=== PATIENT | female | born 1980 | race Two or more races ===

== ENCOUNTER 2019-11-30 06:59 | Outpatient (REF) | payer OTHER, SELFPAY | END 2019-11-30 07:00 | disposition home or self-care (01) | LOC: HO.LAB 06:59 | PROVIDERS: PCP Internal Medicine; Visit Provider Internal Medicine | DX: Z20.828 Contact with and (suspected) exposure to other viral communicable diseases (principal) | CPT/HCPCS: 36415; 87635 ==

== ENCOUNTER 2019-12-07 09:50 | Outpatient (REF) | payer OTHER, SELFPAY ==
[2019-12-07 10:12] LABS: COVID-19 Test Negative (Negative)
== END 2019-12-07 09:51 | disposition home or self-care (01) ==
LOC: HO.LAB 09:50
PROVIDERS: PCP Internal Medicine; Visit Provider Internal Medicine
DX: Z20.828 Contact with and (suspected) exposure to other viral communicable diseases (principal)
CPT/HCPCS: 87635

== ENCOUNTER → 2019-12-27 08:55 | Outpatient (BNVA) | payer OTHER, SELFPAY | PROVIDERS: PCP Internal Medicine; Referring Provider Internal Medicine; Visit Provider Orthopaedic Surgery | DX: R20.0 Anesthesia of skin (principal); M25.532 Pain in left wrist; M25.531 Pain in right wrist | CPT/HCPCS: 20526; 99212; J1100 ==

== ENCOUNTER 2020-08-03 09:44 | Outpatient (REF) | payer OTHER, SELFPAY ==
[2020-08-03 10:36] LABS: MANUAL DIFF FLAG NO
[2020-08-03 10:40] LABS: Basophils Percent Auto 0.1 % (0-2); Eosinophils Absolute Auto 0.1 X10*3/uL (0.0-0.4); Hematocrit 38.6 % (37-47); Hemoglobin 12.6 g/dl (12.0-16.0); Imm Gran Abs Auto 0.02 X10*3/uL (0.00-0.03); Imm Gran Pct Auto 0.3 % (0.0-0.4); Lymphocytes Absolute Auto 2.2 X10*3/uL (1.2-4.9); Lymphocytes Percent Auto 32.1 % (20-40); Mean Corpuscular HGB Conc 32.6 g/dl (31.0-35.0); Mean Corpuscular Hemoglobin 29.9 pg (27.0-33.0); Mean Corpuscular Volume 91.7 fL (80-98); Mean Platelet Volume 9.2 fL (9.4-12.3); Monocytes Absolute Auto 0.4 X10*3/uL (0.1-1.2); Monocytes Percent Auto 5.6 % (2-11); Neutrophils Absolute Auto 4.1 X10*3/uL (2.0-8.3); Neutrophils Percent Auto 60.9 % (45-73); Platelet Count 282 X10*3/uL (160-400); Red Blood Count 4.21 X10*6/uL (4.20-5.50); Red Cell Distribution Width 12.9 % (11.0-16.0); White Blood Count 6.8 X10*3/uL (4.8-10.8)
[2020-08-03 11:02] LABS: Alanine Aminotransferase 54 U/L (0-31); Albumin Level 4.1 g/dL (3.5-5.0); Alkaline Phosphatase 93 U/L (39-117); Anion Gap 11 (12-20); Aspartate Amino Transferase 46 U/L (5-31); Bilirubin Total 0.6 mg/dL (0.0-1.0); Blood Urea Nitrogen 12 mg/dL (9-16); Calcium 9.4 mg/dL (8.4-10.2); Carbon Dioxide 26 mmol/L (22-29); Chloride 103 mmol/L (96-108); Cholesterol 225 mg/dL; Estimated Glomerular Filt Rate > 60; Glucose Fasting 105 mg/dL (60-99); HDL Cholesterol 42 mg/dL; LDL Cholesterol Calculated 159 mg/dl; Potassium 4.3 mmol/L (3.3-5.1); Sodium 136 mmol/L (135-145); Total Protein 7.7 g/dL (6.5-8.0); Triglycerides 121 mg/dL
[2020-08-07 14:17] LABS: Vitamin D 25-OH, D2 <4 ng/mL; Vitamin D 25-OH, D3 20 ng/mL; Vitamin D 25-OH, Total 20 ng/mL (30-100)
== END 2020-08-03 09:45 | disposition home or self-care (01) ==
LOC: HO.LAB 09:44
PROVIDERS: PCP Internal Medicine; Visit Provider Internal Medicine
DX: D64.9 Anemia, unspecified (principal); R20.0 Anesthesia of skin; E78.5 Hyperlipidemia, unspecified; E55.9 Vitamin D deficiency, unspecified
CPT/HCPCS: 36415; 80053; 80061; 82306; 85025

== ENCOUNTER 2020-08-17 10:57 | Outpatient (REF) | payer OTHER, SELFPAY ==
--- NOTE | ~2020-08-17 | MM_ITS ---
EXAMINATION: MM SCREENING DIGITAL BREAST TOMOSYNTHESIS, BILATERAL CLINICAL INFORMATION: Screening. Asymptomatic. The lifetime risk of breast cancer based on the Tyrer-Cuzick Model is 7%. COMPARISON: Mammography: 06/11/2016 (baseline). TECHNIQUE: Digital breast tomosynthesis is performed in both the craniocaudal and mediolateral oblique views along with computer-aided detection (CAD). Synthesized 2D images are generated from the tomosynthesis. FINDINGS: There are scattered areas of fibroglandular density (ACR BI-RADS breast composition Category b). There are no significant masses, abnormal calcifications, or other abnormalities. Parenchymal pattern is similar to prior exam. The axilla and skin contours are unremarkable. MM/MM tomosynthesis screening BI IMPRESSION: No mammographic evidence of malignancy. ASSESSMENT: BI-RADS 1: Negative RECOMMENDATION: Routine annual mammography screening. This patient's information was entered into a reminder system with a target due date for their next mammogram.
== END 2020-08-17 10:58 | disposition home or self-care (01) ==
LOC: HO.MAMMO 10:57
PROVIDERS: PCP Internal Medicine; Visit Provider Internal Medicine
DX: Z12.31 Encounter for screening mammogram for malignant neoplasm of breast (principal)
CPT/HCPCS: 77063; 77067

== ENCOUNTER 2020-09-21 09:02 | Outpatient (REF) | payer OTHER, SELFPAY ==
--- NOTE | 2020-09-21 09:05 | EMG_ITS ---
Bilateral median and ulnar motor and sensory studies were performed. Bilateral radial sensory studies were performed and paraspinal muscles were tested. IMPRESSION: 1. [id number]-[id number] right median neuropathy across carpal tunnel. 2. Mild bilateral ulnar neuropathy across cubital tunnel. MD HODA Parr/MARCUS / [phone]
== END 2020-09-21 09:03 | disposition home or self-care (01) ==
LOC: HO.NEURO 09:02
PROVIDERS: Visit Provider Orthopaedic Surgery
DX: R20.0 Anesthesia of skin (principal)
CPT/HCPCS: 95886; 95911

== ENCOUNTER → 2020-10-11 09:50 | Outpatient (BNVA) | payer OTHER, SELFPAY | PROVIDERS: Visit Provider Orthopaedic Surgery | DX: G56.03 Carpal tunnel syndrome, bilateral upper limbs (principal); G56.23 Lesion of ulnar nerve, bilateral upper limbs | CPT/HCPCS: 99202 ==

== ENCOUNTER 2020-11-07 05:55 | Day surgery (SDC) | payer OTHER, SELFPAY ==
--- NOTE | 2020-11-06 08:17 | P.CONAN_ITS ---
Documented by User: Mabel Waller NP 11/06/20 08:18 HPI - Anesthesia Eval Consult details Narrative: 40yo F for Left Carpal Tunnel Release, Cubital Tunnel Release vs Transposition *Multiple med allergies* PMFSH Active Problems Active Problems: All Active Problems (Updated 10/11/20 @ 10:47 by Jaye Moran MD) Cubital tunnel syndrome on right (Acute) Carpal tunnel syndrome of right wrist (Acute) Cubital tunnel syndrome on left (Acute) Carpal tunnel syndrome of left wrist (Acute) Dyslipidemia (Acute) Hypovitaminosis D (Acute) GERD (gastroesophageal reflux disease) (Acute) Acute insomnia (Acute) Constipation (Acute) Bilateral hand numbness (Acute) Past Medical History Medical History Acute insomnia Bilateral hand numbness Constipation Dyslipidemia GERD (gastroesophageal reflux disease) Hypovitaminosis D Family History Family History Father Hypertension Diabetes CVD (cardiovascular disease) Mother Hypertension Surgical History Surgical History History of section History of tubal ligation Social History Social History Housing: Apartment Alcohol intake: current Alcohol intake frequency: holidays/special occasions only Alcohol type: wine Patient Tobacco Use Status: Never used Tobacco e-Cigarette/Vaping Use: Never Used Second Hand Smoke Exposure: No Use of substances other than those prescribed or required for medical reasons: No Are you DNR?: No Advance Directives: No Advance Directives Information Provided: Yes service: No Current occupational status: employed 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 Allergies Allergy/AdvReac Type Severity Reaction Status Date / Time hydrocodone [HYDROCODONE] Allergy Severe DIFFICULTY Verified 11/07/20 06:35 BREATHING codeine Allergy Intermediate shortness Verified 11/07/20 06:35 of breath cyclobenzaprine Allergy Intermediate sleepiness Verified 11/07/20 06:35 nabumetone Allergy Intermediate inadequate Verified 11/07/20 06:35 response tramadol Allergy Intermediate sleepiness Verified 11/07/20 06:35 mirtazapine [Remeron] AdvReac Intermediate vomiting Verified 11/07/20 06:35 docusate [From Colace] AdvReac Mild Vomiting Verified 11/07/20 06:35 Exam Exam Date and Time: November 06, 202017 Pertinent Lab Results Pertinent Lab Results: Laboratory Tests 08/03/20 08/03/20 10:10 10:10 WBC 6.8 Hgb 12.6 Hct 38.6 Plt Count 282 Sodium 136 Potassium 4.3 Chloride 103 Carbon Dioxide 26 BUN 12 Creatinine 0.70 Assessment and Plan Assessment Anesthesia Assessment: Chart Reviewed Documented by User: Keyshawn Duque MD 11/07/20 09:48 PMFSH Past Medical History Medical History Acute insomnia Bilateral hand numbness Constipation Dyslipidemia GERD (gastroesophageal reflux disease) Hypovitaminosis D Family History Family History Father Hypertension Diabetes CVD (cardiovascular disease) Mother Hypertension Family history of problems with anesthesia: No Surgical History Surgical History History of section History of tubal ligation History of Problems with Anesthesia: No Social History Social History Housing: Apartment Alcohol intake: current Alcohol intake frequency: holidays/special occasions only Alcohol type: wine Patient Tobacco Use Status: Never used Tobacco e-Cigarette/Vaping Use: Never Used Second Hand Smoke Exposure: No Use of substances other than those prescribed or required for medical reasons: No Are you DNR?: No Advance Directives: No Advance Directives Information Provided: Yes service: No Current occupational status: employed 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 Allergies Allergy/AdvReac Type Severity Reaction Status Date / Time hydrocodone [HYDROCODONE] Allergy Severe DIFFICULTY Verified 11/07/20 06:35 BREATHING codeine Allergy Intermediate shortness Verified 11/07/20 06:35 of breath cyclobenzaprine Allergy Intermediate sleepiness Verified 11/07/20 06:35 nabumetone Allergy Intermediate inadequate Verified 11/07/20 06:35 response tramadol Allergy Intermediate sleepiness Verified 11/07/20 06:35 mirtazapine [Remeron] AdvReac Intermediate vomiting Verified 11/07/20 06:35 docusate [From Colace] AdvReac Mild Vomiting Verified 11/07/20 06:35 Exam Airway Mallampati Class: III TM Dist: >3cm Loose/Missing/Broken Teeth: No Assessment and Plan Assessment Anesthesia Assessment: Anesthesia Plan Discussed Final Anesthetic Review Family History of Problems with Anesthesia: No History of Problems with Anesthesia: No NPO: Yes ASA Class: II Final Preanesthetic Review: No Changes in Pt Med Stat, Meds/Allgs Chart Reviewed, Consent Obtained/Reviewed and Anes Risks/Benef Reviewed Patient Risk: Intermediate Procedure Risk: Low Anesthetic Plan Anesthetic Plan: GA Disposition: Standard PACU
[2020-11-07] VITALS (8 sets, daily range): BP systolic 126–147; BP diastolic 74–98; PULSE 97–113; RESP 18; TEMP 36.2–36.3; O2SAT 94–97; BMI 36.6
[2020-11-07] MEDS: Lactated Ringers 1,000 ML 100 ML IVCONT (06:51)
--- NOTE | 2020-11-07 09:49 | P.OP_ITS ---
Operative Note Operative Note Date of Service: 11/07/20 Narrative: Operative Note Narrative: Preop diagnosis: 1. Left Cubital tunnel syndrome 2. Left carpal tunnel syndrome Postop diagnosis: Same Procedure: 1. Left Cubital Tunnel Release 2. Left carpal tunnel release Surgeon: Jaye Moran MD Anesthesia: General Findings: Thickening and fibrosis about the ulnar nerve at the cubital tunnel Implants: none Tourniquet time: 41 minutes EBL: 5.0 ml Specimen: none Drains: None Complications: None Disposition: Brought to the recovery room in stable condition Plan: Follow-up in 10-14 days for wound check, and suture removal Indications: The patient is 40 years old woman with left cubital tunnel syndrome and left carpal tunnel syndrome . The risks and benefits of operative treatment, including but not limited to risk of damage to blood vessels, nerves, tendons, infection, recurrence, persistent pain or numbness, incomplete resolution of preoperative symptoms, or need for further surgery were discussed with the patient and they wished to proceed with surgery. Procedure: Once consent was obtained patient was brought back to the operating suite and placed in the operating table in a supine position. Perioperative antibiotics and anesthesia was administered by the anesthesia team. The limb was prepped and draped in a standard surgical fashion, and a sterile tourniquet applied to the proximal aspect of the left upper extremity. The limb was elevated exsanguinated with Esmarch bandage and the tourniquet inflated to 250 mm of mercury for a total tourniquet time of 41 minutes. Once assured that we had a good block, a 1.5 cm longitudinal incision was made centered over the left carpal tunnel. The incision was made through the skin to the subcutaneous tissues using a #15 blade. Dissection was made down to the l evel of the transverse carpal ligament with care being taken to protect the palmar cutaneous nerve. Once the transverse carpal ligament was clearly visualized, a longitudinal incision was made in the transverse carpal ligament 1st using a #15 blade, then using tenotomy scissors under direct visualization. Care was taken to look for and protect the motor branch of the median nerve when seen in this area. Once satisfied with our carpal tunnel release the wound was irrigated with normal saline. A 6 cm gently curved but longitudinally oriented incision was made centered over the cubital tunnel of the left upper extremity. Incision was made through the skin to the subcutaneous tissues using a # 15 Blade. I then dissected down to the level of the medial epicondyle and the cubital tunnel using tenotomy scissors. Care was taken to protect the lateral antebrachial cutaneous nerve. The ulnar nerve was identified just posterior to the medial intermuscular septum. Small vessel loop was passed behind the ulnar nerve and used to apply gentle traction to facilitate our release. The ulnar nerve was released in a proximal to distal direction using tenotomy in iris scissors while directly visualizing and protecting the ulnar nerve. Thickening and fibrosis was appreciated about the ulnar nerve as it passed through the cubital tunnel. The ulnar nerve was assessed as I passed the elbow through full flexion and extension and was found to remain stable within its groove. At this point the tourniquet was deflated and hemostasis obtained with a brief period of local pressure and bipolar electrocautery. The wound was copiously irrigated with normal saline. The subcutaneous layer was closed with 4-0 Vicryl suture, and the skin edges were reapproximated with 5-0 nylon suture. The wound was infiltrated with some 0.25% plain Marcaine for postop pain control and sterile dressings and a posterior splint was applied. The patient appears to have tolerated the procedure well and with no complications. All digits were well vascularized conclusion of the case.
--- NOTE | 2020-11-07 09:49 | MHC.SHP ---
Pre-Procedural Eval Section A Date of Service: 11/07/20 The patient is an INPATIENT: No Changes since office visit: No Cold of Flu in the past 2 weeks, No New Medical Problems, No Changes in Medication and No Patient answered all questions The History & Physical has been completed within 30 days and I have reviewed it.: Yes Section B Chief Complaint: Lesions of Ulnar Nerves, Carpal Tunnel Syndrome Allergies: Allergies Allergy/AdvReac Type Severity Reaction Status Date / Time hydrocodone [HYDROCODONE] Allergy Severe DIFFICULTY Verified 11/07/20 06:35 BREATHING codeine Allergy Intermediate shortness Verified 11/07/20 06:35 of breath cyclobenzaprine Allergy Intermediate sleepiness Verified 11/07/20 06:35 nabumetone Allergy Intermediate inadequate Verified 11/07/20 06:35 response tramadol Allergy Intermediate sleepiness Verified 11/07/20 06:35 mirtazapine [Remeron] AdvReac Intermediate vomiting Verified 11/07/20 06:35 docusate [From Colace] AdvReac Mild Vomiting Verified 11/07/20 06:35 Plan I have reviewed the history and physical and performed a pertinent physical examination on my patient. No changes have occurred unless specified.
== END 2020-11-07 11:15 | disposition home or self-care (01) ==
PROVIDERS: PCP Internal Medicine; Visit Provider Orthopaedic Surgery
PROC: (CPT 64721; principal; 2020-11-07 07:30)
DX: G56.02 Carpal tunnel syndrome, left upper limb (principal); G56.22 Lesion of ulnar nerve, left upper limb; Z88.8 Allergy status to other drugs, medicaments and biological substances
CPT/HCPCS: 64721; 64718; J0690; J1100; J1170; J1885; J2250; J2405; J2550; J3010

== ENCOUNTER 2020-11-10 15:06 | Emergency (ER) | payer OTHER, SELFPAY ==
--- NOTE | ~2020-11-10 | CT_ITS ---
EXAMINATION: CT ABDOMEN AND PELVIS WITHOUT CONTRAST CLINICAL INFORMATION: Status post hysterectomy with no bowel movement x5 days COMPARISON: 12/25/2017, CT abdomen pelvis TECHNIQUE: Multidetector volumetric imaging was performed from the superior aspect of the liver through the pubic symphysis. Sagittal and coronal reformatted images were obtained on the technologist's workstation. This CT examination was performed using dose optimization techniques as appropriate, variously including the following: *Automated exposure control *Adjustment of mA and/or kV according to patient size (this includes techniques or standardized protocols for targeted exams where dose is matched to indication/reason for exam; i.e. extremities or head) *Use of iterative reconstruction technique DLP: 788 mGy-cm FINDINGS: LUNG BASES: Right basilar atelectasis is present slightly worse than previously noted. No pleural effusions or abnormal lung masses seen LIVER, GALLBLADDER, AND BILIARY TREE: The liver is enlarged measuring 21.7 cm in greatest cephalocaudad dimension and demonstrates decreased attenuation consistent with hepatic steatosis. Some focal fatty sparing is present around the gallbladder fossa. Similar findings were present on the 12/25/2017 study. No bile duct dilatation or focal worrisome hepatic mass seen. The gallbladder is unremarkable with no evidence of radiopaque gallstones, gallbladder wall thickening, or obvious pericholecystic inflammatory changes. PANCREAS: Unremarkable. SPLEEN: Unremarkable. ADRENAL GLANDS: Unremarkable. KIDNEYS AND URETERS: The kidneys are normal in size, shape, and attenuation. No hydronephrosis, hydroureter, or calculi seen. Previously seen obstructing distal right ureteral calculus with associated right-sided hydronephrosis has resolved. No perinephric stranding. BLADDER: Unremarkable. GASTROINTESTINAL TRACT: Moderate stool is present in the rectum, with gas and stool seen throughout the remainder of the colon. The small and large bowel are unremarkable. No evidence of bowel obstruction. The appendix is unremarkable. ABDOMINAL WALL: No significant hernia is appreciated. LYMPH NODES: Normal. VASCULAR: Unremarkable. PELVIC VISCERA: Status post hysterectomy. Both ovaries are seen. Bilateral ovarian cysts are present. OSSEOUS STRUCTURES: Unremarkable. CT/CT abdomen pelvis wo con IMPRESSION: 1. Enlarged fatty liver 2. Moderate stool in the rectum but no evidence of obstruction.
--- NOTE | 2020-11-10 16:46 | ED.ABDPAIN ---
HPI - Abdominal Pain General Chief Complaint: Abdominal Pain Stated Complaint: vag bleeding? Time Seen by Provider: 11/10/20 16:43 Source: patient, family and aviation neuropsychologist Mode of arrival: ambulatory Limitations: no limitations History of Present Illness HPI narrative: 40-year-old female came in for evaluation of constipation for the past 5 days. 40-year-old female came in unable to have bowel movement for the past 5 days, patient used multiple oxrd-xcx-zcviboc laxative with no improvement, patient feels mild nausea but no vomiting, mild but diffuse abdominal discomfort, patient sometimes try to push out for bowel movement sees bright red blood per rectum, patient also feels small hemorrhoid in the outside. Patient had a history of hysterectomy and tubal ligation in the past, never had a history of small-bowel obstruction. Related Data Previous Rx's Medication Instructions Recorded Wrist Brace (arm brace) #1 ea NS 12/28/19 arm brace (Wrist Brace) #1 ea 12/29/19 pantoprazole 40 mg tablet,delayed 40 mg PO DAILY 90 Days #90 tab 06/01/20 release cholecalciferol (vitamin D3) 25 25 mcg PO DAILY 90 Days #90 cap 10/03/20 mcg (1,000 unit) capsule gabapentin 100 mg capsule 100 mg PO BEDTIME 90 Days #90 cap 10/03/20 lactulose 10 gram/15 mL oral 10 g PO BEDTIME PRN 30 Days #237 ml 10/03/20 solution rosuvastatin 5 mg tablet 5 mg PO DAILY 90 Days #90 tab 10/03/20 trazodone 50 mg tablet 50 mg PO BEDTIME PRN 90 Days #90 10/03/20 tab oxycodone-acetaminophen 5 mg-325 1 - 2 tab PO Q6H PRN #20 tab 11/07/20 mg tablet Allergies Allergy/AdvReac Type Severity Reaction Status Date / Time hydrocodone [HYDROCODONE] Allergy Severe DIFFICULTY Verified 11/07/20 06:35 BREATHING codeine Allergy Intermediate shortness Verified 11/07/20 06:35 of breath cyclobenzaprine Allergy Intermediate sleepiness Verified 11/07/20 06:35 nabumetone Allergy Intermediate inadequate Verified 11/07/20 06:35 response tramadol Allergy Intermediate sleepiness Verified 11/07/20 06:35 mirtazapine [Remeron] AdvReac Intermediate vomiting Verified 11/07/20 06:35 docusate [From Colace] AdvReac Mild Vomiting Verified 11/07/20 06:35 Review of Systems Review of Systems All other systems are reviewed and are negative Constitutional: Reports as per HPI and Reports no additional constitutional complaints Eyes: Reports as per HPI and Reports no additional eye complaints Reports system reviewed and no additional complaints, except as documented Cardiovascular: Reports as per HPI and Reports no additional cardiovascular complaints Respiratory: Reports as per HPI and Reports no additional respiratory complaints Gastrointestinal: Reports as per HPI and Reports no additional gastrointestinal complaints Genitourinary: Reports no additional female genitourinary complaints Musculoskeletal: Reports no additional musculoskeletal complaints Skin/Breast: Reports system reviewed and no additional complaints, except as docu Psychiatric: Reports no additional psychiatric complaints Endocrine: Reports no additional endocrine complaints Hematologic/Lymphatic: Reports no additional hematologic/lymphatic complaints Allergic/Immunologic: Reports no additional allergic/immunologic complaints Reports system reviewed and no additional complaints, except as documented and Reports Abnormal speech present Physical Exam Vital Signs: Vital Signs: Last Vital Signs Temp 98.6 F 11/10/20 20:38 Pulse 87 11/10/20 20:38 Resp 16 11/10/20 20:38 BP 146/81 H 11/10/20 20:38 Pulse Ox 95 11/10/20 20:38 Body Mass Index 37.5 Vital signs have been reviewed as appeared to be correct. Blood pressure normal. Heart rate normal. Respiration rate normal. Temperature normal. Oxygen saturation normal. Appearance: Alert. Oriented X3. No acute distress. Head: Normal external exam. Normocephalic. Atraumatic. No Thomas signs noted. No raccoon eyes noted Eyes: PERRLA. EOMI. Conjunctiva and sclera normal. Eyelids normal. ENT: TM's Normal. Pharynx normal. Uvula midline. Moist mucous membranes. No trismus noted. No drooling noted. No muffled voice noted. Neck: Normal inspection. Neck supple. FROM. No adenopathy. Thyroid Normal. No meningeal signs. No neck mass noted. CVS: Normal heart rate and rhythm. Heart sound normal. No murmurs noted. Pulses normal throughout. Respiratory: No respiratory distress. Painless inspiration. Breath sounds normal. No wheezes/rales/rhonchi noted. Chest nontender. No accessory muscle usage noted or decreased air movement noted. Abdomen: Soft, mild diffuse tenderness more on the left side than the right side, no rebound tenderness, no guarding. Bowel sounds normal in all 4 quadrants. No distention noted. No organomegaly noted. No visible injury noted. Back: No CVA tenderness. Full range of motion noted. Skin: Skin warm and dry. Normal skin color. Normal skin turgor. No rashes/lesions/lacerations noted. Extremities: No lower extremity edema. Extremities exhibit normal range of motion. Extremities nontender. Neuro: Oriented X 3. Cranial nerve exam: II-XII are grossly intact No motor deficit. No sensory deficit. Reflexes normal. Course Course Course Narrative: Assessment and plan. 40-year-old female came in with abdominal pain and no bowel movement, physical exam and CT of the abdomen pelvis revealed constipation. Patient was received rectal enema and milk of magnesia still unable to move her bowel, will discharge, instructed to drink plenty of fluids until have a bowel movement. Few WBCs in the UA but patient has no symptoms to indicate UTI. MDM - Abdominal Pain Lab Data Attestation: I reviewed the patient's lab results. Result diagrams: 11/10/20 17:06 11/10/20 17:06 Labs: Lab Results 11/10/20 11/10/20 11/10/20 Range/Units 17:06 17:06 17:07 WBC 10.1 (4.8-10.8) X10*3/uL RBC 4.17 L (4.20-5.50) X10*6/uL Hgb 12.8 (12.0-16.0) g/dl Hct 37.1 (37-47) % MCV 89.0 (80-98) fL MCH 30.7 (27.0-33.0) pg MCHC 34.5 (31.0-35.0) g/dl RDW 12.8 (11.0-16.0) % Plt Count 282 (160-400) X10*3/uL MPV 8.9 L (9.4-12.3) fL Immature Gran % (Auto) 0.4 (0.0-0.4) % Neut % (Auto) 72.3 (45-73) % Lymph % (Auto) 20.4 (20-40) % Castro % (Auto) 5.7 (2-11) % Eos % (Auto) 1.0 (0-4) % Baso % (Auto) 0.2 (0-2) % Lymph # (Auto) 2.1 (1.2-4.9) X10*3/uL Castro # (Auto) 0.6 (0.1-1.2) X10*3/uL Eos # (Auto) 0.1 (0.0-0.4) X10*3/uL Baso # (Auto) 0.0 (0.0-0.2) X10*3/uL Abs Immat Gran (auto) 0.04 H (0.00-0.03) X10*3/uL Absolute Neuts (auto) 7.3 (2.0-8.3) X10*3/uL Absolute Nucleated RBC 0.000 (0.0-0.012) X10*3/uL Nucleated RBC % (auto) 0.0 (0.0-0.2) /100WBC Sodium 135 (135-145) mmol/L Potassium 4.1 (3.3-5.1) mmol/L Chloride 101 (96-108) mmol/L Carbon Dioxide 25 (22-29) mmol/L Anion Gap 13 (12-20) BUN 14 (9-16) mg/dL Creatinine 0.69 (0.5-1.4) mg/dL Estim Creat Clear Calc 113.9 Estimated GFR > 60 Random Glucose 138 H (60-115) mg/dL Calcium 9.1 (8.4-10.2) mg/dL Total Bilirubin 0.7 (0.0-1.0) mg/dL Direct Bilirubin 0.2 (0.0-0.5) mg/dL AST 58 H (5-31) U/L ALT 59 H (0-31) U/L Alkaline Phosphatase 88 (39-117) U/L Total Protein 7.5 (6.5-8.0) g/dL Albumin 4.1 (3.5-5.0) g/dL Lipase 28 (8-78) U/L Beta HCG, Quant < 2 mIU/mL Urine Color Urine Appearance Urine pH (5.0-8.0) Ur Specific [place] (1.005-1.025) Urine Protein (NEG-TRACE) MG/DL Urine Glucose (UA) (NEG) MG/DL Urine Ketones (NEG) MG/DL Urine Blood (NEG) Urine Nitrite (NEG) Ur Leukocyte Esterase (NEG) Urine RBC (0) /HPF Urine WBC (0-4) /HPF Ur Squamous Epith Cells /LPF Amorphous Sediment /LPF Urine Bacteria /LPF Urine Yeast /HPF Stool Occult Blood POSITIVE (NEGATIVE) 11/10/20 Range/Units 20:41 WBC (4.8-10.8) X10*3/uL RBC (4.20-5.50) X10*6/uL Hgb (12.0-16.0) g/dl Hct (37-47) % MCV (80-98) fL MCH (27.0-33.0) pg MCHC (31.0-35.0) g/dl RDW (11.0-16.0) % Plt Count (160-400) X10*3/uL MPV (9.4-12.3) fL Immature Gran % (Auto) (0.0-0.4) % Neut % (Auto) (45-73) % Lymph % (Auto) (20-40) % Castro % (Auto) (2-11) % Eos % (Auto) (0-4) % Baso % (Auto) (0-2) % Lymph # (Auto) (1.2-4.9) X10*3/uL Castro # (Auto) (0.1-1.2) X10*3/uL Eos # (Auto) (0.0-0.4) X10*3/uL Baso # (Auto) (0.0-0.2) X10*3/uL Abs Immat Gran (auto) (0.00-0.03) X10*3/uL Absolute Neuts (auto) (2.0-8.3) X10*3/uL Absolute Nucleated RBC (0.0-0.012) X10*3/uL Nucleated RBC % (auto) (0.0-0.2) /100WBC Sodium (135-145) mmol/L Potassium (3.3-5.1) mmol/L Chloride (96-108) mmol/L Carbon Dioxide (22-29) mmol/L Anion Gap (12-20) BUN (9-16) mg/dL Creatinine (0.5-1.4) mg/dL Estim Creat Clear Calc Estimated GFR Random Glucose (60-115) mg/dL Calcium (8.4-10.2) mg/dL Total Bilirubin (0.0-1.0) mg/dL Direct Bilirubin (0.0-0.5) mg/dL AST (5-31) U/L ALT (0-31) U/L Alkaline Phosphatase (39-117) U/L Total Protein (6.5-8.0) g/dL Albumin (3.5-5.0) g/dL Lipase (8-78) U/L Beta HCG, Quant mIU/mL Urine Color STRAW Urine Appearance CLEAR Urine pH 8.0 (5.0-8.0) Ur Specific [place] 1.010 (1.005-1.025) Urine Protein NEG (NEG-TRACE) MG/DL Urine Glucose (UA) NEG (NEG) MG/DL Urine Ketones NEG (NEG) MG/DL Urine Blood NEG (NEG) Urine Nitrite NEG (NEG) Ur Leukocyte Esterase 1+ H (NEG) Urine RBC 1-4 (0) /HPF Urine WBC 5-9 H (0-4) /HPF Ur Squamous Epith Cells 1+ /LPF Amorphous Sediment TRACE /LPF Urine Bacteria TRACE /LPF Urine Yeast TRACE /HPF Stool Occult Blood (NEGATIVE) Imaging Data CT scan - abdomen: Radiologist's impression: 1.? Enlarged fatty liver 2.? Moderate stool in the rectum but no evidence of obstruction.? Discharge Plan Discharge Clinical Impression: Constipation Patient Disposition: Home, Self-Care Instructions: Constipation (ED) Prescriptions: No Action oxycodone-acetaminophen 5-325 mg tablet 1 - 2 tab PO Q6H PRN (Reason: pain) Qty: 20 RF: 0 pantoprazole 40 mg tablet,delayed release (DR/EC) 40 mg PO DAILY 90 Days Qty: 90 RF: 3 lactulose 10 gram/15 mL solution 10 g PO BEDTIME PRN (Reason: constipation) 30 Days Qty: 237 RF: 3 trazodone 50 mg tablet 50 mg PO BEDTIME PRN (Reason: sleep) 90 Days Qty: 90 RF: 1 cholecalciferol (vitamin D3) 25 mcg (1,000 unit) capsule 25 mcg PO DAILY 90 Days Qty: 90 RF: 1 rosuvastatin 5 mg tablet 5 mg PO DAILY 90 Days Qty: 90 RF: 1 gabapentin 100 mg capsule 100 mg PO BEDTIME 90 Days Qty: 90 RF: 0 (DME) Wrist Brace Misc See Rx Instructions .ROUTE .MEDSUPPLY Qty: 1 RF: 0 (DME) Wrist Brace Misc See Rx Instructions .ROUTE .MEDSUPPLY Qty: 1 RF: 0 Referrals: Mirta Kitchen MD [Primary Care Provider] - 2 days PMFSH Past Medical History Medical History Acute insomnia Bilateral hand numbness Constipation Dyslipidemia GERD (gastroesophageal reflux disease) Hypovitaminosis D Surgical History History of section History of tubal ligation Family History Family History Father Hypertension Diabetes CVD (cardiovascular disease) Mother Hypertension Social History Social History Housing: Apartment Alcohol intake: current Alcohol intake frequency: does not drink Alcohol type: wine Patient Tobacco Use Status: Never used Tobacco e-Cigarette/Vaping Use: Never Used Second Hand Smoke Exposure: No Use of substances other than those prescribed or required for medical reasons: No Advance Directives: No Advance Directives Information Provided: No service: No Current occupational status: employed 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
[2020-11-10 16:52] VITALS: BP 138/85; PULSE 90; RESP 16; TEMP 37.3; O2SAT 96; BMI 37.5
[2020-11-10 17:12] LABS: MANUAL DIFF FLAG NO
[2020-11-10] MEDS: 0.9 % Sodium Chloride 1,000 ML 999 ML IVCONT (17:12)
[2020-11-10 17:13] LABS: Basophils Percent Auto 0.2 % (0-2); Eosinophils Absolute Auto 0.1 X10*3/uL (0.0-0.4); Hematocrit 37.1 % (37-47); Hemoglobin 12.8 g/dl (12.0-16.0); Imm Gran Abs Auto 0.04 X10*3/uL (0.00-0.03); Imm Gran Pct Auto 0.4 % (0.0-0.4); Lymphocytes Absolute Auto 2.1 X10*3/uL (1.2-4.9); Lymphocytes Percent Auto 20.4 % (20-40); Mean Corpuscular HGB Conc 34.5 g/dl (31.0-35.0); Mean Corpuscular Hemoglobin 30.7 pg (27.0-33.0); Mean Platelet Volume 8.9 fL (9.4-12.3); Monocytes Absolute Auto 0.6 X10*3/uL (0.1-1.2); Monocytes Percent Auto 5.7 % (2-11); Neutrophils Absolute Auto 7.3 X10*3/uL (2.0-8.3); Neutrophils Percent Auto 72.3 % (45-73); Platelet Count 282 X10*3/uL (160-400); Red Blood Count 4.17 X10*6/uL (4.20-5.50); Red Cell Distribution Width 12.8 % (11.0-16.0); White Blood Count 10.1 X10*3/uL (4.8-10.8)
[2020-11-10] MEDS: Milk of Magnesia 30 ML ORAL.SUSP PO (17:13)
[2020-11-10] MEDS: Mineral OiL enema 133 ML ENEMA PR (17:14)
[2020-11-10 17:21] LABS: OBS Int Ctl Valid YES; OBS1 POSITIVE (NEGATIVE)
--- NOTE | 2020-11-10 17:35 | PC.NURSE ---
IV established, labs sent. Pt given MOM and mineral oil enema given, pt attempting to retain at this time
[2020-11-10 17:37] LABS: Alanine Aminotransferase 59 U/L (0-31); Albumin Level 4.1 g/dL (3.5-5.0); Alkaline Phosphatase 88 U/L (39-117); Anion Gap 13 (12-20); Aspartate Amino Transferase 58 U/L (5-31); Bilirubin Direct 0.2 mg/dL (0.0-0.5); Bilirubin Total 0.7 mg/dL (0.0-1.0); Blood Urea Nitrogen 14 mg/dL (9-16); Calcium 9.1 mg/dL (8.4-10.2); Carbon Dioxide 25 mmol/L (22-29); Chloride 101 mmol/L (96-108); Creatinine Clr Calc Pharmacy 113.9; Estimated Glomerular Filt Rate > 60; Glucose Random 138 mg/dL (60-115); Lipase 28 U/L (8-78); Potassium 4.1 mmol/L (3.3-5.1); Sodium 135 mmol/L (135-145); Total Protein 7.5 g/dL (6.5-8.0)
[2020-11-10 18:59] VITALS: BP 139/83; PULSE 82; RESP 16; TEMP 37.1; O2SAT 99
[2020-11-10 19:13] LABS: HCG Quantitative < 2 mIU/mL
[2020-11-10 20:38] VITALS: BP 146/81; PULSE 87; RESP 16; TEMP 37; O2SAT 95
[2020-11-10 21:00] LABS: Appearance Urine CLEAR; Color Urine STRAW; Glucose Urine UA NEG (NEG); Leukocyte Esterase Urine 1+ (NEG); Nitrite Urine NEG (NEG); UACC Culture Trigger YES; Urine Blood NEG (NEG); Urine Ketones NEG (NEG); Urine Protein NEG (NEG-TRACE)
[2020-11-10 21:23] LABS: Squamous Epithelial Cell Urine 1+ /LPF
[2020-11-10 21:25] LABS: Amorphous Sediment Urine TRACE /LPF; Bacteria Urine TRACE /LPF
== END 2020-11-10 22:29 | disposition home or self-care (01) ==
PROVIDERS: Emergency Provider Emergency Medicine; PCP Internal Medicine
DX: K59.00 Constipation, unspecified (principal); R10.9 Unspecified abdominal pain; Z79.899 Other long term (current) drug therapy
CPT/HCPCS: 36415; 74176; 80048; 80076; 81001; 81003; 82272; 83690; 84702; 85025; 87086; 96360; 99284

== ENCOUNTER → 2020-11-20 10:25 | Outpatient (BNVA) | payer OTHER, SELFPAY | PROVIDERS: PCP Internal Medicine; Visit Provider Orthopaedic Surgery | DX: G56.22 Lesion of ulnar nerve, left upper limb (principal); G56.02 Carpal tunnel syndrome, left upper limb | CPT/HCPCS: 99212 ==

== ENCOUNTER 2021-07-05 12:59 | Emergency (ER) | payer OTHER, SELFPAY ==
[2021-07-05 14:24] VITALS: BP 164/95; PULSE 82; RESP 16; TEMP 36.4; O2SAT 98; BMI 37.3
[2021-07-05 14:40] LABS: MANUAL DIFF FLAG NO
[2021-07-05 14:44] LABS: Basophils Percent Auto 0.2 % (0-2); Eosinophils Absolute Auto 0.1 X10*3/uL (0.0-0.4); Eosinophils Percent Auto 1.6 % (0-4); Hematocrit 37.1 % (37.0-47.0); Hemoglobin 12.6 g/dl (12.0-16.0); Imm Gran Abs Auto 0.03 X10*3/uL (0.00-0.03); Imm Gran Pct Auto 0.3 % (0.0-0.4); Lymphocytes Absolute Auto 1.9 X10*3/uL (1.2-4.9); Lymphocytes Percent Auto 22.3 % (20-40); Mean Corpuscular Hemoglobin 30.4 pg (27.0-33.0); Mean Corpuscular Volume 89.6 fL (80.0-98.0); Mean Platelet Volume 8.9 fL (9.4-12.3); Monocytes Absolute Auto 0.5 X10*3/uL (0.1-1.2); Monocytes Percent Auto 5.5 % (2-11); Neutrophils Percent Auto 70.1 % (45-73); Platelet Count 271 X10*3/uL (160-400); Red Blood Count 4.14 X10*6/uL (4.20-5.50); White Blood Count 8.6 X10*3/uL (4.8-10.8)
[2021-07-05 14:57] LABS: Alanine Aminotransferase 21 U/L (0-31); Alkaline Phosphatase 82 U/L (39-117); Anion Gap 9 (12-20); Aspartate Amino Transferase 15 U/L (5-31); Bilirubin Direct 0.2 mg/dL (0.0-0.5); Bilirubin Total 0.3 mg/dL (0.0-1.0); Blood Urea Nitrogen 17 mg/dL (9-16); Calcium 9.2 mg/dL (8.4-10.2); Carbon Dioxide 27 mmol/L (22-29); Chloride 104 mmol/L (96-108); Creatinine Clr Calc Pharmacy 107.8; Estimated Glomerular Filt Rate > 60; Glucose Random 90 mg/dL (60-115); Potassium 4.2 mmol/L (3.3-5.1); Sodium 136 mmol/L (135-145); Total Protein 7.9 g/dL (6.5-8.0)
--- NOTE | 2021-07-05 17:21 | ED_ITS ---
HPI - Abdominal Pain General Chief Complaint: Abdominal Pain Stated Complaint: upper abd pain Time Seen by Provider: 07/05/21 17:19 Source: patient Mode of arrival: ambulatory Limitations: language barrier ([place]ai[place]ese-speaking neuropsychology medical consultant utilized) History of Present Illness HPI narrative: Patient presents to the emergency department for evaluation of epigastric pain. Has associated intermittent nausea. She reports that this pain has been present for 5 years. Reports that 5 years ago she was referred to a GI doctor where they did an endoscopy and she was told that she has gastritis. She reports that since then her primary care doctor has been managing her symptoms for this. Reports that she previously was taking omeprazole but this was not helping her symptoms. She was switched to Protonix at some point, she is unaware of how long she has been taking Protonix. Despite this however, she states that her pain continues to be constant without any improvement. Expresses concern that her maternal aunt has a history of stomach cancer, and her mother has a history of pancreatic cancer. Denies fevers, chills, sore throat, chest pain, palpitations, shortness of breath, difficulty breathing, nausea, vomiting, lower abdominal pain, diarrhea, constipation, urinary frequency urinary urgency. Related Data Previous Rx's Medication Instructions Recorded cholecalciferol (vitamin D3) 25 25 mcg PO DAILY 90 Days #90 cap 02/13/21 mcg (1,000 unit) capsule pantoprazole 40 mg tablet,delayed 40 mg PO DAILY 90 Days #90 tab 02/13/21 release rosuvastatin 5 mg tablet 5 mg PO DAILY 90 Days #90 tab 02/13/21 naproxen 500 mg tablet 500 mg PO BID PRN 30 Days #60 tab 04/25/21 bupropion HCl 150 mg 24 hr tablet, 150 mg PO QAM 90 Days #90 tab 06/14/21 extended release zolpidem 5 mg tablet 5 mg PO BEDTIME PRN 30 Days #30 tab 06/14/21 famotidine 10 mg tablet 10 mg PO BID #28 tab 07/05/21 Allergies Allergy/AdvReac Type Severity Reaction Status Date / Time hydrocodone [HYDROCODONE] Allergy Severe DIFFICULTY Verified 06/14/21 14:13 BREATHING codeine Allergy Intermediate shortness Verified 06/14/21 14:13 of breath cyclobenzaprine Allergy Intermediate sleepiness Verified 06/14/21 14:13 nabumetone Allergy Intermediate inadequate Verified 06/14/21 14:13 response mirtazapine [Remeron] AdvReac Intermediate vomiting Verified 06/14/21 14:13 docusate [From Colace] AdvReac Mild Vomiting Verified 06/14/21 14:13 Review of Systems Review of Systems Constitutional : No Weight loss, No Fever, No Chills ENT/Mouth :? No sore throat, No Rhinorrhea Eyes: No Swelling, No Redness Cardiovascular : No Chest Pain, No SOB, No Edema Respiratory : No Cough, No Sputum, No Wheezing Gastrointestinal : No Nausea, no Vomiting, no Diarrhea, positive abdominal pain, No Hematochezia, No Melena Genitourinary : No Dysuria, No Urinary Frequency, No Hematuria, No Urgency? Musculoskeletal : No joint pain, No Myalgias, No Joint Swelling Skin : No Skin Lesions, No rash Neuro : No Weakness, No Numbness, No Dizziness, No Headache Yes all other systems are reviewed and are negative PMFSH Past Medical History Attestation statement: The following information was validated with the patient. Source: old records reviewed Medical History Acute insomnia Bilateral hand numbness Bloody stools Constipation Dyslipidemia GERD (gastroesophageal reflux disease) Hypovitaminosis D Insomnia Moderate recurrent major depression Right sided sciatica Surgical History History of section History of tubal ligation Family History Family History Father Hypertension Diabetes CVD (cardiovascular disease) Mother Hypertension Social History Social History Housing: Apartment Alcohol intake: current Alcohol intake frequency: holidays/special occasions only Alcohol type: wine Patient Tobacco Use Status: Never used Tobacco e-Cigarette/Vaping Use: Never Used Second Hand Smoke Exposure: No Advance Directives: No Advance Directives Information Provided: No service: No Current occupational status: employed 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 Hypertension? Heart rate normal.? Respiration rate normal. Temperature normal.? Oxygen saturation normal. Appearance: Alert.?Oriented to person, place and time. No acute distres s.?Normal affect. Eyes: Pupils equal, round and reactive to light.? ENT: Pharynx normal.?? Neck: Normal inspection.? Neck supple.?? CVS: Heart sounds normal. Normal heart rate and rhythm.? Pulses normal.?? Respiratory: No respiratory distress.? Lung sounds clear to auscultation bilaterally?? Abdomen: Soft with epigastric tenderness to palpation Normoactive bowel sounds. No pulsatile mass.?? Skin: Skin warm and dry.? Normal skin color.? Extremities: No lower extremity edema.? Neuro: Moves all extremities spontaneously. Sensation intact bilaterally. No motor deficits Ambulates with normal steady gait. Course Course Course Narrative: Patient is a 41-year-old female with a past medical history of depression, dyslipidemia, and GERD. According to notes from her primary care provider she has been treated for GERD with esophagitis, currently prescribed pantoprazole. She states that her pain has been present for 5 years and constant. Reports that today her pain is no different than her baseline however she is concerned because it is not improving or resolving despite taking medication prescribed by her doctor. Reports that she has not seen a stitching machine setter in the past 5 years. Of note patient did have a CT of her abdomen in October 2020 with no significant findings, had enlarged fatty liver and moderate stool in the rectum but no evidence of obstruction. No evidence of cholelithiasis or cholecystitis, pancreas at that time was unremarkable. CBC and CMP obtained in triage were un remarkable. symptoms remain unchanged according to history. At this time a add on a troponin, EKG, trial GI cocktail, check urinalysis and urine . Disposition pending results. Reevaluation(s) Reevaluation #1: Troponin <3.5, EKG reveals normal sinus rhythm, no acute concern for ischemia, heart score 1, unlikely ACS. Urine test is negative. Urinalysis without sign of infection. History and physical exam not consistent with GI perforation, GI bleed, AAA, aortic dissection, ectopic , DKA. Not consistent with strangulated hernia, bowel obstruction, pulmonary embolism, mesenteric ischemia, myocardial infarction. Discussed plan of care for discharge home with patient, outpatient follow-up with Primary Care, sent referral to Gastroenterology advised patient to contact our office to arrange for follow-up regarding her chronic epigastric pain with GERD, provided new prescription for famotidine to take in addition to her pantoprazole, discussed reasons to return back to the emergency department, all questions answered. Time: 18:17 MDM - Abdominal Pain Lab Data Result diagrams: 07/05/21 14:35 07/05/21 14:35 Labs: Lab Results 07/05/21 07/05/21 07/05/21 Range/Units 14:35 14:35 14:35 WBC 8.6 (4.8-10.8) X10*3/uL RBC 4.14 L (4.20-5.50) X10*6/uL Hgb 12.6 (12.0-16.0) g/dl Hct 37.1 (37.0-47.0) % MCV 89.6 (80.0-98.0) fL MCH 30.4 (27.0-33.0) pg MCHC 34.0 (31.0-35.0) g/dl RDW 12.0 (11.0-16.0) % Plt Count 271 (160-400) X10*3/uL MPV 8.9 L (9.4-12.3) fL Immature Gran % (Auto) 0.3 (0.0-0.4) % Neut % (Auto) 70.1 (45-73) % Lymph % (Auto) 22.3 (20-40) % [place] % (Auto) 5.5 (2-11) % Eos % (Auto) 1.6 (0-4) % Baso % (Auto) 0.2 (0-2) % Lymph # (Auto) 1.9 (1.2-4.9) X10*3/uL [place] # (Auto) 0.5 (0.1-1.2) X10*3/uL Eos # (Auto) 0.1 (0.0-0.4) X10*3/uL Baso # (Auto) 0.0 (0.0-0.2) X10*3/uL Abs Immat Gran (auto) 0.03 (0.00-0.03) X10*3/uL Absolute Neuts (auto) 6.0 (2.0-8.3) x10*3/uL Absolute Nucleated RBC 0.000 (0.0-0.012) X10*3/uL Nucleated RBC % (auto) 0.0 (0.0-0.2) /100WBC Sodium 136 (135-145) mmol/L Potassium 4.2 (3.3-5.1) mmol/L Chloride 104 (96-108) mmol/L Carbon Dioxide 27 (22-29) mmol/L Anion Gap 9 L (12-20) BUN 17 H (9-16) mg/dL Creatinine 0.72 (0.5-1.4) mg/dL Estim Creat Clear Calc 107.8 Estimated GFR > 60 Random Glucose 90 (60-115) mg/dL Calcium 9.2 (8.4-10.2) mg/dL Total Bilirubin 0.3 (0.0-1.0) mg/dL Direct Bilirubin 0.2 (0.0-0.5) mg/dL AST 15 D (5-31) U/L ALT 21 (0-31) U/L Alkaline Phosphatase 82 (39-117) U/L Troponin I High Sens < 3.5 (<3.5-17.0) ng/L Total Protein 7.9 (6.5-8.0) g/dL Albumin 4.0 (3.5-5.0) g/dL Lipase 30 (8-78) U/L Urine Color Urine Appearance Urine pH (5.0-8.0) Ur Specific [place] (1.005-1.025) Urine Protein (NEG-TRACE) MG/DL Urine Glucose (UA) (NEG) MG/DL Urine Ketones (NEG) MG/DL Urine Blood (NEG) Urine Nitrite (NEG) Ur Leukocyte Esterase (NEG) Urine Test (NEGATIVE) 07/05/21 07/05/21 Range/Units 17:37 17:37 WBC (4.8-10.8) X10*3/uL RBC (4.20-5.50) X10*6/uL Hgb (12.0-16.0) g/dl Hct (37.0-47.0) % MCV (80.0-98.0) fL MCH (27.0-33.0) pg MCHC (31.0-35.0) g/dl RDW (11.0-16.0) % Plt Count (160-400) X10*3/uL MPV (9.4-12.3) fL Immature Gran % (Auto) (0.0-0.4) % Neut % (Auto) (45-73) % Lymph % (Auto) (20-40) % [place] % (Auto) (2-11) % Eos % (Auto) (0-4) % Baso % (Auto) (0-2) % Lymph # (Auto) (1.2-4.9) X10*3/uL [place] # (Auto) (0.1-1.2) X10*3/uL Eos # (Auto) (0.0-0.4) X10*3/uL Baso # (Auto) (0.0-0.2) X10*3/uL Abs Immat Gran (auto) (0.00-0.03) X10*3/uL Absolute Neuts (auto) (2.0-8.3) x10*3/uL Absolute Nucleated RBC (0.0-0.012) X10*3/uL Nucleated RBC % (auto) (0.0-0.2) /100WBC Sodium (135-145) mmol/L Potassium (3.3-5.1) mmol/L Chloride (96-108) mmol/L Carbon Dioxide (22-29) mmol/L Anion Gap (12-20) BUN (9-16) mg/dL Creatinine (0.5-1.4) mg/dL Estim Creat Clear Calc Estimated GFR Random Glucose (60-115) mg/dL Calcium (8.4-10.2) mg/dL Total Bilirubin (0.0-1.0) mg/dL Direct Bilirubin (0.0-0.5) mg/dL AST (5-31) U/L ALT (0-31) U/L Alkaline Phosphatase (39-117) U/L Troponin I High Sens (<3.5-17.0) ng/L Total Protein (6.5-8.0) g/dL Albumin (3.5-5.0) g/dL Lipase (8-78) U/L Urine Color YELLOW Urine Appearance CLEAR Urine pH 6.0 (5.0-8.0) Ur Specific [place] >= 1.030 H (1.005-1.025) Urine Protein NEG (NEG-TRACE) MG/DL Urine Glucose (UA) NEG (NEG) MG/DL Urine Ketones NEG (NEG) MG/DL Urine Blood NEG (NEG) Urine Nitrite NEG (NEG) Ur Leukocyte Esterase NEG (NEG) Urine Test NEGATIVE (NEGATIVE) Discharge Plan Discharge Clinical Impression: Chronic epigastric pain, GERD (gastroesophageal reflux disease) Patient Disposition: Home, Self-Care Instructions: Gastroesophageal Reflux Disease (ED) Additional Instructions: Continue taking the pantoprazole as prescribed by your primary care provider. You may trial taking famotidine in addition to this, I have sent a prescription to your pharmacy. You have been provided with the contact information for Gastroenterology, please contact them to schedule a visit regarding your chronic abdominal pain. You may return to the emergency department any new or worsening symptoms or concerns. Contin?e tomando el pantoprazol seg?n lo prescrito por fernando proveedor de atenci?n primaria. Puede intentar ewa famotidina adem?s de esto, le he enviado jody receta a fernando farmacia. Se le proporcion? la informaci?n de contacto de Gastroenterolog?a, comun?quese con ellos para programar jody visita con respecto a fernando dolor abdominal cr?abundio. Puede regresar al departamento de emergencias si presenta s?ntomas o inquietudes nuevos o que empeoran. Prescriptions: New famotidine 10 mg tablet 10 mg PO BID Qty: 28 0RF No Action naproxen 500 mg tablet 500 mg PO BID PRN (Reason: pain) 30 Days Qty: 60 0RF pantoprazole 40 mg tablet,delayed release (DR/EC) 40 mg PO DAILY 90 Days Qty: 90 3RF rosuvastatin 5 mg tablet 5 mg PO DAILY 90 Days Qty: 90 1RF cholecalciferol (vitamin D3) 25 mcg (1,000 unit) capsule 25 mcg PO DAILY 90 Days Qty: 90 1RF bupropion HCl 150 mg tablet extended release 24 hr 150 mg PO QAM 90 Days Qty: 90 1RF zolpidem 5 mg tablet 5 mg PO BEDTIME PRN (Reason: sleep) 30 Days Qty: 30 0RF Referrals: Stephanie Kapadia MD [Physician] - 2 weeks (Chronic epigastric pain) Print Language: [place]ese
--- NOTE | 2021-07-05 17:42 | ECG_ITS ---
Test Reason : EPIGASTRIC PAIN Blood Pressure : / mmHG Vent. Rate : 076 BPM Atrial Rate : 076 BPM P-R Int : 152 ms QRS Dur : 082 ms QT Int : 394 ms P-R-T Axes : 029 003 016 degrees QTc Int : 443 ms Normal sinus rhythm Normal ECG When compared with ECG of 02-AUG-2016 18:22, No significant change was found Referred By: Shameka Henrandez Electronically Signed By:KATIE MULLIGAN MD
[2021-07-05 17:48] LABS: Appearance Urine CLEAR; Color Urine YELLOW; Glucose Urine UA NEG (NEG); Leukocyte Esterase Urine NEG (NEG); Nitrite Urine NEG (NEG); Specific Gravity - Urine >= 1.030 (1.005-1.025); Urine Blood NEG (NEG); Urine Ketones NEG (NEG); Urine Protein NEG (NEG-TRACE)
[2021-07-05 17:53] LABS: UPreg QC Valid YES; Urine Pregnancy NEGATIVE (NEGATIVE)
[2021-07-05] MEDS: Lidocaine HCl Viscous 2 % 15 ML SOLUTION MUCOUS MEM (18:00)
[2021-07-05] MEDS: Famotidine 20 MG TABLET PO (18:00)
[2021-07-05] MEDS: Magnesium Hydrox/Alum Hydrox 30 ML ORAL.SUSP PO (18:00)
[2021-07-05 18:02] LABS: Lipase 30 U/L (8-78)
[2021-07-05 18:14] LABS: Troponin-I High Sensitivity < 3.5 ng/L (<3.5-17.0)
== END 2021-07-05 18:43 | disposition home or self-care (01) ==
PROVIDERS: Nurse Practitioner Family; Emergency Provider Emergency Medicine; PCP Internal Medicine
DX: R10.13 Epigastric pain (principal); G89.29 Other chronic pain; K21.9 Gastro-esophageal reflux disease without esophagitis; Z79.899 Other long term (current) drug therapy; Z80.0 Family history of malignant neoplasm of digestive organs
CPT/HCPCS: 36415; 80048; 80076; 81003; 81025; 83690; 84484; 85025; 93005; 99282; 99283

== ENCOUNTER 2021-08-02 17:52 | Emergency (ER) | payer OTHER, SELFPAY ==
--- NOTE | ~2021-08-02 | CT_ITS ---
EXAMINATION: CT ABDOMEN AND PELVIS WITHOUT CONTRAST CLINICAL INFORMATION: Abdominal pain. COMPARISON: 11/10/2020 TECHNIQUE: Multidetector volumetric imaging was performed from the superior aspect of the liver through the pubic symphysis. Sagittal and coronal reformatted images were obtained on the technologist's workstation. This CT examination was performed using dose optimization techniques as appropriate, variously including the following: *Automated exposure control *Adjustment of mA and/or kV according to patient size (this includes techniques or standardized protocols for targeted exams where dose is matched to indication/reason for exam; i.e. extremities or head) *Use of iterative reconstruction technique DLP: 833 mGy-cm FINDINGS: LUNG BASES: Mild dependent atelectasis. LIVER, GALLBLADDER, AND BILIARY TREE: Relative hypoattenuation of the hepatic parenchyma is consistent with steatosis. Focal fatty sparing is present in the gallbladder fossa. Craniocaudal diameter of 22.5 is consistent with hepatomegaly. The gallbladder is unremarkable with no evidence of radiopaque gallstones, gallbladder wall thickening, or obvious pericholecystic inflammatory changes. PANCREAS: Unremarkable. SPLEEN: Unremarkable. ADRENAL GLANDS: Unremarkable. KIDNEYS AND URETERS: The kidneys are normal in size, shape, and attenuation. No hydronephrosis, hydroureter, or calculi seen. No perinephric stranding. BLADDER: Unremarkable. GASTROINTESTINAL TRACT: Stomach, small bowel, and colon are normal in caliber. No bowel wall thickening. No intraperitoneal free air or free fluid. Appendix is normal. ABDOMINAL WALL: There is a incisional hernia in the right infraumbilical region projecting over the right rectus abdominis. This is fat-containing, though a portion of the sigmoid colon resides at the neck. Small fat-containing umbilical hernia. LYMPH NODES: No adenopathy. VASCULAR: Unremarkable. PELVIC VISCERA: There is a 3 cm simple appearing left ovarian cyst which likely corresponds to a follicular cyst. No recommend follow-up. Uterus is diminutive, possibly partially absent. OSSEOUS STRUCTURES: No acute osseous findings. Mild osteoarthritis in the hips and SI joints. CT/CT abdomen pelvis wo con IMPRESSION: 1. Fat-containing incisional ventral abdominal hernia in the infraumbilical. No acute abnormality pelvis. 2. Hepatic steatosis with hepatomegaly.
[2021-08-02 18:07] VITALS: BP 168/98; PULSE 104; RESP 19; TEMP 36.6; O2SAT 98; BMI 40.8
[2021-08-02 18:22] LABS: MANUAL DIFF FLAG NO
[2021-08-02 18:23] LABS: Appearance Urine CLEAR; Color Urine YELLOW; Glucose Urine UA NEG (NEG); Leukocyte Esterase Urine NEG (NEG); Nitrite Urine NEG (NEG); Specific Gravity - Urine >= 1.030 (1.005-1.025); Urine Blood NEG (NEG); Urine Ketones NEG (NEG); Urine Protein NEG (NEG-TRACE)
[2021-08-02 18:25] LABS: Basophils Percent Auto 0.3 % (0-2); Eosinophils Absolute Auto 0.1 X10*3/uL (0.0-0.4); Eosinophils Percent Auto 0.8 % (0-4); Hematocrit 37.9 % (37.0-47.0); Hemoglobin 12.7 g/dl (12.0-16.0); Imm Gran Abs Auto 0.04 X10*3/uL (0.00-0.03); Imm Gran Pct Auto 0.4 % (0.0-0.4); Lymphocytes Absolute Auto 2.7 X10*3/uL (1.2-4.9); Lymphocytes Percent Auto 27.6 % (20-40); Mean Corpuscular HGB Conc 33.5 g/dl (31.0-35.0); Mean Corpuscular Hemoglobin 30.5 pg (27.0-33.0); Mean Corpuscular Volume 91.1 fL (80.0-98.0); Mean Platelet Volume 9.4 fL (9.4-12.3); Monocytes Absolute Auto 0.6 X10*3/uL (0.1-1.2); Monocytes Percent Auto 5.6 % (2-11); Neutrophils Absolute Auto 6.4 x10*3/uL (2.0-8.3); Neutrophils Percent Auto 65.3 % (45-73); Platelet Count 243 X10*3/uL (160-400); Red Blood Count 4.16 X10*6/uL (4.20-5.50); Red Cell Distribution Width 12.4 % (11.0-16.0); UPreg QC Valid YES; Urine Pregnancy NEGATIVE (NEGATIVE); White Blood Count 9.8 X10*3/uL (4.8-10.8)
[2021-08-02 18:42] LABS: Alanine Aminotransferase 31 U/L (0-31); Alkaline Phosphatase 81 U/L (39-117); Anion Gap 15 (12-20); Aspartate Amino Transferase 24 U/L (5-31); Bilirubin Direct < 0.2 mg/dL (0.0-0.5); Bilirubin Total 0.4 mg/dL (0.0-1.0); Blood Urea Nitrogen 15 mg/dL (9-16); Calcium 8.8 mg/dL (8.4-10.2); Carbon Dioxide 22 mmol/L (22-29); Chloride 102 mmol/L (96-108); Creatinine Clr Calc Pharmacy 96.9; Estimated Glomerular Filt Rate > 60; Glucose Random 143 mg/dL (60-115); Lipase 26 U/L (8-78); Sodium 135 mmol/L (135-145); Total Protein 7.8 g/dL (6.5-8.0)
[2021-08-02 23:40] VITALS: BP 144/91; PULSE 87; RESP 18; O2SAT 98
--- NOTE | 2021-08-02 23:56 | ED_ITS ---
HPI - Abdominal Pain General Chief Complaint: Abdominal Pain Stated Complaint: R side abd pain Time Seen by Provider: 08/02/21 22:12 Related Data Previous Rx's Medication Instructions Recorded cholecalciferol (vitamin D3) 25 25 mcg PO DAILY 90 days #90 caps 02/13/21 mcg (1,000 unit) capsule rosuvastatin 5 mg tablet 5 mg PO DAILY 90 days #90 tabs 02/13/21 naproxen 500 mg tablet 500 mg PO BID PRN pain 30 days #60 04/25/21 tabs bupropion HCl 150 mg 24 hr tablet, 150 mg PO QAM 90 days #90 tabs 06/14/21 extended release zolpidem 5 mg tablet 5 mg PO BEDTIME PRN sleep 30 days 06/14/21 #30 tabs esomeprazole magnesium 20 mg 20 mg PO DAILY 90 days #90 caps 08/01/21 capsule,delayed release Allergies Allergy/AdvReac Type Severity Reaction Status Date / Time hydrocodone [HYDROCODONE] Allergy Severe DIFFICULTY Verified 06/14/21 14:13 BREATHING codeine Allergy Intermediate shortness Verified 06/14/21 14:13 of breath cyclobenzaprine Allergy Intermediate sleepiness Verified 06/14/21 14:13 nabumetone Allergy Intermediate inadequate Verified 06/14/21 14:13 response mirtazapine [Remeron] AdvReac Intermediate vomiting Verified 06/14/21 14:13 docusate [From Colace] AdvReac Mild Vomiting Verified 06/14/21 14:13 PMFSH Past Medical History Medical History Acute insomnia Bilateral hand numbness Bloody stools Constipation Dyslipidemia GERD (gastroesophageal reflux disease) Hypovitaminosis D Insomnia Moderate recurrent major depression Right sided sciatica Surgical History History of section History of tubal ligation Family History Family History Father Hypertension Diabetes CVD (cardiovascular disease) Mother Hypertension Social History Social History Housing: Apartment Alcohol intake: current Alcohol intake frequency: holidays/special occasions only Alcohol type: wine Patient Tobacco Use Status: Never used Tobacco e-Cigarette/Vaping Use: Never Used Second Hand Smoke Exposure: No Advance Directives: No Advance Directives Information Provided: No Patient : No service: No Current occupational status: employed 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 Current occupational exposures/hazards: No Cognitive needs: No Hearing needs: No Vision needs: No Physical Exam ED Vital Signs: Vital Signs - 24 hr 08/02/21 18:07 08/02/21 23:40 Temperature 98 F Pulse Rate 104 H 87 Respiratory Rate 19 18 Blood Pressure 168/98 H 144/91 H Pulse Oximetry 98 98 Oxygen Delivery Method Room Air Room Air BMI result Body Mass Index 40.8 MDM - Abdominal Pain Lab Data Result diagrams: 08/02/21 18:14 08/02/21 18:14 Labs: Lab Results 08/02/21 08/02/21 08/02/21 Range/Units 18:14 18:14 18:14 WBC 9.8 (4.8-10.8) X10*3/uL RBC 4.16 L (4.20-5.50) X10*6/uL Hgb 12.7 (12.0-16.0) g/dl Hct 37.9 (37.0-47.0) % MCV 91.1 (80.0-98.0) fL MCH 30.5 (27.0-33.0) pg MCHC 33.5 (31.0-35.0) g/dl RDW 12.4 (11.0-16.0) % Plt Count 243 (160-400) X10*3/uL MPV 9.4 (9.4-12.3) fL Immature Gran % (Auto) 0.4 (0.0-0.4) % Neut % (Auto) 65.3 (45-73) % Lymph % (Auto) 27.6 (20-40) % [place] % (Auto) 5.6 (2-11) % Eos % (Auto) 0.8 (0-4) % Baso % (Auto) 0.3 (0-2) % Lymph # (Auto) 2.7 (1.2-4.9) X10*3/uL [place] # (Auto) 0.6 (0.1-1.2) X10*3/uL Eos # (Auto) 0.1 (0.0-0.4) X10*3/uL Baso # (Auto) 0.0 (0.0-0.2) X10*3/uL Abs Immat Gran (auto) 0.04 H (0.00-0.03) X10*3/uL Absolute Neuts (auto) 6.4 (2.0-8.3) x10*3/uL Absolute Nucleated RBC 0.000 (0.0-0.012) X10*3/uL Nucleated RBC % (auto) 0.0 (0.0-0.2) /100WBC Sodium 135 (135-145) mmol/L Potassium 4.0 (3.3-5.1) mmol/L Chloride 102 (96-108) mmol/L Carbon Dioxide 22 (22-29) mmol/L Anion Gap 15 (12-20) BUN 15 (9-16) mg/dL Creatinine 0.81 (0.5-1.4) mg/dL Estim Creat Clear Calc 96.9 Estimated GFR > 60 Random Glucose 143 H (60-115) mg/dL Calcium 8.8 (8.4-10.2) mg/dL Total Bilirubin 0.4 (0.0-1.0) mg/dL Direct Bilirubin < 0.2 (0.0-0.5) mg/dL AST 24 D (5-31) U/L ALT 31 (0-31) U/L Alkaline Phosphatase 81 (39-117) U/L Total Protein 7.8 (6.5-8.0) g/dL Albumin 4.0 (3.5-5.0) g/dL Lipase 26 (8-78) U/L Urine Color YELLOW Urine Appearance CLEAR Urine pH 6.0 (5.0-8.0) Ur Specific [place] >= 1.030 H (1.005-1.025) Urine Protein NEG (NEG-TRACE) MG/DL Urine Glucose (UA) NEG (NEG) MG/DL Urine Ketones NEG (NEG) MG/DL Urine Blood NEG (NEG) Urine Nitrite NEG (NEG) Ur Leukocyte Esterase NEG (NEG) Urine Test (NEGATIVE) Influenza Type A (PCR) (Negative) Influenza Type B (PCR) (Negative) RSV RNA Qual (PCR) (Negative) SARS-CoV-2 RNA (RT-PCR) (Negative) 08/02/21 08/03/21 Range/Units 18:14 00:15 WBC (4.8-10.8) X10*3/uL RBC (4.20-5.50) X10*6/uL Hgb (12.0-16.0) g/dl Hct (37.0-47.0) % MCV (80.0-98.0) fL MCH (27.0-33.0) pg MCHC (31.0-35.0) g/dl RDW (11.0-16.0) % Plt Count (160-400) X10*3/uL MPV (9.4-12.3) fL Immature Gran % (Auto) (0.0-0.4) % Neut % (Auto) (45-73) % Lymph % (Auto) (20-40) % [place] % (Auto) (2-11) % Eos % (Auto) (0-4) % Baso % (Auto) (0-2) % Lymph # (Auto) (1.2-4.9) X10*3/uL [place] # (Auto) (0.1-1.2) X10*3/uL Eos # (Auto) (0.0-0.4) X10*3/uL Baso # (Auto) (0.0-0.2) X10*3/uL Abs Immat Gran (auto) (0.00-0.03) X10*3/uL Absolute Neuts (auto) (2.0-8.3) x10*3/uL Absolute Nucleated RBC (0.0-0.012) X10*3/uL Nucleated RBC % (auto) (0.0-0.2) /100WBC Sodium (135-145) mmol/L Potassium (3.3-5.1) mmol/L Chloride (96-108) mmol/L Carbon Dioxide (22-29) mmol/L Anion Gap (12-20) BUN (9-16) mg/dL Creatinine (0.5-1.4) mg/dL Estim Creat Clear Calc Estimated GFR Random Glucose (60-115) mg/dL Calcium (8.4-10.2) mg/dL Total Bilirubin (0.0-1.0) mg/dL Direct Bilirubin (0.0-0.5) mg/dL AST (5-31) U/L ALT (0-31) U/L Alkaline Phosphatase (39-117) U/L Total Protein (6.5-8.0) g/dL Albumin (3.5-5.0) g/dL Lipase (8-78) U/L Urine Color Urine Appearance Urine pH (5.0-8.0) Ur Specific [place] (1.005-1.025) Urine Protein (NEG-TRACE) MG/DL Urine Glucose (UA) (NEG) MG/DL Urine Ketones (NEG) MG/DL Urine Blood (NEG) Urine Nitrite (NEG) Ur Leukocyte Esterase (NEG) Urine Test NEGATIVE (NEGATIVE) Influenza Type A (PCR) NEGATIVE (Negative) Influenza Type B (PCR) NEGATIVE (Negative) RSV RNA Qual (PCR) NEGATIVE (Negative) SARS-CoV-2 RNA (RT-PCR) NEGATIVE (Negative) Discharge Plan Discharge Clinical Impression: Abdominal pain Patient Disposition: Home, Self-Care Instructions: Abdominal Pain (ED) Additional Instructions: Le evaluaron por dolor abdominal. La tomograf?a computarizada del abdomen y la pelvis indica jody hernia abdominal ventral. Por favor, enmanuel un seguimiento con un cirujano para verde evaluaci?n. Lo remit? al Dr. Truong?yury. Por favor llame y solicite jody rebecca. El hallazgo incidental de la tomograf?a computarizada del abdomen y la pelvis indica esteatosis hep?nehemiah con agrandamiento del h?gado. Por favor, seguimiento con Gastroenterolog?a. Te remit? al Dr. Kapadia. Por favor llame y solicite jody rebecca. El hallazgo incidental de jody tomograf?a computarizada de abdomen y pelvis es un quiste manjit de ovario sandy. Puede considerar hacer un seguimiento con verde obstetra y ginec?logo. Verde presi?n arterial est? elevada. Enmanuel un seguimiento con el m?dico de atenci?n primaria, ya que es posible que necesite medicamentos para la presi?n arterial. Sloane por elegir jayesh departamento de emergencias para verde evaluaci?n. Por favor, enmanuel un seguimiento con el m?dico de atenci?n primaria seg?n sea necesario. Regrese al departamento de emergencias por cualquier s?ntoma nuevo, preocupante o que empeore. You were evaluated for abdominal pain. CT scan of abdomen and pelvis indicates a ventral abdominal hernia. Please follow-up with a surgeon for evaluation. I referred you to Dr. Ernst. Please call and request an appointment. Incidental finding of the CT scan of the abdomen pelvis indicates hepatic stea tosis with an enlarged liver. Please follow-up with Gastroenterology. I referred you to Dr. Kapadia. Please call and request an appointment. Incidental finding of CT scan abdomen pelvis is a benign left ovarian cyst. You may consider following up with your OBGYN. Your blood pressure is elevated. Please follow-up with primary care physician as you may need blood pressure medications. Thank you for choosing this emergency department for evaluation. Please follow-up with primary care physician as needed. Return to the emergency department for any new, concerning, or worsening symptoms. Prescriptions: No Action naproxen 500 mg tablet 500 mg PO BID PRN (Reason: pain) 30 Days Qty: 60 0RF esomeprazole magnesium 20 mg capsule,delayed release(DR/EC) 20 mg PO DAILY 90 Days Qty: 90 0RF rosuvastatin 5 mg tablet 5 mg PO DAILY 90 Days Qty: 90 1RF cholecalciferol (vitamin D3) 25 mcg (1,000 unit) capsule 25 mcg PO DAILY 90 Days Qty: 90 1RF bupropion HCl 150 mg tablet extended release 24 hr 150 mg PO QAM 90 Days Qty: 90 1RF zolpidem 5 mg tablet 5 mg PO BEDTIME PRN (Reason: sleep) 30 Days Qty: 30 0RF Referrals: Stephanie Kapadia MD [Physician] - (Hepatic steatosis with hepatomegaly) Domenic Ernst MD [Physician] - (Incisional ventral abdominal hernia) Mirta Kitchen MD [Primary Care Provider] - (Hypertension) Interventions: ED Discharge Assessment Last Done: 08/03/21 02:06 Discharge Date/Time: 08/03/21 02:07
--- NOTE | 2021-08-02 23:56 | ED_ITS ---
HPI - Abdominal Pain General Chief Complaint: Abdominal Pain Stated Complaint: R side abd pain Time Seen by Provider: 08/02/21 22:12 Source: patient Mode of arrival: ambulatory Limitations: no limitations History of Present Illness HPI narrative: 41-year-old female presents with right lower quadrant abdominal pain that starts the lower umbilicus radiates out to the right flank. This pain started at 05:00 o'clock today, and she did not take any medications for it. MD elicited complaint: abdominal pain and flank pain Pertinent past history: none Onset (ago): day(s) (1) Pain Consistency: constant Location: periumbilical, RLQ and groin Severity: moderate Pain scale (0-10): 7 Quality: aching Radiation: none Migration to: no migration Exacerbating factors: bowel movement and movement Relieving factors: rest Associated symptoms: denies other symptoms Related Data Patient : No Previous Rx's Medication Instructions Recorded cholecalciferol (vitamin D3) 25 25 mcg PO DAILY 90 days #90 caps 02/13/21 mcg (1,000 unit) capsule rosuvastatin 5 mg tablet 5 mg PO DAILY 90 days #90 tabs 02/13/21 naproxen 500 mg tablet 500 mg PO BID PRN pain 30 days #60 04/25/21 tabs bupropion HCl 150 mg 24 hr tablet, 150 mg PO QAM 90 days #90 tabs 06/14/21 extended release zolpidem 5 mg tablet 5 mg PO BEDTIME PRN sleep 30 days 06/14/21 #30 tabs esomeprazole magnesium 20 mg 20 mg PO DAILY 90 days #90 caps 08/01/21 capsule,delayed release Allergies Allergy/AdvReac Type Severity Reaction Status Date / Time hydrocodone [HYDROCODONE] Allergy Severe DIFFICULTY Verified 06/14/21 14:13 BREATHING codeine Allergy Intermediate shortness Verified 06/14/21 14:13 of breath cyclobenzaprine Allergy Intermediate sleepiness Verified 06/14/21 14:13 nabumetone Allergy Intermediate inadequate Verified 06/14/21 14:13 response mirtazapine [Remeron] AdvReac Intermediate vomiting Verified 06/14/21 14:13 docusate [From Colace] AdvReac Mild Vomiting Verified 06/14/21 14:13 Review of Systems Review of Systems Constitutional: No Fever, No Chills ENT/Mouth: No Ear Pain, No Hoarseness, No sore throat Eyes: No Eye Pain, No Swelling, No Redness, No Foreign Body Cardiovascular: No Chest Pain, No SOB Respiratory: No Cough, No Dyspnea Gastrointestinal: No Nausea, No Vomiting, No Diarrhea, positive abdominal Pain Genitourinary: No Dysuria, No Hematuria Musculoskeletal: No joint pain, No Myalgias, No Joint Swelling Skin: No Skin lacerations, No rash Neuro: No Weakness, No Numbness, No Paresthesias, No Loss of Consciousness, No Dizziness, No Headache Psych: No Anxiety/Panic, No Depression Heme/Lymph: no easy bruising, no Lymphadenopathy Endocrine: No Polyuria, No Polydipsia Yes all other systems are reviewed and are negative [facility] Past Medical History Attestation statement: The following information was validated with the patient. Source: old records reviewed Medical History Acute insomnia Bilateral hand numbness Bloody stools Constipation Dyslipidemia GERD (gastroesophageal reflux disease) Hypovitaminosis D Insomnia Moderate recurrent major depression Right sided sciatica Surgical History History of section History of tubal ligation Family History Family History Father Hypertension Diabetes CVD (cardiovascular disease) Mother Hypertension Social History Social History Housing: Apartment Alcohol intake: current Alcohol intake frequency: holidays/special occasions only Alcohol type: wine Patient Tobacco Use Status: Never used Tobacco e-Cigarette/Vaping Use: Never Used Second Hand Smoke Exposure: No Advance Directives: No Advance Directives Information Provided: No service: No Current occupational status: employed 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 Oriented X3. No acute distress. Eyes: Pupils equal, round and reactive to light. Sclera nonicteric. ENT: Pharynx normal. Neck: Normal inspection. Neck supple. CVS: Normal heart rate and rhythm. Pulses normal. Respiratory: No respiratory distress. Breath sounds normal. Abdomen: Soft and tender to the right lower quadrant and umbilical area. Obese. Skin: Skin warm and dry. Normal skin color. Normal skin turgor. Extremities: No lower extremity edema. Gait well-balanced well coordinated. Neuro: No motor deficit. No sensory deficit. Cranial nerves 2-12 intact. Course Course Course Narrative: 41-year-old female presents with 1 day of abdominal pain, starting at the umbilicus radiating out to the right groin and right flank. Labs drawn while patient was in the emergency department waiting room. Labs are unremarkable. Urinalysis negative. Physical exam indicates tenderness to the right lower quadrant and umbilicus. Will order CT scan of abdomen pelvis. 01:16. CT scan abdomen and pelvis shows a fat containing incisional ventral abdominal hernia, hepatic steatosis with hepatomegaly, and simple left ovarian cyst. Will have patient follow-up with a surgeon. middle school combination teacher utilized for all correspondence. Google translate utilized for discharge instructions.Patient verbalized understanding of and agrees to plan of care to discharge home. Verbalized understanding of signs and symptoms indicating need for emergent intervention MDM - Abdominal Pain Differential Diagnosis Differential diagnosis: Likely abdominal pain, acute appendicitis, calculus of kidney, constipation and diverticulitis Medical Records Attestation: I reviewed the patient's medical records. Lab Data Attestation: I reviewed the patient's lab results. Result diagrams: 08/02/21 18:14 08/02/21 18:14 Labs: Lab Results 08/02/21 08/02/21 08/02/21 Range/Units 18:14 18:14 18:14 WBC 9.8 (4.8-10.8) X10*3/uL RBC 4.16 L (4.20-5.50) X10*6/uL Hgb 12.7 (12.0-16.0) g/dl Hct 37.9 (37.0-47.0) % MCV 91.1 (80.0-98.0) fL MCH 30.5 (27.0-33.0) pg MCHC 33.5 (31.0-35.0) g/dl RDW 12.4 (11.0-16.0) % Plt Count 243 (160-400) X10*3/uL MPV 9.4 (9.4-12.3) fL Immature Gran % (Auto) 0.4 (0.0-0.4) % Neut % (Auto) 65.3 (45-73) % Lymph % (Auto) 27.6 (20-40) % [place] % (Auto) 5.6 (2-11) % Eos % (Auto) 0.8 (0-4) % Baso % (Auto) 0.3 (0-2) % Lymph # (Auto) 2.7 (1.2-4.9) X10*3/uL [place] # (Auto) 0.6 (0.1-1.2) X10*3/uL Eos # (Auto) 0.1 (0.0-0.4) X10*3/uL Baso # (Auto) 0.0 (0.0-0.2) X10*3/uL Abs Immat Gran (auto) 0.04 H (0.00-0.03) X10*3/uL Absolute Neuts (auto) 6.4 (2.0-8.3) x10*3/uL Absolute Nucleated RBC 0.000 (0.0-0.012) X10*3/uL Nucleated RBC % (auto) 0.0 (0.0-0.2) /100WBC Sodium 135 (135-145) mmol/L Potassium 4.0 (3.3-5.1) mmol/L Chloride 102 (96-108) mmol/L Carbon Dioxide 22 (22-29) mmol/L Anion Gap 15 (12-20) BUN 15 (9-16) mg/dL Creatinine 0.81 (0.5-1.4) mg/dL Estim Creat Clear Calc 96.9 Estimated GFR > 60 Random Glucose 143 H (60-115) mg/dL Calcium 8.8 (8.4-10.2) mg/dL Total Bilirubin 0.4 (0.0-1.0) mg/dL Direct Bilirubin < 0.2 (0.0-0.5) mg/dL AST 24 D (5-31) U/L ALT 31 (0-31) U/L Alkaline Phosphatase 81 (39-117) U/L Total Protein 7.8 (6.5-8.0) g/dL Albumin 4.0 (3.5-5.0) g/dL Lipase 26 (8-78) U/L Urine Color YELLOW Urine Appearance CLEAR Urine pH 6.0 (5.0-8.0) Ur Specific [place] >= 1.030 H (1.005-1.025) Urine Protein NEG (NEG-TRACE) MG/DL Urine Glucose (UA) NEG (NEG) MG/DL Urine Ketones NEG (NEG) MG/DL Urine Blood NEG (NEG) Urine Nitrite NEG (NEG) Ur Leukocyte Esterase NEG (NEG) Urine Test (NEGATIVE) Influenza Type A (PCR) (Negative) Influenza Type B (PCR) (Negative) RSV RNA Qual (PCR) (Negative) SARS-CoV-2 RNA (RT-PCR) (Negative) 08/02/21 08/03/21 Range/Units 18:14 00:15 WBC (4.8-10.8) X10*3/uL RBC (4.20-5.50) X10*6/uL Hgb (12.0-16.0) g/dl Hct (37.0-47.0) % MCV (80.0-98.0) fL MCH (27.0-33.0) pg MCHC (31.0-35.0) g/dl RDW (11.0-16.0) % Plt Count (160-400) X10*3/uL MPV (9.4-12.3) fL Immature Gran % (Auto) (0.0-0.4) % Neut % (Auto) (45-73) % Lymph % (Auto) (20-40) % [place] % (Auto) (2-11) % Eos % (Auto) (0-4) % Baso % (Auto) (0-2) % Lymph # (Auto) (1.2-4.9) X10*3/uL [place] # (Auto) (0.1-1.2) X10*3/uL Eos # (Auto) (0.0-0.4) X10*3/uL Baso # (Auto) (0.0-0.2) X10*3/uL Abs Immat Gran (auto) (0.00-0.03) X10*3/uL Absolute Neuts (auto) (2.0-8.3) x10*3/uL Absolute Nucleated RBC (0.0-0.012) X10*3/uL Nucleated RBC % (auto) (0.0-0.2) /100WBC Sodium (135-145) mmol/L Potassium (3.3-5.1) mmol/L Chloride (96-108) mmol/L Carbon Dioxide (22-29) mmol/L Anion Gap (12-20) BUN (9-16) mg/dL Creatinine (0.5-1.4) mg/dL Estim Creat Clear Calc Estimated GFR Random Glucose (60-115) mg/dL Calcium (8.4-10.2) mg/dL Total Bilirubin (0.0-1.0) mg/dL Direct Bilirubin (0.0-0.5) mg/dL AST (5-31) U/L ALT (0-31) U/L Alkaline Phosphatase (39-117) U/L Total Protein (6.5-8.0) g/dL Albumin (3.5-5.0) g/dL Lipase (8-78) U/L Urine Color Urine Appearance Urine pH (5.0-8.0) Ur Specific [place] (1.005-1.025) Urine Protein (NEG-TRACE) MG/DL Urine Glucose (UA) (NEG) MG/DL Urine Ketones (NEG) MG/DL Urine Blood (NEG) Urine Nitrite (NEG) Ur Leukocyte Esterase (NEG) Urine Test NEGATIVE (NEGATIVE) Influenza Type A (PCR) NEGATIVE (Negative) Influenza Type B (PCR) NEGATIVE (Negative) RSV RNA Qual (PCR) NEGATIVE (Negative) SARS-CoV-2 RNA (RT-PCR) NEGATIVE (Negative) Imaging Data CT abdomen pelvis: Attestation: I personally reviewed and interpreted this imaging study as follows: Radiologist's impression: FINDINGS: LUNG BASES: Mild dependent atelectasis.? LIVER, GALLBLADDER, AND BILIARY TREE: Relative hypoattenuation of the hepatic parenchyma is consistent with steatosis. Focal fatty sparing is present in the gallbladder fossa. Craniocaudal diameter of 22.5 is consistent with hepatomegaly. The gallbladder is unremarkable with no evidence of radiopaque gallstones, gallbladder wall thickening, or obvious pericholecystic inflammatory changes.? PANCREAS: Unremarkable.? SPLEEN: Unremarkable.? ADRENAL GLANDS: Unremarkable.? KIDNEYS AND URETERS: The kidneys are normal in size, shape, and attenuation. No hydronephrosis, hydroureter, or calculi seen. No perinephric stranding. ? BLADDER: Unremarkable.? GASTROINTESTINAL TRACT: Stomach, small bowel, and colon are normal in caliber. No bowel wall thickening. No intraperitoneal free air or free fluid. Appendix is normal.? ABDOMINAL WALL: There is a incisional hernia in the right infraumbilical region projecting over the right rectus abdominis. This is fat-containing, though a portion of the sigmoid colon resides at the neck. Small fat-containing umbilical hernia.? LYMPH NODES: No adenopathy. VASCULAR: Unremarkable. PELVIC VISCERA: There is a 3 cm simple appearing left ovarian cyst which likely corresponds to a follicular cyst. No recommend follow-up. Uterus is diminutive, possibly partially absent. OSSEOUS STRUCTURES: No acute osseous findings. Mild osteoarthritis in the hips and SI joints.? CT/CT abdomen pelvis wo con IMPRESSION: 1. Fat-containing incisional ventral abdominal hernia in the infraumbilical. No acute abnormality pelvis. 2. Hepatic steatosis with hepatomegaly. ? Discharge Plan Discharge Clinical Impression: Abdominal pain Patient Disposition: Home, Self-Care Instructions: Abdominal Pain (ED) Additional Instructions: Le evaluaron por dolor abdominal. La tomograf?a computarizada del abdomen y la pelvis indica jody hernia abdominal ventral. Por favor, enmanuel un seguimiento con un cirujano para verde evaluaci?n. Lo remit? al Dr. Truong?yury. Por favor llame y solicite jody rebecca. El hallazgo incidental de la tomograf?a computarizada del abdomen y la pelvis indica esteatosis hep?nehemiah con agrandamiento del h?gado. Por favor, seguimiento con Gastroenterolog?a. Te remit? al Dr. Kapadia. Por favor llame y solicite jody rebecca. El hallazgo incidental de jody tomograf?a computarizada de abdomen y pelvis es un quiste manjit de ovario sandy. Puede considerar hacer un seguimiento con verde obstetra y ginec?logo. Verde presi?n arterial est? elevada. Enmanuel un seguimiento con el m?dico de atenci?n primaria, ya que es posible que necesite medicamentos para la presi?n arterial. [place]loane por elegir jayesh departamento de emergencias para verde evaluaci?n. Por favor, enmanuel un seguimiento con el m?dico de atenci?n primaria seg?n sea necesar io. Regrese al departamento de emergencias por cualquier s?ntoma nuevo, preocupante o que empeore. You were evaluated for abdominal pain. CT scan of abdomen and pelvis indicates a ventral abdominal hernia. Please follow-up with a surgeon for evaluation. I referred you to Dr. Ernst. Please call and request an appointment. Incidental finding of the CT scan of the abdomen pelvis indicates hepatic steatosis with an enlarged liver. Please follow-up with Gastroenterology. I referred you to Dr. Kapadia. Please call and request an appointment. Incidental finding of CT scan abdomen pelvis is a benign left ovarian cyst. You may consider following up with your OBGYN. Your blood pressure is elevated. Please follow-up with primary care physician as you may need blood pressure medications. Thank you for choosing this emergency department for evaluation. Please fol low-up with primary care physician as needed. Return to the emergency department for any new, concerning, or worsening symptoms. Prescriptions: No Action naproxen 500 mg tablet 500 mg PO BID PRN (Reason: pain) 30 Days Qty: 60 0RF esomeprazole magnesium 20 mg capsule,delayed release(DR/EC) 20 mg PO DAILY 90 Days Qty: 90 0RF rosuvastatin 5 mg tablet 5 mg PO DAILY 90 Days Qty: 90 1RF cholecalciferol (vitamin D3) 25 mcg (1,000 unit) capsule 25 mcg PO DAILY 90 Days Qty: 90 1RF bupropion HCl 150 mg tablet extended release 24 hr 150 mg PO QAM 90 Days Qty: 90 1RF zolpidem 5 mg tablet 5 mg PO BEDTIME PRN (Reason: sleep) 30 Days Qty: 30 0RF Referrals: Stephanie Kapadia MD [Physician] - (Hepatic steatosis with hepatomegaly) Domenic Ernst MD [Physician] - (Incisional ventral abdominal hernia) Mirta Kitchen MD [Primary Care Provider] - (Hypertension)
[2021-08-03 00:57] LABS: Influenza A PCR NEGATIVE (Negative); Influenza B PCR NEGATIVE (Negative); Resp Syncy Virus RNA Qual PCR NEGATIVE (Negative); SARS COV2 PCR INHOUSE NEGATIVE (Negative)
== END 2021-08-03 02:07 | disposition home or self-care (01) ==
PROVIDERS: Nurse Practitioner Family; Emergency Provider Internal Medicine; PCP Internal Medicine
DX: R10.31 Right lower quadrant pain (principal); Z20.822 Contact with and (suspected) exposure to COVID-19; K43.2 Incisional hernia without obstruction or gangrene
CPT/HCPCS: 0241U; 36415; 74176; 80048; 80076; 81003; 81025; 83690; 85025; 99283; 99284

== ENCOUNTER 2021-08-15 15:23 | Outpatient (REF) | payer OTHER, SELFPAY ==
[2021-08-15 16:29] LABS: Amylase 47 U/L (28-100)
[2021-08-15 16:57] LABS: TSH reflex Free T4 6.74 uIU/mL (0.32-4.0)
[2021-08-15 17:10] LABS: Folate 9.8 ng/mL (> or = 4.0); Vitamin B12 436 pg/mL (200-900)
[2021-08-15 17:54] LABS: Free T4 (Free Thyroxine) 0.79 ng/dL (0.71-1.85)
[2021-08-16 21:52] LABS: Transglutaminase Ab IgG <1.0 U/mL; Transglutaminase IgA <1.0 U/mL
[2021-08-20 05:56] LABS: Vitamin D 25-OH, D2 <4 ng/mL; Vitamin D 25-OH, D3 22 ng/mL; Vitamin D 25-OH, Total 22 ng/mL (30-100)
== END 2021-08-15 15:24 | disposition home or self-care (01) ==
LOC: HO.LAB 15:23
PROVIDERS: PCP Internal Medicine; Visit Provider Nurse Practitioner Family
DX: R10.13 Epigastric pain (principal); R19.7 Diarrhea, unspecified; K21.9 Gastro-esophageal reflux disease without esophagitis; E55.9 Vitamin D deficiency, unspecified
CPT/HCPCS: 36415; 82150; 82306; 82607; 82746; 84439; 84443; 86364; 99202; 99212

== ENCOUNTER 2021-08-15 21:00 | Emergency (ER) | payer OTHER, SELFPAY ==
--- NOTE | 2021-08-15 | ECG_ITS ---
Test Reason : PALPIATIONS Blood Pressure : / mmHG Vent. Rate : 091 BPM Atrial Rate : 091 BPM P-R Int : 118 ms QRS Dur : 076 ms QT Int : 374 ms P-R-T Axes : 021 003 017 degrees QTc Int : 460 ms Normal sinus rhythm Normal ECG When compared with ECG of 05-JUL-2021 17:54, No significant change was found Referred By: Generic ED Physician Electronically Signed By:KATIE MULLIGAN MD
[2021-08-15 21:40] VITALS: BP 188/110; PULSE 102; RESP 16; TEMP 36.6; O2SAT 98; BMI 39.2
[2021-08-15 22:02] LABS: MANUAL DIFF FLAG NO
[2021-08-15 22:04] LABS: Basophils Percent Auto 0.3 % (0-2); Eosinophils Absolute Auto 0.1 X10*3/uL (0.0-0.4); Eosinophils Percent Auto 1.1 % (0-4); Hematocrit 37.6 % (37.0-47.0); Hemoglobin 12.8 g/dl (12.0-16.0); Imm Gran Abs Auto 0.02 X10*3/uL (0.00-0.03); Imm Gran Pct Auto 0.2 % (0.0-0.4); Lymphocytes Absolute Auto 2.7 X10*3/uL (1.2-4.9); Lymphocytes Percent Auto 27.6 % (20-40); Mean Corpuscular Hemoglobin 30.3 pg (27.0-33.0); Mean Corpuscular Volume 89.1 fL (80.0-98.0); Mean Platelet Volume 9.4 fL (9.4-12.3); Monocytes Absolute Auto 0.6 X10*3/uL (0.1-1.2); Monocytes Percent Auto 6.2 % (2-11); Neutrophils Absolute Auto 6.3 x10*3/uL (2.0-8.3); Neutrophils Percent Auto 64.6 % (45-73); Platelet Count 290 X10*3/uL (160-400); Red Blood Count 4.22 X10*6/uL (4.20-5.50); Red Cell Distribution Width 12.3 % (11.0-16.0); White Blood Count 9.8 X10*3/uL (4.8-10.8)
[2021-08-15 22:18] LABS: Anion Gap 12 (12-20); Blood Urea Nitrogen 13 mg/dL (9-16); Calcium 9.2 mg/dL (8.4-10.2); Carbon Dioxide 23 mmol/L (22-29); Chloride 105 mmol/L (96-108); Creatinine Clr Calc Pharmacy 91.5; Estimated Glomerular Filt Rate > 60; Glucose Random 116 mg/dL (60-115); Potassium 3.8 mmol/L (3.3-5.1); Sodium 136 mmol/L (135-145)
[2021-08-15 22:23] LABS: Troponin-I High Sensitivity < 3.5 ng/L (<3.5-17.0)
[2021-08-16 01:49] VITALS: BP 146/87; PULSE 83; RESP 18; TEMP 35.8; O2SAT 100
--- NOTE | 2021-08-16 04:17 | PC.NURSE ---
Pt eloped from [facility] room 1 prior to being evaluated by provider. pt waited approximately 3hrs
== END 2021-08-16 04:18 | disposition left against medical advice (07) ==
PROVIDERS: Emergency Provider Emergency Medicine; PCP Internal Medicine
DX: R00.2 Palpitations (principal); R51.9 Headache, unspecified; I10 Essential (primary) hypertension; Z79.899 Other long term (current) drug therapy
CPT/HCPCS: 36415; 80048; 84484; 85025; 93005; 99283

== ENCOUNTER 2021-08-16 15:42 | Outpatient (REF) | payer OTHER, SELFPAY ==
[2021-08-23 16:07] LABS: Pancreatic Elastase-1 >500 mcg/g
== END 2021-08-16 15:43 | disposition home or self-care (01) ==
LOC: HO.LNP 15:42
PROVIDERS: Visit Provider Nurse Practitioner Family
DX: K43.2 Incisional hernia without obstruction or gangrene (principal); R10.9 Unspecified abdominal pain
CPT/HCPCS: 82656; 87338; 99202

== ENCOUNTER → 2021-09-25 15:19 | Outpatient (BNVA) | payer OTHER, SELFPAY | PROVIDERS: PCP Internal Medicine; Visit Provider Nurse Practitioner Family | DX: K21.9 Gastro-esophageal reflux disease without esophagitis (principal); E55.9 Vitamin D deficiency, unspecified; K59.01 Slow transit constipation; R10.31 Right lower quadrant pain; Z79.899 Other long term (current) drug therapy | CPT/HCPCS: 99212 ==

== ENCOUNTER → 2021-10-18 09:43 | Outpatient (BNVA) | payer OTHER, SELFPAY | PROVIDERS: PCP Internal Medicine; Visit Provider Surgery | DX: K43.2 Incisional hernia without obstruction or gangrene (principal); E66.01 Morbid (severe) obesity due to excess calories; Z68.38 Body mass index [BMI] 38.0-38.9, adult | CPT/HCPCS: 99212 ==

== ENCOUNTER 2021-10-25 14:52 | Outpatient (REF) | payer OTHER, SELFPAY ==
[2021-10-25 15:29] LABS: Basophils Percent Auto 0.3 % (0-2); Hemoglobin 12.9 g/dl (12.0-16.0); Monocytes Absolute Auto 0.5 X10*3/uL (0.1-1.2); Monocytes Percent Auto 4.9 % (2-11); PLT CLUMP 1; SCAN SMEAR FLAG 1
[2021-10-25 15:31] LABS: Eosinophils Absolute Auto 0.1 X10*3/uL (0.0-0.4); Eosinophils Percent Auto 0.7 % (0-4); Hematocrit 38.6 % (37.0-47.0); Imm Gran Abs Auto 0.04 X10*3/uL (0.00-0.03); Imm Gran Pct Auto 0.4 % (0.0-0.4); Lymphocytes Absolute Auto 2.4 X10*3/uL (1.2-4.9); MANUAL DIFF FLAG SCAN; Mean Corpuscular HGB Conc 33.4 g/dl (31.0-35.0); Mean Corpuscular Hemoglobin 30.3 pg (27.0-33.0); Mean Corpuscular Volume 90.6 fL (80.0-98.0); Neutrophils Absolute Auto 6.3 x10*3/uL (2.0-8.3); Neutrophils Percent Auto 67.7 % (45-73); Red Blood Count 4.26 X10*6/uL (4.20-5.50); Red Cell Distribution Width 12.7 % (11.0-16.0)
[2021-10-25 15:32] LABS: White Blood Count 9.3 X10*3/uL (4.8-10.8)
[2021-10-25 16:04] LABS: Alanine Aminotransferase 29 U/L (0-31); Albumin Level 4.2 g/dL (3.5-5.0); Alkaline Phosphatase 81 U/L (39-117); Anion Gap 18 (12-20); Aspartate Amino Transferase 32 U/L (5-31); Bilirubin Total 0.3 mg/dL (0.0-1.0); Blood Urea Nitrogen 12 mg/dL (9-16); Calcium 8.9 mg/dL (8.4-10.2); Carbon Dioxide 20 mmol/L (22-29); Chloride 104 mmol/L (96-108); Cholesterol 240 mg/dL; Estimated Glomerular Filt Rate > 60; Glucose Fasting 84 mg/dL (60-99); HDL Cholesterol 46 mg/dL; LDL Cholesterol Calculated 144 mg/dl; Potassium 4.5 mmol/L (3.3-5.1); Sodium 137 mmol/L (135-145); Total Protein 8.3 g/dL (6.5-8.0); Triglycerides 254 mg/dL
[2021-10-25 16:06] LABS: SLIDE REVIEW VERIFIED
[2021-10-25 16:22] LABS: Free T4 (Free Thyroxine) 0.89 ng/dL (0.71-1.85); Thyroid Stimulating Hormone 4.61 uIU/mL (0.32-4.0); Vitamin D 25-OH Total 15.6 ng/mL (>30)
== END 2021-10-25 14:53 | disposition home or self-care (01) ==
LOC: HO.LAB 14:52
PROVIDERS: PCP Internal Medicine; Visit Provider Internal Medicine
DX: E78.5 Hyperlipidemia, unspecified (principal); E66.01 Morbid (severe) obesity due to excess calories; E55.9 Vitamin D deficiency, unspecified
CPT/HCPCS: 36415; 80053; 80061; 82306; 84439; 84443; 85025

== ENCOUNTER → 2021-11-06 | Day surgery (SDC) | payer OTHER, SELFPAY ==
[2021-10-30 12:03] VITALS: BMI 38.7
[2021-10-30 12:12] VITALS: BP 147/80; PULSE 81; RESP 16; O2SAT 98
--- NOTE | 2021-10-30 12:24 | HO.ANESPROP2 ---
Documented by User: Mabel Waller NP 10/30/21 12:35 HPI - Anesthesia Eval Consult details Narrative: 41yo F for Hernia Repair Incisional,poss mesh Hx PONV s/p carpal tunnel 10/2020 with GA-LMA 4 PMFSH Active Problems Active Problems: All Active Problems (Updated 10/30/21 @ 11:54 by Benita Burnette, RN) Carpal tunnel syndrome of left wrist (Acute) Cubital tunnel syndrome on left (Acute) Carpal tunnel syndrome of right wrist (Acute) Cubital tunnel syndrome on right (Acute) Right lower quadrant abdominal pain (Acute) Abdominal hernia (Acute) Hepatic steatosis (Acute) Left ovarian cyst (Acute) Incisional hernia (Acute) Elevated blood pressure reading (Acute) TSH elevation (Acute) Physical exam (Acute) Morbid obesity (Acute) Polyarthralgia (Acute) Insomnia (Acute) Moderate recurrent major depression (Acute) Bloody stools (Acute) Right sided sciatica (Acute) Dyslipidemia (Acute) Hypovitaminosis D (Acute) GERD (gastroesophageal reflux disease) (Acute) Acute insomnia (Acute) Constipation (Acute) Bilateral hand numbness (Acute) Past Medical History Medical History Acute insomnia Bilateral hand numbness Bloody stools Constipation Dyslipidemia GERD (gastroesophageal reflux disease) Hypovitaminosis D Insomnia Moderate recurrent major depression Morbid obesity Polyarthralgia PONV (postoperative nausea and vomiting) Right sided sciatica Family History Family History Father Hypertension Diabetes CVD (cardiovascular disease) Mother Hypertension Family history of problems with anesthesia: No Surgical History Surgical History History of carpal tunnel release History of section History of endometrial ablation History of tubal ligation Hx of hysterectomy History of Problems with Anesthesia: Yes (PONV) Social History Social History Housing: Apartment Are you a primary hemodialysis patient care specialist to a significant other at home: No Do you presently have visiting nurse or other home services: No Alcohol intake: current Alcohol intake frequency: does not drink Alcohol type: wine Patient Tobacco Use Status: Never used Tobacco e-Cigarette/Vaping Use: Never Used Second Hand Smoke Exposure: No service: No Current occupational status: employed 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[employer] Current occupational exposures/hazards: No Cognitive needs: No Hearing needs: No Vision needs: No Meds Allergies Allergy/AdvReac Type Severity Reaction Status Date / Time hydrocodone [HYDROCODONE] Allergy Severe DIFFICULTY Verified 10/25/21 13:51 BREATHING codeine Allergy Intermediate shortness Verified 10/25/21 13:51 of breath cyclobenzaprine AdvReac Intermediate sleepiness Verified 10/30/21 11:58 docusate [From Colace] AdvReac Intermediate Vomiting, Verified 10/30/21 11:58 dizziness mirtazapine [Remeron] AdvReac Intermediate vomiting Verified 10/25/21 13:51 nabumetone AdvReac Intermediate sleepiness Verified 10/30/21 11:58 Home Medications Medication Instructions Recorded Confirmed Last Taken Type bupropion HCl 150 mg 24 hr tablet, 150 mg PO QAM 10/30/21 10/30/21 Unknown History extended release Exam Exam Date and Time: October 30, 2021 1224 Height,Weight and Vital Signs: Height 5 ft 1 in Weight 93 kg Last Vital Signs Pulse 81 10/30/21 12:12 Resp 16 10/30/21 12:12 BP 147/80 H 10/30/21 12:12 Pulse Ox 98 10/30/21 12:12 O2 Del Method 10/30/21 12:12 Pertinent Lab Results Pertinent Lab Results: Laboratory Tests 10/25/21 10/25/21 15:19 15:19 WBC 9.3 Hgb 12.9 Hct 38.6 Plt Count TNP Sodium 137 Potassium 4.5 Chloride 104 Carbon Dioxide 20 L BUN 12 Creatinine 0.67 Narrative Narrative: EKG 07/2021 Vent. Rate : 091 BPM ? ? Atrial Rate : 091 BPM ?? P-R Int : 118 ms? QRS Dur : 076 ms ? ? QT Int : 374 ms ? ? ? P-R-T Axes : 021 003 017 degrees ?? QTc Int : 460 ms ? Normal sinus rhythm Normal ECG When compared with ECG of 05-JUL-2021 17:54, No significant change was found Airway Mallampati Class: II TM Dist: >3cm Neck ROM: Full Loose/Missing/Broken Teeth: Yes (Molars pulled a long time ago) Heart: RRR Lungs: CTAB Assessment and Plan Assessment Anesthesia Assessment: Anesthesia Plan Discussed and PAT Visit Final Anesthetic Review Family History of Problems with Anesthesia: No History of Problems with Anesthesia: Yes (PONV) Documented by User: Val Maynard MD 11/06/21 08:08 [facility] Past Medical History Medical History Acute insomnia Bilateral hand numbness Bloody stools Constipation Dyslipidemia GERD (gastroesophageal reflux disease) Hypovitaminosis D Insomnia Moderate recurrent major depression Morbid obesity Polyarthralgia PONV (postoperative nausea and vomiting) Right sided sciatica Family History Family History Father Hypertension Diabetes CVD (cardiovascular disease) Mother Hypertension Surgical History Surgical History History of carpal tunnel release History of section History of endometrial ablation History of tubal ligation Hx of hysterectomy Social History Social History Housing: Apartment Are you a primary hemodialysis patient care specialist to a significant other at home: No Do you presently have visiting nurse or other home services: No Alcohol intake: current Alcohol intake frequency: does not drink Alcohol type: wine Patient Tobacco Use Status: Never used Tobacco e-Cigarette/Vaping Use: Never Used Second Hand Smoke Exposure: No service: No Current occupational status: employed 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[employer] Current occupational exposures/hazards: No Cognitive needs: No Hearing needs: No Vision needs: No Meds Allergies Allergy/AdvReac Type Severity Reaction Status Date / Time hydrocodone [HYDROCODONE] Allergy Severe DIFFICULTY Verified 10/25/21 13:51 BREATHING codeine Allergy Intermediate shortness Verified 10/25/21 13:51 of breath cyclobenzaprine AdvReac Intermediate sleepiness Verified 10/30/21 11:58 docusate [From Colace] AdvReac Intermediate Vomiting, Verified 10/30/21 11:58 dizziness mirtazapine [Remeron] AdvReac Intermediate vomiting Verified 10/25/21 13:51 nabumetone AdvReac Intermediate sleepiness Verified 10/30/21 11:58 Home Medications Medication Instructions Recorded Confirmed Last Taken Type bupropion HCl 150 mg 24 hr tablet, 150 mg PO QAM 10/30/21 10/30/21 Unknown History extended release Assessment and Plan Final Anesthetic Review NPO: Yes ASA Class: II Final Preanesthetic Review: Meds/Allgs Chart Reviewed, Consent Obtained/Reviewed and Anes Risks/Benef Reviewed Patient Risk: Low Procedure Risk: Low Anesthetic Plan Anesthetic Plan: GA Disposition: Standard PACU
[2021-11-06] VITALS (13 sets, daily range): BP systolic 107–161; BP diastolic 53–89; PULSE 73–89; RESP 14–16; TEMP 36.2–36.9; O2SAT 95–100
[2021-11-06] MEDS: Scopolamine 1.5 MG PATCH.TD.3 TRANSDERMA (07:49)
[2021-11-06 07:59] LABS: COVID-19 Test Negative (Negative); IDNOW Serial# 16C4AD1C
[2021-11-06] MEDS: Lactated Ringers 1,000 ML 100 ML IVCONT (08:05)
--- NOTE | 2021-11-06 08:24 | MHC.SHP ---
Pre-Procedural Eval Section A Date of Service: 11/06/21 The patient is an INPATIENT: No Changes since office visit: No Cold of Flu in the past 2 weeks, No New Medical Problems, No Changes in Medication and No Patient answered all questions The History & Physical has been completed within 30 days and I have reviewed it.: Yes Section B Chief Complaint: Incisional hernia without obstruction or gangrene Allergies: Allergies Allergy/AdvReac Type Severity Reaction Status Date / Time hydrocodone [HYDROCODONE] Allergy Severe DIFFICULTY Verified 10/25/21 13:51 BREATHING codeine Allergy Intermediate shortness Verified 10/25/21 13:51 of breath cyclobenzaprine AdvReac Intermediate sleepiness Verified 10/30/21 11:58 docusate [From Colace] AdvReac Intermediate Vomiting, Verified 10/30/21 11:58 dizziness mirtazapine [Remeron] AdvReac Intermediate vomiting Verified 10/25/21 13:51 nabumetone AdvReac Intermediate sleepiness Verified 10/30/21 11:58 Plan I have reviewed the history and physical and performed a pertinent physical examination on my patient. No changes have occurred unless specified.
--- NOTE | 2021-11-06 10:09 | W.PM.OPN ---
Operative Note Operative Note Date of Service: 11/06/21 Narrative: Preop diagnosis: Incisional hernia Postop diagnosis: Incisional hernia Procedure: Repair of incisional hernia with Ventralex mesh, with extensive lysis of adhesions Surgeon: Domenic Ernst MD process assistant: MARTÍN Marquez The patient is a 41-year-old female with multiple previous C-sections, who was referred to me because of what appeared to be an hernia on her pannus still incision. She had been complaining of pain and protuberance in the area. I had sent her for a CAT scan showing a fascial defect in this area with loop of sigmoid almost peeking through the defect. In view of her discomfort she wanted to proceed with repair of this hernia. I explained to her that ideally, she should lose some weight prior to repair of this hernia in view of the associated perioperative risks with her morbid obesity. However, she says that she has significant discomfort and stated that she did not feel that she would be able to lose significant weight prior to repair. She therefore wanted to proceed. She understood that her perioperative risks were elevated. She was brought to the operating room and placed supine on the table under general anesthesia via endotracheal tube. Was prepped and draped in the usual sterile fashion. A surgical time-out was done. The patient received cefazolin 2 g IV preoperatively I marked my planned line of incision based on appearance of the images on CT scan. I had anticipated difficulty with the procedure in view of her very thick subcutaneous fat overlying the fascia defect. I made the incision using blade 15 on the skin after infiltration with lidocaine 1%. I carried down the incision through the full-thickness of the skin and thick subcutaneous fat. Then, we had to go through a very thick layer of subcutaneous fat until I was able to reach the fascia. I cleared up the fascia in this area try to look for the defect. There was note of some fibrotic changes making visualization and palpation at the defect difficult. I had to clear up more of the subcutaneous fat overlying this fascia on this area until was able to eventually able to visualize what appeared to be a hernia sac. I gently dissected this area using Metzenbaum scissors to expose the entire sac. I dissected the sac down to the fascial layer. I was therefore able to define the fascial defect. On I was careful not to dissect sharply aggressively in view of the presence of a loop of sigmoid in this area. Eventually, as able to clearly define the sac and I opened this up and gently dissected the sac off of the rest of the fascial defect. By doing so as able to expose the entire hernia contents which was all omentum at this point. I was able to apply Artie clamps on the fascial edges and by doing so was able to visualize underside. I was able to see that we had enough social margins free of any adhesions or bowel loops to allow placement of a mesh I continued to sharply defined the fascial edge with Metzenbaum scissors. This turned out to be about 2 cm in diameter. I therefore chose a small-sized Ventralex mesh. I positioned the mesh underneath the fascial layer. This was flattened. I secured the Prolene straps of the mesh on each side using Prolene 2 sutures to the fascial edge I made sure that the mesh was flat. I trimmed the Prolene straps. I then close the fascial defect with a figure-eight Maxon 1 stitch. I copiously irrigated. I reapposed the thick subcutaneous layer with multiple Dexon 3-0 simple sutures. The skin was then closed with a running Dexon 4-0 stitch. The area was infiltrated with Marcaine 0.5% for postop analgesia. Dressings were applied. The procedure was then completed. The patient tolerated procedure well. There were no immediate complications. Initial final counts of sponges and instruments were correct. Estimated blood loss about 20 cc. The patient was extubated without difficulty and transferred to the recovery room with stable vital signs.
[2021-11-06] MEDS: oxyCODONE HCl Immed Release 5 MG TABLET PO (10:56)
[2021-11-06] MEDS: fentaNYL citrate/PF 100 MCG/2 ML VIAL 25 MCG IVPUSH ×3 (10:58→11:28)
--- NOTE | 2021-11-06 14:46 | PC.NURSE ---
PATIENT COMPLAINED OF FEELING NAUSEOUS. PT HAS A SCOCOLOMINE PATCH ON. ANESTHESIA EVALUATED PATIENT AND ORDERED A ZOFRAN TABLET. PT OK TO BE DISCHARGED HOME AFTER GIVEN ZOFRAN PER ANESTHESIOLOGIST. 97.2, 87, 145/84, 96% RA.
[2021-11-06] MEDS: Ondansetron ODT 4 MG TAB.RAPDIS TRANSLINGU (15:05)
== END | disposition home or self-care (01) ==
PROVIDERS: PCP Internal Medicine; Visit Provider Surgery
PROC: (CPT 49560; principal; 2021-11-06 08:40)
DX: K43.2 Incisional hernia without obstruction or gangrene (principal); K66.0 Peritoneal adhesions (postprocedural) (postinfection); Z90.710 Acquired absence of both cervix and uterus; K21.9 Gastro-esophageal reflux disease without esophagitis; E55.9 Vitamin D deficiency, unspecified; F33.1 Major depressive disorder, recurrent, moderate; E66.01 Morbid (severe) obesity due to excess calories; Z68.38 Body mass index [BMI] 38.0-38.9, adult; Z79.899 Other long term (current) drug therapy; Z88.8 Allergy status to other drugs, medicaments and biological substances; Z20.822 Contact with and (suspected) exposure to COVID-19
CPT/HCPCS: 49560; 49568; 49999; 87635; C1781; J0131; J0690; J1100; J2250; J2405; J2795; J3010

== ENCOUNTER → 2021-12-12 15:43 | Outpatient (BNVA) | payer OTHER, SELFPAY | PROVIDERS: PCP Internal Medicine; Visit Provider Nurse Practitioner Family | DX: K21.9 Gastro-esophageal reflux disease without esophagitis (principal); K76.0 Fatty (change of) liver, not elsewhere classified; K59.01 Slow transit constipation | CPT/HCPCS: 99212 ==

== ENCOUNTER 2022-03-22 09:03 | Outpatient (REF) | payer OTHER, SELFPAY ==
[2022-03-22 10:12] LABS: Cholesterol 238 mg/dL; HDL Cholesterol 41 mg/dL; LDL Cholesterol Calculated 158 mg/dl; Triglycerides 198 mg/dL
[2022-03-22 10:27] LABS: Thyroid Stimulating Hormone 5.53 uIU/mL (0.32-4.0); Vitamin D 25-OH Total 7.1 ng/mL (>30)
[2022-03-25 14:13] LABS: Thyroglobulin Antibodies 201 IU/mL (< or = 1); Thyroid Peroxidase Antibodies >900 IU/mL (<9)
== END 2022-03-22 09:04 | disposition home or self-care (01) ==
LOC: HO.LAB 09:03
PROVIDERS: PCP Internal Medicine; Visit Provider Internal Medicine
DX: E55.9 Vitamin D deficiency, unspecified (principal); R79.89 Other specified abnormal findings of blood chemistry; E78.5 Hyperlipidemia, unspecified
CPT/HCPCS: 36415; 80061; 82306; 84443; 86376; 86800

== ENCOUNTER → 2022-05-29 13:13 | Outpatient (BNVA) | payer OTHER, SELFPAY | PROVIDERS: PCP Internal Medicine; Visit Provider Nurse Practitioner Family | DX: K76.0 Fatty (change of) liver, not elsewhere classified (principal); K92.1 Melena; K21.9 Gastro-esophageal reflux disease without esophagitis; K59.01 Slow transit constipation | CPT/HCPCS: 99212 ==

== ENCOUNTER 2022-07-24 07:33 | Day surgery (SDC) | payer OTHER, SELFPAY ==
[2022-07-18 15:01] VITALS: BMI 38.9
[2022-07-24 08:15] VITALS: BP 150/97; PULSE 90; RESP 16; TEMP 36.1; O2SAT 96; BMI 36.9
--- NOTE | 2022-07-24 08:55 | MHC.SHP ---
Pre-Procedural Eval Section A Date of Service: 07/24/22 Section B Chief Complaint: Constipation, unspecified, reflux Details of Present Illness: epigastric pain, rectal bleeding FH of pancreas and stomach cancer Relevant Family History (Specify if Yes): Yes Relevant Social History: None Present Medications: see Short Stay Collaborative assessment Medical History: Significant History (Acute insomnia Bilateral hand numbness Bloody stools Constipation Dyslipidemia GERD (gastroesophageal reflux disease) Hernia of abdominal cavity Hypovitaminosis D Insomnia Moderate recurrent major depression Morbid obesity Polyarthralgia PONV (postoperative nausea and vomiting) Right sided sciatica) History of Previous Operations: Relevant previous surgery/procedure and date(s) (History of carpal tunnel release History of section History of endometrial ablation History of hernia surgery History of tubal ligation Hx of hysterectomy) Allergies: Allergies Allergy/AdvReac Type Severity Reaction Status Date / Time hydrocodone [HYDROCODONE] Allergy Severe DIFFICULTY Verified 05/29/22 13:30 BREATHING codeine Allergy Intermediate shortness Verified 05/29/22 13:30 of breath cyclobenzaprine AdvReac Intermediate sleepiness Verified 05/29/22 13:30 docusate [From Colace] AdvReac Intermediate Vomiting, Verified 05/29/22 13:30 dizziness mirtazapine [Remeron] AdvReac Intermediate vomiting Verified 05/29/22 13:30 nabumetone AdvReac Intermediate sleepiness Verified 05/29/22 13:30 Review of Systems Sugical H&P ROS: Negative: Constitution, Cardiovascular, Respiratory, Neurological, Psychiatric, Hem-Onc, Allergic/Immunologic, Gastrointestinal, Genitourinary, Musculoskeletal, Integumentary, Endocrine and Eyes/Ears/Nose/Throat Exam Surgical H&P Exam: Normal: HEENT, Normal: Heart, Normal: Lungs, Normal: Extremities, Normal: Abdomen, Normal: Skin and Normal: Neurological Plan Diagnosis/Plan: Unchanged I have reviewed the history and physical and performed a pertinent physical examination on my patient. No changes have occurred unless specified. Time Spent With Patient Time: Total time managing care of this patient today ____ minutes.
--- NOTE | 2022-07-24 08:56 | W.PM.OPN ---
Operative Note Operative Note Date of Service: 07/24/22 Narrative: Operative Information Procedure Description: EGD, Colonoscopy Indication: rectal bleeding,epigastric pain, Anesthesia: MAC FLEXIBLE TRANSORAL UPPER GASTROINTESTINAL ENDOSCOPY AND COLONOSCOPY PROCEDURE NOTE UPPER ENDOSCOPY Consent: Indications for the procedure and potential complications of bleeding, perforation, reaction to medications and missed diagnosis were discussed with the patient and informed consent was obtained. Instrument: Olympus GIF H 190 J mid size upper endoscope Monitoring: Vital signs and clinical assessment, continuous EKG monitoring, Pulse oximetry, Carbon Dioxide monitoring and blood pressure monitoring were done throughout the procedure. Procedure: The patient was placed in the left lateral decubitis position and pre-procedure medications were administered and a bite block was placed. The endoscope was inserted into the mouth and advanced under direct vision to the third part of duodenum. A careful inspection was made as the upper endoscope was withdrawn including a retroflexed examination of the proximal stomach; Findings and interventions are described below. Findings: Larynx:normal Esophagus: GE junction at 37 cm, diaphragm hiatus at 37 cm, normal mucosa -random bx taken Stomach:Mild erythema. Biopsies were obtained. Grade 3 flap valve on retroflexed examination of the cardia with incompetent LEs noted Duodenum: mild erythema bx taken Intervention: Biopsies as noted above COLONOSCOPY Instrument: Olympus variable stiffness Adult scope 190L Colonoscopy Monitoring: Vital signs and clinical assessment, continuous EKG monitoring, Pulse oximetry, Carbon Dioxide monitoring and blood pressure monitoring were done throughout the procedure. Colon withdrawal time was 11 minutes. Procedure: The patient was placed in the left lateral decubitis position and pre-procedure medications were administered. After a digital rectal examination of the ano-rectum, the video colonoscope was inserted into the rectum and advanced through the colon to the cecum/TI. The colonoscope was slowly withdrawn in a retrograde panoramic fashion and the colon mucosa was carefully examined including a retroflexed view of the rectum. Findings and interventions are described below. Procedure Difficulty:moderate Findings: Terminal Ileum-not intubated due to angulation Cecum:normal Ascending Colon: normal Transverse Colon -normal Descending Colon:normal Sigmoid Colon: 8-10 mm sessile polyp removed with cold snare Rectum: Retroflexion with small internal hemorrhoids, grade I, 4-6 mm sessile polyp removed with cold forceps Anorectum - normal Colon preparation: [place] Bowel Preparation Scale Right colon; 2 Transverse colon: 2 Left colon; 3 (0 = Unprepared colon segment with mucosa not seen due to solid stool that cannot be cleared. 1 = Portion of mucosa of the colon segment seen, but other areas of the colon segment not well seen due to staining, residual stool and/or opaque liquid. 2 = Minor amount of residual staining, small fragments of stool and/or opaque liquid, but mucosa of colon segment seen well. 3 = Entire mucosa of colon segment seen well with no residual staining, small fragments of stool or opaque liquid) Impression and Post Procedure Diagnosis: Endoscopy Findings: duodenitis gastritis incompetent LES Colonoscopy Findings: polyps internal hemorrhoids Plan: Await Pathology results Repeat Colonoscopy in 5 years due to polyps or earlier if clinically indicated High fiber diet leaflet avoid straining at stool, epsom salts and sitz bath, anusol supps or cream if h pylori pos then treat Above findings were reviewed with the patient and relevant handouts were provided if indicated.
--- NOTE | 2022-07-24 09:08 | P.CONAN_ITS ---
[facility] Active Problems Active Problems: All Active Problems (Updated 03/27/22 @ 12:33 by Mirta Mahmood MD) Autoimmune thyroiditis (Acute) Essential hypertension (Acute) Carpal tunnel syndrome of right wrist (Acute) Cubital tunnel syndrome on right (Acute) Right lower quadrant abdominal pain (Acute) Abdominal hernia (Acute) Hepatic steatosis (Acute) Left ovarian cyst (Acute) Incisional hernia (Acute) Elevated blood pressure reading (Acute) TSH elevation (Acute) Morbid obesity (Acute) Polyarthralgia (Acute) Insomnia (Acute) Moderate recurrent major depression (Acute) Bloody stools (Acute) Right sided sciatica (Acute) Dyslipidemia (Acute) Hypovitaminosis D (Acute) GERD (gastroesophageal reflux disease) (Acute) Constipation (Acute) Past Medical History Medical History Acute insomnia Bilateral hand numbness Bloody stools Constipation Dyslipidemia GERD (gastroesophageal reflux disease) Hernia of abdominal cavity Hypovitaminosis D Insomnia Moderate recurrent major depression Morbid obesity Polyarthralgia PONV (postoperative nausea and vomiting) Right sided sciatica Family History Family History Father Hypertension Diabetes CVD (cardiovascular disease) Mother Hypertension Family history of problems with anesthesia: No Surgical History Surgical History History of carpal tunnel release History of section History of endometrial ablation History of hernia surgery History of tubal ligation Hx of hysterectomy History of Problems with Anesthesia: Yes (PONV) Social History Social History Housing: Apartment Are you a primary progressive care unit registered nurse to a significant other at home: No Do you presently have visiting nurse or other home services: No Alcohol intake: current Alcohol intake frequency: holidays/special occasions only Alcohol type: wine Patient Tobacco Use Status: Never used Tobacco e-Cigarette/Vaping Use: Never Used Second Hand Smoke Exposure: No Use of substances other than those prescribed or required for medical reasons: No Advance Directives: No Advance Directives Information Provided: Yes service: No Current occupational status: employed 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 Current occupational exposures/hazards: No Cognitive needs: No Hearing needs: No Vision needs: No Meds Allergies Allergy/AdvReac Type Severity Reaction Status Date / Time hydrocodone [HYDROCODONE] Allergy Severe DIFFICULTY Verified 05/29/22 13:30 BREATHING codeine Allergy Intermediate shortness Verified 05/29/22 13:30 of breath cyclobenzaprine AdvReac Intermediate sleepiness Verified 05/29/22 13:30 docusate [From Colace] AdvReac Intermediate Vomiting, Verified 05/29/22 13:30 dizziness mirtazapine [Remeron] AdvReac Intermediate vomiting Verified 05/29/22 13:30 nabumetone AdvReac Intermediate sleepiness Verified 05/29/22 13:30 Exam Exam Date and Time: July 24, 2022 0908 Height,Weight and Vital Signs: Height 5 ft 2 in Weight 91.626 kg Last Vital Signs Temp 97.0 F 07/24/22 08:15 Pulse 90 07/24/22 08:15 Resp 16 07/24/22 08:15 BP 150/97 H 07/24/22 08:15 Pulse Ox 96 07/24/22 08:15 O2 Del Method Room Air 07/24/22 08:15 Airway Mallampati Class: III TM Dist: >3cm Neck ROM: Full Assessment and Plan Assessment Anesthesia Assessment: Anesthesia Plan Discussed and Chart Reviewed Final Anesthetic Review Family History of Problems with Anesthesia: No History of Problems with Anesthesia: Yes (PONV) NPO: Yes ASA Class: III Final Preanesthetic Review: No Changes in Pt Med Stat, Meds/Allgs Chart Reviewed, Consent Obtained/Reviewed and Anes Risks/Benef Reviewed Patient Risk: Intermediate Procedure Risk: Low Anesthetic Plan Anesthetic Plan: MAC: Disposition: Standard PACU
[2022-07-24 09:41] VITALS: BP 107/49; PULSE 95; RESP 16; TEMP 36.3; O2SAT 97
[2022-07-24 09:57] VITALS: BP 106/65; PULSE 93; RESP 16; TEMP 36.5; O2SAT 98
== END 2022-07-24 10:49 | disposition home or self-care (01) ==
PROVIDERS: PCP Internal Medicine; Visit Provider Internal Medicine Gastroenterology
PROC: (CPT 45385; principal; 2022-07-24 09:20)
DX: K62.5 Hemorrhage of anus and rectum (principal); D12.5 Benign neoplasm of sigmoid colon; K62.1 Rectal polyp; K63.89 Other specified diseases of intestine; K64.0 First degree hemorrhoids; K59.00 Constipation, unspecified; K21.9 Gastro-esophageal reflux disease without esophagitis; R10.13 Epigastric pain; K29.50 Unspecified chronic gastritis without bleeding; K29.80 Duodenitis without bleeding; K22.4 Dyskinesia of esophagus; K44.9 Diaphragmatic hernia without obstruction or gangrene; K76.0 Fatty (change of) liver, not elsewhere classified; I10 Essential (primary) hypertension; F33.1 Major depressive disorder, recurrent, moderate; E78.5 Hyperlipidemia, unspecified; E66.01 Morbid (severe) obesity due to excess calories; Z68.38 Body mass index [BMI] 38.0-38.9, adult; Z79.899 Other long term (current) drug therapy; Z88.8 Allergy status to other drugs, medicaments and biological substances
CPT/HCPCS: 45385; 45380; 43239; 88305; 88342; J2405

== ENCOUNTER → 2022-08-05 08:32 | Outpatient (BNVA) | payer OTHER, SELFPAY | PROVIDERS: PCP Internal Medicine; Visit Provider Nurse Practitioner Family | DX: K21.9 Gastro-esophageal reflux disease without esophagitis (principal); K59.01 Slow transit constipation; D36.9 Benign neoplasm, unspecified site; Z98.890 Other specified postprocedural states | CPT/HCPCS: 99212 ==

== ENCOUNTER 2022-08-21 13:14 | Outpatient (REF) | payer OTHER, SELFPAY ==
--- NOTE | ~2022-08-21 | MM_ITS ---
EXAMINATION: MM SCREENING DIGITAL BREAST TOMOSYNTHESIS, BILATERAL CLINICAL INFORMATION: Screening. Asymptomatic. The lifetime risk of breast cancer based on the Tyrer-Cuzick Model is 8.9%. COMPARISON: Mammography: This study is compared to prior mammogram from 2017. TECHNIQUE: Digital breast tomosynthesis is performed in both the craniocaudal and mediolateral oblique views along with computer-aided detection (CAD). Synthesized 2D images are generated from the tomosynthesis. FINDINGS: There are scattered areas of fibroglandular density (ACR BI-RADS breast composition Category b). There are no significant masses, abnormal calcifications, or other abnormalities. MM/MM tomosynthesis screening BI IMPRESSION: No mammographic evidence of malignancy. ASSESSMENT: BI-RADS BI-RADS 1 - Negative RECOMMENDATION: Routine annual mammography screening. 1 year F/U This patient's information was entered into a reminder system with a target due date for their next mammogram.
== END 2022-08-21 13:15 | disposition home or self-care (01) ==
LOC: HO.MAMMO 13:14
PROVIDERS: PCP Internal Medicine; Visit Provider Internal Medicine
DX: Z12.31 Encounter for screening mammogram for malignant neoplasm of breast (principal)
CPT/HCPCS: 77063; 77067

== ENCOUNTER → 2022-08-21 13:30 | Outpatient (BNV) | payer OTHER, SELFPAY | PROVIDERS: PCP Internal Medicine; Visit Provider Radiology Diagnostic Radiology | DX: Z12.31 Encounter for screening mammogram for malignant neoplasm of breast (principal) | CPT/HCPCS: 77063; 77067 ==

== ENCOUNTER 2022-08-29 11:00 | Emergency (ER) | payer OTHER, SELFPAY ==
--- NOTE | 2022-08-29 11:06 | ED.GENADULT ---
HPI - General Adult General Chief complaint: Abdominal Pain Stated complaint: pain lower abd Time Seen by Provider: 08/29/22 11:40 Related Data Previous Rx's Medication Instructions Recorded zolpidem 5 mg tablet 5 mg PO BEDTIME PRN sleep 30 days 08/15/21 #30 tabs bupropion HCl 150 mg 24 hr tablet, 150 mg PO QAM 90 days #90 tabs 12/10/21 extended release famotidine 40 mg tablet 40 mg PO BEDTIME #90 tabs 12/12/21 pantoprazole 40 mg tablet,delayed 40 mg PO DAILY #90 tabs 12/12/21 release sennosides 8.6 mg tablet (Natural 17.2 mg PO BEDTIME constipation 12/12/21 Senna Laxative) #180 tabs cholecalciferol (vitamin D3) 125 125 mcg PO DAILY 90 days #90 caps 03/27/22 mcg (5,000 unit) capsule levothyroxine 25 mcg tablet 25 mcg PO DAILY 90 days #90 tabs 03/27/22 rosuvastatin 10 mg tablet 10 mg PO DAILY 90 days #90 tabs 03/27/22 hydrochlorothiazide 12.5 mg tablet 12.5 mg PO DAILY 90 days #90 tabs 06/08/22 Allergies Allergy/AdvReac Type Severity Reaction Status Date / Time hydrocodone [HYDROCODONE] Allergy Severe DIFFICULTY Verified 08/29/22 11:06 BREATHING codeine Allergy Intermediate shortness Verified 08/29/22 11:06 of breath cyclobenzaprine AdvReac Intermediate sleepiness Verified 08/29/22 11:06 docusate [From Colace] AdvReac Intermediate Vomiting, Verified 08/29/22 11:06 dizziness mirtazapine [Remeron] AdvReac Intermediate vomiting Verified 08/29/22 11:06 nabumetone AdvReac Intermediate sleepiness Verified 08/29/22 11:06 [facility] Past Medical History Medical History Acute insomnia Bilateral hand numbness Bloody stools Constipation Dyslipidemia GERD (gastroesophageal reflux disease) Hernia of abdominal cavity Hyperlipidemia Hypertension Hypovitaminosis D Insomnia Moderate recurrent major depression Morbid obesity Polyarthralgia PONV (postoperative nausea and vomiting) Right sided sciatica Tubular adenoma Surgical History History of carpal tunnel release History of section History of endometrial ablation History of esophagogastroduodenoscopy (EGD) History of hernia surgery History of tubal ligation Hx of colonoscopy Hx of hysterectomy Family History Family History Father Hypertension Diabetes CVD (cardiovascular disease) Mother Hypertension Social History Social History Housing: Apartment Are you a primary hearing care professional to a significant other at home: No Do you presently have visiting nurse or other home services: No Alcohol intake: current Alcohol intake frequency: holidays/special occasions only Alcohol type: wine Patient Tobacco Use Status: Never used Tobacco Smoked in Last 30 Days: No e-Cigarette/Vaping Use: Never Used Second Hand Smoke Exposure: No Use of substances other than those prescribed or required for medical reasons: No Advance Directives: No Advance Directives Information Provided: No Patient : No service: No Current occupational status: employed 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 Current occupational exposures/hazards: No Cognitive needs: No Hearing needs: No Vision needs: No Physical Exam ED Vital Signs: Vital Signs - 24 hr 08/29/22 11:07 08/29/22 11:53 08/29/22 13:37 Temperature 97.1 F 98.7 F 97.7 F Pulse Rate 93 88 79 Respiratory Rate 18 16 16 Blood Pressure 150/98 H 140/72 H 134/78 Pulse Oximetry 97 97 97 Oxygen Delivery Method Room Air Room Air Room Air 08/29/22 15:13 Temperature Pulse Rate 84 Respiratory Rate 16 Blood Pressure 111/65 Pulse Oximetry 97 Oxygen Delivery Method Room Air BMI result Body Mass Index 37.1 Course Course Course Narrative: This is an RME: Additional HPI, ROS, PE not included below will be deferred to primary provider. This is a 41-year-old Lithuanian speaking female with a past medical history of depression, insomnia, dyslipidemia, ovarian cysts and hypertension, presenting to the emergency department with complaints of suprapubic abdominal pain since yesterday. States last year she was operated 1 year ago for a hernia. No nausea, vomiting, or diarrhea. +urinary frequency. Admits to having bright red blood in stool after bowel movements x 2 days but was told she has hemorrhoids. Plan: Labs and urinalysis ordered. Defer diagnostic imaging until seen by primary provider in main ER. Reevaluation(s) Reevaluation #1: 42-year-old female who was signed out to me with lower abdominal discomfort and history of hysterectomy. I reviewed all documentation, lab work, urinalysis and received the CT scan results which demonstrate a fatty liver and a 4 cm left ovarian cyst. The patient does have a history ovarian cysts I have no clinical suspicion for or variant torsion and she was provided with combination analgesics and discharged home in stable condition with instructions to follow-up with her interactive account manager and/or primary care provider Time: 17:02 Medications Administered Discontinued Medications Generic Name Dose Route Start Last Admin Trade Name Freq PRN Reason Stop Dose Admin Sodium Chloride 1,000 mls @ 999 mls/hr 08/29/22 12:30 08/29/22 15:57 Ns IV 08/29/22 13:30 Infused .Q1H1M ANITA Infusion Medical Decision Making Lab Data 08/29/22 11:22 08/29/22 11:22 Labs: Lab Results 08/29/22 08/29/22 08/29/22 Range/Units 11:22 11:22 11:57 WBC 6.4 (4.8-10.8) X10*3/uL RBC 4.08 L (4.20-5.50) X10*6/uL Hgb 12.4 (12.0-16.0) g/dl Hct 36.9 L (37.0-47.0) % MCV 90.4 (80.0-98.0) fL MCH 30.4 (27.0-33.0) pg MCHC 33.6 (31.0-35.0) g/dl RDW 12.9 (11.0-16.0) % Plt Count 261 (160-400) X10*3/uL MPV 9.4 (9.4-12.3) fL Immature Gran % (Auto) 0.5 H (0.0-0.4) % Neut % (Auto) 61.5 (45-73) % Lymph % (Auto) 32.0 (20-40) % [place] % (Auto) 4.3 (2-11) % Eos % (Auto) 1.4 (0-4) % Baso % (Auto) 0.3 (0-2) % Lymph # (Auto) 2.0 (1.2-4.9) X10*3/uL [place] # (Auto) 0.3 (0.1-1.2) X10*3/uL Eos # (Auto) 0.1 (0.0-0.4) X10*3/uL Baso # (Auto) 0.0 (0.0-0.2) X10*3/uL Abs Immat Gran (auto) 0.03 (0.00-0.03) X10*3/uL Absolute Neuts (auto) 3.9 (2.0-8.3) x10*3/uL Absolute Nucleated RBC 0.000 (0.0-0.012) X10*3/uL Nucleated RBC % (auto) 0.0 (0.0-0.2) /100WBC Sodium 135 (135-145) mmol/L Potassium 4.1 (3.3-5.1) mmol/L Chloride 104 (96-108) mmol/L Carbon Dioxide 24 (22-29) mmol/L Anion Gap 11 L (12-20) BUN 11 (9-16) mg/dL Creatinine 0.74 (0.5-1.4) mg/dL Estim Creat Clear Calc 103.4 Estimated GFR > 60 Random Glucose 157 H (60-115) mg/dL Calcium 9.5 D (8.4-10.2) mg/dL Total Bilirubin 0.6 (0.0-1.0) mg/dL Direct Bilirubin 0.2 (0.0-0.5) mg/dL AST 30 (5-31) U/L ALT 53 H (0-31) U/L Alkaline Phosphatase 85 (39-117) U/L Total Protein 8.0 (6.5-8.0) g/dL Albumin 3.8 (3.5-5.0) g/dL Lipase 20 (8-78) U/L Urine Color Yellow Urine Appearance Clear Urine pH 5.5 (5.0-9.0) Ur Specific [place] 1.025 (1.005-1.025) Urine Protein Negative (Neg-Trace) mg/dL Urine Glucose (UA) Negative (Negative) mg/dL Urine Ketones Negative (Negative) mg/dL Urine Blood Negative (Negative) Urine Nitrite Negative (Negative) Ur Leukocyte Esterase Negative (Negative) Urine Test (NEGATIVE) Stool Occult Blood (NEGATIVE) 08/29/22 08/29/22 Range/Units 11:57 15:43 WBC (4.8-10.8) X10*3/uL RBC (4.20-5.50) X10*6/uL Hgb (12.0-16.0) g/dl Hct (37.0-47.0) % MCV (80.0-98.0) fL MCH (27.0-33.0) pg MCHC (31.0-35.0) g/dl RDW (11.0-16.0) % Plt Count (160-400) X10*3/uL MPV (9.4-12.3) fL Immature Gran % (Auto) (0.0-0.4) % Neut % (Auto) (45-73) % Lymph % (Auto) (20-40) % [place] % (Auto) (2-11) % Eos % (Auto) (0-4) % Baso % (Auto) (0-2) % Lymph # (Auto) (1.2-4.9) X10*3/uL [place] # (Auto) (0.1-1.2) X10*3/uL Eos # (Auto) (0.0-0.4) X10*3/uL Baso # (Auto) (0.0-0.2) X10*3/uL Abs Immat Gran (auto) (0.00-0.03) X10*3/uL Absolute Neuts (auto) (2.0-8.3) x10*3/uL Absolute Nucleated RBC (0.0-0.012) X10*3/uL Nucleated RBC % (auto) (0.0-0.2) /100WBC Sodium (135-145) mmol/L Potassium (3.3-5.1) mmol/L Chloride (96-108) mmol/L Carbon Dioxide (22-29) mmol/L Anion Gap (12-20) BUN (9-16) mg/dL Creatinine (0.5-1.4) mg/dL Estim Creat Clear Calc Estimated GFR Random Glucose (60-115) mg/dL Calcium (8.4-10.2) mg/dL Total Bilirubin (0.0-1.0) mg/dL Direct Bilirubin (0.0-0.5) mg/dL AST (5-31) U/L ALT (0-31) U/L Alkaline Phosphatase (39-117) U/L Total Protein (6.5-8.0) g/dL Albumin (3.5-5.0) g/dL Lipase (8-78) U/L Urine Color Urine Appearance Urine pH (5.0-9.0) Ur Specific [place] (1.005-1.025) Urine Protein (Neg-Trace) mg/dL Urine Glucose (UA) (Negative) mg/dL Urine Ketones (Negative) mg/dL Urine Blood (Negative) Urine Nitrite (Negative) Ur Leukocyte Esterase (Negative) Urine Test NEGATIVE (NEGATIVE) Stool Occult Blood POSITIVE (NEGATIVE) Discharge Plan Discharge Clinical Impression: Abdominal pain, Ovarian cyst Patient Disposition: Home, Self-Care Instructions: Ovarian Cyst (ED), Abdominal Pain (ED) Additional Instructions: 1. Reanudar todos los medicamentos caseros seg?n lo prescrito. 2. Tiene un quiste ov?rico que se puede tratar con Tylenol/ibuprofeno de venta ben y debe hacer un seguimiento con fernando ginec?logo y/o fernando m?dico de atenci?n primaria. Regrese a la sharon de emergencias si los s?ntomas empeoran. 1. Resume all home medications as prescribed. 2. You have an ovarian cyst which can be treated with [id number] Tylenol/ibuprofen and you should follow-up with your interactive account manager and/or your primary care doctor. Return to the ER for any worsening symptoms. Prescriptions: No Action bupropion HCl 150 mg tablet extended release 24 hr 150 mg PO QAM 90 Days Qty: 90 1RF levothyroxine 25 mcg tablet 25 mcg PO DAILY 90 Days Qty: 90 1RF rosuvastatin 10 mg tablet 10 mg PO DAILY 90 Days Qty: 90 1RF cholecalciferol (vitamin D3) 125 mcg (5,000 unit) capsule 125 mcg PO DAILY 90 Days Qty: 90 1RF hydrochlorothiazide 12.5 mg tablet 12.5 mg PO DAILY 90 Days Qty: 90 0RF zolpidem 5 mg tablet 5 mg PO BEDTIME PRN (Reason: sleep) 30 Days Qty: 30 0RF famotidine 40 mg tablet 40 mg PO BEDTIME Qty: 90 3RF pantoprazole 40 mg tablet,delayed release (DR/EC) 40 mg PO DAILY Qty: 90 2RF Rx Instructions: take one tablet half an hour before breakfast sennosides [Natural Senna Laxative] 8.6 mg tablet 17.2 mg PO BEDTIME Qty: 180 2RF Referrals: Mirta Kitchen MD [Primary Care Provider] - Print Language: Lithuanian
[2022-08-29 11:07] VITALS: BP 150/98; PULSE 93; RESP 18; TEMP 36.2; O2SAT 97; BMI 37.1
[2022-08-29 11:53] VITALS: BP 140/72; PULSE 88; RESP 16; TEMP 37.1; O2SAT 97
--- NOTE | 2022-08-29 12:10 | PC.NURSE ---
a&ox3, vss, legal mediator bedside filling out initial assessment, normoactive bs noted upon auscultation, tenderness noted upon palpation towards lower abdomen, no distention noted, tech sent urine to lab, call faulkner placed within reach, will continue to monitor.
--- NOTE | 2022-08-29 12:30 | ED.ABDPAIN ---
HPI - Abdominal Pain General Chief Complaint: Abdominal Pain Stated Complaint: pain lower abd Time Seen by Provider: 08/29/22 11:40 History of Present Illness HPI narrative: Patient is a 42-year-old female with a history of having low abdominal pain for last 2 days. Radiation noted her stool to have some blood in it. Positive generalized malaise. Status post hysterectomy in the past. Status post hernia repair. No fever no chills. No nausea no vomiting. No vaginal discharge. External auditory symptoms. Patient from home. No diaphoresis. No history of diverticulitis in the past. Related Data Previous Rx's Medication Instructions Recorded zolpidem 5 mg tablet 5 mg PO BEDTIME PRN sleep 30 days 08/15/21 #30 tabs bupropion HCl 150 mg 24 hr tablet, 150 mg PO QAM 90 days #90 tabs 12/10/21 extended release famotidine 40 mg tablet 40 mg PO BEDTIME #90 tabs 12/12/21 pantoprazole 40 mg tablet,delayed 40 mg PO DAILY #90 tabs 12/12/21 release sennosides 8.6 mg tablet (Natural 17.2 mg PO BEDTIME constipation 12/12/21 Senna Laxative) #180 tabs cholecalciferol (vitamin D3) 125 125 mcg PO DAILY 90 days #90 caps 03/27/22 mcg (5,000 unit) capsule levothyroxine 25 mcg tablet 25 mcg PO DAILY 90 days #90 tabs 03/27/22 rosuvastatin 10 mg tablet 10 mg PO DAILY 90 days #90 tabs 03/27/22 hydrochlorothiazide 12.5 mg tablet 12.5 mg PO DAILY 90 days #90 tabs 06/08/22 Allergies Allergy/AdvReac Type Severity Reaction Status Date / Time hydrocodone [HYDROCODONE] Allergy Severe DIFFICULTY Verified 08/29/22 11:06 BREATHING codeine Allergy Intermediate shortness Verified 08/29/22 11:06 of breath cyclobenzaprine AdvReac Intermediate sleepiness Verified 08/29/22 11:06 docusate [From Colace] AdvReac Intermediate Vomiting, Verified 08/29/22 11:06 dizziness mirtazapine [Remeron] AdvReac Intermediate vomiting Verified 08/29/22 11:06 nabumetone AdvReac Intermediate sleepiness Verified 08/29/22 11:06 Review of Systems Review of Systems Positive abdominal pain Yes all other systems are reviewed and are negative [facility] Past Medical History Attestation statement: The following information was validated with the patient. Medical History Acute insomnia Bilateral hand numbness Bloody stools Constipation Dyslipidemia GERD (gastroesophageal reflux disease) Hernia of abdominal cavity Hyperlipidemia Hypertension Hypovitaminosis D Insomnia Moderate recurrent major depression Morbid obesity Polyarthralgia PONV (postoperative nausea and vomiting) Right sided sciatica Tubular adenoma Surgical History History of carpal tunnel release History of section History of endometrial ablation History of esophagogastroduodenoscopy (EGD) History of hernia surgery History of tubal ligation Hx of colonoscopy Hx of hysterectomy Family History Family History Father Hypertension Diabetes CVD (cardiovascular disease) Mother Hypertension Social History Social History Housing: Apartment Are you a primary care transition manager to a significant other at home: No Do you presently have visiting nurse or other home services: No Alcohol intake: current Alcohol intake frequency: holidays/special occasions only Alcohol type: wine Patient Tobacco Use Status: Never used Tobacco Smoked in Last 30 Days: No e-Cigarette/Vaping Use: Never Used Second Hand Smoke Exposure: No Use of substances other than those prescribed or required for medical reasons: No Advance Directives: No Advance Directives Information Provided: No Patient : No service: No Current occupational status: employed 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 Oriented X3. No acute distress. Eyes: Pupils equal, round and reactive to light. ENT: Pharynx normal. Neck: Normal inspection. Neck supple. No lymph nodes noted. No crepitus CVS: Normal heart rate and rhythm. Pulses normal. Normal S1 and S2 Respiratory: No respiratory distress. Breath sounds normal. No Wheezing. No rales Abdomen: Soft and nontender. No rigidity. No distention. good BS x4 Rectal exam heme positive brown stool. Skin: Skin warm and dry. Normal skin color. Normal skin turgor. Extremities: No lower extremity edema. Neurovascular intact to all extremities. No Lacerations. No Rash Neuro: Oriented X 3. No motor deficit. No sensory deficit. Moving all extermities. No slurred speech Medical Decision Making Medical Decision Making [facility] Narrative: 42-year-old female presents today with having lower abdominal pain. White count is normal. Patient's hemoglobin is 12 approximately baseline. Abdomen is soft nontender. Status post hysterectomy unlikely be unlikely be related issue. CT scan of the abdomen pelvis is pending. Patient's rectal exam showed brown stool that was heme-positive. Previous patient had heme-positive brown stool in the past. Question secondary to hemorrhoids. Previously patient had had upper endoscopy and colonoscopy done recently. It showedEndoscopy Findings: Endoscopy duodenitis gastritis incompetent LES Colonoscopy Findings: polyps internal hemorrhoids Currently awaiting CT scan of the abdomen to rule out appendicitis, obstruction, abscess, diverticulitis. If negative can be discharged home closely follow up on an outpatient basis. Urine showed no evidence of infection. Awaiting CT scan of the abdomen. Differential Diagnosis Differential Diagnoses: The differential diagnosis associated with the presentation includes Internal hemorrhoid, constipation, ovary pain, related issue, appendicitis, diverticulitis, UTI Lab Data [facility] Lab Attestation statement: I reviewed the patient's lab results. 08/29/22 11:22 08/29/22 11:22 Labs: Lab Results 08/29/22 08/29/22 08/29/22 Range/Units 11:22 11:22 11:57 WBC 6.4 (4.8-10.8) X10*3/uL RBC 4.08 L (4.20-5.50) X10*6/uL Hgb 12.4 (12.0-16.0) g/dl Hct 36.9 L (37.0-47.0) % MCV 90.4 (80.0-98.0) fL MCH 30.4 (27.0-33.0) pg MCHC 33.6 (31.0-35.0) g/dl RDW 12.9 (11.0-16.0) % Plt Count 261 (160-400) X10*3/uL MPV 9.4 (9.4-12.3) fL Immature Gran % (Auto) 0.5 H (0.0-0.4) % Neut % (Auto) 61.5 (45-73) % Lymph % (Auto) 32.0 (20-40) % [place] % (Auto) 4.3 (2-11) % Eos % (Auto) 1.4 (0-4) % Baso % (Auto) 0.3 (0-2) % Lymph # (Auto) 2.0 (1.2-4.9) X10*3/uL [place] # (Auto) 0.3 (0.1-1.2) X10*3/uL Eos # (Auto) 0.1 (0.0-0.4) X10*3/uL Baso # (Auto) 0.0 (0.0-0.2) X10*3/uL Abs Immat Gran (auto) 0.03 (0.00-0.03) X10*3/uL Absolute Neuts (auto) 3.9 (2.0-8.3) x10*3/uL Absolute Nucleated RBC 0.000 (0.0-0.012) X10*3/uL Nucleated RBC % (auto) 0.0 (0.0-0.2) /100WBC Sodium 135 (135-145) mmol/L Potassium 4.1 (3.3-5.1) mmol/L Chloride 104 (96-108) mmol/L Carbon Dioxide 24 (22-29) mmol/L Anion Gap 11 L (12-20) BUN 11 (9-16) mg/dL Creatinine 0.74 (0.5-1.4) mg/dL Estim Creat Clear Calc 103.4 Estimated GFR > 60 Random Glucose 157 H (60-115) mg/dL Calcium 9.5 D (8.4-10.2) mg/dL Total Bilirubin 0.6 (0.0-1.0) mg/dL Direct Bilirubin 0.2 (0.0-0.5) mg/dL AST 30 (5-31) U/L ALT 53 H (0-31) U/L Alkaline Phosphatase 85 (39-117) U/L Total Protein 8.0 (6.5-8.0) g/dL Albumin 3.8 (3.5-5.0) g/dL Lipase 20 (8-78) U/L Urine Color Yellow Urine Appearance Clear Urine pH 5.5 (5.0-9.0) Ur Specific [place] 1.025 (1.005-1.025) Urine Protein Negative (Neg-Trace) mg/dL Urine Glucose (UA) Negative (Negative) mg/dL Urine Ketones Negative (Negative) mg/dL Urine Blood Negative (Negative) Urine Nitrite Negative (Negative) Ur Leukocyte Esterase Negative (Negative) Urine Test (NEGATIVE) Stool Occult Blood (NEGATIVE) 08/29/22 08/29/22 Range/Units 11:57 15:43 WBC (4.8-10.8) X10*3/uL RBC (4.20-5.50) X10*6/uL Hgb (12.0-16.0) g/dl Hct (37.0-47.0) % MCV (80.0-98.0) fL MCH (27.0-33.0) pg MCHC (31.0-35.0) g/dl RDW (11.0-16.0) % Plt Count (160-400) X10*3/uL MPV (9.4-12.3) fL Immature Gran % (Auto) (0.0-0.4) % Neut % (Auto) (45-73) % Lymph % (Auto) (20-40) % [place] % (Auto) (2-11) % Eos % (Auto) (0-4) % Baso % (Auto) (0-2) % Lymph # (Auto) (1.2-4.9) X10*3/uL [place] # (Auto) (0.1-1.2) X10*3/uL Eos # (Auto) (0.0-0.4) X10*3/uL Baso # (Auto) (0.0-0.2) X10*3/uL Abs Immat Gran (auto) (0.00-0.03) X10*3/uL Absolute Neuts (auto) (2.0-8.3) x10*3/uL Absolute Nucleated RBC (0.0-0.012) X10*3/uL Nucleated RBC % (auto) (0.0-0.2) /100WBC Sodium (135-145) mmol/L Potassium (3.3-5.1) mmol/L Chloride (96-108) mmol/L Carbon Dioxide (22-29) mmol/L Anion Gap (12-20) BUN (9-16) mg/dL Creatinine (0.5-1.4) mg/dL Estim Creat Clear Calc Estimated GFR Random Glucose (60-115) mg/dL Calcium (8.4-10.2) mg/dL Total Bilirubin (0.0-1.0) mg/dL Direct Bilirubin (0.0-0.5) mg/dL AST (5-31) U/L ALT (0-31) U/L Alkaline Phosphatase (39-117) U/L Total Protein (6.5-8.0) g/dL Albumin (3.5-5.0) g/dL Lipase (8-78) U/L Urine Color Urine Appearance Urine pH (5.0-9.0) Ur Specific [place] (1.005-1.025) Urine Protein (Neg-Trace) mg/dL Urine Glucose (UA) (Negative) mg/dL Urine Ketones (Negative) mg/dL Urine Blood (Negative) Urine Nitrite (Negative) Ur Leukocyte Esterase (Negative) Urine Test NEGATIVE (NEGATIVE) Stool Occult Blood POSITIVE (NEGATIVE) External Record Review External record reviewed: Inpatient record Medications Administered Discontinued Medications Generic Name Dose Route Start Last Admin Trade Name Freq PRN Reason Stop Dose Admin Sodium Chloride 1,000 mls @ 999 mls/hr 08/29/22 12:30 08/29/22 15:57 Ns IV 08/29/22 13:30 Infused .Q1H1M ANITA Infusion Discharge Plan Discharge Clinical Impression: Abdominal pain Patient Disposition: Still a Patient Prescriptions: No Action bupropion HCl 150 mg tablet extended release 24 hr 150 mg PO QAM 90 Days Qty: 90 1RF levothyroxine 25 mcg tablet 25 mcg PO DAILY 90 Days Qty: 90 1RF rosuvastatin 10 mg tablet 10 mg PO DAILY 90 Days Qty: 90 1RF cholecalciferol (vitamin D3) 125 mcg (5,000 unit) capsule 125 mcg PO DAILY 90 Days Qty: 90 1RF hydrochlorothiazide 12.5 mg tablet 12.5 mg PO DAILY 90 Days Qty: 90 0RF zolpidem 5 mg tablet 5 mg PO BEDTIME PRN (Reason: sleep) 30 Days Qty: 30 0RF famotidine 40 mg tablet 40 mg PO BEDTIME Qty: 90 3RF pantoprazole 40 mg tablet,delayed release (DR/EC) 40 mg PO DAILY Qty: 90 2RF Rx Instructions: take one tablet half an hour before breakfast sennosides [Natural Senna Laxative] 8.6 mg tablet 17.2 mg PO BEDTIME Qty: 180 2RF
--- NOTE | 2022-08-29 13:06 | PC.NURSE ---
pt a&ox3, vss, 20g IV placed in her left forearm after 4 attempts, pt awaiting digital rectal exam, call faulkner placed within reach.
[2022-08-29 13:37] VITALS: BP 134/78; PULSE 79; RESP 16; TEMP 36.5; O2SAT 97
--- NOTE | 2022-08-29 13:46 | PC.NURSE ---
IVF hanging per provider order
[2022-08-29 15:13] VITALS: BP 111/65; PULSE 84; RESP 16; O2SAT 97
--- NOTE | 2022-08-29 15:15 | PC.NURSE ---
pt alert and orientedx3, vss, IVF discontinued, pt verbalizing pain stays at a constant rate of 8/10 and is requesting medication to relieve the pain, call faulkner within reach, will continue to monitor.
--- NOTE | 2022-08-29 15:34 | PC.NURSE ---
digital rectal exam performed by provider and samples sent to lab.
== END 2022-08-29 17:22 | disposition home or self-care (01) ==
PROVIDERS: Emergency Provider Student in an Organized Health Care Education/Training Program; PCP Internal Medicine
DX: R10.30 Lower abdominal pain, unspecified (principal); I10 Essential (primary) hypertension; E78.5 Hyperlipidemia, unspecified; K64.8 Other hemorrhoids; E66.01 Morbid (severe) obesity due to excess calories; Z68.37 Body mass index [BMI] 37.0-37.9, adult; Z90.710 Acquired absence of both cervix and uterus; Z79.899 Other long term (current) drug therapy
CPT/HCPCS: 36415; 74177; 80048; 80076; 81003; 81025; 82272; 83690; 85025; 96360; 96361; 99284; 99285

== ENCOUNTER 2022-09-03 08:17 | Outpatient (AMB) | payer OTHER, SELFPAY ==
--- NOTE | 2022-09-03 08:19 | A.OFFVIS_ITS ---
Intake Vital Signs 09/03/22 08:29 Height 5 ft 2 in Weight 212 lb BMI 38.8 BP 120/86 Intake Visit Reasons: er follow up Intake Note: The patient agreed to use of a medical customer service representative during this encounter. Scribed for KATHY Funk by Francesca Katz medical customer service representative, on 09/03/2022 at 8:44 am EST. Veneer Manufacturer Required: Yes Veneer Manufacturer Language: Bounty Trapper Name: Estephania HERNANDEZ Information Interpreted: non-clinical & clinical Stave Hewer: Stave Hewer Present (Estephania) Allergies hydrocodone [HYDROCODONE] Allergy (Severe, Verified 09/03/22 08:31) DIFFICULTY BREATHING codeine Allergy (Intermediate, Verified 09/03/22 08:31) shortness of breath cyclobenzaprine Adverse Reaction (Intermediate, Verified 09/03/22 08:31) sleepiness docusate [From Colace] Adverse Reaction (Intermediate, Verified 09/03/22 08:31) Vomiting, dizziness mirtazapine [Remeron] Adverse Reaction (Intermediate, Verified 09/03/22 08:31) vomiting nabumetone Adverse Reaction (Intermediate, Verified 09/03/22 08:31) sleepiness Post menopausal: Yes HPI HPI Comments History of Present Illness Details She is here today for ER follow up regarding left sided pelvic pain with left ovarian cyst. Rates pain 8/10 when went reported to ED but today it is 6/10. Has occasional pelvic pain and pressure that does not go away. Takes OTC ibuprofen with no results of relief. Currently sexually active. PFSH Medical History Acute insomnia Bilateral hand numbness Bloody stools Constipation Dyslipidemia GERD (gastroesophageal reflux disease) Hernia of abdominal cavity Hyperlipidemia Hypertension Hypovitaminosis D Insomnia Moderate recurrent major depression Morbid obesity Pelvic pain Polyarthralgia PONV (postoperative nausea and vomiting) Right sided sciatica Tubular adenoma Surgical History History of carpal tunnel release History of section History of endometrial ablation History of esophagogastroduodenoscopy (EGD) History of hernia surgery History of tubal ligation Hx of colonoscopy Hx of hysterectomy Family History Father Hypertension Diabetes CVD (cardiovascular disease) Mother Hypertension Social History Housing: Apartment Are you a primary occasional caregiver to a significant other at home: No Do you presently have visiting nurse or other home services: No Alcohol intake: current Alcohol intake frequency: holidays/special occasions only Alcohol type: wine Patient Tobacco Use Status: Never used Tobacco e-Cigarette/Vaping Use: Never Used Second Hand Smoke Exposure: No service: No Current occupational status: employed 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 Current occupational exposures/hazards: No Cognitive needs: No Hearing needs: No Vision needs: No Female Reproductive History Menstrual Menopause type: surgical Total pregnancies: 2 Full term: 2 Number of Living Children: 2 Date of last pap smear: 12/17/16 (neg pap and hpv) Physical Exam Vital Signs: Last Vital Signs BP 120/86 09/03/22 08:29 BMI result Body Mass Index 38.8 Const General: cooperative, healthy appearing, comfortable, no acute distress, well developed, alert, awake and Physically active Other: General: Yes bladder normal to palpation External Female Exam: normal external appearance and normal appearance of the urethra Speculum Exam - Vagina: normal appearance of the vagina, normal palpation, normal vaginal discharge and other (vag cuff) Speculum Exam - Cervix: normal appearance of the cervix Bimanual exam- vagina & uterus: normal bimanual exam, normal palpation, bladder normal to palpation and uterus absent Bimanual Exam- Adnexa, other: normal adnexae and no masses Results Reviewed Results Reviewed: Ordering Physician: Funmi Sandhu MD Date of Service: 08/29/22 Procedure(s): CT abdomen pelvis w IV con Accession Number(s): [id number] cc: Funmi Sandhu MD~ EXAMINATION: CT ABDOMEN AND PELVIS WITH CONTRAST? CLINICAL INFORMATION: Lower abdominal pain? COMPARISON: Previous CT of the abdomen and pelvis 08/03/2021 TECHNIQUE: Multidetector volumetric images were obtained from the superior aspect of the liver through the pubic symphysis following administration 85 mL of Omnipaque 350 intravenous contrast. Sagittal and coronal reformatted images were obtained on the technologist's workstation.? Oral contrast: Yes This CT examination was performed using dose optimization techniques as appropriate, variously including the following: *Automated exposure control *Adjustment of mA and/or kV according to patient size (this includes techniques or standardized protocols for targeted exams where dose is matched to indication/reason for exam; i.e. extremities or head) *Use of iterative reconstruction technique DLP: 818 mGy-cm FINDINGS: LUNG BASES: The visualized lung bases are unremarkable.? LIVER, GALLBLADDER, AND BILIARY TREE: Enlarged fatty liver. Normal gallbladder. No focal liver lesion or biliary duct dilatation. PANCREAS: Unremarkable.? SPLEEN: Unremarkable.? ADRENAL GLANDS: Unremarkable.? KIDNEYS AND URETERS: The kidneys are normal in size, shape, and attenuation. No hydronephrosis, hydroureter, or calculi seen. No perinephric stranding. Small right renal cyst. No imaging follow-up recommended. BLADDER: Unremarkable.? GASTROINTESTINAL TRACT: The small and large bowel are unremarkable. The appendix is unremarkable.? ABDOMINAL WALL: Umbilical and bilateral inguinal hernias containing fat. LYMPH NODES: Normal. VASCULAR: Unremarkable. PELVIC VISCERA: 5 x 5.6 cm left ovarian cyst. This is increased in size from 3.3 x 4 cm July 2021 exam. Small cysts and calcification in the right ovary. The uterus appears to have been removed. OSSEOUS STRUCTURES: Unremarkable.? CT/CT abdomen pelvis w IV con IMPRESSION: 5 x 5.6 cm left ovarian cyst. This is increased from 3.3 x 4 cm July 2021 exam. Small cyst and calcification in the right ovary. The uterus has been removed. Enlarged fatty liver. Fleischner guidelines were followed. Assessment & Plan Assessment & Plan (1) Encounter to discuss test results: Code(s): Z71.2 - Person consulting for explanation of examination or test findings Plan: Discussed: ER CT findings of: 5 x 5.6 cm left ovarian cyst. This is increased from 3.3 x 4 cm July 2021 exam. Small cyst and calcification in the right ovary. Recommend Pelvic US to monitor ovarian cyst. Follow up for results. Encouraged pelvic rest and no sexual intimacy for now. Reviewed usage of ED RX. Continue OTC RX as directed. If pain persist and is getting worse will schedule consult with MD. If pain is worsens report to ED. All of her questions and concerns were addressed to the best of my ability and shared decision making. She is agreeable to plan of care. (2) Pelvic pain: Code(s): R10.2 - Pelvic and perineal pain (3) Left ovarian cyst: Code(s): N83.202 - Unspecified ovarian cyst, left side Orders: Orders US pelvic and transvaginal Today N83.202 - Unspecified ovarian cyst, left side Quality Reporting (2019) Adult ([facility] 13804/17/68) Smoking risk assessment performed?: Yes Patient Tobacco Use Status: Never used Tobacco Coding Level of Care Code Est Pt Level 4 (43614) Diagnoses Encounter to discuss test results Z71.2 Pelvic pain R10.2 Left ovarian cyst N83.202
[2022-09-03 08:29] VITALS: BP 120/86; BMI 38.8
== END 2022-09-03 08:57 | disposition home or self-care (01) ==
LOC: HO.HWS 08:17
PROVIDERS: PCP Internal Medicine; Visit Provider Advanced Practice Midwife
DX: Z71.2 Person consulting for explanation of examination or test findings (principal); R10.2 Pelvic and perineal pain; N83.202 Unspecified ovarian cyst, left side
CPT/HCPCS: 99214

== ENCOUNTER → 2022-09-03 08:17 | Outpatient (BNVA) | payer OTHER, SELFPAY | PROVIDERS: PCP Internal Medicine; Visit Provider Advanced Practice Midwife | DX: Z71.2 Person consulting for explanation of examination or test findings (principal); N83.202 Unspecified ovarian cyst, left side | CPT/HCPCS: 99212 ==

== ENCOUNTER 2022-09-06 15:47 | Outpatient (REF) | payer OTHER, SELFPAY ==
--- NOTE | ~2022-09-06 | US_ITS ---
EXAMINATION: US PELVIS CLINICAL INFORMATION: Follow-up ovarian cyst COMPARISON: Previous CT of the abdomen and pelvis most recent 08/29/2022 and pelvic ultrasound October 2014 TECHNIQUE: Ultrasound of the pelvis is performed using both transabdominal and transvaginal transducers along with Doppler. Transvaginal imaging is performed due to inadequate visualization transabdominally. FINDINGS: The uterus has been removed. Right ovary is seen transabdominally only. The right ovary measures 4.2 x 2.2 x 2.7 cm. There is a 2.3 x 1.8 x 2.2 cm simple right ovarian cyst. The left ovary is enlarged and measures 6.6 x 5.7 x 5.7 cm. There is a 4.7 x 5.6 x 4.3 cm simple left ovarian cyst. This is increased in size from 2014 and 2017 exams and appears similar to recent CT scan from earlier this month. There is no fluid in the pelvis. US/US pelvic and transvaginal IMPRESSION: 4.7 x 5.6 x 4.3 cm simple left ovarian cyst. Findings likely represent a probable benign cyst. Recommend followup ultrasonography in 3-6 months.
== END 2022-09-06 15:48 | disposition home or self-care (01) ==
LOC: HO.US 15:47
PROVIDERS: Visit Provider Advanced Practice Midwife
DX: N83.202 Unspecified ovarian cyst, left side (principal)
CPT/HCPCS: 76830; 76856

== ENCOUNTER 2022-09-17 14:55 | Outpatient (AMB) | payer OTHER, SELFPAY ==
--- NOTE | 2022-09-17 15:04 | A.OFFVIS_ITS ---
Intake Vital Signs 09/17/22 15:05 Height 5 ft 2 in Weight 212 lb BMI 38.8 BP 126/80 Intake Visit Reasons: Follow up US/per BM/russian Intake Note: The patient agreed to use of a biomedical engineering technician during this encounter. Scribed for KATHY Funk by Francesca Katz, biomedical engineering technician, on 09/17/2022 at 3:30pm EST. Perioperative Assistant Required: Yes Perioperative Assistant Language: Clinical Sales Consultant Name: Estephania Information Interpreted: non-clinical & clinical Allergies hydrocodone [HYDROCODONE] Allergy (Severe, Verified 09/17/22 15:04) DIFFICULTY BREATHING codeine Allergy (Intermediate, Verified 09/17/22 15:04) shortness of breath cyclobenzaprine Adverse Reaction (Intermediate, Verified 09/17/22 15:04) sleepiness docusate [From Colace] Adverse Reaction (Intermediate, Verified 09/17/22 15:04) Vomiting, dizziness mirtazapine [Remeron] Adverse Reaction (Intermediate, Verified 09/17/22 15:04) vomiting nabumetone Adverse Reaction (Intermediate, Verified 09/17/22 15:04) sleepiness HPI HPI Comments History of Present Illness Details She is here to discuss US results regarding left ovarian cyst. Admits to left sided pelvic pain, 7/10 pain, she reports the pain is unbearable at times, and uses Tylenol/heating pad but does not work. She is interested in having a removal of cyst, and is tired of keep going to the ED, and does not want to just watch it. [facility] Medical History Acute insomnia Bilateral hand numbness Bloody stools Constipation Dyslipidemia GERD (gastroesophageal reflux disease) Hernia of abdominal cavity Hyperlipidemia Hypertension Hypovitaminosis D Insomnia Moderate recurrent major depression Morbid obesity Pelvic pain Polyarthralgia PONV (postoperative nausea and vomiting) Right sided sciatica Tubular adenoma Surgical History History of carpal tunnel release History of section History of endometrial ablation History of esophagogastroduodenoscopy (EGD) History of hernia surgery History of tubal ligation Hx of colonoscopy Hx of hysterectomy Family History Father Hypertension Diabetes CVD (cardiovascular disease) Mother Hypertension Social History Housing: Apartment Are you a primary manager care management to a significant other at home: No Do you presently have visiting nurse or other home services: No Alcohol intake: current Alcohol intake frequency: holidays/special occasions only Alcohol type: wine Patient Tobacco Use Status: Never used Tobacco e-Cigarette/Vaping Use: Never Used Second Hand Smoke Exposure: No service: No Current occupational status: employed 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 CLINICAL INFORMATION: Lower abdominal pain? COMPARISON: Previous CT of the abdomen and pelvis 08/03/2021 TECHNIQUE: Multidetector volumetric images were obtained from the superior aspect of the liver through the pubic symphysis following administration 85 mL of Omnipaque 350 intravenous contrast. Sagittal and coronal reformatted images were obtained on the technologist's workstation.? Oral contrast: Yes This CT examination was performed using dose optimization techniques as appropriate, variously including the following: *Automated exposure control *Adjustment of mA and/or kV according to patient size (this includes techniques or standardized protocols for targeted exams where dose is matched to indication/reason for exam; i.e. extremities or head) *Use of iterative reconstruction technique DLP: 818 mGy-cm FINDINGS: LUNG BASES: The visualized lung bases are unremarkable.? LIVER, GALLBLADDER, AND BILIARY TREE: Enlarged fatty liver. Normal gallbladder. No focal liver lesion or biliary duct dilatation. PANCREAS: Unremarkable.? SPLEEN: Unremarkable.? ADRENAL GLANDS: Unremarkable.? KIDNEYS AND URETERS: The kidneys are normal in size, shape, and attenuation. No hydronephrosis, hydroureter, or calculi seen. No perinephric stranding. Small right renal cyst. No imaging follow-up recommended. BLADDER: Unremarkable.? GASTROINTESTINAL TRACT: The small and large bowel are unremarkable. The appendix is unremarkable.? ABDOMINAL WALL: Umbilical and bilateral inguinal hernias containing fat. LYMPH NODES: Normal. VASCULAR: Unremarkable. PELVIC VISCERA: 5 x 5.6 cm left ovarian cyst. This is increased in size from 3.3 x 4 cm July 2021 exam. Small cysts and calcification in the right ovary. The uterus appears to have been removed. OSSEOUS STRUCTURES: Unremarkable.? CT/CT abdomen pelvis w IV con IMPRESSION: 5 x 5.6 cm left ovarian cyst. This is increased from 3.3 x 4 cm July 2021 exam. Small cyst and calcification in the right ovary. The uterus has been removed. Enlarged fatty liver. Fleischner guidelines were followed. EXAMINATION:? US PELVIS CLINICAL INFORMATION:? Follow-up ovarian cyst COMPARISON: Previous CT of the abdomen and pelvis most recent 08/29/2022 and pelvic ultrasound October 2014 TECHNIQUE: Ultrasound of the pelvis is performed using both transabdominal and transvaginal transducers along with Doppler. Transvaginal imaging is performed due to inadequate visualization transabdominally. FINDINGS: The uterus has been removed. Right ovary is seen transabdominally only. The right ovary measures 4.2 x 2.2 x 2.7 cm. There is a 2.3 x 1.8 x 2.2 cm simple right ovarian cyst. The left ovary is enlarged and measures 6.6 x 5.7 x 5.7 cm. There is a 4.7 x 5.6 x 4.3 cm simple left ovarian cyst. This is increased in size from 2014 and 2017 exams and appears similar to recent CT scan from earlier this month. There is no fluid in the pelvis. US/US pelvic and transvaginal IMPRESSION: 4.7 x 5.6 x 4.3 cm simple left ovarian cyst. Findings likely represent a probable benign cyst. Recommend followup ultrasonography in 3-6 months. Assessment & Plan Assessment & Plan (1) Encounter to discuss test results: Code(s): Z71.2 - Person consulting for explanation of examination or test findings Plan: Discussed: US findings of: 4.7 x 5.6 x 4.3 cm simple left ovarian cyst. Findings likely represent a probable benign cyst. Recommend followup ultrasonography in 3-6 months. She is interested in removal of cyst, Referral to see ESTIMATOR for surgical consult regarding painful ovarian cyst. Continue Tylenol as directed, and heating pad for pain management. Return to ED for increased any pain. All of her questions and concerns were addressed to the best of my ability and shared decision making. She is agreeable to plan of care. (2) Left ovarian cyst: Code(s): N83.202 - Unspecified ovarian cyst, left side (3) Pelvic pain: Code(s): R10.2 - Pelvic and perineal pain (4) Chronic pelvic pain in female: Code(s): R10.2 - Pelvic and perineal pain; G89.29 - Other chronic pain Quality Reporting (2019) Adult ([facility] 138/04/17/68) Smoking risk assessment performed?: Yes Patient Tobacco Use Status: Never used Tobacco Coding Level of Care Code Est Pt Level 3 (03650) Diagnoses Encounter to discuss test results Z71.2 Left ovarian cyst N83.202 Pelvic pain R10.2 Chronic pelvic pain in female R10.2; G89.29
[2022-09-17 15:05] VITALS: BP 126/80; BMI 38.8
== END 2022-09-17 15:46 | disposition home or self-care (01) ==
LOC: HO.HWS 14:55
PROVIDERS: PCP Internal Medicine; Visit Provider Advanced Practice Midwife
DX: Z71.2 Person consulting for explanation of examination or test findings (principal); N83.202 Unspecified ovarian cyst, left side; R10.2 Pelvic and perineal pain; G89.29 Other chronic pain
CPT/HCPCS: 99213

== ENCOUNTER → 2022-09-17 14:55 | Outpatient (BNVA) | payer OTHER, SELFPAY | PROVIDERS: PCP Internal Medicine; Visit Provider Advanced Practice Midwife | DX: R10.2 Pelvic and perineal pain (principal); N83.202 Unspecified ovarian cyst, left side; N83.201 Unspecified ovarian cyst, right side; K76.0 Fatty (change of) liver, not elsewhere classified; Z71.2 Person consulting for explanation of examination or test findings | CPT/HCPCS: 99212 ==

== ENCOUNTER 2022-11-04 08:16 | Outpatient (AMB) | payer OTHER, SELFPAY ==
[2022-11-04 08:31] VITALS: BP 137/88; PULSE 91; BMI 38.3
--- NOTE | 2022-11-04 08:31 | MHC.OFFVIS ---
Intake Vital Signs 11/04/22 08:31 Height 5 ft 2 in Weight 209 lb 7.026 oz BMI 38.3 BP 137/88 Blood Pressure Location Lt brachial Position Sitting Pulse 91 Intake Visit Reasons: 3 month follow up Intake Note: Doug presents in office today in 3 months follow up. CC: Patient reports occasional constipation and blood in stool. Denies other GI symptoms today. 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: Yes Accompanied by: Self / Same As Patient Allergies hydrocodone [HYDROCODONE] Allergy (Severe, Verified 09/17/22 15:04) DIFFICULTY BREATHING codeine Allergy (Intermediate, Verified 09/17/22 15:04) shortness of breath cyclobenzaprine Adverse Reaction (Intermediate, Verified 09/17/22 15:04) sleepiness docusate [From Colace] Adverse Reaction (Intermediate, Verified 09/17/22 15:04) Vomiting, dizziness mirtazapine [Remeron] Adverse Reaction (Intermediate, Verified 09/17/22 15:04) vomiting nabumetone Adverse Reaction (Intermediate, Verified 09/17/22 15:04) sleepiness HPI 3 month follow up HPI Details LAST VISIT GERD (gastroesophageal reflux disease) Continue current treatment with pantoprazole and famotidine. Discussed with patient avoiding dietary triggers and late night snacking. Staying upright for minimum 3 hours after meals discussed with patient. Incompetent LES found. Stressed importance of not letting down after meals and eating small amounts and more often. Constipation Continue Senokot daily. Patient was also encouraged to increase water intake and activity to promote better bowel motility. Tubular adenoma Tubular adenoma without high-grade dysplasia or carcinoma found. Patient will need to repeat colonoscopy in 5 years, sooner if clinically necessary. Status post colonoscopy Patient denies any ill effects from the prep, anesthesia or procedure itself. Tubular adenoma found without high-grade dysplasia or carcinoma in sigmoid colon. Patient will need to repeat colonoscopy in 5 years, sooner if clinically necessary.. Patient denies any melena, hematochezia, unintentional weight loss or ribbon like stools. I will see patient in 3 months patient will call me sooner if she will have any epigastric pain or discomfort her experience any additional GI concerning symptoms. She is agreeable to this plan and verbalizes understanding of instructions. She was given the opportunity to ask questions and all questions answered. ? TODAY'S VISIT Patient is here today for follow-up. Patient reports that she has been doing well. Takes Senokot every evening and is moving her bowels well. Two weeks ago patient reports that she was taking Senokot every day, however she was constipated. Small amount of blood after bowel movement when wiping. Otherwise patient denies any melena, hematochezia, unintentional weight loss or ribbon like stools. Patient denies dyspepsia, dysphagia or odynophagia. States that she is feeling fairly well. Patient takes pantoprazole in the morning half an hour before breakfast and famotidine at night time. Patient denies any abdominal pain or discomfort. Reports pelvic pain, diagnosed with cyst on her ovary and is waiting to go for surgery at [facility] Medical History (Updated 09/17/22 @ 16:02 by Francesca Katz) Chronic pelvic pain in female Pelvic pain Hyperlipidemia Hypertension Tubular adenoma Hernia of abdominal cavity PONV (postoperative nausea and vomiting) Morbid obesity Polyarthralgia Insomnia Moderate recurrent major depression Bloody stools Right sided sciatica Dyslipidemia Hypovitaminosis D Acute insomnia Constipation Bilateral hand numbness GERD (gastroesophageal reflux disease) Surgical History History of esophagogastroduodenoscopy (EGD) Hx of colonoscopy History of hernia surgery History of endometrial ablation Hx of hysterectomy History of carpal tunnel release History of section History of tubal ligation Family History Father Hypertension Diabetes CVD (cardiovascular disease) Mother Hypertension Social History Housing: Apartment Are you a primary youth career specialist to a significant other at home: No Do you presently have visiting nurse or other home services: No Alcohol intake: current Alcohol intake frequency: holidays/special occasions only Alcohol type: wine Patient Tobacco Use Status: Never used Tobacco e-Cigarette/Vaping Use: Never Used Second Hand Smoke Exposure: No service: No Current occupational status: employed 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 Current occupational exposures/hazards: No Cognitive needs: No Hearing needs: No Vision needs: No Review of Systems Const Denies weight gain and Denies weight loss ENT Reports no additional complaints, Denies dysphagia and Denies odynophagia Card Reports no additional complaints Resp Reports no additional complaints GI Denies abdominal pain, Denies belching, Denies melena, Denies bloating, Denies change in bowel habits, Denies dysphagia, Denies excessive flatus, Denies dyspepsia, Denies heartburn, Denies diarrhea, Denies loose stools, Denies nausea, Denies odynophagia and Denies vomiting Musc Reports no additional complaints Neuro Reports no additional complaints Psych Reports no additional complaints Endo Reports no additional complaints Physical Exam Vital Signs: BMI result Body Mass Index 38.3 Const General: healthy appearing, no acute distress and well developed Nutritional Appearance: obese Orientation/consciousness: patient oriented x3 HEENT Head: Yes normal to inspection, Yes normocephalic and Yes atraumatic Face and sinus: Yes normal facial exam Mouth: Normal oral and palatal mucosa present Throat: Yes posterior oropharynx normal, Yes tonsils normal and Yes uvula midline Eyes General: appearance normal, both eyes and all related structures Neck Neck: Yes normal visual inspection, Yes full ROM and Yes trachea midline Thyroid: Thyroid normal Resp Effort & Inspection: normal respiratory effort, able to speak in complete sentences, no tracheal deviation and symmetric chest movement Auscultation: clear to auscultation bilaterally Cardio Rate: regular rate Heart sounds: S1 normal heart sound present and S2 normal heart sound present GI Inspection: Yes normal to inspection, No distended and Yes obesity Palpation (GI): Soft to palpation, not firm, nontender and No hepatosplenomegaly present Auscultation: normal bowel sounds General: Yes no CVA tenderness Back/Spine/Pelvis Back: no CVA tenderness Skin General skin exam: elasticity normal, turgor normal and dry skin Neuro General: patient oriented x3 Psych Appearance: grossly normal Mental Status: mental status grossly normal Speech and movement: Normal speech and movement present Assessment & Plan Assessment & Plan (1) GERD (gastroesophageal reflux disease): Code(s): K21.9 - Gastro-esophageal reflux disease without esophagitis Qualifiers: Esophagitis presence: esophagitis presence not specified Qualified Code(s): K21.9 - Gastro-esophageal reflux disease without esophagitis Plan: Continue pantoprazole in the morning and famotidine at bedtime. Patient was encouraged to avoid dietary triggers and late night snacking. Staying upright for minimum 3 hours after meals discussed with patient. (2) Constipation: Code(s): K59.00 - Constipation, unspecified Qualifiers: Constipation type: slow transit constipation Qualified Code(s): K59.01 - Slow transit constipation Plan: Continue Senokot daily. Patient was encouraged to increase fluid intake and activity to promote better bowel motility. Patient can use MiraLax as needed. I will see her in 6 months, sooner on as needed basis. Patient is agreeable to this plan and verbalizes understanding of instructions. She was given the opportunity to ask questions and all questions answered. Thank you for allowing me to participate in her care Medications: New polyethylene glycol 3350 (Miralax) 17 grams PO DAILY 510 grams 2RF Refilled pantoprazole take one tablet half an hour before breakfast 40 mg PO DAILY 90 tabs 2RF K21.9 - Gastro-esophageal reflux disease without esophagitis sennosides (Natural Senna Laxative) 17.2 mg (2 x 8.6 mg) PO BEDTIME 180 tabs 2RF constipation K59.00 - Constipation, unspecified famotidine 40 mg PO BEDTIME 90 tabs 3RF K21.9 - Gastro-esophageal reflux disease without esophagitis Quality Reporting (2019) Adult ([facility] 138/04/17/68) Smoking risk assessment performed?: Yes Patient Tobacco Use Status: Never used Tobacco Coding Level of Care Code Est Pt Level 3 (37848) Diagnoses Gastroesophageal reflux disease, unspecified whether esophagitis present K21.9 Esophagitis presence: esophagitis presence not specified Slow transit constipation K59.01 Constipation type: slow transit constipation Time Spent (min) 30 Comment 20 minutes spent with patient and additional 10 minutes spent reviewing her records
== END 2022-11-04 08:53 | disposition home or self-care (01) ==
PROVIDERS: PCP Internal Medicine; Visit Provider Nurse Practitioner Family
DX: K21.9 Gastro-esophageal reflux disease without esophagitis (principal); K59.01 Slow transit constipation
CPT/HCPCS: 99213

== ENCOUNTER → 2022-11-04 08:16 | Outpatient (BNVA) | payer OTHER, SELFPAY | PROVIDERS: PCP Internal Medicine; Visit Provider Nurse Practitioner Family | DX: K21.9 Gastro-esophageal reflux disease without esophagitis (principal); K59.01 Slow transit constipation; Z79.899 Other long term (current) drug therapy | CPT/HCPCS: 99212 ==

== ENCOUNTER 2023-04-06 08:48 | Emergency (ER) | payer OTHER, SELFPAY ==
--- NOTE | ~2023-04-06 | CT_ITS ---
EXAMINATION: CT ABDOMEN AND PELVIS WITHOUT CONTRAST CLINICAL INFORMATION: Left flank pain. History of stones COMPARISON: CT abdomen pelvis 08/29/2022 TECHNIQUE: Multidetector volumetric imaging was performed from the superior aspect of the liver through the pubic symphysis. Sagittal and coronal reformatted images were obtained on the technologist's workstation. This CT examination was performed using dose optimization techniques as appropriate, variously including the following: *Automated exposure control *Adjustment of mA and/or kV according to patient size (this includes techniques or standardized protocols for targeted exams where dose is matched to indication/reason for exam; i.e. extremities or head) *Use of iterative reconstruction technique DLP: 690 mGy-cm FINDINGS: LUNG BASES: There is bibasilar haziness. The heart size is normal. LIVER, GALLBLADDER, AND BILIARY TREE: The liver is normal in size, shape, and attenuation. No focal hepatic lesion or biliary ductal dilatation is present. The gallbladder is unremarkable with no evidence of radiopaque gallstones, gallbladder wall thickening, or obvious pericholecystic inflammatory changes. PANCREAS: Unremarkable. SPLEEN: Unremarkable. ADRENAL GLANDS: Unremarkable. KIDNEYS AND URETERS: The kidneys are normal in size, shape, and attenuation. There is a 2 mm radiopaque calculi left UVJ with mild hydroureteronephrosis. The left kidney slightly enlarged with mild perinephric stranding. No radiopaque calculi seen in the kidneys. There is no right-sided hydronephrosis. BLADDER: Unremarkable. GASTROINTESTINAL TRACT: There is scattered stool and gas in the colon without distention. The small bowel loops are normal caliber. Appendix is normal caliber. ABDOMINAL WALL: Small umbilical hernia containing fat is noted. There is lower anterior abdominal wall scarring, postoperative changes and likely a small hernia containing fat on axial image 68/3 LYMPH NODES: Small shotty lymph nodes are seen in the retroperitoneum measuring less than 5 mm. VASCULAR: Unremarkable. PELVIC VISCERA: The uterus likely surgically absent. There is a left adnexal mass measuring 5.5 x 4.9 cm and 17 Hounsfield units likely a simple ovarian cyst. No free fluid. OSSEOUS STRUCTURES: No aggressive lytic or sclerotic process seen. CT/CT abdomen pelvis wo IV con IMPRESSION: 1. 2 mm radiopaque calculi left UVJ with mild hydroureteronephrosis. 2. Mild constipation. Normal appendix 3. Left ovarian cyst. Fleischner guidelines were followed.
[2023-04-06 09:00] VITALS: BP 169/101; PULSE 82; RESP 20; TEMP 36.9; O2SAT 97; BMI 35.1
[2023-04-06 09:09] LABS: MANUAL DIFF FLAG NO
--- NOTE | 2023-04-06 09:14 | ED.GENADULT ---
HPI - General Adult General Chief complaint: Abdominal Pain Stated complaint: L flank pain Time Seen by Provider: 04/06/23 08:56 Source: patient and analysis manager Mode of arrival: ambulatory Limitations: language barrier History of Present Illness HPI narrative: Patient is a 43-year-old [place]-speaking female with history of kidney stones, HTN, HLD, polyarthralgia, GERD, constipation presenting to the emergency department with complaint of acute onset left flank pain since 4 or 5 this morning as well as nausea and vomiting. She denies any dysuria, frequency, hematuria or other urinary symptoms. Denies any fevers. Denies any diarrhea or constipation. States pain feels similar to previous kidney stones and rates it greater than 10/10. MD complaint: left flank pain Onset (ago): hour(s) Location: left Radiation: abdomen Severity: severe and similar to prior episodes Severity scale (1-10): >10 Quality: sharp Pain Consistency: constant Relieving factors: none Exacerbating factors: none Associated symptoms: nausea/vomiting Treatments prior to arrival: none Related Data Previous Rx's Medication Instructions Recorded bupropion HCl 150 mg 24 hr tablet, 150 mg PO QAM 90 days #90 tabs 12/10/21 extended release ibuprofen 400 mg tablet 400 mg PO Q6H PRN pain #30 tabs 08/29/22 cholecalciferol (vitamin D3) 125 125 mcg PO DAILY 90 days #90 caps 10/07/22 mcg (5,000 unit) capsule levothyroxine 25 mcg tablet 25 mcg PO DAILY 90 days #90 tabs 10/07/22 rosuvastatin 10 mg tablet 10 mg PO DAILY 90 days #90 tabs 10/07/22 hydrochlorothiazide 12.5 mg tablet 12.5 mg PO DAILY 90 days #90 tabs 10/15/22 famotidine 40 mg tablet 40 mg PO BEDTIME #90 tabs 11/04/22 pantoprazole 40 mg tablet,delayed 40 mg PO DAILY #90 tabs 11/04/22 release polyethylene glycol 3350 17 17 g PO DAILY #510 grams 11/04/22 gram/dose oral powder (Miralax) sennosides 8.6 mg tablet (Natural 17.2 mg (2 x 8.6 mg) PO BEDTIME 11/04/22 Senna Laxative) constipation #180 tabs Allergies Allergy/AdvReac Type Severity Reaction Status Date / Time hydrocodone [HYDROCODONE] Allergy Severe DIFFICULTY Verified 09/17/22 15:04 BREATHING codeine Allergy Intermediate shortness Verified 09/17/22 15:04 of breath cyclobenzaprine AdvReac Intermediate sleepiness Verified 09/17/22 15:04 docusate [From Colace] AdvReac Intermediate Vomiting, Verified 09/17/22 15:04 dizziness mirtazapine [Remeron] AdvReac Intermediate vomiting Verified 09/17/22 15:04 nabumetone AdvReac Intermediate sleepiness Verified 09/17/22 15:04 Review of Systems Review of Systems: As per HPI Yes all other systems are reviewed and are negative Constitutional: Constitutional: Reports as per HPI PMFSH Past Medical History Medical History Chronic pelvic pain in female Pelvic pain Hyperlipidemia Hypertension Tubular adenoma Hernia of abdominal cavity PONV (postoperative nausea and vomiting) Morbid obesity Polyarthralgia Insomnia Moderate recurrent major depression Bloody stools Right sided sciatica Dyslipidemia Hypovitaminosis D Acute insomnia Constipation Bilateral hand numbness GERD (gastroesophageal reflux disease) Surgical History History of esophagogastroduodenoscopy (EGD) Hx of colonoscopy History of hernia surgery History of endometrial ablation Hx of hysterectomy History of carpal tunnel release History of section History of tubal ligation Family History Family History Father Hypertension Diabetes CVD (cardiovascular disease) Mother Hypertension Social History Social History Housing: Apartment Are you a primary acute care clinical nurse specialist to a significant other at home: No Do you presently have visiting nurse or other home services: No Alcohol intake: current Alcohol intake frequency: holidays/special occasions only Alcohol type: wine Patient Tobacco Use Status: Never used Tobacco Smoked in Last 30 Days: No e-Cigarette/Vaping Use: Never Used Second Hand Smoke Exposure: No Use of substances other than those prescribed or required for medical reasons: No Advance Directives: No service: No Current occupational status: employed Current occupation: [employer] - Right Handed Current occupational exposures/hazards: No Cognitive needs: No Hearing needs: No Vision needs: No Physical Exam ED Vital Signs: Vital Signs - 24 hr 04/06/23 09:00 04/06/23 12:00 Temperature 98.5 F 98.4 F Pulse Rate 82 78 Respiratory Rate 20 18 Blood Pressure 169/101 H 159/87 H Pulse Oximetry 97 97 Oxygen Delivery Method Room Air BMI result Body Mass Index 35.1 Vital signs have been reviewed and appear to be correct. Blood pressure elevated. Heart rate normal. Respiratory rate normal. Temperature normal. Oxygen saturation normal. Const General: cooperative, healthy appearing and no acute distress Orientation/consciousness: oriented to person, oriented to place, oriented to time and patient oriented x3 Limitations: no limitations HENMT Head: Yes normocephalic and Yes atraumatic Ears: external ears normal General nose exam: Normal external nose present Face and sinus: Yes face symmetric Mouth: oropharynx normal and moist mucous membranes Throat: Yes uvula midline Eyes Pupils: Equal, round and reactive pupils present Neck Neck: Yes normal visual inspection and Yes supple Resp Effort & Inspection: normal respiratory effort and able to speak in complete sentences Auscultation: clear to auscultation bilaterally Cardio Rate: regular rate Rhythm: regular rhythm Heart sounds: S1 normal heart sound present and S2 normal heart sound present GI Other: Actively vomiting during assessment Palpation (GI): Soft to palpation and nontender Auscultation: normoactive bowel sounds General: Yes CVA tenderness on the left Back/Spine/Pelvis Back: CVA tenderness Skin General skin exam: elasticity normal and turgor normal Neuro General: oriented to person, oriented to place, oriented to time, patient oriented x3, moves all extremities, no focal motor deficits and CN's II-XI intact bilaterally Cranial nerves: Yes Equal, round and reactive pupils present Cognition (Neuro): normal cognition Extrem General: Yes full ROM, Yes no pedal edema and Yes no calf tenderness Psych Mental Status: mental status grossly normal Affect: normal affect Thought process: Normal thought process present Medications Administered Discontinued Medications Generic Name Dose Route Start Last Admin Trade Name Freq PRN Reason Stop Dose Admin Fentanyl 50 mcg 04/06/23 09:09 04/06/23 09:16 Fentanyl Citrate/Pf 100 Mcg/2 Ml Vial IVPUSH 04/06/23 09:10 50 mcg ONCE ONE Administration Protocol Sodium Chloride 1,000 mls @ 999 mls/hr 04/06/23 09:00 04/06/23 10:57 Ns IV 04/06/23 10:00 Infused .Q1H1M ANITA Infusion Ketorolac Tromethamine 30 mg 04/06/23 09:37 04/06/23 09:44 Ketorolac Tromethamine 30 Mg/Ml Vial IVPUSH 04/06/23 09:38 30 mg ONCE ONE Administration Ondansetron HCl 4 mg 04/06/23 08:58 04/06/23 09:16 Ondansetron Hcl 4 Mg/2 Ml Vial IVPUSH 04/06/23 08:59 4 mg ONCE ONE Administration Ondansetron HCl 4 mg 04/06/23 12:52 04/06/23 13:01 Ondansetron Hcl 4 Mg/2 Ml Vial IVPUSH 04/06/23 12:53 4 mg ONCE ONE Administration Oxycodone HCl 5 mg 04/06/23 12:23 04/06/23 13:01 Oxycodone Hcl Immed Release 5 Mg Tablet PO 04/06/23 12:24 5 mg ONCE ONE Administration Medical Decision Making Medical Decision Making MDM Narrative: Patient is a 43-year-old [place]-speaking female with history of kidney stones, HTN, HLD, polyarthralgia, GERD, constipation presenting to the emergency department with complaint of acute onset left flank pain since 4 or 5 this morning as well as nausea and vomiting. On exam patient is awake, A+Ox3, BP elevated, VS otherwise WNL, afebrile, normal neurological exam without focal deficits, physical exam findings as above. Given reported symptoms and physical exam findings, initial differential includes renal/ureteral calculi, UTI/pyelonephritis. Plan: IV fluids, medicate for pain and nausea, labs, UA, CT A/P Labs notable for no leukocytosis, no anemia, no evidence of RONEN, normal LFTs and T bili, negative HCG. Urinalysis notable for trace leukocytes, trace bacteria, will treat for UTI as well. CT notable for 2mm calculi at left UVJ. My interpretation is in agreement with the radiologist's interpretation. Patient reporting ongoing pain, will give oxycodone and observe, patient has documented allergy to codeine and hydrocodone, but has reportedly tolerated oxycodone well in the past. Will discharge home with prednisone, tamsulosin, oxycodone for severe pain, and ondansetron for nausea. Advised to alternate Tylenol and ibuprofen. Will refer to urology for follow up. Return precautions discussed at bedside. Patient verbalized understanding of and agreement with plan. Differential Diagnosis Differential Diagnoses: The differential diagnosis associated with the presentation includes As per [facility] Admission/Observation Consideration of admission/observation: Escalation of care including admission/observation considered Lab Data [facility] Lab Attestation statement: I reviewed the patient's lab results. As per [facility] 04/06/23 09:06 04/06/23 09:06 Labs: Lab Results 04/06/23 04/06/23 Range/Units 09:06 12:37 WBC 6.3 (4.8-10.8) X10*3/uL RBC 4.59 (4.20-5.50) X10*6/uL Hgb 13.8 (12.0-16.0) g/dl Hct 40.5 (37.0-47.0) % MCV 88.2 (80.0-98.0) fL MCH 30.1 (27.0-33.0) pg MCHC 34.1 (31.0-35.0) g/dl RDW 12.6 (11.0-16.0) % Plt Count 269 (160-400) X10*3/uL MPV 9.7 (9.4-12.3) fL Immature Gran % (Auto) 0.2 (0.0-0.4) % Neut % (Auto) 62.0 (45-73) % Lymph % (Auto) 29.7 (20-40) % [place] % (Auto) 6.5 (2-11) % Eos % (Auto) 1.3 (0-4) % Baso % (Auto) 0.3 (0-2) % Lymph # (Auto) 1.9 (1.2-4.9) X10*3/uL [place] # (Auto) 0.4 (0.1-1.2) X10*3/uL Eos # (Auto) 0.1 (0.0-0.4) X10*3/uL Baso # (Auto) 0.0 (0.0-0.2) X10*3/uL Abs Immat Gran (auto) 0.01 (0.00-0.03) X10*3/uL Absolute Neuts (auto) 3.9 (2.0-8.3) x10*3/uL Absolute Nucleated RBC 0.000 (0.0-0.012) X10*3/uL Nucleated RBC % (auto) 0.0 (0.0-0.2) /100WBC Sodium 137 (135-145) mmol/L Potassium 3.9 (3.3-5.1) mmol/L Chloride 107 (96-108) mmol/L Carbon Dioxide 21 L (22-29) mmol/L Anion Gap 13 (12-20) BUN 11 (9-16) mg/dL Creatinine 0.78 (0.5-1.4) mg/dL Estim Creat Clear Calc 94.3 Estimated GFR > 60 Random Glucose 130 H (60-115) mg/dL Calcium 9.7 (8.4-10.2) mg/dL Total Bilirubin 0.8 (0.0-1.0) mg/dL AST 30 (5-31) U/L ALT 30 (0-31) U/L Alkaline Phosphatase 75 (39-117) U/L Total Protein 8.4 H (6.5-8.0) g/dL Albumin 4.2 (3.5-5.0) g/dL Beta HCG, Quant < 2 mIU/mL Urine Color Yellow Urine Appearance Clear Urine pH 5.5 (5.0-9.0) Ur Specific [place] 1.015 (1.005-1.025) Urine Protein Negative (Neg-Trace) mg/dL Urine Glucose (UA) Negative (Negative) mg/dL Urine Ketones 40 (Negative) mg/dL Urine Blood Moderate (2+) H (Negative) Urine Nitrite Negative (Negative) Ur Leukocyte Esterase Trace H (Negative) Urine RBC 11-20 H (0-2) /HPF Urine WBC 0-5 (0-5) /HPF Ur Squamous Epith Cells 3-5 (0-2) /HPF Urine Bacteria Trace (None Seen) Hyaline Casts 0-2 (0-2) /LPF Independent Interpretation I performed an independent interpretation of an: CT Scan Interpretation: 2mm calculi at left UVJ Radiology Impression Discussion of test interpretation with radiology: I have reviewed the radiologist's reading. Radiologist Impression: CT/CT abdomen pelvis wo IV con IMPRESSION: 1. 2 mm radiopaque calculi left UVJ with mild hydroureteronephrosis. 2. Mild constipation. Normal appendix 3. Left ovarian cyst. External Record Review External record reviewed: Inpatient record, Office record and Outpatient record Prescription Management I considered prescription management with: Pain Medication and Other Discharge Plan Discharge Clinical Impression: Calculus of distal left ureter, Urinary tract infection Patient Disposition: Home, Self-Care Prescriptions: No Action bupropion HCl 150 mg tablet extended release 24 hr 150 mg PO QAM 90 Days Qty: 90 1RF levothyroxine 25 mcg tablet 25 mcg PO DAILY 90 Days Qty: 90 1RF rosuvastatin 10 mg tablet 10 mg PO DAILY 90 Days Qty: 90 1RF cholecalciferol (vitamin D3) 125 mcg (5,000 unit) capsule 125 mcg PO DAILY 90 Days Qty: 90 1RF hydrochlorothiazide 12.5 mg tablet 12.5 mg PO DAILY 90 Days Qty: 90 0RF ibuprofen 400 mg tablet 400 mg PO Q6H PRN (Reason: pain) Qty: 30 0RF sennosides [Natural Senna Laxative] 8.6 mg tablet 17.2 mg PO BEDTIME Qty: 180 2RF pantoprazole 40 mg tablet,delayed release (DR/EC) 40 mg PO DAILY Qty: 90 2RF Rx Instructions: take one tablet half an hour before breakfast famotidine 40 mg tablet 40 mg PO BEDTIME Qty: 90 3RF polyethylene glycol 3350 [Miralax] 17 gram/dose powder 17 g PO DAILY Qty: 510 2RF
[2023-04-06] MEDS: 0.9 % Sodium Chloride 1,000 ML 999 ML IV (09:15)
[2023-04-06] MEDS: fentaNYL citrate/PF 100 MCG/2 ML VIAL 50 MCG IVPUSH (09:16)
[2023-04-06] MEDS: ondansetron HCL 4 MG/2 ML VIAL IVPUSH ×2 (09:16→13:01)
[2023-04-06 09:31] LABS: Basophils Percent Auto 0.3 % (0-2); Eosinophils Absolute Auto 0.1 X10*3/uL (0.0-0.4); Eosinophils Percent Auto 1.3 % (0-4); Hematocrit 40.5 % (37.0-47.0); Hemoglobin 13.8 g/dl (12.0-16.0); Imm Gran Abs Auto 0.01 X10*3/uL (0.00-0.03); Imm Gran Pct Auto 0.2 % (0.0-0.4); Lymphocytes Absolute Auto 1.9 X10*3/uL (1.2-4.9); Lymphocytes Percent Auto 29.7 % (20-40); Mean Corpuscular HGB Conc 34.1 g/dl (31.0-35.0); Mean Corpuscular Hemoglobin 30.1 pg (27.0-33.0); Mean Corpuscular Volume 88.2 fL (80.0-98.0); Mean Platelet Volume 9.7 fL (9.4-12.3); Monocytes Absolute Auto 0.4 X10*3/uL (0.1-1.2); Monocytes Percent Auto 6.5 % (2-11); Neutrophils Absolute Auto 3.9 x10*3/uL (2.0-8.3); Platelet Count 269 X10*3/uL (160-400); Red Blood Count 4.59 X10*6/uL (4.20-5.50); Red Cell Distribution Width 12.6 % (11.0-16.0); White Blood Count 6.3 X10*3/uL (4.8-10.8)
[2023-04-06 09:32] LABS: Alanine Aminotransferase 30 U/L (0-31); Albumin Level 4.2 g/dL (3.5-5.0); Alkaline Phosphatase 75 U/L (39-117); Anion Gap 13 (12-20); Aspartate Amino Transferase 30 U/L (5-31); Bilirubin Total 0.8 mg/dL (0.0-1.0); Blood Urea Nitrogen 11 mg/dL (9-16); Calcium 9.7 mg/dL (8.4-10.2); Carbon Dioxide 21 mmol/L (22-29); Chloride 107 mmol/L (96-108); Creatinine Clr Calc Pharmacy 94.3; Estimated Glomerular Filt Rate > 60; Glucose Random 130 mg/dL (60-115); HCG Quantitative < 2 mIU/mL; Potassium 3.9 mmol/L (3.3-5.1); Sodium 137 mmol/L (135-145); Total Protein 8.4 g/dL (6.5-8.0)
[2023-04-06] MEDS: Ketorolac Tromethamine 30 MG/ML VIAL IVPUSH (09:44)
[2023-04-06 12:00] VITALS: BP 159/87; PULSE 78; RESP 18; TEMP 36.9; O2SAT 97
[2023-04-06 12:42] LABS: Appearance Urine Clear; Color Urine Yellow; Glucose Urine UA Negative (Negative); Leukocyte Esterase Urine Trace (Negative); Nitrite Urine Negative (Negative); PH 5.5 (5.0-9.0); Specific Gravity - Urine 1.015 (1.005-1.025); UMIC TRIGGER UACC YES; Urine Blood Moderate (2+) (Negative); Urine Ketones 40 mg/dL (Negative); Urine Protein Negative (Neg-Trace)
[2023-04-06 12:45] LABS: Bacteria Urine Trace (None Seen); Hyaline Casts Urine 0-2 /LPF (0-2); WBC Urine 0-5 /HPF (0-5)
[2023-04-06] MEDS: oxyCODONE HCl Immed Release 5 MG TABLET PO (13:01)
[2023-04-06] MEDS: Nitrofurantoin Monohyd/M-Cryst 100 MG CAPSULE PO (13:43)
[2023-04-06] MEDS: Tamsulosin HCL 0.4 MG CAPSULE PO (13:43)
[2023-04-06] MEDS: predniSONE 20 MG TABLET PO (13:43)
== END 2023-04-06 14:00 | disposition home or self-care (01) ==
PROVIDERS: Registered Nurse Emergency; Emergency Provider Emergency Medicine Emergency Medical Services; PCP Internal Medicine
DX: N20.1 Calculus of ureter (principal); N39.0 Urinary tract infection, site not specified; K59.00 Constipation, unspecified; R11.2 Nausea with vomiting, unspecified; Z79.899 Other long term (current) drug therapy
CPT/HCPCS: 36415; 74176; 80053; 81001; 84702; 85025; 96361; 96374; 96375; 96376; 99284; J1885; J2405; J3010

== ENCOUNTER 2023-05-05 15:45 | Outpatient (AMB) | payer OTHER, SELFPAY ==
[2023-05-05 15:48] VITALS: BP 150/79; PULSE 97; BMI 33.2
--- NOTE | 2023-05-05 15:48 | A.OFFVIS_ITS ---
Intake Vital Signs 05/05/23 15:48 Height 5 ft 2 in Weight 181 lb 10.574 oz BMI 33.2 BP 150/79 H Blood Pressure Location Lt brachial Position Sitting Pulse 97 Intake Visit Reasons: 6 month follow up Intake Note: Doug presents in the office today in 6 months follow up constipation. CC: Patient reports having constipation x2 days. She states that she underwent surgery in [facility] in December she's being having trouble moving her bowels. [employer] V[employer] Worker Required: Yes Accompanied by: Self / Same As Patient Allergies hydrocodone [HYDROCODONE] Allergy (Severe, Verified 05/05/23 16:03) DIFFICULTY BREATHING codeine Allergy (Intermediate, Verified 05/05/23 16:03) shortness of breath cyclobenzaprine Adverse Reaction (Intermediate, Verified 05/05/23 16:03) sleepiness docusate [From Colace] Adverse Reaction (Intermediate, Verified 05/05/23 16:03) Vomiting, dizziness mirtazapine [Remeron] Adverse Reaction (Intermediate, Verified 05/05/23 16:03) vomiting nabumetone Adverse Reaction (Intermediate, Verified 05/05/23 16:03) sleepiness HPI 6 month follow up HPI Details LAST VISIT GERD (gastroesophageal reflux disease) Continue pantoprazole in the morning and famotidine at bedtime. Patient was encouraged to avoid dietary triggers and late night snacking. Staying upright for minimum 3 hours after meals discussed with patient. Constipation Continue Senokot daily. Patient was encouraged to increase fluid intake and activity to promote better bowel motility. Patient can use MiraLax as needed. I will see her in 6 months, sooner on as needed basis. Patient is agreeable to this plan and verbalizes understanding of instructions. She was given the opportunity to ask questions and all questions answered. ? Thank you for allowing me to participate in her care Plan Medications New polyethylene glycol 3350 (Miralax) 17 grams PO DAILY 510 grams 2RF Refilled pantoprazole take one tablet half an hour before breakfast 40 mg PO DAILY 90 tabs 2RF K21.9 sennosides (Natural Senna Laxative) 17.2 mg (2 x 8.6 mg) PO BEDTIME 180 tabs 2RF constipation K59.00 famotidine 40 mg PO BEDTIME 90 tabs 3RF K21.9 TODAY'S VISIT Patient is here today for follow-up. Patient reports that she underwent surgery in December of 2022. Patient had laparoscopic right oophorectomy, partial left oophorectomy, removal of right fallopian tube remnant, lysis of adhesion, cystoscopy and rectosigmoid bowel serosal over-sew. Patient was admitted postoperatively was on clear liquids and antibiotics were administered. Patient was discharged home on pain management. Patient has been taking Senokot and reports that she has been having trouble moving her bowels. Bowel movements every 2-3 days. Reports abdominal pain and now feels like her low abdominal incisional hernia got worse. Patient was told that she will need to go for repair, however her surgeon's office as not called her. Patient was previously seen by Dr. Ernst [place] [facility] who already did repaired her surgery in 2021. Patient would like to be referred to him. Patient denies any melena, hematochezia, unintentional weight loss or ribbon like stools. Reports that her symptoms of acid reflux are suppressed with PPI and H2 amena. Patient denies any other GI concerning symptoms. [facility] Medical History Chronic pelvic pain in female Pelvic pain Hyperlipidemia Hypertension Tubular adenoma Hernia of abdominal cavity PONV (postoperative nausea and vomiting) Morbid obesity Polyarthralgia Insomnia Moderate recurrent major depression Bloody stools Right sided sciatica Dyslipidemia Hypovitaminosis D Acute insomnia Constipation Bilateral hand numbness GERD (gastroesophageal reflux disease) Surgical History History of esophagogastroduodenoscopy (EGD) Hx of colonoscopy History of hernia surgery History of endometrial ablation Hx of hysterectomy History of carpal tunnel release History of section History of tubal ligation Family History Father Hypertension Diabetes CVD (cardiovascular disease) Mother Hypertension Social History Housing: Apartment Are you a primary certified social workers in health care to a significant other at home: No Do you presently have visiting nurse or other home services: No Alcohol intake: current Alcohol intake frequency: holidays/special occasions only Alcohol type: wine Patient Tobacco Use Status: Never used Tobacco e-Cigarette/Vaping Use: Never Used Second Hand Smoke Exposure: No service: No Current occupational status: employed 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 [employer] Current occupational exposures/hazards: No Cognitive needs: No Hearing needs: No Vision needs: No Review of Systems Const Denies weight gain and Denies weight loss ENT Reports no additional complaints, Denies dysphagia and Denies odynophagia Card Reports no additional complaints Resp Reports no additional complaints GI Reports abdominal pain, Denies belching, Denies melena, Reports bloating, Denies change in bowel habits, Reports constipation, Denies dysphagia, Denies excessive flatus, Denies dyspepsia, Denies heartburn, Denies diarrhea, Denies loose stools, Denies nausea, Denies odynophagia and Denies vomiting Reports no additional complaints Musc Reports no additional complaints Neuro Reports no additional complaints Psych Reports no additional complaints Endo Reports no additional complaints Physical Exam Vital Signs: Last Vital Signs Pulse 97 05/05/23 15:48 BP 150/79 H 05/05/23 15:48 BMI result Body Mass Index 33.2 Const General: healthy appearing, no acute distress and well developed Nutritional Appearance: obese Orientation/consciousness: patient oriented x3 Resp Effort & Inspection: normal respiratory effort, able to speak in complete sentences, no tracheal deviation and symmetric chest movement Auscultation: clear to auscultation bilaterally Cardio Rate: regular rate GI Other: Postsurgical laparoscopic scars. Abdominal wall incisional hernia Inspection: No distended and Yes obesity Palpation (GI): Soft to palpation, not firm, nontender and No hepatosplenomegaly present Auscultation: normal bowel sounds General: Yes no CVA tenderness Back/Spine/Pelvis Back: no CVA tenderness Skin General skin exam: elasticity normal, turgor normal and dry skin Neuro General: patient oriented x3 Psych Appearance: grossly normal Mental Status: mental status grossly normal Assessment & Plan Assessment & Plan (1) Abdominal hernia: Code(s): K46.9 - Unspecified abdominal hernia without obstruction or gangrene Qualifiers: Hernia type: incisional Obstruction and gangrene presence: without obstruction or gangrene Qualified Code(s): K43.2 - Incisional hernia without obstruction or gangrene (2) Incisional hernia: Code(s): K43.2 - Incisional hernia without obstruction or gangrene Qualifiers: Obstruction and gangrene presence: without obstruction or gangrene Qualified Code(s): K43.2 - Incisional hernia without obstruction or gangrene (3) GERD (gastroesophageal reflux disease): Code(s): K21.9 - Gastro-esophageal reflux disease without esophagitis Qualifiers: Esophagitis presence: esophagitis presence not specified Qualified Code(s): K21.9 - Gastro-esophageal reflux disease without esophagitis (4) Constipation: Code(s): K59.00 - Constipation, unspecified Qualifiers: Constipation type: slow transit constipation Qualified Code(s): K59.01 - Slow transit constipation (5) Hemorrhoid: Code(s): K64.9 - Unspecified hemorrhoids Qualifiers: Hemorrhoid type: unspecified Qualified Code(s): K64.9 - Unspecified hemorrhoids Plan Patient was encouraged to increase fluid intake and activity to promote better bowel motility. Patient can take Dulcolax tablets daily. She will call our office if she continues to be constipated. Patient tried docusate sodium in the past and it was not helping, was causing low abdominal discomfort and cramping. Continue pantoprazole in the morning and famotidine at bedtime. Patient is asking for cream for hemorrhoids. Patient was also instructed to do Sitz baths with Epsom salts. Refer to General surgery to see Dr. Ernst regarding incisional hernia. I will see her in 6 weeks, sooner on as needed basis. Patient is agreeable to this plan and verbalizes understanding of instructions. She was given the opportunity to ask questions and all questions answered. Thank you for allowing me to participate her care Orders: Referrals General Surgery Referral K43.2 - Incisional hernia without obstruction or gangrene, K46.9 - Unspecified abdominal hernia without obstruction or gangrene Medications: New bisacodyl (Dulcolax (bisacodyl)) 10 mg (2 x 5 mg) PO BEDTIME 180 tabs 4RF hydrocortisone 2.5% (Proctosol HC) 1 appl NM BID-QID PRN 30 grams 2RF hemorrhoids K64.9 - Unspecified hemorrhoids Discontinued sennosides (Natural Senna Laxative) Discontinued Reason: Doctor's Order 17.2 mg (2 x 8.6 mg) PO BEDTIME 180 tabs 2RF constipation K59.00 - Constipation, unspecified Quality Reporting (2019) Adult ([facility] 13804/17/68) Smoking risk assessment performed?: Yes Patient Tobacco Use Status: Never used Tobacco Coding Level of Care Code Est Pt Level 4 (93574) Diagnoses Incisional hernia, without obstruction or gangrene K43.2 Hernia type: incisional Obstruction and gangrene presence: without obstruction or gangrene Incisional hernia, without obstruction or gangrene K43.2 Obstruction and gangrene presence: without obstruction or gangrene Gastroesophageal reflux disease, unspecified whether esophagitis present K21.9 Esophagitis presence: esophagitis presence not specified Slow transit constipation K59.01 Constipation type: slow transit constipation Hemorrhoids, unspecified hemorrhoid type K64.9 Hemorrhoid type: unspecified Time Spent (min) 40 Comment 25 minutes spent with patient and additional 15 minutes spent reviewing her records
== END 2023-05-05 16:22 | disposition home or self-care (01) ==
PROVIDERS: PCP Internal Medicine; Visit Provider Nurse Practitioner Family
DX: K43.2 Incisional hernia without obstruction or gangrene (principal); K21.9 Gastro-esophageal reflux disease without esophagitis; K59.01 Slow transit constipation; K64.9 Unspecified hemorrhoids
CPT/HCPCS: 99214

== ENCOUNTER → 2023-05-05 15:45 | Outpatient (BNVA) | payer OTHER, SELFPAY | PROVIDERS: PCP Internal Medicine; Visit Provider Nurse Practitioner Family | DX: K43.2 Incisional hernia without obstruction or gangrene (principal); K21.9 Gastro-esophageal reflux disease without esophagitis; K59.01 Slow transit constipation; K64.9 Unspecified hemorrhoids | CPT/HCPCS: 99212 ==

== ENCOUNTER 2023-05-15 13:45 | Outpatient (AMB) | payer OTHER, SELFPAY ==
--- NOTE | 2023-05-15 13:46 | MHC.OFFVIS ---
Intake Vital Signs 05/15/23 13:55 Height 5 ft 2 in Weight 180 lb BMI 32.9 BP 133/74 Blood Pressure Location Rt brachial Position Sitting Pulse 69 Pulse Source Palpation Intake Visit Reasons: Recurrent hernia Intake Note: Patient scheduled to discuss recurrent hernia. Hx of incisional hernia repair on 11-06-21. Patient c/o: discomfort started after multiple surgical procedures @ [facility] in December 2022. SX: 01-07-23. Lap Rt oophorectomy, partial Lt oophorectomy, Rt fallopian tube remnant, extensive jysis of adhesions, cystocopy, rectosigmoid serosa oversew. Stna Required: No Allergies hydrocodone [HYDROCODONE] Allergy (Severe, Verified 05/15/23 13:51) DIFFICULTY BREATHING codeine Allergy (Intermediate, Verified 05/15/23 13:51) shortness of breath cyclobenzaprine Adverse Reaction (Intermediate, Verified 05/15/23 13:51) sleepiness docusate [From Colace] Adverse Reaction (Intermediate, Verified 05/15/23 13:51) Vomiting, dizziness mirtazapine [Remeron] Adverse Reaction (Intermediate, Verified 05/15/23 13:51) vomiting nabumetone Adverse Reaction (Intermediate, Verified 05/15/23 13:51) sleepiness Medication List - Last Reconciled 05/15/23 by Domenic Ernst MD bisacodyl (Dulcolax (bisacodyl)) 10 mg (2 x 5 mg) PO BEDTIME bupropion HCl 150 mg PO QAM 90 days cholecalciferol (vitamin D3) 125 mcg PO DAILY 90 days estradiol 1 patch topical 2XW famotidine 40 mg PO BEDTIME hydrochlorothiazide 12.5 mg PO DAILY 90 days hydrocortisone 2.5% (Proctosol HC) 1 appl IN BID-QID PRN levothyroxine 25 mcg PO DAILY 90 days pantoprazole 40 mg PO DAILY rosuvastatin 10 mg PO DAILY 90 days HPI Recurrent hernia HPI Details She had undergone repair of an incisional hernia with Ventralex mesh in 2021 on a previous low normal incision. She had been doing well However, last December,, she had an undergo laparoscopic offer me, removal of a right fallopian tube remnant, extensive lysis of adhesions, and cystoscopy along with the rectosigmoid serosa over so in [facility] because of [facility] Medical History (Updated 05/05/23 @ 16:30 by Mara Sterling, [facility]) Chronic pelvic pain in female Pelvic pain Hyperlipidemia Hypertension Tubular adenoma Hernia of abdominal cavity PONV (postoperative nausea and vomiting) Morbid obesity Polyarthralgia Insomnia Moderate recurrent major depression Bloody stools Right sided sciatica Dyslipidemia Hypovitaminosis D Acute insomnia Constipation Bilateral hand numbness GERD (gastroesophageal reflux disease) Surgical History (Updated 05/15/23 @ 14:19 by Domenic Ernst MD) History of esophagogastroduodenoscopy (EGD) Hx of colonoscopy History of hernia surgery History of endometrial ablation Hx of hysterectomy History of carpal tunnel release History of section History of tubal ligation Family History Father Hypertension Diabetes CVD (cardiovascular disease) Mother Hypertension Social History Housing: Apartment Are you a primary rn homecare to a significant other at home: No Do you presently have visiting nurse or other home services: No Alcohol intake: current Alcohol intake frequency: holidays/special occasions only Alcohol type: wine Patient Tobacco Use Status: Never used Tobacco e-Cigarette/Vaping Use: Never Used Second Hand Smoke Exposure: No service: No Current occupational status: employed 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 Current occupational exposures/hazards: No Cognitive needs: No Hearing needs: No Vision needs: No Review of Systems Const Denies chills and Denies fever(s) Card Denies chest pain, Denies dyspnea and Denies dyspnea on exertion Resp Denies cough, Denies dyspnea and Denies dyspnea on exertion GI Denies hematochezia, Denies change in bowel habits and Reports constipation Denies hematuria Musc Denies back pain and Denies limited range of motion Neuro Denies focal weakness and Denies convulsions Psych Denies depression and Denies mood swings Physical Exam Vital Signs: Last Vital Signs Pulse 69 05/15/23 13:55 BP 133/74 05/15/23 13:55 BMI result Body Mass Index 32.9 Const General: comfortable and no acute distress Orientation/consciousness: patient oriented x3 Neck Neck: Yes no lymphadenopathy Resp Auscultation: clear to auscultation bilaterally Cardio Rhythm: regular rhythm GI Other: No obvious palpable hernia on the previous repair site nor in the umbilicus Palpation (GI): Soft to palpation, nontender and no guarding Neuro General: patient oriented x3 Assessment & Plan Assessment & Plan (1) History of hernia surgery: Code(s): Z98.890 - Other specified postprocedural states; Z87.19 - Personal history of other diseases of the digestive system Plan: I have reviewed her CAT scan from February,. There may be a very small defect on the previous hernia repair site. I would not recommend proceeding with a repair at this time. I did tell her that she should monitor this closely. She denies any pain or tenderness on the area. I told her that if she notices any mass or tenderness, she should come back to the office to be re-evaluated I assured her that this CT scan finding is not related to her chronic constipation which was 1 of her concerns. Quality Reporting (2019) Adult ([facility] 138/04/17/68) Smoking risk assessment performed?: Yes Patient Tobacco Use Status: Never used Tobacco Coding Level of Care Code Est Pt Level 3 (64286) Diagnoses History of hernia surgery Z98.890; Z87.19
[2023-05-15 13:55] VITALS: BP 133/74; PULSE 69; BMI 32.9
== END 2023-05-15 14:15 | disposition home or self-care (01) ==
PROVIDERS: PCP Internal Medicine; Referring Provider Nurse Practitioner Family; Visit Provider Surgery
DX: Z98.890 Other specified postprocedural states (principal); Z87.19 Personal history of other diseases of the digestive system
CPT/HCPCS: 99213

== ENCOUNTER → 2023-05-15 13:45 | Outpatient (BNVA) | payer OTHER, SELFPAY | PROVIDERS: PCP Internal Medicine; Referring Provider Nurse Practitioner Family; Visit Provider Surgery | DX: Z98.890 Other specified postprocedural states (principal); Z87.19 Personal history of other diseases of the digestive system; Z79.899 Other long term (current) drug therapy | CPT/HCPCS: 99212 ==

== ENCOUNTER 2023-06-05 10:46 | Outpatient (AMB) | payer OTHER, SELFPAY ==
[2023-06-05 11:05] VITALS: BP 102/68; BMI 32.6
--- NOTE | 2023-06-05 11:05 | A.OFFPC_ITS ---
Vital Signs 06/05/23 11:05 Height 5 ft 2 in Weight 178 lb BMI 32.6 BP 102/68 Blood Pressure Location Lt brachial Position Sitting Intake Visit Reasons: annual physical Intake Note: Patient here for an annual physical exam Call Out Operator Required: No Accompanied by: Self / Same As Patient Allergies hydrocodone [HYDROCODONE] Allergy (Severe, Verified 06/05/23 11:33) DIFFICULTY BREATHING codeine Allergy (Intermediate, Verified 06/05/23 11:33) shortness of breath cyclobenzaprine Adverse Reaction (Intermediate, Verified 06/05/23 11:33) sleepiness docusate [From Colace] Adverse Reaction (Intermediate, Verified 06/05/23 11:33) Vomiting, dizziness mirtazapine [Remeron] Adverse Reaction (Intermediate, Verified 06/05/23 11:33) vomiting nabumetone Adverse Reaction (Intermediate, Verified 06/05/23 11:33) sleepiness Medication List - Last Reconciled 06/05/23 by Mirta Mahmood MD bisacodyl (Dulcolax (bisacodyl)) 10 mg (2 x 5 mg) PO BEDTIME bupropion HCl XL 150 mg PO QAM 90 days cholecalciferol (vitamin D3) 125 mcg PO DAILY 90 days estradiol 1 patch topical 2XW famotidine 40 mg PO BEDTIME hydrochlorothiazide 12.5 mg PO DAILY 90 days hydrocortisone 2.5% (Proctosol HC) 1 appl ID BID-QID PRN levothyroxine 25 mcg PO DAILY 90 days pantoprazole 40 mg PO DAILY rosuvastatin 10 mg PO DAILY 90 days Tobacco use date assessed: 06/05/23 Dental Screening Dental Screen Date: 06/05/23 Did you have a dental visit in the last 12 months?: Yes Did you have a dental problem in the last 6 months where you did not have access to dental care?: No Was dental information given to patient?: Patient has dentist HPI HPI Comments History of Present Illness Details This is a 43-year-old female with moderate recurrent major depression that comes for her physical. Depression has improved with medication. Last mammogram was 2022. Last colonoscopy was 2022. No need for Pap smear due to hysterectomy. Denies any chest pain or shortness of breath. Has intentionally lost weight. She has not completely compliant with bupropion. She stopped taking levothyroxine for the last month. COUNT INCLUDES THE [facility] Medical History (Updated 06/05/23 @ 12:12 by Mirta Mahmood MD) Chronic pelvic pain in female Pelvic pain Hyperlipidemia Hypertension Tubular adenoma Hernia of abdominal cavity PONV (postoperative nausea and vomiting) Morbid obesity Polyarthralgia Insomnia Moderate recurrent major depression Bloody stools Right sided sciatica Dyslipidemia Hypovitaminosis D Acute insomnia Constipation Bilateral hand numbness GERD (gastroesophageal reflux disease) Surgical History (Updated 06/05/23 @ 11:41 by Mirta Mahmood MD) History of cystoscopy History of right oophorectomy History of esophagogastroduodenoscopy (EGD) Hx of colonoscopy History of hernia surgery History of endometrial ablation Hx of hysterectomy History of carpal tunnel release History of tubal ligation Family History (Updated 06/05/23 @ 11:41 by Mirta Mahmood MD) Father Hypertension Diabetes CVD (cardiovascular disease) Mother Hypertension Pancreatic cancer Social History Housing: Apartment Are you a primary home care associate to a significant other at home: No Do you presently have visiting nurse or other home services: No Alcohol intake: current Alcohol intake frequency: holidays/special occasions only Alcohol type: wine Patient Tobacco Use Status: Never used Tobacco e-Cigarette/Vaping Use: Never Used Second Hand Smoke Exposure: No service: No Current occupational status: employed 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 1. Little interest or pleasure in doing things: not at all 2. Feeling down, depressed, or hopeless: not at all 3. Trouble falling or staying asleep, or sleeping too much: not at all 4. Feeling tired or having little energy: not at all 5. Poor appetite or overeating: not at all 6. Feeling bad about yourself - or that you are a failure or have let yourself or your family down: not at all 7. Trouble concentrating on things, such as reading the newspaper or watching television: not at all 8. Moving or speaking so slowly that other people could have noticed. Or the opposite - being so fidgety or restless that you have been moving around a lot more than usual: not at all 9. Thoughts that you would be better off or of hurting yourself in some way: not at all Total score: 0 Depression Screening Interpretation: Negative Depression Screening Done: Yes 27196 - PHQ-9 Billing: Yes Source: Developed by Drs. Connor Wise, Antonieta Schreiber, Pa Garrison and colleagues, with an educational dania from [employer]. Thrive Questionnaire Date Thrive assessed: 06/05/23 I am a: Patient What is your living situation today?: I have a steady place to live Within the past 12 months, did the food you bought not last and you didn't have the money to get more?: Never true Within the past 12 months, did you worry whether your food would run out before you got money to buy more?: Never true Do you have trouble paying for medicines?: No Do you have trouble getting transportation to medical appointments?: No Do you have trouble paying your heating and electricity bill?: No Do you have trouble taking care of your child, family member or friend?: No Do you have trouble with day-to-day activities such as bathing, preparing meals, shopping, managing finances, etc.?: No Are you currently unemployed and looking for a job?: No Are you interested in more education?: No Please select the resources that you would like help with: None Currently or been in a relationship where the following occur: no concerns reported THRIVE Score: 0 AUDIT C Alcohol Use Questionnaire (AUDIT-C) 1. How often do you have a drink containing alcohol?: Monthly or less 2. How many drinks containing alcohol do you have on a typical day when you are drinking?: 1 or 2 3. How often do you have six or more drinks on one occasion?: Never Total Score: 1 Score Reviewed/Action Taken: No MAR-7 AMB Questionnaire MAR-7 Date MAR - 7 assessed: 06/05/23 Feeling nervous, anxious, or on edge: 0 = Not at all Not being able to stop or control worryin = Not at all Worrying too much about different things: 0 = Not at all Trouble relaxin = Not at all Being so restless that it is hard to sit still: 0 = Not at all Becoming easily annoyed or irritable: 0 = Not at all Feeling afraid as if something awful might happen: 0 = Not at all Total MAR-7 score (0-4 normal; 5-9 mild; 10-14 moderate; 15-21 severe): 0 Source: Developed by Drs. Connor Wise, Antonieta Schreiber, Pa Garrison and colleagues, with an educational dania from [employer]. MAR-7 Assessment Billing MAR-7 Assessment Tool: MAR-7 Assessment 75437 Review of Systems Const All systems reviewed & are unremarkable except as noted in HPI and below Eyes Reports no additional complaints, Denies change in vision and Denies other visual disturbances Card Denies chest pain at rest, Denies chest pain with activity, Denies edema, Denies irregular heart rhythm, Denies claudication, Denies dyspnea, Denies dyspnea on exertion, Denies orthopnea, Denies paroxysmal nocturnal dyspnea and Denies slow heart rate Resp Denies cough, Denies dyspnea and Denies dyspnea on exertion Physical exam (Primary Care) Vital Signs: Last Vital Signs BP 102/68 06/05/23 11:05 BMI result Body Mass Index 32.6 Tobacco/Smoking Status: Tobacco use Status Tobacco use date assessed 06/05/23 06/05/23 11:10 Patient Tobacco Use Status Never used Tobacco 06/05/23 11:10 Tobacco use type 05/05/23 16:22 e-Cigarette/Vaping Use Never Used 06/05/23 11:10 PHQ-9: PHQ-9 Score PHQ-9: Total score 0 06/05/23 11:37 Depression Screening Interpretation: Negative Thrive Assessment: Date of Thrive Assessment Date Thrive assessed 06/05/23 06/05/23 11:10 Currently or been in a relationship where the following occur: no concerns reported Const Orientation/consciousness: patient oriented x3 HENMT Head: Yes normal to inspection, Yes normocephalic and Yes atraumatic Ears: external ears normal Eyes General: appearance normal, both eyes and all related structures Eyelids: Yes eyelids normal Conjunctivae: conjunctivae normal Neck Neck: Yes normal visual inspection and Yes supple Resp Effort & Inspection: normal respiratory effort Auscultation: clear to auscultation bilaterally Cardio Jugular venous distension: no JVD Rate: regular rate Rhythm: regular rhythm Heart sounds: S1 normal heart sound present and S2 normal heart sound present GI Inspection: Yes normal to inspection Palpation (GI): Soft to palpation and nontender Auscultation: normal bowel sounds Skin General skin exam: no rashes or lesions noted Neuro General: patient oriented x3 and no focal motor deficits Extrem General: Yes full ROM Psych Appearance: grossly normal Assessment and Plan Assessment & Plan (1) Physical exam: Code(s): Z00.00 - Encounter for general adult medical examination without abnormal findings Plan: Repeat in a year. (2) Moderate recurrent major depression: Code(s): F33.1 - Major depressive disorder, recurrent, moderate Plan: Continue bupropion Orders: Orders Lipid Panel Today E78.5 - Hyperlipidemia, unspecified Thyroid Stimulating Hormone Today E06.3 - Autoimmune thyroiditis Comprehensive [place]. Panel Fast Today I10 - Essential (primary) hypertension Referrals General Surgery Referral L98.8 - Other specified disorders of the skin and subcutaneous tissue Pain Management Referral M54.31 - Sciatica, right side Medications: New selenium sulfide 1% massage into affected area; leave on for 10 mins ; rinse off thoroughly 1 appl topical Q2W 30 days 207 mL 0RF Refilled levothyroxine 25 mcg PO DAILY 90 days 90 tabs 1RF E06.3 - Autoimmune thyroiditis rosuvastatin 10 mg PO DAILY 90 days 90 tabs 1RF pantoprazole take one tablet half an hour before breakfast 40 mg PO DAILY 90 tabs 2RF K21.9 - Gastro-esophageal reflux disease without esophagitis hydrochlorothiazide 12.5 mg PO DAILY 90 days 90 tabs 0RF I10 - Essential (primary) hypertension Coding Level of Care Code Est Pt Prev Care 40-64y(70946) Diagnoses Physical exam Z00.00 Moderate recurrent major depression F33.1 Additional Codes MAR-7 Assessment Billing - MAR-7 Assessment Tool: MAR-7 Assessment 98491 ([id number]) Time Spent (min) 33
== END 2023-06-05 12:00 | disposition home or self-care (01) ==
PROVIDERS: PCP Internal Medicine; Visit Provider Internal Medicine
DX: Z00.00 Encounter for general adult medical examination without abnormal findings (principal); F33.1 Major depressive disorder, recurrent, moderate; Z90.710 Acquired absence of both cervix and uterus; E06.3 Autoimmune thyroiditis
CPT/HCPCS: 99396

== ENCOUNTER 2023-06-20 09:20 | Outpatient (REF) | payer OTHER, SELFPAY ==
[2023-06-20 10:42] LABS: Alanine Aminotransferase 17 U/L (0-31); Albumin Level 4.3 g/dL (3.5-5.0); Alkaline Phosphatase 69 U/L (39-117); Anion Gap 10 (12-20); Aspartate Amino Transferase 20 U/L (5-31); Bilirubin Total 0.7 mg/dL (0.0-1.0); Blood Urea Nitrogen 13 mg/dL (9-16); Calcium 9.4 mg/dL (8.4-10.2); Carbon Dioxide 27 mmol/L (22-29); Chloride 105 mmol/L (96-108); Cholesterol 210 mg/dL (<200); Estimated Glomerular Filt Rate > 60; Glucose Fasting 93 mg/dL (60-99); HDL Cholesterol 38 mg/dL (>40); LDL Cholesterol Calculated 145 mg/dL (<100); Potassium 3.8 mmol/L (3.3-5.1); Sodium 138 mmol/L (135-145); Total Protein 8.3 g/dL (6.5-8.0); Triglycerides 138 mg/dL (<150)
[2023-06-20 10:58] LABS: Thyroid Stimulating Hormone 0.23 uIU/mL (0.32-4.0)
== END 2023-06-20 09:21 | disposition home or self-care (01) ==
LOC: HO.LAB 09:20
PROVIDERS: PCP Internal Medicine; Visit Provider Internal Medicine
DX: I10 Essential (primary) hypertension (principal); E78.5 Hyperlipidemia, unspecified; E06.3 Autoimmune thyroiditis
CPT/HCPCS: 36415; 80053; 80061; 84443

== ENCOUNTER → 2023-09-05 14:30 | Outpatient (BNV) | payer OTHER, SELFPAY | PROVIDERS: PCP Internal Medicine; Visit Provider Radiology Diagnostic Radiology | DX: Z12.31 Encounter for screening mammogram for malignant neoplasm of breast (principal) | CPT/HCPCS: 77063; 77067 ==

== ENCOUNTER 2023-09-05 14:31 | Outpatient (REF) | payer OTHER, SELFPAY ==
--- NOTE | ~2023-09-05 | MM_ITS ---
EXAMINATION: MM SCREENING DIGITAL BREAST TOMOSYNTHESIS, BILATERAL CLINICAL INFORMATION: Screening. Asymptomatic. COMPARISON: Mammography: This study is compared with prior exams dating back to 2017. TECHNIQUE: Digital breast tomosynthesis is performed in both the craniocaudal and mediolateral oblique views along with computer-aided detection (CAD). Synthesized 2D images are generated from the tomosynthesis. FINDINGS: There are scattered areas of fibroglandular density (ACR BI-RADS breast composition Category b). There are grouped calcifications in the 12:00 position of the deep third of the right breast. These is seen in only the CC projection. They do not appear to be in the skin and may be vascular. Additional mammographic imaging with magnification is advised. In the left breast, there are no significant masses, abnormal calcifications, or other abnormalities. MM/MM tomosynthesis screening BI IMPRESSION: Grouped calcifications of the right breast warrant additional mammographic imaging magnification. No mammographic signs of malignancy left breast. ASSESSMENT: BI-RADS BI-RADS 0 - Incomplete: Needs additional Imaging. RECOMMENDATION: 1. Additional views of the right breast. 2. Radiology department staff will contact the patient for additional imaging. Additional Imaging required This examination should not preclude the clinical evaluation of a suspicious palpable abnormality. This patient's information was entered into a reminder system with a target due date for their next mammogram.
== END 2023-09-05 14:32 | disposition home or self-care (01) ==
LOC: HO.MAMMO 14:31
PROVIDERS: PCP Internal Medicine; Visit Provider Internal Medicine
DX: Z12.31 Encounter for screening mammogram for malignant neoplasm of breast (principal)
CPT/HCPCS: 77063; 77067

== ENCOUNTER 2023-10-09 13:49 | Outpatient (REF) | payer OTHER, SELFPAY ==
--- NOTE | ~2023-10-09 | MM_ITS ---
EXAMINATION: MM DIAGNOSTIC DIGITAL MAMMOGRAPHY, RIGHT CLINICAL INFORMATION: Diagnostic right mammogram for evaluation of calcifications approximate 12:00 axis right breast posterior one third. COMPARISON: Mammography: Screening mammography 09/05/2023, and exams dating back to 2017. TECHNIQUE: Digital mammography is performed in the following views: 2-D spot magnification views right CC view, right ML x2, and right MLO. Computer-aided diagnosis was used for this study. FINDINGS: There are scattered areas of fibroglandular density (ACR BI-RADS breast composition Category b). Within the approximate 12:00 axis right breast, posterior one third, there is a subtle focus of grouped calcifications arranged linearly. These are somewhat pleomorphic, do not appear vascular, have linear forms, and are indeterminate. Stereotactic biopsy is recommended for further characterization. Results are discussed with the patient at time of visit with the aid of a contracts paralegal. No additional suspicious findings. MM/MM added views RT IMPRESSION: Indeterminate calcifications 12:00 axis right breast posterior one third. Stereotactic biopsy recommended. ASSESSMENT: BI-RADS BI-RADS 4 - Suspicious finding RECOMMENDATION: Biopsy recommended
== END 2023-10-09 13:50 | disposition home or self-care (01) ==
LOC: HO.MAMMO 13:49
PROVIDERS: PCP Internal Medicine; Visit Provider Internal Medicine
DX: R92.1 Mammographic calcification found on diagnostic imaging of breast (principal)
CPT/HCPCS: 77065

== ENCOUNTER → 2023-10-09 14:00 | Outpatient (BNV) | payer OTHER, SELFPAY | PROVIDERS: PCP Internal Medicine; Visit Provider Radiology Diagnostic Radiology | DX: R92.1 Mammographic calcification found on diagnostic imaging of breast (principal) | CPT/HCPCS: 77065 ==

== ENCOUNTER 2023-10-15 08:19 | Outpatient (AMB) | payer OTHER, SELFPAY ==
[2023-10-15 08:23] VITALS: BP 145/74; PULSE 72; BMI 33.8
--- NOTE | 2023-10-15 08:23 | MHC.OFFVIS ---
Vital Signs 10/15/23 08:23 Height 5 ft 2 in Weight 185 lb BMI 33.8 BP 145/74 H Blood Pressure Location Rt brachial Position Sitting Pulse 72 Intake Visit Reasons: (R) breast stereo bx, calcifications upper outer Intake Note: This patient presents for stereo biopsy consult for, calcifications upper outer quadrant. Pt c/o; reports right breast discomfort, reports no nipple discharge, reports no change in size or shape of breast. Bx scheduled: 10/15/2023 @10am Panel Raiser Operator Required: Yes Panel Raiser Operator Services: Panel Raiser Operator Present (Senait) Panel Raiser Operator Name: Senait Information Interpreted: non-clinical & clinical Accompanied by: Self / Same As Patient Allergies hydrocodone [HYDROCODONE] Allergy (Severe, Verified 10/15/23 08:29) DIFFICULTY BREATHING codeine Allergy (Intermediate, Verified 10/15/23 08:29) shortness of breath cyclobenzaprine Adverse Reaction (Intermediate, Verified 10/15/23 08:29) sleepiness docusate [From Colace] Adverse Reaction (Intermediate, Verified 10/15/23 08:29) Vomiting, dizziness mirtazapine [Remeron] Adverse Reaction (Intermediate, Verified 10/15/23 08:29) vomiting nabumetone Adverse Reaction (Intermediate, Verified 10/15/23 08:29) sleepiness Medication List - Last Reconciled 10/15/23 by Domenic Ernst MD bisacodyl (Dulcolax (bisacodyl)) 10 mg (2 x 5 mg) PO BEDTIME bupropion HCl XL 150 mg PO QAM 90 days cholecalciferol (vitamin D3) 125 mcg PO DAILY 90 days estradiol 1 patch topical 2XW famotidine 40 mg PO BEDTIME hydrochlorothiazide 12.5 mg PO DAILY 90 days hydrocortisone 2.5% (Proctosol HC) 1 appl IN BID-QID PRN pantoprazole 40 mg PO DAILY rosuvastatin 10 mg PO DAILY 90 days selenium sulfide 1% 1 appl topical Q2W 30 days Is last menstrual period known: Yes (6 years ago) HPI HPI (R) breast stereo bx, calcifications upper outer: Details: 43 year female referred for right breast calcifications on screening mammogram. She had a screening mammogram last month with note of calcifications on the right breast. She was brought in for diagnostic mammogram which showed a subtle focus of grouped calcifications arranged linearly at the 12:00 o'clock axis of the right breast. A stereotactic biopsy was recommended because of this. She denies any palpable mass She had menarche at age of 13. Her 1st was at age of 18. She had 2 pregnancies. She had hysterectomy at age of 37 for what she described as heavy periods. She denies recall of any family history of breast cancer. [facility] Medical History Breast calcification, right Chronic pelvic pain in female Pelvic pain Hyperlipidemia Hypertension Tubular adenoma Hernia of abdominal cavity PONV (postoperative nausea and vomiting) Morbid obesity Polyarthralgia Insomnia Moderate recurrent major depression Bloody stools Right sided sciatica Dyslipidemia Hypovitaminosis D Acute insomnia Constipation Bilateral hand numbness GERD (gastroesophageal reflux disease) Surgical History History of cystoscopy History of right oophorectomy History of esophagogastroduodenoscopy (EGD) Hx of colonoscopy History of hernia surgery History of endometrial ablation Hx of hysterectomy History of carpal tunnel release History of tubal ligation Family History Father Hypertension Diabetes CVD (cardiovascular disease) Mother Hypertension Pancreatic cancer Mother Pancreatic cancer Maternal Aunt Thyroid cancer Maternal Aunt Stomach cancer Maternal Uncle Prostate cancer Social History Housing: Apartment Are you a primary dog day care attendant to a significant other at home: No Do you presently have visiting nurse or other home services: No Alcohol intake: current Alcohol intake frequency: holidays/special occasions only Alcohol type: wine Patient Tobacco Use Status: Never used Tobacco e-Cigarette/Vaping Use: Never Used Second Hand Smoke Exposure: No service: No Current occupational status: employed 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 Current occupational exposures/hazards: No Cognitive needs: No Hearing needs: No Vision needs: No Female Reproductive History Menstrual Age of Menarche: 13 Full term: 2 Review of Systems Const Denies chills and Denies fever(s) Card Denies chest pain, Denies dyspnea and Reports dyspnea on exertion (Occasional; instructed patient to discuss this with primary care physician) Resp Denies cough, Denies dyspnea and Reports dyspnea on exertion (Occasional; instructed patient to discuss this with primary care physician) GI Denies hematochezia and Denies change in bowel habits Denies hematuria Musc Denies back pain and Denies limited range of motion Neuro Denies focal weakness and Denies convulsions Psych Denies depression and Denies mood swings Physical Exam Vital Signs: Last Vital Signs Pulse 72 10/15/23 08:23 BP 145/74 H 10/15/23 08:23 BMI result Body Mass Index 33.8 Const General: comfortable and no acute distress Orientation/consciousness: patient oriented x3 Neck Neck: Yes no lymphadenopathy Chest Other: Large pendulous breasts, no palpable mass, no nipple or skin changes, no axillary lymphadenopathy Resp Auscultation: clear to auscultation bilaterally Cardio Rhythm: regular rhythm GI Palpation (GI): Soft to palpation, nontender and no guarding Neuro General: patient oriented x3 Quality Reporting (2019) Adult ([facility] 138/04/17/68) Smoking risk assessment performed?: Yes Patient Tobacco Use Status: Never used Tobacco Assessment & Plan Assessment & Plan (1) Breast calcification, right: Code(s): R92.1 - Mammographic calcification found on diagnostic imaging of breast Category: Medical Plan: She has right breast calcifications on mammogram as described above. I explained to her the technique of stereotactic biopsy. I we will see her again next week to discuss the path report She understands the plan well. Orders: Orders MM stereotactic biopsy RT 10/14/23 R92.1 - Mammographic calcification found on diagnostic imaging of breast Coding Level of Care Code New Pt Level 3 (41826) Diagnoses Breast calcification, right R92.1
== END 2023-10-15 08:54 | disposition home or self-care (01) ==
PROVIDERS: PCP Internal Medicine; Visit Provider Surgery
DX: R92.1 Mammographic calcification found on diagnostic imaging of breast (principal)
CPT/HCPCS: 99213

== ENCOUNTER 2023-10-15 09:40 | Outpatient (REF) | payer OTHER, SELFPAY ==
--- NOTE | ~2023-10-15 | MM_ITS ---
EXAMINATION: STEREOTACTIC TOMOSYNTHESIS-GUIDED VACUUM-ASSISTED BREAST BIOPSY, RIGHT SPECIMEN RADIOGRAPH, RIGHT POST PROCEDURE DIGITAL MAMMOGRAM, RIGHT CLINICAL INFORMATION: Suspicious calcifications right breast 12:00, posterior one third, recommended for stereotactic biopsy.. COMPARISON: 10/09/2023, 09/05/2023 mammography. TECHNIQUE/PROCEDURE: Informed consent was obtained from the patient after discussion of the benefits, risks, and alternatives to biopsy today. Patient appeared to understand. Gave opportunity for questions. Patient signed consent form. BIOPSY TABLE: [employer] Affirm Prone Biopsy System. LESION: Grouped microcalcifications.. LOCAL ANESTHESIA: 4 mL 1% lidocaine; 8 mL 1% lidocaine with epinephrine. DERMATOTOMY: Single 2 mm skin cande dermatotomy performed. NEEDLE: Emulisiva 9-gauge vacuum assisted core biopsy device. APPROACH: craniocaudal. TARGETIN-D. CORES: 7. CLIP: Top hat shaped. SPECIMEN RADIOGRAPH: Specimen radiograph is taken in separate room using digital mammography. The index calcifications are in the excised cores. POST PROCEDURE UNILATERAL DIGITAL MAMMOGRAM: The post biopsy mammogram is performed in separate room using separate digital mammography equipment from the biopsy procedure. Right CC and ML views are obtained. There are scattered areas of fibroglandular density (breast composition category: b). The clip marker is in accurate position. No definite residual calcifications are evident. No gross hematoma present. The patient tolerated the procedure well. No immediate complications. Home instructions reviewed with the patient. Final pathology results are pending. MM/MM stereotactic biopsy RT IMPRESSION: 1. Digital tomosynthesis-guided core biopsy right breast with clip placement. 2. Specimen radiograph taken and post procedure mammogram. There is satisfactory and accurate positioning of the biopsy clip. 3. Final pathology results pending. An addendum report will be issued. Electronically signed by: Chava Alicea MD 10/15/2023 11:32 AM EDT
== END 2023-10-15 09:41 | disposition home or self-care (01) ==
LOC: HO.MAMMO 09:40
PROVIDERS: PCP Internal Medicine; Visit Provider Surgery
DX: R92.1 Mammographic calcification found on diagnostic imaging of breast (principal)
CPT/HCPCS: 19081; 88305; 99212; A4648

== ENCOUNTER → 2023-10-15 10:00 | Outpatient (BNV) | payer OTHER, SELFPAY | PROVIDERS: PCP Internal Medicine; Visit Provider Radiology Diagnostic Radiology | DX: R92.1 Mammographic calcification found on diagnostic imaging of breast (principal) | CPT/HCPCS: 19081 ==

== ENCOUNTER 2023-10-22 10:27 | Outpatient (AMB) | payer OTHER, SELFPAY ==
--- NOTE | 2023-10-22 10:45 | MHC.OFFVIS ---
Vital Signs 10/22/23 10:49 Height 5 ft 2 in Weight 185 lb 0.014 oz BMI 33.8 Intake Visit Reasons: (R) breast stereo bx results Intake Note: This patient presents for breast biopsy results. Pt c/o; reports no complaints. Cutting Room Supervisor Required: Yes Cutting Room Supervisor Language: Surveillance Supervisor Services: Cutting Room Supervisor Present Cutting Room Supervisor Name: Senait Information Interpreted: non-clinical & clinical Accompanied by: Grand Child Allergies hydrocodone [HYDROCODONE] Allergy (Severe, Verified 10/22/23 10:51) DIFFICULTY BREATHING codeine Allergy (Intermediate, Verified 10/22/23 10:51) shortness of breath cyclobenzaprine Adverse Reaction (Intermediate, Verified 10/22/23 10:51) sleepiness docusate [From Colace] Adverse Reaction (Intermediate, Verified 10/22/23 10:51) Vomiting, dizziness mirtazapine [Remeron] Adverse Reaction (Intermediate, Verified 10/22/23 10:51) vomiting nabumetone Adverse Reaction (Intermediate, Verified 10/22/23 10:51) sleepiness Medication List - Last Reconciled 10/22/23 by Domenic Ernst MD bisacodyl (Dulcolax (bisacodyl)) 10 mg (2 x 5 mg) PO BEDTIME bupropion HCl XL 150 mg PO QAM 90 days cholecalciferol (vitamin D3) 125 mcg PO DAILY 90 days estradiol 1 patch topical 2XW famotidine 40 mg PO BEDTIME hydrochlorothiazide 12.5 mg PO DAILY 90 days hydrocortisone 2.5% (Proctosol HC) 1 appl FL BID-QID PRN pantoprazole 40 mg PO DAILY rosuvastatin 10 mg PO DAILY 90 days selenium sulfide 1% 1 appl topical Q2W 30 days HPI HPI (R) breast stereo bx results: Details: She had undergone stereotactic biopsy for right breast calcifications last 10/15/2023. She is here to discuss the findings She says she tolerated the biopsy well and denies any hematoma or pain. [facility] Medical History Breast calcification, right Chronic pelvic pain in female Pelvic pain Hyperlipidemia Hypertension Tubular adenoma Hernia of abdominal cavity PONV (postoperative nausea and vomiting) Morbid obesity Polyarthralgia Insomnia Moderate recurrent major depression Bloody stools Right sided sciatica Dyslipidemia Hypovitaminosis D Acute insomnia Constipation Bilateral hand numbness GERD (gastroesophageal reflux disease) Surgical History History of cystoscopy History of right oophorectomy History of esophagogastroduodenoscopy (EGD) Hx of colonoscopy History of hernia surgery History of endometrial ablation Hx of hysterectomy History of carpal tunnel release History of tubal ligation Family History Father Hypertension Diabetes CVD (cardiovascular disease) Mother Hypertension Pancreatic cancer Mother Pancreatic cancer Maternal Aunt Thyroid cancer Maternal Aunt Stomach cancer Maternal Uncle Prostate cancer Social History Housing: Apartment Are you a primary adult daycare coordinator to a significant other at home: No Do you presently have visiting nurse or other home services: No Alcohol intake: current Alcohol intake frequency: holidays/special occasions only Alcohol type: wine Patient Tobacco Use Status: Never used Tobacco e-Cigarette/Vaping Use: Never Used Second Hand Smoke Exposure: No service: No Current occupational status: employed 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 Current occupational exposures/hazards: No Cognitive needs: No Hearing needs: No Vision needs: No Female Reproductive History Menstrual Age of Menarche: 13 Review of Systems Const Denies chills and Denies fever(s) Card Denies chest pain, Denies dyspnea and Denies dyspnea on exertion Resp Denies cough, Denies dyspnea and Denies dyspnea on exertion GI Denies hematochezia and Denies change in bowel habits Denies hematuria Musc Denies back pain and Denies limited range of motion Neuro Denies focal weakness and Denies convulsions Psych Denies depression and Denies mood swings Physical Exam Vital Signs: BMI result Body Mass Index 33.8 Const General: comfortable and no acute distress Chest Other: Right breast biopsy site without any hematoma or cellulitis Resp Effort & Inspection: normal respiratory effort Cardio Rate: regular rate Quality Reporting (2019) Adult ([facility] 138/04/17/68) Smoking risk assessment performed?: Yes Patient Tobacco Use Status: Never used Tobacco Assessment & Plan Assessment & Plan (1) Breast calcification, right: Code(s): R92.1 - Mammographic calcification found on diagnostic imaging of breast Category: Medical Plan: Status post stereotactic biopsy of the right breast for calcifications. Her path report actually shows findings consistent with a fibroadenoma. I explained to her the benign nature of this pathology. I did remind her that she should continue with her regular screening mammograms She seems to understand the above. She can follow up with me on a p.r.n. basis. Coding Level of Care Code Est Pt Level 2 (87757) Diagnoses Breast calcification, right R92.1
[2023-10-22 10:49] VITALS: BMI 33.8
== END 2023-10-22 10:59 | disposition home or self-care (01) ==
PROVIDERS: PCP Internal Medicine; Visit Provider Surgery
DX: R92.1 Mammographic calcification found on diagnostic imaging of breast (principal)
CPT/HCPCS: 99212

== ENCOUNTER → 2023-10-22 10:27 | Outpatient (BNVA) | payer OTHER, SELFPAY | PROVIDERS: PCP Internal Medicine; Visit Provider Surgery | DX: R92.1 Mammographic calcification found on diagnostic imaging of breast (principal) | CPT/HCPCS: 99212 ==

== ENCOUNTER 2023-12-22 10:16 | Outpatient (REF) | payer OTHER, SELFPAY ==
--- NOTE | ~2023-12-22 | XR_ITS ---
EXAMINATION: XR CHEST CLINICAL INFORMATION: Other forms of dyspnea. COMPARISON: None available. TECHNIQUE: 2 views of the chest were obtained. FINDINGS: Lung volumes are low. There is no gross pneumothorax. Heart size is normal. Mild degenerative changes in the thoracic spine. No significant pleural effusion. Mild linear/streaky opacities at the left lung base. XR/XR chest 2V IMPRESSION: Mild linear/streaky opacities at the left lung base. Electronically signed by: Ceci Garcia MD 12/22/2023 12:44 PM EDT RP
[2023-12-22 13:27] LABS: Free T4 (Free Thyroxine) 0.91 ng/dL (0.71-1.85); Thyroid Stimulating Hormone 3.19 uIU/mL (0.32-4.0)
== END 2023-12-22 10:17 | disposition home or self-care (01) ==
LOC: HO.XRAY 10:16
PROVIDERS: PCP Internal Medicine; Visit Provider Internal Medicine
DX: F33.1 Major depressive disorder, recurrent, moderate (principal); E78.5 Hyperlipidemia, unspecified; K21.9 Gastro-esophageal reflux disease without esophagitis; E55.9 Vitamin D deficiency, unspecified; R79.89 Other specified abnormal findings of blood chemistry; R06.09 Other forms of dyspnea; Z79.899 Other long term (current) drug therapy; Z28.21 Immunization not carried out because of patient refusal
CPT/HCPCS: 36415; 71046; 84439; 84443; 90471; 99212

== ENCOUNTER 2023-12-22 10:16 | Outpatient (AMB) | payer OTHER, SELFPAY ==
[2023-12-22 10:48] VITALS: BP 118/80; BMI 35.5
--- NOTE | 2023-12-22 10:48 | A.OFFPC_ITS ---
Vital Signs 12/22/23 10:48 Height 5 ft 2 in Weight 194 lb BMI 35.5 BP 118/80 Blood Pressure Location Lt brachial Position Sitting Intake Visit Reasons: thyroid, lipids Media Consultant Required: No Accompanied by: Self / Same As Patient Allergies hydrocodone [HYDROCODONE] Allergy (Severe, Verified 12/22/23 10:58) DIFFICULTY BREATHING codeine Allergy (Intermediate, Verified 12/22/23 10:58) shortness of breath cyclobenzaprine Adverse Reaction (Intermediate, Verified 12/22/23 10:58) sleepiness docusate [From Colace] Adverse Reaction (Intermediate, Verified 12/22/23 10:58) Vomiting, dizziness mirtazapine [Remeron] Adverse Reaction (Intermediate, Verified 12/22/23 10:58) vomiting nabumetone Adverse Reaction (Intermediate, Verified 12/22/23 10:58) sleepiness Medication List - Last Reconciled 12/22/23 by Mirta Mahmood MD bisacodyl (Dulcolax (bisacodyl)) 10 mg (2 x 5 mg) PO BEDTIME bupropion HCl XL 150 mg PO QAM 90 days cholecalciferol (vitamin D3) 125 mcg PO DAILY 90 days estradiol 1 patch topical 2XW famotidine 40 mg PO BEDTIME hydrochlorothiazide 12.5 mg PO DAILY 90 days hydrocortisone 2.5% (Proctosol HC) 1 appl IN BID-QID PRN pantoprazole 40 mg PO DAILY rosuvastatin 10 mg PO DAILY 90 days selenium sulfide 1% 1 appl topical Q2W 30 days Tobacco use date assessed: 06/05/23 Dental Screening Dental Screen Date: 06/05/23 HPI HPI Comments History of Present Illness Details This is a 43-year-old female with moderate recurrent major depression, dyslipidemia, GERD and low vitamin-D that comes today for follow-up on her conditions. She stopped taking bupropion because she said it did not work for her. She still depressed, anxious and has insomnia and I will prescribe venlafaxine. She also stopped taking statins because she run out and this will be refilled. GERD stable with PPIs. On vitamin-D supplements for her low vitamin-D. She is obese with a BMI of 35.5 and was advised to do diet and exercise to reach BMI goal less than 30. [facility] Medical History (Updated 12/22/23 @ 11:08 by Mirta Mahmood MD) Breast calcification, right Chronic pelvic pain in female Pelvic pain Hyperlipidemia Hypertension Tubular adenoma Hernia of abdominal cavity PONV (postoperative nausea and vomiting) Morbid obesity Polyarthralgia Insomnia Moderate recurrent major depression Bloody stools Right sided sciatica Dyslipidemia Hypovitaminosis D Acute insomnia Constipation Bilateral hand numbness GERD (gastroesophageal reflux disease) Surgical History History of cystoscopy History of right oophorectomy History of esophagogastroduodenoscopy (EGD) Hx of colonoscopy History of hernia surgery History of endometrial ablation Hx of hysterectomy History of carpal tunnel release History of tubal ligation Family History Father Hypertension Diabetes CVD (cardiovascular disease) Mother Hypertension Pancreatic cancer Mother Pancreatic cancer Maternal Aunt Thyroid cancer Maternal Aunt Stomach cancer Maternal Uncle Prostate cancer Social History Housing: Apartment Are you a primary post anesthesia care unit nurse to a significant other at home: No Do you presently have visiting nurse or other home services: No Alcohol intake: current Alcohol intake frequency: holidays/special occasions only Alcohol type: wine Patient Tobacco Use Status: Never used Tobacco e-Cigarette/Vaping Use: Never Used Second Hand Smoke Exposure: No service: No Current occupational status: employed 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 Connor Wise, Antonieta Schreiber, Pa Garrison and colleagues, with an educational dania from [employer]. Review of Systems Const All systems reviewed & are unremarkable except as noted in HPI and below Card Denies chest pain at rest, Denies chest pain with activity, Denies irregular heart rhythm, Denies claudication, Denies dyspnea, Denies dyspnea on exertion, Denies orthopnea, Denies paroxysmal nocturnal dyspnea and Denies slow heart rate Resp Denies cough, Denies dyspnea and Denies dyspnea on exertion GI Denies abdominal pain, Denies change in bowel habits, Denies excessive flatus, Denies nausea and Denies vomiting Denies urinary incontinence, Denies urinary hesitancy and Denies urinary urgency Musc Denies abnormal gait, Denies atrophy, Denies deformity and Denies limited range of motion Skin/Breast Denies bleeding lesions, Denies changing lesions and Denies rash Neuro Denies abnormal gait and Denies lack of coordination Physical exam (Primary Care) Vital Signs: Last Vital Signs BP 118/80 12/22/23 10:48 BMI result Body Mass Index 35.5 BMI Assessment/Plan discussion: High BMI High, discussed plan: lifestyle, weight reduction, dietary and physical activity Tobacco/Smoking Status: Tobacco use Status Tobacco use date assessed 06/05/23 12/22/23 10:56 Patient Tobacco Use Status Never used Tobacco 12/22/23 10:56 Tobacco use type 05/05/23 16:22 e-Cigarette/Vaping Use Never Used 12/22/23 10:56 Thrive Assessment: Date of Thrive Assessment Date Thrive assessed 06/05/23 12/22/23 10:56 Neck Neck: Yes normal visual inspection and Yes supple Resp Effort & Inspection: normal respiratory effort Auscultation: clear to auscultation bilaterally Cardio Jugular venous distension: no JVD Rate: regular rate Rhythm: regular rhythm Heart sounds: S1 normal heart sound present and S2 normal heart sound present Extrem General: Yes full ROM Office Procedures Flu Questionnaire Does the patient have a severe egg allergy?: No Immunizations Fluarix Triv [id number] (PF) 45 mcg (15 mcg x 3)/0.5 mL IM syringe Performing Provider: Mirta Mahmood MD [facility] Documented (not given) by: MARY Villatoro on 12/22/23 10:57 Reason Not Given: Patient Refused Coding Level of Care Code Est Pt Level 4 (00561) Complex EM visit Add On G2211 Diagnoses Moderate recurrent major depression F33.1 Dyslipidemia E78.5 Gastroesophageal reflux disease, unspecified whether esophagitis present K21.9 Esophagitis presence: esophagitis presence not specified Hypovitaminosis D E55.9 Time Spent (min) 22 Assessment & Plan Assessment & Plan (1) Moderate recurrent major depression: Code(s): F33.1 - Major depressive disorder, recurrent, moderate Category: Medical Plan: Start venlafaxine. (2) Dyslipidemia: Code(s): E78.5 - Hyperlipidemia, unspecified Category: Medical Plan: Restart statins. (3) GERD (gastroesophageal reflux disease): Code(s): K21.9 - Gastro-esophageal reflux disease without esophagitis Category: Medical Qualifiers: Esophagitis presence: esophagitis presence not specified Qualified Code(s): K21.9 - Gastro-esophageal reflux disease without esophagitis Plan: Continue PPIs (4) Hypovitaminosis D: Code(s): E55.9 - Vitamin D deficiency, unspecified Category: Medical Plan: Continue vitamin-D supplements. Orders: Orders Influenza [id number] Immunization Today Z23 - Encounter for immunization Thyroid Stimulating Hormone Today R79.89 - Other specified abnormal findings of blood chemistry XR chest 2V Today R06.09 - Other forms of dyspnea Free T4 (Free Thyroxine) Today R79.89 - Other specified abnormal findings of blood chemistry Medications: New venlafaxine ER 37.5 mg PO BEDTIME 30 caps 0RF 30 days celecoxib (Celebrex) 200 mg PO DAILY 30 caps 0RF 30 days Refilled cholecalciferol (vitamin D3) 125 mcg PO DAILY 90 caps 1RF 90 days rosuvastatin 10 mg PO DAILY 90 tabs 1RF 90 days cholecalciferol (vitamin D3) 125 mcg PO DAILY 90 days 90 caps 1RF Discontinued bupropion HCl XL Discontinued Reason: Patient Completed Course 150 mg PO QAM 90 days 90 tabs 1RF
== END 2023-12-22 11:10 | disposition home or self-care (01) ==
PROVIDERS: PCP Internal Medicine; Visit Provider Internal Medicine
DX: F33.1 Major depressive disorder, recurrent, moderate (principal); E78.5 Hyperlipidemia, unspecified; K21.9 Gastro-esophageal reflux disease without esophagitis; E55.9 Vitamin D deficiency, unspecified; Z23 Encounter for immunization

== ENCOUNTER 2024-01-12 08:39 | Outpatient (REF) | payer OTHER, SELFPAY ==
--- NOTE | ~2024-01-12 | XR_ITS ---
EXAMINATION: XR CHEST CLINICAL INFORMATION: R91.8 - Other nonspecific abnormal finding of lung field COMPARISON: None available. TECHNIQUE: 2 views of the chest were obtained. FINDINGS: Lungs clear. No pleural effusions. Heart size normal with normal caliber pulmonary vessels. XR/XR chest 2V IMPRESSION: No active disease. Electronically signed by: Florencio Zaman MD 01/14/2024 01:22 PM EST
== END 2024-01-12 08:40 | disposition home or self-care (01) ==
LOC: HO.XRAY 08:39
PROVIDERS: PCP Internal Medicine; Visit Provider Internal Medicine
DX: R91.8 Other nonspecific abnormal finding of lung field (principal)
CPT/HCPCS: 71046

== ENCOUNTER 2024-01-15 09:15 | Outpatient (AMB) | payer OTHER, SELFPAY ==
[2024-01-15 09:34] VITALS: BP 120/88; PULSE 65; O2SAT 98; BMI 36.2
--- NOTE | 2024-01-15 09:34 | AM.OFFWIN_ITS ---
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 she has a hx of carpal tunnel but the pain has been very bad these past couple of days. Patient Tobacco Use Status: Never used Tobacco Allergies hydrocodone [HYDROCODONE] Allergy (Severe, Verified 01/15/24 09:36) DIFFICULTY BREATHING codeine Allergy (Intermediate, Verified 01/15/24 09:36) shortness of breath cyclobenzaprine Adverse Reaction (Intermediate, Verified 01/15/24 09:36) sleepiness docusate [From Colace] Adverse Reaction (Intermediate, Verified 01/15/24 09:36) Vomiting, dizziness mirtazapine [Remeron] Adverse Reaction (Intermediate, Verified 01/15/24 09:36) vomiting nabumetone Adverse Reaction (Intermediate, Verified 01/15/24 09:36) sleepiness Do you need a note to return to daycare/school/sports/work: Yes HPI HPI Comments History of Present Illness Details The patient is a 43-year-old female presenting with right wrist pain. She reports having carpal tunnel syndrome on both hands, with previous surgical intervention on the left hand that didn't go well . The patient expresses reluctance to undergo similar surgery on the right hand due to this earlier experience. The current episode of intense wrist pain started yesterday and has persisted into today, though she indicates the issue has been chronic for years. The pain is described as an electric current sensation radiating up the arm, exacerbated by wrist movements. She notices numbness and tingling in her fingers, particularly when driving. Previously, the patient used a wrist brace, which she cannot find now. She has been using various medications including NSAIDs like Aleve (naproxen) and ib uprofen, but finds them ineffective. Celecoxib prescribed by Dr. Potts offers some relief but causes cognitive side effects during the day. 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 She has been experiencing progressive symptoms that impair function and prompt her to seek further intervention. Due to ineffective medication management and worsening symptoms, the patient acknowledges the need for surgical consultation. [facility] Medical History Breast calcification, right Chronic pelvic pain in female Pelvic pain Hyperlipidemia Hypertension Tubular adenoma Hernia of abdominal cavity PONV (postoperative nausea and vomiting) Morbid obesity Polyarthralgia Insomnia Moderate recurrent major depression Bloody stools Right sided sciatica Dyslipidemia Hypovitaminosis D Acute insomnia Constipation Bilateral hand numbness GERD (gastroesophageal reflux disease) Surgical History History of cystoscopy History of right oophorectomy History of esophagogastroduodenoscopy (EGD) Hx of colonoscopy History of hernia surgery History of endometrial ablation Hx of hysterectomy History of carpal tunnel release History of tubal ligation Family History Father Hypertension Diabetes CVD (cardiovascular disease) Mother Hypertension Pancreatic cancer Mother Pancreatic cancer Maternal Aunt Thyroid cancer Maternal Aunt Stomach cancer Maternal Uncle Prostate cancer Social History Housing: Apartment Are you a primary laboratory animal care veterinarian to a significant other at home: No Do you presently have visiting nurse or other home services: No Alcohol intake: current Alcohol intake frequency: holidays/special occasions only Alcohol type: wine Patient Tobacco Use Status: Never used Tobacco e-Cigarette/Vaping Use: Never Used Second Hand Smoke Exposure: No service: No Current occupational status: employed 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 Current occupational exposures/hazards: No Cognitive needs: No Hearing needs: No Vision needs: No Female Reproductive History Menstrual Age of Menarche: 13 Review of Systems Const All systems reviewed & are unremarkable except as noted in HPI and below Physical Exam Vital Signs: Last Vital Signs Pulse 65 01/15/24 09:34 BP 120/88 01/15/24 09:34 Pulse Ox 98 01/15/24 09:34 Oxygen Delivery Method Room Air 01/15/24 09:34 BMI result Body Mass Index 36.2 Const General: cooperative, healthy appearing, comfortable, no acute distress and well developed Orientation/consciousness: patient oriented x3 Limitations: no limitations HEENT Head: Yes normal to inspection Neck Neck: Yes normal visual inspection and Yes supple Neuro General: patient oriented x3 Extrem Other: - Musculoskeletal- Positive Tinel's sign on the right wrist; positive Phalen's test on the right wrist, NVI, full ROM fingers Assessment & Plan Assessment & Plan (1) Carpal tunnel syndrome of right wrist: Comment: Code(s): G56.01 - Carpal tunnel syndrome, right upper limb Plan: For Carpal Tunnel Syndrome and Right Wrist Pain, I have recommended the use of a wrist brace, especially at night, to mitigate discomfort and immobilize the wrist. I advised the patient to continue NSAID therapy with ibuprofen 600 mg for pain relief, considering her inability to take Celecoxib during the day due to adverse effects. Given the chronicity and functional impact of the condition, I have sent a referral for an orthopedic surgical consultation to consider definitive surgical intervention on the right wrist. A 2 day work note will be provided to allow time for rest. The patient has been advised to ice the affected area, wear the brace consistently, and rest as much as her occupation allows. Follow-up is contingent upon the outcome of the orthopedic evaluation. Patient was informed and verbally consented to the use of an ambient scribe for clinic note documentation during this visit. Orders: Referrals Orthopedics Referral G56.01 - Carpal tunnel syndrome, right upper limb Coding Level of Care Code Est Pt Level 4 (97601) Diagnoses Carpal tunnel syndrome of right wrist G56.01
== END 2024-01-15 11:31 | disposition home or self-care (01) ==
PROVIDERS: PCP Internal Medicine; Visit Provider Physician Assistant
DX: G56.01 Carpal tunnel syndrome, right upper limb (principal)

== ENCOUNTER → 2024-01-15 09:15 | Outpatient (BNVA) | payer OTHER, SELFPAY | PROVIDERS: PCP Internal Medicine; Visit Provider Physician Assistant | DX: G56.01 Carpal tunnel syndrome, right upper limb (principal) | CPT/HCPCS: 99212 ==

== ENCOUNTER 2024-02-04 10:47 | Outpatient (AMB) | payer OTHER, SELFPAY ==
[2024-02-04 10:48] VITALS: BMI 36.2
--- NOTE | 2024-02-04 10:48 | MHC.OFFVIS ---
Vital Signs 02/04/24 10:48 Height 5 ft 2 in Weight 198 lb BMI 36.2 Intake Visit Reasons: New Pt - Right hand Numbness & tingling - EMG done Intake Note: Doug is a 43 year old right hand dominant female who presents today as a new patient with complaints of right hand/wrist pain. Patient was seen at the [facility] in clinic for these concerns on 01/15/24. Pain is described as an electric current sensation that radiates up the arm and worsens with movement of the wrist. Numbness and tingling is felt in her fingers and worsens while driving. Previously she was told that she has CTS and underwent surgical intervention of the left hand, but had a poor experience and is hesitant to take care of the right hand. She has tried and failed Naproxen and Iburprofen. She has taken Celebrex as well but develops cognitive side effects while taking. She has been using a velcro wrist brace. EMG/NCS done 09/22/23 IMPRESSION: 1. Bveq-rf-cdavmacw right median neuropathy across carpal tunnel. 2. Mild bilateral ulnar neuropathy across cubital tunnel. Programmer Operator Numerical Control Required: Yes Programmer Operator Numerical Control Language: Obstetrics Tech Name: [id number] Allergies hydrocodone [HYDROCODONE] Allergy (Severe, Verified 02/04/24 10:54) DIFFICULTY BREATHING codeine Allergy (Intermediate, Verified 02/04/24 10:54) shortness of breath cyclobenzaprine Adverse Reaction (Intermediate, Verified 02/04/24 10:54) sleepiness docusate [From Colace] Adverse Reaction (Intermediate, Verified 02/04/24 10:54) Vomiting, dizziness mirtazapine [Remeron] Adverse Reaction (Intermediate, Verified 02/04/24 10:54) vomiting nabumetone Adverse Reaction (Intermediate, Verified 02/04/24 10:54) sleepiness HPI HPI New Pt - Right hand Numbness & tingling - EMG done: Details: Doug is a 43 year old right hand dominant Taiwanese speaking woman who presents to discuss her right hand numbness. Programmer Operator Numerical Control service used. She complains of pain & numbness in all digits of her right hand. She says her pain is severe and bothersome, and her numbness is occurring daily, during the day and at night. She finds some relief from a thumb spica splint, and is seen wearing one day. She complains of weakness in body hanger strength and says she drops objects at times. She has known right carpal and mild cubital tunnel syndrome, and complains of intermittent but daily numbness in all digits including her small finger. She has a Hx of a left carpal & cubital tunnel release by me, DOS: 11/07/20. She reports having a poor experience with this surgery. I asked her what in particular was problematic for her with regards to her left upper extremity, as she says that she has normal sensation now to all of the fingers of her left hand. She says that pain in the medial aspect of her left elbow is what has led to her to delay treatment of her right hand. She says the pain is intermittent in the medial aspect of her left elbow, but it bothers her. She has a Hx of Polyarthalgia & Depression. [facility] Medical History Breast calcification, right Chronic pelvic pain in female Pelvic pain Hyperlipidemia Hypertension Tubular adenoma Hernia of abdominal cavity PONV (postoperative nausea and vomiting) Morbid obesity Polyarthralgia Insomnia Moderate recurrent major depression Bloody stools Right sided sciatica Dyslipidemia Hypovitaminosis D Acute insomnia Constipation Bilateral hand numbness GERD (gastroesophageal reflux disease) Surgical History History of cystoscopy History of right oophorectomy History of esophagogastroduodenoscopy (EGD) Hx of colonoscopy History of hernia surgery History of endometrial ablation Hx of hysterectomy History of carpal tunnel release History of tubal ligation Family History Father Hypertension Diabetes CVD (cardiovascular disease) Mother Hypertension Pancreatic cancer Mother Pancreatic cancer Maternal Aunt Thyroid cancer Maternal Aunt Stomach cancer Maternal Uncle Prostate cancer Social History Housing: Apartment Are you a primary respiratory care instructor to a significant other at home: No Do you presently have visiting nurse or other home services: No Alcohol intake: current Alcohol intake frequency: holidays/special occasions only Alcohol type: wine Patient Tobacco Use Status: Never used Tobacco e-Cigarette/Vaping Use: Never Used Second Hand Smoke Exposure: No service: No Current occupational status: employed 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 Current occupational exposures/hazards: No Cognitive needs: No Hearing needs: No Vision needs: No Female Reproductive History Menstrual Age of Menarche: 13 Review of Systems Const All systems reviewed & are unremarkable except as noted in HPI and below Physical Exam Vital Signs: BMI result Body Mass Index 36.2 Const General: cooperative, healthy appearing and no acute distress Orientation/consciousness: patient oriented x3 HEENT Head: Yes normocephalic and Yes atraumatic Eyes EOM: EOMs intact bilaterally Resp Effort & Inspection: normal respiratory effort and able to speak in complete sentences Cardio Jugular venous distension: no JVD Skin General skin exam: turgor normal Rashes: no rashes Neuro General: patient oriented x3 Extrem Other: Evaluation of Right Upper Extremity: The patient is alert, oriented, and in no acute distress Neuro: Median, Ulnar, Radial nerves motor and sensory intact and sensation is normal to the tips of all digits today bilaterally in clinic today No thenar or intrinsic wasting Good APB muscle belly firing and good finger cross Both surgical sites on the left upper extremity are well healed and she has full active range of motion at the elbow wrist and hand on the left side. She says the left elbow is not bothering her today. Vascular: Cap refill brisk ROM: She can make a fist and extend all her digits Skin: No lacerations or abrasions. General: No Ecchymosis. No Erythema or evidence of infection. Nerve Conduction Study: IMPRESSION: 1. Nqoq-rn-zbekqpki right median neuropathy across carpal tunnel. 2. Mild bilateral ulnar neuropathy across cubital tunnel. Jens Bhat MD 09/21/2020 Psych Appearance: grossly normal Affect: normal affect Attitude: cooperative Quality Reporting (2019) Adult ([facility] 138/04/17/68) Smoking risk assessment performed?: Yes Patient Tobacco Use Status: Never used Tobacco Assessment & Plan Assessment & Plan (1) Carpal tunnel syndrome of right wrist: Comment: Code(s): G56.01 - Carpal tunnel syndrome, right upper limb Category: Medical (2) Cubital tunnel syndrome on right: Code(s): G56.21 - Lesion of ulnar nerve, right upper limb Category: Medical (3) Polyarthralgia: Code(s): M25.50 - Pain in unspecified joint Category: Medical (4) Moderate recurrent major depression: Code(s): F33.1 - Major depressive disorder, recurrent, moderate Category: Medical Plan Assessment & Plan 1. Right carpal tunnel syndrome, mild to moderate Symptoms intermittent, but daily, worse at night 2. Right cubital tunnel syndrome, mild Symptoms intermittent, but daily, worse at night I educated her about these conditions I discussed operative and non-operative treatment options I did talk to her about possibly just performing the right carpal tunnel release to then see how she does. I explained that persistent elbow symptoms are uncommon following cubital tunnel release, but perhaps given her experience we should just proceed with a right carpal tunnel release and see how she does. The patient insists that she does get numbness in her right small finger, and she wants the same surgery done on the right that was done on the left. The risks and benefits of operative treatment were discussed with the patient and the patient wishes to proceed with surgery. These risks include, but are not limited to risk of damage to blood vessels, nerves, tendons, infection, recurrence, incomplete relief of preoperative symptoms, persistent pain, possible need for further surgery and the risks associated with regional blocks and anesthesia. The plan is to take the patient to the operating room sometime in the next few weeks for the following procedures: 1. Right carpal tunnel release, under general 2. Right cubital tunnel release, under general All of the preoperative paperwork including the consent was reviewed today. All the patient's questions were answered. The patient understands that they will be contacted by our infection control rn soon to schedule this procedure She denies Diabetes, blood thinners, asthma, heart, lung, kidney issues She reports experiencing nausea with general anesthesia 3. Left carpal tunnel syndrome, S/P release DOS: 11/07/20 Now with normal sensation 4. Left cubital tunnel syndrome, S/P release DOS: 11/07/20 Now with normal sensation Her wound is well healed with full active elbow range of motion without pain or tenderness today in clinic Scribed for Jaye Moran MD by [facility] director, on 02/04/24 at 11:00 AM, EST. Coding Level of Care Code Est Pt Level 4 (73216) Diagnoses Carpal tunnel syndrome of right wrist G56.01 Cubital tunnel syndrome on right G56.21 Polyarthralgia M25.50 Moderate recurrent major depression F33.1
== END 2024-02-04 11:19 | disposition home or self-care (01) ==
PROVIDERS: PCP Internal Medicine; Visit Provider Orthopaedic Surgery
DX: G56.01 Carpal tunnel syndrome, right upper limb (principal); G56.21 Lesion of ulnar nerve, right upper limb; M25.50 Pain in unspecified joint; F33.1 Major depressive disorder, recurrent, moderate
CPT/HCPCS: 99214

== ENCOUNTER → 2024-02-04 10:47 | Outpatient (BNVA) | payer OTHER, SELFPAY | PROVIDERS: PCP Internal Medicine; Visit Provider Orthopaedic Surgery | DX: G56.01 Carpal tunnel syndrome, right upper limb (principal); G56.21 Lesion of ulnar nerve, right upper limb; M25.50 Pain in unspecified joint; F33.1 Major depressive disorder, recurrent, moderate | CPT/HCPCS: 99212 ==

== ENCOUNTER 2024-04-15 08:51 | Outpatient (REF) | payer OTHER, SELFPAY ==
--- OUTSIDE RECORDS SUMMARY | 2024-04-15 10:20 | XMS_ITS | Clinical Summary ---
Author Organization [facility] Address [address] [place] [address] Care Team Providers Care Ship'S Captain Name Role Phone Su Chairez PA-C Primary Care Provider [phone] Source Comments PLEASE NOTE, if this patient [...] Plan of Treatment Not on file Insurance [facility] ADITHYA Member Subscriber Plan / Payer (Ef fective 2012-Present) Name:Doug Monroy Relation to Subscriber:Self Name:Doug Monroy Payer ID:[id number] Group ID:Not on file Type:Medicaid Address: [facility] [id number] [place] [address] [facility] [address] [facility] Care Teams Ship'S Captain Relationship Specialty Start Date End Date Su Chairez PA-C [address] [place] [address] PCP - General 11/17/12
[2024-04-15 14:04] LABS: Influenza A PCR POSITIVE (Negative); Influenza B PCR NEGATIVE (Negative); Resp Syncy Virus RNA Qual PCR NEGATIVE (Negative); SARS COV2 PCR INHOUSE NEGATIVE (Negative)
== END 2024-04-15 08:52 | disposition home or self-care (01) ==
LOC: HO.LAB 08:51
PROVIDERS: PCP Internal Medicine; Visit Provider Nurse Practitioner Family
DX: J06.9 Acute upper respiratory infection, unspecified (principal)
CPT/HCPCS: 0241U; 99212

== ENCOUNTER 2024-04-15 08:51 | Outpatient (AMB) | payer OTHER, SELFPAY ==
[2024-04-15 08:59] VITALS: BP 140/90; PULSE 102; TEMP 37.4; O2SAT 95
--- NOTE | 2024-04-15 08:59 | MHC.OFFWIV ---
Intake Vital Signs 04/15/24 08:59 Weight 204 lb BP 140/90 H Blood Pressure Location Rt brachial Position Sitting Pulse 102 H Pulse Source Pulse Oximeter Temp 99.4 F Temp Source Oral Pulse Oximetry (%) 95 Oxygen Delivery Method Room Air Intake Visit Reasons: EP-cough, body ache, headaches, Intake Note: Patient here for cough, body aches, headaches, SOB and diarrhea that has been present for almost 1 month. Patient Tobacco Use Status: Never used Tobacco Allergies hydrocodone [HYDROCODONE] Allergy (Severe, Verified 04/15/24 09:01) DIFFICULTY BREATHING codeine Allergy (Intermediate, Verified 04/15/24 09:01) shortness of breath cyclobenzaprine Adverse Reaction (Intermediate, Verified 04/15/24 09:01) sleepiness docusate [From Colace] Adverse Reaction (Intermediate, Verified 04/15/24 09:01) Vomiting, dizziness mirtazapine [Remeron] Adverse Reaction (Intermediate, Verified 04/15/24 09:01) vomiting nabumetone Adverse Reaction (Intermediate, Verified 04/15/24 09:01) sleepiness Do you need a note to return to daycare/school/sports/work: No HPI HPI Comments History of Present Illness Details 44 y/o female patient who presents to the walk in clinic with c/o URI symptoms for 1 month. Reports cough, body aches, chills, subjective fevers and headaches. [facility] Medical History (Updated 04/15/24 @ 09:25 by Lady Pearce NP) Acute respiratory disease Breast calcification, right Chronic pelvic pain in female Pelvic pain Hyperlipidemia Hypertension Tubular adenoma Hernia of abdominal cavity PONV (postoperative nausea and vomiting) Morbid obesity Polyarthralgia Insomnia Moderate recurrent major depression Bloody stools Right sided sciatica Dyslipidemia Hypovitaminosis D Acute insomnia Constipation Bilateral hand numbness GERD (gastroesophageal reflux disease) Surgical History History of cystoscopy History of right oophorectomy History of esophagogastroduodenoscopy (EGD) Hx of colonoscopy History of hernia surgery History of endometrial ablation Hx of hysterectomy History of carpal tunnel release History of tubal ligation Family History Father Hypertension Diabetes CVD (cardiovascular disease) Mother Hypertension Pancreatic cancer Mother Pancreatic cancer Maternal Aunt Thyroid cancer Maternal Aunt Stomach cancer Maternal Uncle Prostate cancer Social History Housing: Apartment Are you a primary critical care technician to a significant other at home: No Do you presently have visiting nurse or other home services: No Alcohol intake: current Alcohol intake frequency: holidays/special occasions only Alcohol type: wine Patient Tobacco Use Status: Never used Tobacco e-Cigarette/Vaping Use: Never Used Second Hand Smoke Exposure: No service: No Current occupational status: employed 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 Current occupational exposures/hazards: No Cognitive needs: No Hearing needs: No Vision needs: No Female Reproductive History Menstrual Age of Menarche: 13 Physical Exam Vital Signs: Last Vital Signs Temp 99.4 F 04/15/24 08:59 Pulse 102 H 04/15/24 08:59 BP 140/90 H 04/15/24 08:59 Pulse Ox 95 04/15/24 08:59 Oxygen Delivery Method Room Air 04/15/24 08:59 Const General: cooperative and no acute distress Nutritional Appearance: overweight Orientation/consciousness: patient oriented x3 HEENT Head: Yes normocephalic Ears: external ears normal and TM abnormal with fluid behind the TM bilateral General nose exam: Nasal discharge present Face and sinus: Yes sinus tenderness Mouth: moist mucous membranes Throat: Yes uvula midline Resp Effort & Inspection: normal respiratory effort, able to speak in complete sentences, no audible wheezes and Actively coughing Auscultation: clear to auscultation bilaterally, no crackles, no rales, no rhonchi and no wheezes Cardio Heart sounds: S1 normal heart sound present and S2 normal heart sound present Neuro General: patient oriented x3 Assessment & Plan Assessment & Plan (1) Acute respiratory disease: Code(s): J06.9 - Acute upper respiratory infection, unspecified Plan: Ordered SARs OTC cough remedies Acetaminophen for fever and pain relief Rest and hydrate well Orders: Orders SARS-CoV2/FLU/RSV Today J06.9 - Acute upper respiratory infection, unspecified Medications: New dextromethorphan polistirex ER (Delsym 12 hour) 10 mL PO Q12H 89 mL 0RF cough J06.9 - Acute upper respiratory infection, unspecified azithromycin 500 mg PO DAILY 3 days 3 tabs 0RF J06.9 - Acute upper respiratory infection, unspecified benzonatate 100 mg PO TID 90 caps 0RF cough J06.9 - Acute upper respiratory infection, unspecified Coding Level of Care Code Est Pt Level 4 (85523) Diagnoses Acute respiratory disease J06.9 Time Spent (min) 20
--- OUTSIDE RECORDS SUMMARY | 2024-04-15 09:21 | XMS_ITS | Clinical Summary ---
Author Organization [facility] Address [address] [place] [address] Care Team Providers Care Postal Service Window Clerk Name Role Phone Su Chairez PA-C Primary Care Provider [phone] Source Comments PLEASE NOTE, if this patient is a minor, it may be UNLAWFUL to discuss sensitive information that is contained in these records (such as FAMILY PLANNING, MENTAL HEALTH or SUBSTANCE ABUSE) with the minor patient's parent or other person without the patient's specific authorization.[facility] Immunizations Name Administration Dates Next Due PPD 11/18/2012 Social History Tobacco Use Types Packs/Day Years Used Date Smoking Tobacco: Never Assessed Social Connections Answer Date Recorded Social Connections and Isolation 0 10/17/2018 Financial Resource Strain Answer Date R ecorded Financial Resource Strain 0 2018 Stress Answer Date Recorded Stress 0 10/17/2018 Physical Activity Answer Date Recorded Physical Activity 0 10/17/2018 Food Insecurity Answer Date Recorded Food 0 10/17/2018 Transportation Needs Answer Date Record ed Transportation 0 10/17/2018 Housing Stability Answer Date Recorded Housing 0 10/17/2018 Safety and Environment Answer Date Raz rded Safety 0 10/17/2018 Utilities Answer Date Recorded Utilities 0 10/17/2018 Employment Answer Date Recorded Employment 0 10/17/2018 Comments Unknown Sex and Gender Information Value Date Recorded Sex Assigned at Not on file Legal Sex Female 11:36 AM PDT Gender Identity Not on file Sexual Orientation Not on file Plan of Treatment Not on file Insurance [facility] Member Subscriber Plan / Payer (Ef fective 2012-Present) Name:Doug Monroy Relation to Subscriber:Self Name:Doug Monroy Payer ID:[id number] Group ID:Not on file Type:Medicaid Address: [facility] [id number] [place] [address] [facility] [address] [facility] Care Teams Postal Service Window Clerk Relationship Specialty Start Date End Date Su Chairez PA-C [address] [place] [address] PCP - General 11/17/12
== END 2024-04-15 09:33 | disposition home or self-care (01) ==
PROVIDERS: PCP Internal Medicine; Visit Provider Nurse Practitioner Family
DX: J06.9 Acute upper respiratory infection, unspecified (principal)

== ENCOUNTER 2024-04-21 12:34 | Outpatient (AMB) | payer OTHER, SELFPAY ==
--- NOTE | 2024-04-21 12:37 | A.OFFVIS_ITS ---
Vital Signs 04/21/24 12:44 Height 5 ft 2 in Weight 198 lb BMI 36.2 Intake Visit Reasons: Preop RT cubital/CTR 04/29/24 AR Intake Note: Deepak is a 44 year old right hand dominant female who presents today for a pre-operative appointment. She is booked for a Right Carpal Tunnel and Cubital Tunnel Release on 04/29/[address] Moran. Of note patient was seen at PCP on 04/15/24 with complaints of ongoing SOB, cough, body aches and diarrhea ongoing for 1 month. Testing for Influenza A returned positive - she was placed on a 3 day course of Azithromycin. Computer Scientist Required: Yes Computer Scientist Language: Assembler Cards And Announcements Name: Sima Lyncamelia ERINNA LM Allergies hydrocodone [HYDROCODONE] Allergy (Severe, Verified 04/21/24 12:45) DIFFICULTY BREATHING codeine Allergy (Intermediate, Verified 04/21/24 12:45) shortness of breath cyclobenzaprine Adverse Reaction (Intermediate, Verified 04/21/24 12:45) sleepiness docusate [From Colace] Adverse Reaction (Intermediate, Verified 04/21/24 12:45) Vomiting, dizziness mirtazapine [Remeron] Adverse Reaction (Intermediate, Verified 04/21/24 12:45) vomiting nabumetone Adverse Reaction (Intermediate, Verified 04/21/24 12:45) sleepiness HPI HPI Preop RT cubital/CTR 04/29/24 AR: Details: Deepak is a 44 year old right hand dominant female who presents today for a pre-operative appointment. She is booked for a Right Carpal Tunnel and Cubital Tunnel Release on 04/29/[address] Moran. Of note patient was seen at PCP on 04/15/24 with complaints of ongoing SOB, cough, body aches and diarrhea ongoing for 1 month. Testing for Influenza A returned positive - she was placed on a 3 day course of Azithromycin. [facility] Medical History (Updated 04/15/24 @ 09:25 by Lady Pearce NP) Acute respiratory disease Breast calcification, right Chronic pelvic pain in female Pelvic pain Hyperlipidemia Hypertension Tubular adenoma Hernia of abdominal cavity PONV (postoperative nausea and vomiting) Morbid obesity Polyarthralgia Insomnia Moderate recurrent major depression Bloody stools Right sided sciatica Dyslipidemia Hypovitaminosis D Acute insomnia Constipation Bilateral hand numbness GERD (gastroesophageal reflux disease) Surgical History History of cystoscopy History of right oophorectomy History of esophagogastroduodenoscopy (EGD) Hx of colonoscopy History of hernia surgery History of endometrial ablation Hx of hysterectomy History of carpal tunnel release History of tubal ligation Family History Father Hypertension Diabetes CVD (cardiovascular disease) Mother Hypertension Pancreatic cancer Mother Pancreatic cancer Maternal Aunt Thyroid cancer Maternal Aunt Stomach cancer Maternal Uncle Prostate cancer Social History Housing: Apartment Are you a primary complex care nurse practitioner to a significant other at home: No Do you presently have visiting nurse or other home services: No Alcohol intake: current Alcohol intake frequency: holidays/special occasions only Alcohol type: wine Patient Tobacco Use Status: Never used Tobacco e-Cigarette/Vaping Use: Never Used Second Hand Smoke Exposure: No service: No Current occupational status: employed 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 Current occupational exposures/hazards: No Cognitive needs: No Hearing needs: No Vision needs: No Female Reproductive History Menstrual Age of Menarche: 13 Review of Systems Const All systems reviewed & are unremarkable except as noted in HPI and below Physical Exam Vital Signs: BMI result Body Mass Index 36.2 Const General: cooperative, healthy appearing and no acute distress Orientation/consciousness: patient oriented x3 HEENT Head: Yes normocephalic and Yes atraumatic Eyes EOM: EOMs intact bilaterally Resp Effort & Inspection: normal respiratory effort and able to speak in complete sentences Cardio Jugular venous distension: no JVD Skin General skin exam: turgor normal Rashes: no rashes Neuro General: patient oriented x3 Extrem Other: Evaluation of Right Upper Extremity: The patient is alert, oriented, and in no acute distress Neuro: Median, Ulnar, Radial nerves motor and sensory intact and sensation is normal to the tips of all digits today bilaterally in clinic today No thenar or intrinsic wasting Good APB muscle belly firing and good finger cross Both surgical sites on the left upper extremity are well healed and she has full active range of motion at the elbow wrist and hand on the left side. She says the left elbow is not bothering her today. Vascular: Cap refill brisk ROM: She can make a fist and extend all her digits Skin: No lacerations or abrasions. General: No Ecchymosis. No Erythema or evidence of infection. Nerve Conduction Study: IMPRESSION: 1. [id number] right median neuropathy across carpal tunnel. 2. Mild bilateral ulnar neuropathy across cubital tunnel. Jens Bhat MD 09/21/2020 Psych Appearance: grossly normal Affect: normal affect Attitude: cooperative Quality Reporting (2019) Adult ([facility] ) Smoking risk assessment performed?: Yes Patient Tobacco Use Status: Never used Tobacco Assessment & Plan Assessment & Plan (1) Carpal tunnel syndrome of right wrist: Comment: Code(s): G56.01 - Carpal tunnel syndrome, right upper limb Category: Medical (2) Cubital tunnel syndrome on right: Code(s): G56.21 - Lesion of ulnar nerve, right upper limb Category: Medical (3) Polyarthralgia: Code(s): M25.50 - Pain in unspecified joint Category: Medical (4) Moderate recurrent major depression: Code(s): F33.1 - Major depressive disorder, recurrent, moderate Category: Medical Plan Assessment & Plan 1. Right carpal tunnel syndrome, mild to moderate Symptoms intermittent, but daily, worse at night 2. Right cubital tunnel syndrome, mild Symptoms intermittent, but daily, worse at night I educated her about these conditions I discussed operative and non-operative treatment options I did talk to her about possibly just performing the right carpal tunnel release to then see how she does. I explained that persistent elbow symptoms are uncommon following cubital tunnel release, but perhaps given her experience we should just proceed with a right carpal tunnel release and see how she does. The patient insists that she does get numbness in her right small finger, and she wants the same surgery done on the right that was done on the left. The risks and benefits of operative treatment were discussed with the patient and the patient wishes to proceed with surgery. These risks include, but are not limited to risk of damage to blood vessels, nerves, tendons, infection, recurrence, incomplete relief of preoperative symptoms, persistent pain, possible need for further surgery and the risks associated with regional blocks and anesthesia. The plan is to take the patient to the operating room sometime in the next few weeks for the following procedures: 1. Right carpal tunnel release, under general 2. Right cubital tunnel release, under general All of the preoperative paperwork including the consent was reviewed today. All the patient's questions were answered. The patient understands that they will be contacted by our reconcilement clerk soon to schedule this procedure She denies Diabetes, blood thinners, asthma, heart, lung, kidney issues She reports experiencing nausea with general anesthesia 3. Left carpal tunnel syndrome, S/P release DOS: 11/07/20 Now with normal sensation 4. Left cubital tunnel syndrome, S/P release DOS: 11/07/20 Now with normal sensation Her wound is well healed with full active elbow range of motion without pain or tenderness today in clinic Scribed for Jaye Moran MD by Jasiel Powell, medical record consultant, on 02/04/24 at 11:00 AM, EST. Coding Level of Care Code Est Pt Level 4 (07370) Diagnoses Carpal tunnel syndrome of right wrist G56.01 Cubital tunnel syndrome on right G56.21 Polyarthralgia M25.50 Moderate recurrent major depression F33.1
[2024-04-21 12:44] VITALS: BMI 36.2
--- OUTSIDE RECORDS SUMMARY | 2024-04-21 15:19 | XMS_ITS | Clinical Summary ---
Author Organization [facility] Address [address] [place] [address] Care Team Providers Care Wire Frame Lamp Shade Maker Name Role Phone Su Chairez PA-C Primary Care Provider [phone] Source Comments PLEASE NOTE, if this patient [...] Plan of Treatment Not on file Insurance [facility] Member Subscriber Plan / Payer (Ef fective 2012-Present) Name:Doug Monroy Relation to Subscriber:Self Name:Doug Monroy Payer ID:[id number] Group ID:Not on file Type:Medicaid Address: [facility] [id number] [place] [address] [facility] [place] [address] [facility] Care Teams Wire Frame Lamp Shade Maker Relationship Specialty Start Date End Date Su Chairez PA-C [address] [place] [address] PCP - General 11/17/12
== END 2024-04-21 13:07 | disposition home or self-care (01) ==
PROVIDERS: PCP Internal Medicine
DX: G56.21 Lesion of ulnar nerve, right upper limb (principal); G56.01 Carpal tunnel syndrome, right upper limb; F33.1 Major depressive disorder, recurrent, moderate
CPT/HCPCS: 99024

== ENCOUNTER → 2024-04-21 12:34 | Outpatient (BNVA) | payer OTHER, SELFPAY | PROVIDERS: PCP Internal Medicine | DX: Z01.818 Encounter for other preprocedural examination (principal); G56.01 Carpal tunnel syndrome, right upper limb; G56.21 Lesion of ulnar nerve, right upper limb; M25.50 Pain in unspecified joint; F33.1 Major depressive disorder, recurrent, moderate | CPT/HCPCS: 99212 ==

== ENCOUNTER 2024-04-29 08:05 | Day surgery (SDC) | payer OTHER, SELFPAY ==
[2024-04-27 14:52] VITALS: BMI 36.2
--- NOTE | 2024-04-28 12:11 | P.CONAN_ITS ---
Documented by User: Mabel Waller NP 04/28/24 12:13 HPI - Anesthesia Eval Consult details Narrative: 44yo F for Right Cubital Tunnel Release, Carpal Tunnel Release PONV PMFSH Active Problems Active Problems: All Active Problems Acute respiratory disease (Acute) Opacity of lung on imaging study (Acute) Dyspnea on exertion (Acute) Breast calcification, right (Acute) Skin lesion of breast (Acute) History of hernia surgery (Acute) Chronic pelvic pain in female (Acute) Pelvic pain (Acute) Carpal tunnel syndrome of right wrist (Acute) Cubital tunnel syndrome on right (Acute) Right lower quadrant abdominal pain (Acute) Abdominal hernia (Acute) Hepatic steatosis (Acute) Left ovarian cyst (Acute) Incisional hernia (Acute) Elevated blood pressure reading (Acute) TSH elevation (Acute) Essential hypertension (Acute) Autoimmune thyroiditis (Acute) Tubular adenoma (Acute) Polyarthralgia (Acute) Insomnia (Acute) Moderate recurrent major depression (Acute) Bloody stools (Acute) Right sided sciatica (Acute) Dyslipidemia (Acute) Hypovitaminosis D (Acute) GERD (gastroesophageal reflux disease) (Acute) Constipation (Acute) Past Medical History Medical History Acute respiratory disease Breast calcification, right Chronic pelvic pain in female Pelvic pain Hyperlipidemia Hypertension Tubular adenoma Hernia of abdominal cavity PONV (postoperative nausea and vomiting) Morbid obesity Polyarthralgia Insomnia Moderate recurrent major depression Bloody stools Right sided sciatica Dyslipidemia Hypovitaminosis D Acute insomnia Constipation Bilateral hand numbness GERD (gastroesophageal reflux disease) Family History Family History Father Hypertension Diabetes CVD (cardiovascular disease) Mother Hypertension Pancreatic cancer Mother Pancreatic cancer Maternal Aunt Thyroid cancer Maternal Aunt Stomach cancer Maternal Uncle Prostate cancer Family history of problems with anesthesia: No Surgical History Surgical History History of cystoscopy History of right oophorectomy History of esophagogastroduodenoscopy (EGD) Hx of colonoscopy History of hernia surgery History of endometrial ablation Hx of hysterectomy History of carpal tunnel release History of tubal ligation History of Problems with Anesthesia: Yes Social History Social History Housing: Apartment Are you a primary janitor caretaker to a significant other at home: No Do you presently have visiting nurse or other home services: No Alcohol intake: current Alcohol intake frequency: does not drink Alcohol type: wine Patient Tobacco Use Status: Never used Tobacco e-Cigarette/Vaping Use: Never Used Second Hand Smoke Exposure: No Have you been hit, kicked, punched, or otherwise hurt by someone within the past year? 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 Current occupational exposures/hazards: No Cognitive needs: No Hearing needs: No Vision needs: No Meds Allergies Allergy/AdvReac Type Severity Reaction Status Date / Time hydrocodone [HYDROCODONE] Allergy Severe DIFFICULTY Verified 04/21/24 12:45 BREATHING codeine Allergy Intermediate shortness Verified 04/21/24 12:45 of breath cyclobenzaprine AdvReac Intermediate sleepiness Verified 04/21/24 12:45 docusate [From Colace] AdvReac Intermediate Vomiting, Verified 04/21/24 12:45 dizziness mirtazapine [Remeron] AdvReac Intermediate vomiting Verified 04/21/24 12:45 nabumetone AdvReac Intermediate sleepiness Verified 04/21/24 12:45 Home Medications ?Medication ?Instructions ?Recorded ?Confirmed ?Last Taken ?Type estradiol 0.075 mg/24 hr 1 patch topical 2XW 05/05/23 12/22/23 Unknown History semiweekly transdermal patch Exam Height,Weight and Vital Signs: Height 5 ft 2 in Weight 89.811 kg Assessment and Plan Assessment Anesthesia Assessment: Chart Reviewed Final Anesthetic Review Family History of Problems with Anesthesia: No History of Problems with Anesthesia: Yes Documented by User: Shannon Chu MD 04/29/24 09[facility] Past Medical History Medical History Acute respiratory disease Breast calcification, right Chronic pelvic pain in female Pelvic pain Hyperlipidemia Hypertension Tubular adenoma Hernia of abdominal cavity PONV (postoperative nausea and vomiting) Morbid obesity Polyarthralgia Insomnia Moderate recurrent major depression Bloody stools Right sided sciatica Dyslipidemia Hypovitaminosis D Acute insomnia Constipation Bilateral hand numbness GERD (gastroesophageal reflux disease) Family History Family History Father Hypertension Diabetes CVD (cardiovascular disease) Mother Hypertension Pancreatic cancer Mother Pancreatic cancer Maternal Aunt Thyroid cancer Maternal Aunt Stomach cancer Maternal Uncle Prostate cancer Surgical History Surgical History History of cystoscopy History of right oophorectomy History of esophagogastroduodenoscopy (EGD) Hx of colonoscopy History of hernia surgery History of endometrial ablation Hx of hysterectomy History of carpal tunnel release History of tubal ligation Social History Social History Housing: Apartment Are you a primary janitor caretaker to a significant other at home: No Do you presently have visiting nurse or other home services: No Alcohol intake: current Alcohol intake frequency: does not drink Alcohol type: wine Patient Tobacco Use Status: Never used Tobacco e-Cigarette/Vaping Use: Never Used Second Hand Smoke Exposure: No Have you been hit, kicked, punched, or otherwise hurt by someone within the past year? 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 Current occupational exposures/hazards: No Cognitive needs: No Hearing needs: No Vision needs: No Meds Allergies Allergy/AdvReac Type Severity Reaction Status Date / Time hydrocodone [HYDROCODONE] Allergy Severe DIFFICULTY Verified 04/21/24 12:45 BREATHING codeine Allergy Intermediate shortness Verified 04/21/24 12:45 of breath cyclobenzaprine AdvReac Intermediate sleepiness Verified 04/21/24 12:45 docusate [From Colace] AdvReac Intermediate Vomiting, Verified 04/21/24 12:45 dizziness mirtazapine [Remeron] AdvReac Intermediate vomiting Verified 04/21/24 12:45 nabumetone AdvReac Intermediate sleepiness Verified 04/21/24 12:45 Home Medications ?Medication ?Instructions ?Recorded ?Confirmed ?Last Taken ?Type estradiol 0.075 mg/24 hr 1 patch topical 2XW 05/05/23 12/22/23 Unknown History semiweekly transdermal patch Exam Airway Mallampati Class: II TM Dist: >3cm Neck ROM: Full Heart: rrr Lungs: cta Assessment and Plan Assessment Anesthesia Assessment: Anesthesia Plan Discussed Final Anesthetic Review NPO: Yes ASA Class: III (obesity, likely ASA) Final Preanesthetic Review: No Changes in Pt Med Stat, Meds/Allgs Chart Reviewed, Consent Obtained/Reviewed and Anes Risks/Benef Reviewed Patient Risk: Intermediate Procedure Risk: Intermediate Anesthetic Plan Anesthetic Plan: GA Disposition: Standard PACU
[2024-04-29] VITALS (7 sets, daily range): BP systolic 134–160; BP diastolic 48–99; PULSE 78–107; RESP 16–20; TEMP 36.1–36.6; O2SAT 94–100; BMI 36.5
[2024-04-29] MEDS: Lactated Ringers 1,000 ML 100 ML IVCONT (08:30)
[2024-04-29] MEDS: Scopolamine 1.5 MG PATCH.TD.3 TRANSDERMA (08:30)
--- NOTE | 2024-04-29 09:36 | MHC.SHP ---
Pre-Procedural Eval Section A - 24 Hr Update-Section A only Date of Service: 04/29/24 The patient is an INPATIENT: No Changes since office visit: No Cold of Flu in the past 2 weeks, No New Medical Problems, No Changes in Medication and No Patient answered all questions The patient has been examined within 24 hours of the surgical procedure. The History & Physical has been completed within 30 days and I have reviewed it.: Yes Section B - Complete if H&P > 30 days Chief Complaint: Lesion of ulnar nerve, R upper limb,carpal tunnel Allergies: Allergies Allergy/AdvReac Type Severity Reaction Status Date / Time hydrocodone [HYDROCODONE] Allergy Severe DIFFICULTY Verified 04/21/24 12:45 BREATHING codeine Allergy Intermediate shortness Verified 04/21/24 12:45 of breath cyclobenzaprine AdvReac Intermediate sleepiness Verified 04/21/24 12:45 docusate [From Colace] AdvReac Intermediate Vomiting, Verified 04/21/24 12:45 dizziness mirtazapine [Remeron] AdvReac Intermediate vomiting Verified 04/21/24 12:45 nabumetone AdvReac Intermediate sleepiness Verified 04/21/24 12:45 Plan I have reviewed the history and physical and performed a pertinent physical examination on my patient. No changes have occurred unless specified. Time Spent With Patient Time: Total time managing care of this patient today ____ minutes.
--- NOTE | 2024-04-29 09:37 | W.PM.OPN ---
Operative Note Operative Note Date of Service: 04/29/24 Narrative: Operative Note Narrative: Preop diagnosis: 1. Right Cubital tunnel syndrome 2. Right carpal tunnel syndrome Postop diagnosis: Same Procedure: 1. Right Cubital Tunnel Release 2. Right carpal tunnel release Surgeon: Jaye Moran MD Certified Registered Dental Assistant: Sander RESENDIZ Anesthesia: General Anesthesia Findings: Thickening and fibrosis about the ulnar nerve at the cubital tunnel Implants: none Tourniquet time: 23 minutes EBL: 5.0 ml Specimen: none Drains: None Complications: None Disposition: Brought to the recovery room in stable condition Plan: Follow-up in 10-14 days for wound check, and suture removal Indications: The patient is 44 years old with right cubital tunnel syndrome and right carpal tunnel syndrome . The risks and benefits of operative treatment, including but not limited to risk of damage to blood vessels, nerves, tendons, infection, recurrence, persistent pain or numbness, incomplete resolution of preoperative symptoms, or need for further surgery were discussed with the patient and they wished to proceed with surgery. Procedure: Once consent was obtained patient was brought back to the operating suite and placed in the operating table in a supine position. Perioperative antibiotics and anesthesia was administered by the anesthesia team. The limb was prepped and draped in a standard surgical fashion, and a sterile tourniquet applied to the proximal aspect of the right upper extremity. The limb was elevated exsanguinated with Esmarch bandage and the tourniquet inflated to 250 mm of mercury for a total tourniquet time of 23 minutes. Once assured that we had a good block, a 2.0 cm longitudinal incision was made centered over the right carpal tunnel. The incision was made through the skin to the subcutaneous tissues using a #15 blade. Dissection was made down to the level of the transverse carpal ligament with care being taken to protect the palmar cutaneous nerve. Once the transverse carpal ligament was clearly visualized, a longitudinal incision was made in the transverse carpal ligament 1st using a #15 blade, then using tenotomy scissors under direct visualization. Care was taken to look for and protect the motor branch of the median nerve when seen in this area. Once satisfied with our carpal tunnel release the wound was irrigated with normal saline. A 6 cm gently curved but longitudinally oriented incision was made centered over the cubital tunnel of the right upper extremity. Incision was made through the skin to the subcutaneous tissues using a # 15 Blade. I then dissected down to the level of the medial epicondyle and the cubital tunnel using tenotomy scissors. Care was taken to protect the medial antebrachial cutaneous nerve. The ulnar nerve was identified just posterior to the medial intermuscular septum. The ulnar nerve was released in a proximal to distal direction using tenotomy in iris scissors while directly visualizing and protecting the ulnar nerve. Thickening and fibrosis was appreciated about the ulnar nerve as it passed through the cubital tunnel. The ulnar nerve was assessed as I passed the elbow through full flexion and extension [and was found to remain stable within its groove]. At this point the tourniquet was deflated and hemostasis obtained with a brief period of local pressure and bipolar electrocautery. The wound was copiously irrigated with normal saline. The subcutaneous layer was closed with 4-0 Vicryl suture, and the skin edges were reapproximated with a running subcuticular 4-0 Monocryl closure with Steri-Strips and Mastisol. The wound was infiltrated with some 1% lidocaine with epinephrine for postop pain control and sterile dressings were applied. The patient appears to have tolerated the procedure well and with no complications. All digits were well vascularized at the conclusion of the case.
== END 2024-04-29 12:36 | disposition home or self-care (01) ==
PROVIDERS: PCP Internal Medicine; Visit Provider Orthopaedic Surgery
PROC: (CPT 64718; principal; 2024-04-29 09:30)
PROC: (CPT 64721; 2024-04-29 09:30)
DX: G56.01 Carpal tunnel syndrome, right upper limb (principal); G56.21 Lesion of ulnar nerve, right upper limb; R20.0 Anesthesia of skin; Z87.09 Personal history of other diseases of the respiratory system; M25.50 Pain in unspecified joint; I10 Essential (primary) hypertension; E78.5 Hyperlipidemia, unspecified; F33.1 Major depressive disorder, recurrent, moderate; E66.01 Morbid (severe) obesity due to excess calories; Z68.36 Body mass index [BMI] 36.0-36.9, adult; Z79.899 Other long term (current) drug therapy; Z88.5 Allergy status to narcotic agent; Z88.8 Allergy status to other drugs, medicaments and biological substances; Z98.890 Other specified postprocedural states
CPT/HCPCS: 64721; 64718; J0131; J0690; J1100; J2003; J2004; J2250; J2405; J2704; J3010

== ENCOUNTER → 2024-04-29 08:05 | Outpatient (BNV) | payer OTHER, SELFPAY | PROVIDERS: PCP Internal Medicine; Visit Provider Orthopaedic Surgery | DX: G56.21 Lesion of ulnar nerve, right upper limb (principal); G56.01 Carpal tunnel syndrome, right upper limb | CPT/HCPCS: 64718; 64721 ==

== ENCOUNTER 2024-05-14 13:43 | Outpatient (AMB) | payer OTHER, SELFPAY ==
[2024-05-14 14:00] VITALS: BMI 36.4
--- NOTE | 2024-05-14 14:00 | MHC.OFFVIS ---
Vital Signs 05/14/24 14:00 Height 5 ft 2 in Weight 199 lb BMI 36.4 Intake Visit Reasons: PO RT cubital/CTR 04/29/24 AR Intake Note: Doug is a 44 year old right hand dominant female who presents today for a post operative visit s/p right carpal and cubital tunnel release DOS: 04/29/24 w/ Dr Jaye Moran. Patient reports pain the volar aspect of the right ring and small fingers. She is taking Ibuprofen and Tylenol PRN. Denies numbness and tingling. Sutures removed and steri strips applied. Laboratory Aide Required: Yes Laboratory Aide Language: Professor Of Visual Arts Services: Laboratory Aide Present Laboratory Aide Name: evanRMA/LM Allergies hydrocodone [HYDROCODONE] Allergy (Severe, Verified 05/14/24 14:09) DIFFICULTY BREATHING codeine Allergy (Intermediate, Verified 05/14/24 14:09) shortness of breath cyclobenzaprine Adverse Reaction (Intermediate, Verified 05/14/24 14:09) sleepiness docusate [From Colace] Adverse Reaction (Intermediate, Verified 05/14/24 14:09) Vomiting, dizziness mirtazapine [Remeron] Adverse Reaction (Intermediate, Verified 05/14/24 14:09) vomiting nabumetone Adverse Reaction (Intermediate, Verified 05/14/24 14:09) sleepiness HPI HPI PO RT cubital/CTR 04/29/24 AR: Details: Doug is a 44 year old right hand dominant female who presents today for a post operative visit s/p right carpal and cubital tunnel release DOS: 04/29/24 w/ Dr Jaye Moran. Patient reports pain the volar aspect of the right ring and small fingers. She is taking Ibuprofen and Tylenol PRN. Denies numbness and tingling. Sutures removed and steri strips applied. FORMERLY [facility] Medical History Acute respiratory disease Breast calcification, right Chronic pelvic pain in female Pelvic pain Hyperlipidemia Hypertension Tubular adenoma Hernia of abdominal cavity PONV (postoperative nausea and vomiting) Morbid obesity Polyarthralgia Insomnia Moderate recurrent major depression Bloody stools Right sided sciatica Dyslipidemia Hypovitaminosis D Acute insomnia Constipation Bilateral hand numbness GERD (gastroesophageal reflux disease) Surgical History History of cystoscopy History of right oophorectomy History of esophagogastroduodenoscopy (EGD) Hx of colonoscopy History of hernia surgery History of endometrial ablation Hx of hysterectomy History of carpal tunnel release History of tubal ligation Family History Father Hypertension Diabetes CVD (cardiovascular disease) Mother Hypertension Pancreatic cancer Mother Pancreatic cancer Maternal Aunt Thyroid cancer Maternal Aunt Stomach cancer Maternal Uncle Prostate cancer Social History Housing: Apartment Are you a primary personal care home administrator to a significant other at home: No Do you presently have visiting nurse or other home services: No Alcohol intake: current Alcohol intake frequency: does not drink Alcohol type: wine Patient Tobacco Use Status: Never used Tobacco e-Cigarette/Vaping Use: Never Used Second Hand Smoke Exposure: No service: No Current occupational status: employed 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 Current occupational exposures/hazards: No Cognitive needs: No Hearing needs: No Vision needs: No Female Reproductive History Menstrual Age of Menarche: 13 Review of Systems Const All systems reviewed & are unremarkable except as noted in HPI and below Physical Exam Vital Signs: BMI result Body Mass Index 36.4 Const General: cooperative, healthy appearing and no acute distress Orientation/consciousness: patient oriented x3 HEENT Head: Yes normocephalic and Yes atraumatic Eyes EOM: EOMs intact bilaterally Resp Effort & Inspection: normal respiratory effort and able to speak in complete sentences Cardio Jugular venous distension: no JVD Skin General skin exam: turgor normal Rashes: no rashes Neuro General: patient oriented x3 Extrem Other: Evaluation of Right Upper Extremity: The patient is alert, oriented, and in no acute distress Neuro: Median, Ulnar, Radial nerves motor and sensory intact and sensation is normal to the tips of all digits today bilaterally in clinic today No thenar or intrinsic wasting Good APB muscle belly firing and good finger cross Both surgical sites on the right upper extremity are well healed and she has full active range of motion at the elbow wrist and hand on the right side. She says the right elbow is not bothering her today. Vascular: Cap refill brisk ROM: With encouragement, patient was able to make a closed fist, but reports some pain when doing so Skin: No lacerations or abrasions. General: No Ecchymosis. No Erythema or evidence of infection. Nerve Conduction Study: IMPRESSION: 1. [id number]-hd-[id number] right median neuropathy across carpal tunnel. 2. Mild bilateral ulnar neuropathy across cubital tunnel. Jens Bhat MD 09/21/2020 Psych Appearance: grossly normal Affect: normal affect Attitude: cooperative Assessment & Plan Assessment & Plan (1) Cubital tunnel syndrome on left: Code(s): G56.22 - Lesion of ulnar nerve, left upper limb Category: Medical (2) Carpal tunnel syndrome of left wrist: Code(s): G56.02 - Carpal tunnel syndrome, left upper limb Category: Medical Plan 1. Right carpal tunnel syndrome status post carpal tunnel release Date of surgery 04/29/2024 2. Right cubital tunnel syndrome status post cubital tunnel release Date of surgery 04/29/2024 She says she is doing well following the surgery. I agree. She feels like sensation is now back to normal in all of her fingers and thumb. I educated her about the postoperative course. We talked about activity modification and not doing anything heavy for at least another 2-4 weeks. Patient was also referred to occupational therapy to work on range of motion and strengthening of the right hand in the setting of stiffness Sutures removed and Steri-Strips applied. Coding Level of Care Code Global (19873) Diagnoses Cubital tunnel syndrome on left G56.22 Carpal tunnel syndrome of left wrist G56.02
--- OUTSIDE RECORDS SUMMARY | 2024-05-14 16:01 | XMS_ITS | Clinical Summary ---
Author Organization [facility] Address [address] [place] [address] Care Team Providers Care Feed Mixer Helper Name Role Phone Su Chairez PA-C Primary Care Provider [phone] Source Comments PLEASE NOTE, if this patient [...] Plan of Treatment Not on file Insurance [facility] Member Subscriber Plan / Payer (Ef fective 2012-Present) Name:Doug Monroy Relation to Subscriber:Self Name:Doug Monroy Payer ID:[id number] Group ID:Not on file Type:Medicaid Address: [facility] [id number] [place] [address] [facility] [place] [address] [facility] Care Teams Feed Mixer Helper Relationship Specialty Start Date End Date Su Chairez PA-C [address] [place] [address] PCP - General 11/17/12
== END 2024-05-14 14:16 | disposition home or self-care (01) ==
LOC: HO.HOS 13:44
PROVIDERS: PCP Internal Medicine
DX: G56.22 Lesion of ulnar nerve, left upper limb (principal); G56.02 Carpal tunnel syndrome, left upper limb
CPT/HCPCS: 99024

== ENCOUNTER → 2024-05-14 13:43 | Outpatient (BNVA) | payer OTHER, SELFPAY | PROVIDERS: PCP Internal Medicine | DX: Z47.89 Encounter for other orthopedic aftercare (principal); Z98.890 Other specified postprocedural states | CPT/HCPCS: 99212 ==

== ENCOUNTER 2024-06-18 08:26 | Outpatient (REF) | payer OTHER, SELFPAY ==
--- OUTSIDE RECORDS SUMMARY | 2024-06-18 08:31 | XMS_ITS | Clinical Summary ---
Author Organization [facility] Address [address] [place] [address] Care Team Providers Care Mess Cook Name Role Phone Su Chairez PA-C Primary Care Provider [phone] Source Comments PLEASE NOTE, if this patient is a minor, it may be UNLAWFUL to discuss sensitive information that is contained in these records (such as FAMILY PLANNING, MENTAL HEALTH or SUBSTANCE ABUSE) with the minor patient's parent or other person without the patient's specific authorization.[facility] Immunizations Immunization Administration Dates Next Due PPD 11/18/2012 Social [...] Plan of Treatment Not on file Insurance [facility] ADITHYA Member Subscriber Plan / Payer (Ef fective 2012-Present) Name:Doug Monroy Relation to Subscriber:Self Name:Doug Monroy Payer ID:[id number] Group ID:Not on file Type:Medicaid Address: [facility] [id number] [place] [address] [place] [address] REPLACED BY [facility] Care Teams Mess Cook Relationship Specialty Start Date End Date Su Chairez PA-C [address] [place] [address] PCP - General 11/17/12
[2024-06-18 10:06] LABS: Alanine Aminotransferase 43 U/L (0-31); Alkaline Phosphatase 76 U/L (39-117); Anion Gap 10 (12-20); Aspartate Amino Transferase 44 U/L (5-31); Bilirubin Total 0.6 mg/dL (0.0-1.0); Blood Urea Nitrogen 13 mg/dL (9-16); Carbon Dioxide 25 mmol/L (22-29); Chloride 105 mmol/L (96-108); Cholesterol 227 mg/dL (<200); Estimated Glomerular Filt Rate > 60; Glucose Fasting 115 mg/dL (60-99); HDL Cholesterol 43 mg/dL (>40); LDL Cholesterol Calculated 146 mg/dL (<100); Potassium 3.9 mmol/L (3.3-5.1); Sodium 136 mmol/L (135-145); Total Protein 7.6 g/dL (6.5-8.0); Triglycerides 193 mg/dL (<150)
[2024-06-18 10:17] LABS: Free T4 (Free Thyroxine) 0.94 ng/dL (0.71-1.85); Thyroid Stimulating Hormone 2.21 uIU/mL (0.32-4.0); Vitamin D 25-OH Total 13.7 ng/mL (>30)
== END 2024-06-18 08:27 | disposition home or self-care (01) ==
LOC: HO.LAB 08:26
PROVIDERS: PCP Internal Medicine; Visit Provider Internal Medicine
DX: R79.89 Other specified abnormal findings of blood chemistry (principal); E78.5 Hyperlipidemia, unspecified; K76.0 Fatty (change of) liver, not elsewhere classified; E55.9 Vitamin D deficiency, unspecified
CPT/HCPCS: 36415; 80053; 80061; 82306; 84439; 84443

== ENCOUNTER 2024-06-21 08:20 | Outpatient (AMB) | payer OTHER, SELFPAY ==
--- NOTE | 2024-06-21 08:36 | MHC.PC.OV ---
Vital Signs 06/21/24 08:38 Height 5 ft 2 in Weight 213 lb BMI 39.0 BP 138/86 Blood Pressure Location Lt brachial Position Sitting Intake Visit Reasons: ANNUAL EXAM Intake Note: Patient here for a physical exam Slip Maker Required: No Accompanied by: Self / Same As Patient Allergies hydrocodone [HYDROCODONE] Allergy (Severe, Verified 06/21/24 08:56) DIFFICULTY BREATHING codeine Allergy (Intermediate, Verified 06/21/24 08:56) shortness of breath cyclobenzaprine Adverse Reaction (Intermediate, Verified 06/21/24 08:56) sleepiness docusate [From Colace] Adverse Reaction (Intermediate, Verified 06/21/24 08:56) Vomiting, dizziness mirtazapine [Remeron] Adverse Reaction (Intermediate, Verified 06/21/24 08:56) vomiting nabumetone Adverse Reaction (Intermediate, Verified 06/21/24 08:56) sleepiness Medication List - Last Reconciled 06/21/24 by Mirta Mahmood MD cholecalciferol (vitamin D3) 125 mcg PO DAILY 90 days estradiol 1 patch topical 2XW famotidine 40 mg PO BEDTIME hydrochlorothiazide 12.5 mg PO DAILY 90 days ibuprofen 600 mg PO Q8H PRN pantoprazole 40 mg PO DAILY rosuvastatin 10 mg PO DAILY 90 days venlafaxine ER 37.5 mg PO BEDTIME 30 days Tobacco use date assessed: 06/21/24 Dental Screening Dental Screen Date: 06/21/24 Did you have a dental visit in the last 12 months?: No Did you have a dental problem in the last 6 months where you did not have access to dental care?: No Was dental information given to patient?: Patient has dentist HPI HPI Comments History of Present Illness Details The patient is a 44-year-old female presenting with multiple ongoing medical concerns, primarily focusing on her mental health and chronic dizziness. She reports significant depression following her mother's from pancreatic cancer, leading to a PHQ-9 score of 25, indicative of severe depression. The patient also experiences constant dizziness, vertigo, and nausea, linked to possible ear issues. Fibromyalgia contributes to the chronic pain in her knees and overall fatigue, affecting her mobility and quality of life. Medical history is complicated by pre-diabetes, obesity, Vitamin D deficiency, and hyperlipidemia with a slight cholesterol elevation. Family history includes various cancers and her father?s diabetes and hypertension. Previous surgeries comprise bilateral carpal tunnel releases, hysterectomy in 2017, and right ovary removal. She does not smoke and occasionally consumes alcohol. - Mammogram completed September 2021 with follow-up biopsy yielding benign results. - Colonoscopy performed in 2022 with findings of hyperplastic polyp and tubular adenoma; typically repeated in 3-5 years. - Remains on schedule for ongoing surveillance of colonoscopy screenings. - Hysterectomy conducted in 2016, hence cervical cancer screening is not necessary. - Discussed cardiovascular risk, cholesterol level of 227; [place] Risk Score calculated as 1%, thus no lipid-lowering medication required. - Encouraged discussions regarding diet and weight management to address obesity. - Vitamin D deficiency noted; recommended supplementation. - Pre-diabetic status with blood sugar at 115; lifestyle modification advised. [facility] Medical History (Updated 06/21/24 @ 11:05 by Mirta Mahmood MD) Acute respiratory disease Breast calcification, right Chronic pelvic pain in female Pelvic pain Hyperlipidemia Hypertension Tubular adenoma Hernia of abdominal cavity PONV (postoperative nausea and vomiting) Morbid obesity Polyarthralgia Insomnia Moderate recurrent major depression Bloody stools Right sided sciatica Dyslipidemia Hypovitaminosis D Acute insomnia Constipation Bilateral hand numbness GERD (gastroesophageal reflux disease) Surgical History History of carpal tunnel surgery of right wrist History of cystoscopy History of right oophorectomy History of esophagogastroduodenoscopy (EGD) Hx of colonoscopy History of hernia surgery History of endometrial ablation Hx of hysterectomy History of carpal tunnel release History of tubal ligation Family History Father Hypertension Diabetes CVD (cardiovascular disease) Mother Hypertension Pancreatic cancer Mother Pancreatic cancer Maternal Aunt Thyroid cancer Maternal Aunt Stomach cancer Maternal Uncle Prostate cancer Social History (Updated 06/21/24 @ 09:04 by Mirta Mahmood MD) Housing: Apartment Are you a primary manager critical care unit to a significant other at home: No Do you presently have visiting nurse or other home services: No Alcohol intake: current Alcohol intake frequency: does not drink Alcohol type: wine Patient Tobacco Use Status: Never used Tobacco e-Cigarette/Vaping Use: Never Used Second Hand Smoke Exposure: No service: No Current occupational status: employed 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 1. Little interest or pleasure in doing things: nearly every day 2. Feeling down, depressed, or hopeless: nearly every day 3. Trouble falling or staying asleep, or sleeping too much: nearly every day 4. Feeling tired or having little energy: nearly every day 5. Poor appetite or overeating: nearly every day 6. Feeling bad about yourself - or that you are a failure or have let yourself or your family down: nearly every day 7. Trouble concentrating on things, such as reading the newspaper or watching television: nearly every day 8. Moving or speaking so slowly that other people could have noticed. Or the opposite - being so fidgety or restless that you have been moving around a lot more than usual: several days 9. Thoughts that you would be better off or of hurting yourself in some way: nearly every day Total score: 25 Depression Screening Interpretation: Positive (no suicidal ideation) Depression Screening Follow-up: Existing condition, New Medication prescribed and Follow-up Visit Requested Depression Screening Done: Yes 99170 - PHQ-9 Billing: Yes Source: Developed by Drs. Connor Wise, Antonieta Schreiber, Pa Garrison and colleagues, with an educational dania from [employer]. Thrive Questionnaire Date Thrive assessed: 06/21/24 I am a: Patient What is your living situation today?: I have a steady place to live Within the past 12 months, did the food you bought not last and you didn't have the money to get more?: Often true Within the past 12 months, did you worry whether your food would run out before you got money to buy more?: Often true Do you have trouble paying for medicines?: Yes Do you have trouble getting transportation to medical appointments?: No Do you have trouble paying your heating and electricity bill?: Yes Do you have trouble taking care of your child, family member or friend?: No Do you have trouble with day-to-day activities such as bathing, preparing meals, shopping, managing finances, etc.?: No Are you currently unemployed and looking for a job?: No Are you interested in more education?: Yes Please select the resources that you would like help with: Food and Paying for medicine Currently or been in a relationship where the following occur: No concerns reported THRIVE Score: 3 AUDIT C Alcohol Use Questionnaire (AUDIT-C) 1. How often do you have a drink containing alcohol?: Monthly or less 2. How many drinks containing alcohol do you have on a typical day when you are drinking?: 1 or 2 3. How often do you have six or more drinks on one occasion?: Never Total Score: 1 Score Reviewed/Action Taken: No MAR-7 AMB Questionnaire MAR-7 Date MAR - 7 assessed: 06/21/24 Feeling nervous, anxious, or on edge: 1 = Several days Not being able to stop or control worryin = Nearly every day Worrying too much about different things: 3 = Nearly every day Trouble relaxin = Nearly every day Being so restless that it is hard to sit still: 1 = Several days Becoming easily annoyed or irritable: 3 = Nearly every day Feeling afraid as if something awful might happen: 1 = Several days Total MAR-7 score (0-4 normal; 5-9 mild; 10-14 moderate; 15-21 severe): 15 Source: Developed by Drs. Connor Wise, Antonieta Schreiber, Pa Garrison and colleagues, with an educational dania from [employer]. MAR-7 Assessment Billing MAR-7 Assessment Tool: MAR-7 Assessment 77094 Review of Systems Const All systems reviewed & are unremarkable except as noted in HPI and below Card Denies chest pain at rest, Denies chest pain with activity, Denies edema, Denies irregular heart rhythm, Denies claudication, Denies dyspnea, Denies dyspnea on exertion, Denies orthopnea, Denies paroxysmal nocturnal dyspnea and Denies slow heart rate Resp Denies cough, Denies dyspnea and Denies dyspnea on exertion Physical exam (Primary Care) Vital Signs: Last Vital Signs BP 138/86 06/21/24 08:38 BMI result Body Mass Index 39.0 BMI Assessment/Plan discussion: High BMI High, discussed plan: lifestyle, weight reduction, dietary and physical activity Tobacco/Smoking Status: Tobacco use Status Tobacco use date assessed 06/21/24 06/21/24 08:43 Patient Tobacco Use Status Never used Tobacco 06/21/24 09:04 Tobacco use type 05/05/23 16:22 e-Cigarette/Vaping Use Never Used 06/21/24 09:04 PHQ-9: PHQ-9 Score PHQ-9: Total score 06/21/24 09:04 Depression Screening Interpretation: Positive (no suicidal ideation) Depression Screening Follow-up: Existing condition, New Medication prescribed and Follow-up Visit Requested Thrive Assessment: Date of Thrive Assessment Date Thrive assessed 06/21/24 06/21/24 08:43 Currently or been in a relationship where the following occur: No concerns reported [facility] Head: Yes normal to inspection, Yes normocephalic and Yes atraumatic Ears: external ears normal Eyes General: appearance normal, both eyes and all related structures Eyelids: Yes eyelids normal Conjunctivae: conjunctivae normal Neck Neck: Yes normal visual inspection and Yes supple Resp Effort & Inspection: normal respiratory effort Auscultation: clear to auscultation bilaterally Cardio Jugular venous distension: no JVD Rate: regular rate Rhythm: regular rhythm Heart sounds: S1 normal heart sound present and S2 normal heart sound present GI Inspection: Yes normal to inspection Palpation (GI): Soft to palpation and nontender Auscultation: normal bowel sounds Skin General skin exam: no rashes or lesions noted Neuro General: no focal motor deficits Extrem General: Yes full ROM Psych Appearance: grossly normal Coding Level of Care Code Est Pt Level 4 (19345) Est Pt Prev Care 40-64y(80133) Diagnoses Physical exam Z00.00 Chronic cough R05.3 BPPV (benign paroxysmal positional vertigo) H81.10 Polyarthralgia M25.50 Moderate recurrent major depression F33.1 Additional Codes MAR-7 Assessment Billing - MAR-7 Assessment Tool: MAR-7 Assessment 95068 ([id number]) PHQ-9 - 55470 - PHQ-9 Billing: Yes ([id number]) Time Spent (min) 35 Assessment & Plan Assessment & Plan (1) Physical exam: Code(s): Z00.00 - Encounter for general adult medical examination without abnormal findings Category: Medical (2) Chronic cough: Code(s): R05.3 - Chronic cough Category: Medical (3) BPPV (benign paroxysmal positional vertigo): Code(s): H81.10 - Benign paroxysmal vertigo, unspecified ear Category: Medical (4) Polyarthralgia: Code(s): M25.50 - Pain in unspecified joint Category: Medical (5) Moderate recurrent major depression: Code(s): F33.1 - Major depressive disorder, recurrent, moderate Category: Medical Plan I will begin antidepressant therapy to manage depression and anxiety, potentially assisting with weight issues. Symptoms indicating vestibular dysfunction will be treated with vestibular therapy. Chronic pain management will involve further consultation with rheumatology. I emphasize dietary modifications to address obesity while managing pre-diabetes through lifestyle adjustments and increased physical activity. Vitamin D supplementation will correct deficiencies. Her cardiovascular health, marked by low risk, requires no lipid-lowering medications. Continuation of preventive counseling and follow-ups will be prioritized. Patient was informed and verbally consented to the use of an ambient scribe for clinic note documentation during this visit. I discussed with the patient the importance of addressing both mental health and physical well-being. The initiation of antidepressant medication was thoroughly reviewed, with attention to the potential benefits and side effects, including impact on weight management. We addressed the root causes and management options for dizziness, suggesting vestibular therapy as a non-pharmaceutical approach. My focus also included chronic pain management, planning a rheumatology consultation to better tailor her treatment. Pre-diabetes and related dietary habits were openly discussed, stressing the need for lifestyle adjustment. I provided education on cardiovascular risk associated with her cholesterol levels as well as the minimal need for medication at this stage. Supplementation of Vitamin D was advised with due consideration. We established an understanding of preventive care continuity and I encouraged routine follow-ups to monitor her comprehensive well-being. Orders: Orders Comprehensive Henry. Panel Fast 6 Months E78.5 - Hyperlipidemia, unspecified Vitamin D 25-OH Total 6 Months E55.9 - Vitamin D deficiency, unspecified Lipid Panel 6 Months E78.5 - Hyperlipidemia, unspecified PT Evaluation and Treatment Today H81.10 - Benign paroxysmal vertigo, unspecified ear Referrals Pulmonology Referral R05.3 - Chronic cough Rheumatology Referral M25.50 - Pain in unspecified joint Medications: New bupropion HCl XL 150 mg PO QAM 90 tabs 1RF 90 days F33.1 - Major depressive disorder, recurrent, moderate Refilled cholecalciferol (vitamin D3) 125 mcg PO DAILY 90 caps 1RF 90 days F33.1 - Major depressive disorder, recurrent, moderate Patient Instructions: - Take prescribed antidepressants every morning as directed. - Schedule and attend vestibular therapy sessions for dizziness. - Prepare for follow-up with rheumatology for pain management. - Focus on dietary changes to manage pre-diabetes and avoid nighttime overeating. - Start taking Vitamin D supplements as recommended. - Return for regular check-ups for holistic health monitoring. - Contact the clinic if symptoms worsen or for emergent care needs.
[2024-06-21 08:38] VITALS: BP 138/86; BMI 39.0
--- OUTSIDE RECORDS SUMMARY | 2024-06-21 08:38 | XMS_ITS | Clinical Summary ---
Author Organization [facility] Address [address] [place] [address] Care Team Providers Care Dry Janitor Name Role Phone Su Chairez PA-C Primary Care Provider [phone] Source Comments PLEASE NOTE, if this patient [...] Treatment Not on file Insurance [facility] Member Subscriber Plan / Payer (Ef fective 2012-Present) Name:Doug Monroy Relation to Subscriber:Self Name:Doug Monroy Payer ID:[id number] Group ID:Not on file Type:Medicaid Address: [facility] [id number] [place] [address] [place] [address] [facility] Care Teams Dry Janitor Relationship Specialty Start Date End Date Su Chairez PA-C [address] [place] [address] PCP - General 11/17/12
== END 2024-06-21 09:14 | disposition home or self-care (01) ==
LOC: HO.HMCH 08:21
PROVIDERS: PCP Internal Medicine; Visit Provider Internal Medicine
DX: Z00.00 Encounter for general adult medical examination without abnormal findings (principal); R05.3 Chronic cough; F33.1 Major depressive disorder, recurrent, moderate; H81.10 Benign paroxysmal vertigo, unspecified ear; M25.50 Pain in unspecified joint

== ENCOUNTER → 2024-06-21 08:20 | Outpatient (BNVA) | payer OTHER, SELFPAY | PROVIDERS: PCP Internal Medicine; Visit Provider Internal Medicine | DX: Z00.01 Encounter for general adult medical examination with abnormal findings (principal); R05.3 Chronic cough; H81.10 Benign paroxysmal vertigo, unspecified ear; M25.50 Pain in unspecified joint; F33.1 Major depressive disorder, recurrent, moderate | CPT/HCPCS: 96127; 99212; 99396 ==

== ENCOUNTER 2024-08-04 13:57 | Outpatient (AMB) | payer OTHER, SELFPAY ==
[2024-08-04 14:26] VITALS: BP 140/88; PULSE 92; O2SAT 97; BMI 38.8
--- NOTE | 2024-08-04 14:26 | MHC.OFFVIS ---
Vital Signs 08/04/24 14:26 Height 5 ft 2 in Weight 212 lb 2 oz BMI 38.8 BP 140/88 H Blood Pressure Location Rt brachial Position Sitting Pulse 92 Pulse Source Pulse Oximeter Pulse Oximetry (%) 97 Oxygen Delivery Method Room Air Intake Visit Reasons: Chronic cough County Demonstrator Required: Yes County Demonstrator Language: Driver Guide Name: Daniela Moore LM Allergies hydrocodone [HYDROCODONE] Allergy (Severe, Verified 08/04/24 14:30) DIFFICULTY BREATHING codeine Allergy (Intermediate, Verified 08/04/24 14:30) shortness of breath cyclobenzaprine Adverse Reaction (Intermediate, Verified 08/04/24 14:30) sleepiness docusate [From Colace] Adverse Reaction (Intermediate, Verified 08/04/24 14:30) Vomiting, dizziness mirtazapine [Remeron] Adverse Reaction (Intermediate, Verified 08/04/24 14:30) vomiting nabumetone Adverse Reaction (Intermediate, Verified 08/04/24 14:30) sleepiness HPI HPI Chronic cough: Details: Doug is a pleasant 44-year-old, never smoker, with underlying GERD. She was referred for pulmonary evaluation for chronic cough. Reports cough started after maisha the flu in March. At that time she was treated with azithromycin, benzonatate and Delsym. She reports cough is less frequent however continues on a daily basis. Reports cough is dry, with associated dyspnea, chest tightness and wheezing. She also notes inability to fully inspire and paroxysmal nocturnal dyspnea. She reports question of asthma in the past however no official diagnosis. She states that she has used her 's inhaler in the past with good effect and during the acute period with the flu had use nebulized therapy with relief. She denies history of recurrent respiratory infections. She denies seasonal allergies. She denies any occupational exposures. She reports maternal aunt with lung cancer, never smoker, otherwise denies any pertinent family history. She endorses uncontrolled reflux for quite some time, number resulting in cough. She is coming in with GI for further evaluation. [facility] Medical History Acute respiratory disease Breast calcification, right Chronic pelvic pain in female Pelvic pain Hyperlipidemia Hypertension Tubular adenoma Hernia of abdominal cavity PONV (postoperative nausea and vomiting) Morbid obesity Polyarthralgia Insomnia Moderate recurrent major depression Bloody stools Right sided sciatica Dyslipidemia Hypovitaminosis D Acute insomnia Constipation Bilateral hand numbness GERD (gastroesophageal reflux disease) Surgical History History of carpal tunnel surgery of right wrist History of cystoscopy History of right oophorectomy History of esophagogastroduodenoscopy (EGD) Hx of colonoscopy History of hernia surgery History of endometrial ablation Hx of hysterectomy History of carpal tunnel release History of tubal ligation Family History Father Hypertension Diabetes CVD (cardiovascular disease) Mother Hypertension Pancreatic cancer Mother Pancreatic cancer Maternal Aunt Thyroid cancer Maternal Aunt Stomach cancer Maternal Uncle Prostate cancer Social History Housing: Apartment Are you a primary youth care professional to a significant other at home: No Do you presently have visiting nurse or other home services: No Alcohol intake: current Alcohol intake frequency: does not drink Alcohol type: wine Patient Tobacco Use Status: Never used Tobacco e-Cigarette/Vaping Use: Never Used Second Hand Smoke Exposure: No service: No Current occupational status: employed 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 Current occupational exposures/hazards: No Cognitive needs: No Hearing needs: No Vision needs: No Female Reproductive History Menstrual Age of Menarche: 13 Review of Systems Const Denies chills, Denies excessive sweating, Denies fever(s), Denies headache(s) and Denies night sweats Eyes Denies dry eyes, Denies irritation and Denies itchy eyes ENT Reports Normal hearing present, Denies headache(s), Denies nasal congestion, Denies nasal discharge, Denies post nasal drip and Denies sore throat Card Denies chest pain, Denies chest pain at rest, Denies chest pain with activity, Denies claudication, Denies leg edema and Denies orthopnea Resp Denies chest congestion, Denies excessive phlegm production, Denies pain on inspiration, Denies pain with cough and Denies stridor Musc Denies myalgias Neuro Reports Normal hearing present and Denies headache(s) Endo Denies excessive sweating Jose Antonio/Lymph Denies lymphadenopathy Aller/Immun Denies itchy eyes and Denies seasonal rhinorrhea Physical Exam Vital Signs: Last Vital Signs Pulse 92 08/04/24 14:26 BP 140/88 H 08/04/24 14:26 Pulse Ox 97 08/04/24 14:26 Oxygen Delivery Method Room Air 08/04/24 14:26 BMI result Body Mass Index 38.8 Const General: cooperative, healthy appearing, comfortable, no acute distress, well developed and alert Nutritional Appearance: obese Orientation/consciousness: patient oriented x3 Limitations: no limitations HEENT Head: Yes normal to inspection, Yes normocephalic and Yes atraumatic Ears: hearing grossly normal bilaterally and external ears normal Eyes General: appearance normal, both eyes and all related structures Eyelids: Yes eyelids normal Sclerae: sclerae normal EOM: EOMs intact bilaterally Neck Neck: Yes normal visual inspection and Yes no lymphadenopathy Lymphatic: no lymphadenopathy noted Chest Chest palpation & inspection: normal inspection of the chest Resp Effort & Inspection: normal respiratory effort, able to speak in complete sentences, no audible wheezes, no cough, no stridor, not tachypneic, no tripod positioning and no use of accessory muscles Auscultation: clear to auscultation bilaterally Cardio Jugular venous distension: no JVD Rate: regular rate Rhythm: regular rhythm Skin Other: warm, dry General skin exam: no rashes or lesions noted Neuro General: patient oriented x3 Cranial nerves: Yes Normal hearing present Cognition (Neuro): normal cognition Gait exam (Neuro): Normal gait present Extrem General: Yes normal to inspection, Yes capillary refill normal, Yes no clubbing, cyanosis or edema and Yes no pedal edema Psych Appearance: grossly normal and well kempt Speech and movement: Normal speech and movement present and Clear speech present Affect: normal affect Attitude: cooperative Thought process: Normal thought process present Thought content: Normal thought content present Insight: Good insight present (Psych) Judgement: Good judgement present (Psych) Assessment & Plan Assessment & Plan (1) Reactive airway disease: Code(s): J45.909 - Unspecified asthma, uncomplicated Category: Medical (2) Chronic cough: Code(s): R05.3 - Chronic cough Category: Medical Plan Doug presents for pulmonary evaluation for chronic cough which started after maisha influenza in March. Will empirically start ICS for reactive airway disease versus asthma. Discussed importance of good oral hygiene to prevent thrush. If no improvement, will consider chest CT. Prior chest x-ray unremarkable. Will send for PFT to assess for obstructive defect. All questions were answered patient is in agreement of plan. Will follow-up in 6-8 weeks or sooner if needed. Orders: Orders PFT pulmonary function test Today R05.3 - Chronic cough Medications: New fluticasone propionate 44 mcg/actuation 2 puffs inhalation BID 10.6 grams 3RF Coding Level of Care Code New Pt Level 4 (20814) Diagnoses Reactive airway disease J45.909 Chronic cough R05.3
--- OUTSIDE RECORDS SUMMARY | 2024-08-04 15:57 | XMS_ITS | Clinical Summary ---
Author Organization [facility] Address [address] [place] [address] Care Team Providers Care Leather Whitener Name Role Phone Su Chairez PA-C Primary Care Provider [phone] Source Comments PLEASE NOTE, if this patient [...] Plan of Treatment Not on file Insurance [facility] ADITHYA Member Subscriber Plan / Payer (Ef fective 2012-Present) Name:Doug Monroy Relation to Subscriber:Self Name:Doug Monroy Payer ID:[id number] Group ID:Not on file Type:Medicaid Address: [facility] [id number] [place] [address] [facility] [place] [address] [facility] Care Teams Leather Whitener Relationship Specialty Start Date End Date Su Chairez PA-C [address] [place] [address] PCP - General 11/17/12
== END 2024-08-04 15:25 | disposition home or self-care (01) ==
LOC: HO.HPSW 13:58
PROVIDERS: PCP Internal Medicine; Referring Provider Internal Medicine; Visit Provider Nurse Practitioner Family
DX: J45.909 Unspecified asthma, uncomplicated (principal); R05.3 Chronic cough
CPT/HCPCS: 99204

== ENCOUNTER → 2024-08-04 13:57 | Outpatient (BNVA) | payer OTHER, SELFPAY | PROVIDERS: PCP Internal Medicine; Referring Provider Internal Medicine; Visit Provider Nurse Practitioner Family | DX: R05.3 Chronic cough (principal); J45.909 Unspecified asthma, uncomplicated | CPT/HCPCS: 99202 ==

== ENCOUNTER 2024-09-10 14:22 | Outpatient (REF) | payer OTHER, SELFPAY ==
--- OUTSIDE RECORDS SUMMARY | 2024-09-10 14:24 | XMS_ITS | Clinical Summary ---
Author Organization [facility] Address [address] [place] [address] Care Team Providers Care File Keeper Name Role Phone Su Chairez PA-C Primary Care Provider [phone] Source Comments PLEASE NOTE, if this patient [...] Plan of Treatment Not on file Insurance [facility] ADITHYA Member Subscriber Plan / Payer (Ef fective 2012-Present) Name:Doug Monroy Relation to Subscriber:Self Name:Doug Monroy Payer ID:[id number] Group ID:Not on file Type:Medicaid Address: [facility] [id number] [place] [address] [place] [address] [facility] Care Teams File Keeper Relationship Specialty Start Date End Date Su Chairez PA-C [address] [place] [address] PCP - General 11/17/12
== END 2024-09-10 14:23 | disposition home or self-care (01) ==
LOC: HO.MAMMO 14:22
PROVIDERS: PCP Internal Medicine; Visit Provider Internal Medicine
DX: Z12.31 Encounter for screening mammogram for malignant neoplasm of breast (principal)
CPT/HCPCS: 77063; 77067

== ENCOUNTER → 2024-09-10 15:00 | Outpatient (BNV) | payer OTHER, SELFPAY | PROVIDERS: PCP Internal Medicine; Visit Provider Radiology Body Imaging | DX: Z12.31 Encounter for screening mammogram for malignant neoplasm of breast (principal) | CPT/HCPCS: 77063; 77067 ==

== ENCOUNTER 2024-09-13 14:53 | Outpatient (AMB) | payer OTHER, SELFPAY ==
--- NOTE | 2024-09-13 14:59 | MHC.OFFVIS ---
Vital Signs 09/13/24 15:00 Height 5 ft 2 in Weight 210 lb BMI 38.4 BP 136/80 Blood Pressure Location Rt brachial Position Sitting Pulse 84 Pulse Source Pulse Oximeter Pulse Oximetry (%) 95 Oxygen Delivery Method Room Air Intake Visit Reasons: abd pain Intake Note: Est pt for mgmt of [facility]IC + abd pain. HILARY 2023. CC; C.O. epigastric pain, nausea with severe abd pain, constipation, and BRB per rectum. Data Examination Clerk Required: Yes Data Examination Clerk Services: Data Examination Clerk Present Data Examination Clerk Name: [id number] + Rico (GI) Accompanied by: Self / Same As Patient Allergies hydrocodone (HYDROCODONE) Allergy (Severe, Verified 09/13/24 15:01) DIFFICULTY BREATHING codeine Allergy (Intermediate, Verified 09/13/24 15:01) shortness of breath cyclobenzaprine Adverse Reaction (Intermediate, Verified 09/13/24 15:01) sleepiness docusate (From Colace) Adverse Reaction (Intermediate, Verified 09/13/24 15:01) Vomiting, dizziness mirtazapine (Remeron) Adverse Reaction (Intermediate, Verified 09/13/24 15:01) vomiting nabumetone Adverse Reaction (Intermediate, Verified 09/13/24 15:01) sleepiness HPI HPI abd pain: Details: LAST VISIT: 05/05/2019 for Abdominal hernia Incisional hernia GERD (gastroesophageal reflux disease) Constipation Hemorrhoid Plan Patient was encouraged to increase fluid intake and activity to promote better bowel motility. Patient can take Dulcolax tablets daily. She will call our office if she continues to be constipated. Patient tried docusate sodium in the past and it was not helping, was causing low abdominal discomfort and cramping. Continue pantoprazole in the morning and famotidine at bedtime. Patient is asking for cream for hemorrhoids. Patient was also instructed to do Sitz baths with Epsom salts. Refer to General surgery to see Dr. Ernst regarding incisional hernia. I will see her in 6 weeks, sooner on as needed basis. Patient is agreeable to this plan and verbalizes understanding of instructions. She was given the opportunity to ask questions and all questions answered. ? Thank you for allowing me to participate her care Referrals General Surgery Referral K43.2, K46.9 New bisacodyl (Dulcolax (bisacodyl)) 10 mg (2 x 5 mg) PO BEDTIME 180 tabs 4RF hydrocortisone 2.5% (Proctosol HC) 1 appl [place] BID-QID PRN 30 grams 2RF hemorrhoids K64.9 Discontinued sennosides (Natural Senna Laxative) Discontinued Reason: Doctor's Order 17.2 mg (2 x 8.6 mg) PO BEDTIME 180 tabs 2RF constipation K59.00 TODAY'S VISIT: Patient is here today for requested visit. Patient was seen over a year ago and was placed on pantoprazole. Patient reports that in the past few months she continues with epigastric discomfort. She was taking pantoprazole, however she states the medication no longer is working. Patient reports severe epigastric burning and pain with almost anything she eats. Sometimes patient reports that she could be drinking water she will have this pain. Patient is taking Dulcolax and is moving her bowels, however she does not feel like she is emptying her bowels completely. Patient reports that she is drinking fluids. Tries to eat healthy. Does not feel like she empties completely. Patient would like to lose weight, however she is having trouble. [facility] Medical History Acute respiratory disease Breast calcification, right Chronic pelvic pain in female Pelvic pain Hyperlipidemia Hypertension Tubular adenoma Hernia of abdominal cavity PONV (postoperative nausea and vomiting) Morbid obesity Polyarthralgia Insomnia Moderate recurrent major depression Bloody stools Right sided sciatica Dyslipidemia Hypovitaminosis D Acute insomnia Constipation Bilateral hand numbness GERD (gastroesophageal reflux disease) Surgical History History of carpal tunnel surgery of right wrist History of cystoscopy History of right oophorectomy History of esophagogastroduodenoscopy (EGD) Hx of colonoscopy History of hernia surgery History of endometrial ablation Hx of hysterectomy History of carpal tunnel release History of tubal ligation Family History Father Hypertension Diabetes CVD (cardiovascular disease) Mother Hypertension Pancreatic cancer Mother Pancreatic cancer Maternal Aunt Thyroid cancer Maternal Aunt Stomach cancer Maternal Uncle Prostate cancer Social History Housing: Apartment Are you a primary resident care director to a significant other at home: No Do you presently have visiting nurse or other home services: No Alcohol intake: current Alcohol intake frequency: does not drink Alcohol type: wine Patient Tobacco Use Status: Never used Tobacco e-Cigarette/Vaping Use: Never Used Second Hand Smoke Exposure: No service: No Current occupational status: employed 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 Current occupational exposures/hazards: No Cognitive needs: No Hearing needs: No Vision needs: No Female Reproductive History Menstrual Age of Menarche: 13 Review of Systems Const Denies weight gain and Denies weight loss ENT Reports no additional complaints, Denies dysphagia and Denies odynophagia Card Reports no additional complaints Resp Reports no additional complaints GI Reports abdominal pain (Epigastric), Denies belching, Denies melena, Reports bloating, Denies change in bowel habits, Reports constipation, Denies dysphagia, Denies excessive flatus, Reports dyspepsia, Reports heartburn, Denies diarrhea, Denies loose stools, Denies nausea, Denies odynophagia and Denies vomiting Reports no additional complaints Musc Reports no additional complaints Neuro Reports no additional complaints Psych Reports no additional complaints Endo Reports no additional complaints Physical Exam Vital Signs: Last Vital Signs Pulse 84 09/13/24 15:00 BP 136/80 09/13/24 15:00 Pulse Ox 95 09/13/24 15:00 Oxygen Delivery Method Room Air 09/13/24 15:00 BMI result Body Mass Index 38.4 Const General: healthy appearing, no acute distress and well developed Nutritional Appearance: obese Orientation/consciousness: patient oriented x3 Resp Effort & Inspection: normal respiratory effort, able to speak in complete sentences, no tracheal deviation and symmetric chest movement Auscultation: clear to auscultation bilaterally Cardio Rate: regular rate GI Other: Postsurgical laparoscopic scars. Abdominal wall incisional hernia Inspection: No distended and Yes obesity Palpation (GI): Soft to palpation, not firm, nontender and No hepatosplenomegaly present Auscultation: normal bowel sounds General: Yes no CVA tenderness Back/Spine/Pelvis Back: no CVA tenderness Skin General skin exam: elasticity normal, turgor normal and dry skin Neuro General: patient oriented x3 Psych Appearance: grossly normal Mental Status: mental status grossly normal Assessment & Plan Assessment & Plan (1) GERD (gastroesophageal reflux disease): Code(s): K21.9 - Gastro-esophageal reflux disease without esophagitis Category: Medical Qualifiers: Esophagitis presence: esophagitis presence not specified Qualified Code(s): K21.9 - Gastro-esophageal reflux disease without esophagitis (2) Hepatic steatosis: Code(s): K76.0 - Fatty (change of) liver, not elsewhere classified Category: Medical (3) Constipation: Code(s): K59.00 - Constipation, unspecified Category: Medical Qualifiers: Constipation type: slow transit constipation Qualified Code(s): K59.01 - Slow transit constipation (4) Bloody stools: Code(s): K92.1 - Melena Category: Medical (5) Postprandial epigastric pain: Code(s): R10.13 - Epigastric pain Plan Stop pantoprazole and start Nexium. Patient will take sucralfate at bedtime. Avoid dietary triggers and like and sacrum. Staying upright for minimal 3 hours after meals discussed with patient. May use Anusol to help with hemorrhoids. Patient will start taking MiraLax in addition to taking Dulcolax. Increase fluid intake and activity to promote better bowel motility. Discussed with patient eating small meals and more frequently. Patient will follow-up in 2 months, sooner on as needed basis. She is agreeable to this plan and verbalizes understanding of instructions. She was given the opportunity to ask questions and all questions answered. Thank you for allowing me to participate in her care Medications: New esomeprazole magnesium (Nexium) 40 mg PO DAILY 30 caps 3RF K21.9 - Gastro-esophageal reflux disease without esophagitis polyethylene glycol 3350 (Miralax) 17 grams PO DAILY 510 grams 2RF hydrocortisone 2.5% (Anusol-HC) 1 appl [place] QID PRN 30 grams 2RF hemorrhoids K64.9 - Unspecified hemorrhoids sucralfate 1 g PO BEDTIME 30 tabs 4RF R19.7 - Diarrhea, unspecified Discontinued famotidine Discontinued Reason: Doctor's Order 40 mg PO BEDTIME 90 tabs 3RF K21.9 - Gastro-esophageal reflux disease without esophagitis pantoprazole take one tablet half an hour before breakfast Discontinued Reason: Doctor's Order 40 mg PO DAILY 90 tabs 2RF K21.9 - Gastro-esophageal reflux disease without esophagitis Coding Level of Care Code Est Pt Level 4 (70539) Complex EM visit Add On G2211 Diagnoses Gastroesophageal reflux disease, unspecified whether esophagitis present K21.9 Esophagitis presence: esophagitis presence not specified Hepatic steatosis K76.0 Slow transit constipation K59.01 Constipation type: slow transit constipation Bloody stools K92.1 Postprandial epigastric pain R10.13 Time Spent (min) 40 Comment 25 minutes spent with patient and additional 15 minutes spent reviewing her records
[2024-09-13 15:00] VITALS: BP 136/80; PULSE 84; O2SAT 95; BMI 38.4
--- OUTSIDE RECORDS SUMMARY | 2024-09-13 15:39 | XMS_ITS | Clinical Summary ---
Author Organization [facility] Address [address] [place] [address] Care Team Providers Care Bill Peddler Name Role Phone Su Chairez PA-C Primary Care Provider [phone] Source Comments PLEASE NOTE, if this patient [...] Plan of Treatment Not on file Insurance [facility] ADITHYA Member Subscriber Plan / Payer (Ef fective 2012-Present) Name:Doug Monroy Relation to Subscriber:Self Name:Doug Monroy Payer ID:[id number] Group ID:Not on file Type:Medicaid Address: [facility] [id number] [place] [id number] [facility] [place] [address] [facility] Care Teams Bill Peddler Relationship Specialty Start Date End Date Su Chairez PA-C [address] [place] [address] PCP - General 11/17/12
== END 2024-09-13 15:39 | disposition home or self-care (01) ==
LOC: HO.HGI 14:54
PROVIDERS: PCP Internal Medicine; Visit Provider Nurse Practitioner Family
DX: K21.9 Gastro-esophageal reflux disease without esophagitis (principal); K76.0 Fatty (change of) liver, not elsewhere classified; K59.01 Slow transit constipation; K92.1 Melena; R10.13 Epigastric pain
CPT/HCPCS: 99214

== ENCOUNTER → 2024-09-13 14:53 | Outpatient (BNVA) | payer OTHER, SELFPAY | PROVIDERS: PCP Internal Medicine; Visit Provider Nurse Practitioner Family | DX: K21.9 Gastro-esophageal reflux disease without esophagitis (principal); K76.0 Fatty (change of) liver, not elsewhere classified; K59.01 Slow transit constipation; K92.1 Melena; R10.13 Epigastric pain | CPT/HCPCS: 99212 ==

== ENCOUNTER 2024-10-01 09:30 | Outpatient (AMB) | payer OTHER, SELFPAY ==
[2024-10-01 09:34] VITALS: BP 140/96; PULSE 81; O2SAT 98; BMI 37.4
--- NOTE | 2024-10-01 09:34 | MHC.OFFVIS ---
Vital Signs 10/01/24 09:34 Height 5 ft 2 in Weight 204 lb 4 oz BMI 37.4 BP 140/96 H Blood Pressure Location Rt brachial Position Sitting Pulse 81 Pulse Source Pulse Oximeter Pulse Oximetry (%) 98 Oxygen Delivery Method Room Air Intake Visit Reasons: Chronic cough Director Of Community Education Required: Yes Director Of Community Education Language: Tie In Machine Operator Name: Daniela Moore LM Allergies hydrocodone (HYDROCODONE) Allergy (Severe, Verified 10/01/24 09:37) DIFFICULTY BREATHING codeine Allergy (Intermediate, Verified 10/01/24 09:37) shortness of breath cyclobenzaprine Adverse Reaction (Intermediate, Verified 10/01/24 09:37) sleepiness docusate (From Colace) Adverse Reaction (Intermediate, Verified 10/01/24 09:37) Vomiting, dizziness mirtazapine (Remeron) Adverse Reaction (Intermediate, Verified 10/01/24 09:37) vomiting nabumetone Adverse Reaction (Intermediate, Verified 10/01/24 09:37) sleepiness HPI HPI Chronic cough: Details: Doug is a pleasant 44-year-old, never smoker, with underlying GERD. She was initially referred for pulmonary evaluation for chronic cough that started after maisha the flu in March, ultimately treated with azithromycin, benzonatate and Delsym with notable improvements. Unfortunately cough persists on a daily basis, dry in nature, with associated dyspnea, chest tightness and wheezing. She also notes inability to fully inspire and paroxysmal nocturnal dyspnea. She reports question of asthma in the past however no official diagnosis and has upcoming PFT scheduled later this month. At the last visit, she was started on Arnuity and reports minimal improvement continues with dyspnea, wheezing, chest tightness and dry cough. She was recently in [place] and had worsening of symptoms likely related to climate changes, necessitating some medication intended to bronchodilate her, unknown which medication. She will call when she returns home to inform office of medication. She also endorsed uncontrolled reflux for quite some time and had GI appt for further evaluation, stopped Omeprazole and started on sucralfate as well as Nexium, at this time not sure if treatment changes have helped. COUNTS INCLUDE 234 BEDS AT THE [facility] Medical History Acute respiratory disease Breast calcification, right Chronic pelvic pain in female Pelvic pain Hyperlipidemia Hypertension Tubular adenoma Hernia of abdominal cavity PONV (postoperative nausea and vomiting) Morbid obesity Polyarthralgia Insomnia Moderate recurrent major depression Bloody stools Right sided sciatica Dyslipidemia Hypovitaminosis D Acute insomnia Constipation Bilateral hand numbness GERD (gastroesophageal reflux disease) Surgical History History of carpal tunnel surgery of right wrist History of cystoscopy History of right oophorectomy History of esophagogastroduodenoscopy (EGD) Hx of colonoscopy History of hernia surgery History of endometrial ablation Hx of hysterectomy History of carpal tunnel release History of tubal ligation Family History Father Hypertension Diabetes CVD (cardiovascular disease) Mother Hypertension Pancreatic cancer Mother Pancreatic cancer Maternal Aunt Thyroid cancer Maternal Aunt Stomach cancer Maternal Uncle Prostate cancer Social History Housing: Apartment Are you a primary care transition mgr to a significant other at home: No Do you presently have visiting nurse or other home services: No Alcohol intake: current Alcohol intake frequency: does not drink Alcohol type: wine Patient Tobacco Use Status: Never used Tobacco e-Cigarette/Vaping Use: Never Used Second Hand Smoke Exposure: No service: No Current occupational status: employed 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 Current occupational exposures/hazards: No Cognitive needs: No Hearing needs: No Vision needs: No Female Reproductive History Menstrual Age of Menarche: 13 Review of Systems Const Denies chills, Denies excessive sweating, Denies fever(s), Denies headache(s) and Denies night sweats Eyes Denies dry eyes, Denies irritation and Denies itchy eyes ENT Reports Normal hearing present, Denies headache(s), Denies nasal congestion, Denies nasal discharge, Denies post nasal drip and Denies sore throat Card Denies chest pain, Denies chest pain at rest, Denies chest pain with activity, Denies claudication, Denies leg edema and Denies orthopnea Resp Denies chest congestion, Denies excessive phlegm production, Denies pain on inspiration, Denies pain with cough and Denies stridor Musc Denies myalgias Neuro Reports Normal hearing present and Denies headache(s) Endo Denies excessive sweating Jose Antonio/Lymph Denies lymphadenopathy Aller/Immun Denies itchy eyes and Denies seasonal rhinorrhea Physical Exam Vital Signs: Last Vital Signs Pulse 81 10/01/24 09:34 BP 140/96 H 10/01/24 09:34 Pulse Ox 98 10/01/24 09:34 Oxygen Delivery Method Room Air 10/01/24 09:34 BMI result Body Mass Index 37.4 Const General: cooperative, healthy appearing, comfortable, no acute distress, well developed and alert Nutritional Appearance: obese Orientation/consciousness: patient oriented x3 Limitations: no limitations HEENT Head: Yes normal to inspection, Yes normocephalic and Yes atraumatic Ears: hearing grossly normal bilaterally and external ears normal Eyes General: appearance normal, both eyes and all related structures Eyelids: Yes eyelids normal Sclerae: sclerae normal EOM: EOMs intact bilaterally Neck Neck: Yes normal visual inspection and Yes no lymphadenopathy Lymphatic: no lymphadenopathy noted Chest Chest palpation & inspection: normal inspection of the chest Resp Other: diminished aeration Effort & Inspection: normal respiratory effort, able to speak in complete sentences, no audible wheezes, no cough, no stridor, not tachypneic, no tripod positioning and no use of accessory muscles Auscultation: clear to auscultation bilaterally Cardio Jugular venous distension: no JVD Rate: regular rate Rhythm: regular rhythm Skin Other: warm, dry General skin exam: no rashes or lesions noted Neuro General: patient oriented x3 Cranial nerves: Yes Normal hearing present Cognition (Neuro): normal cognition Gait exam (Neuro): Normal gait present Extrem General: Yes normal to inspection, Yes capillary refill normal, Yes no clubbing, cyanosis or edema and Yes no pedal edema Psych Appearance: grossly normal and well kempt Speech and movement: Normal speech and movement present and Clear speech present Affect: normal affect Attitude: cooperative Thought process: Normal thought process present Thought content: Normal thought content present Insight: Good insight present (Psych) Judgement: Good judgement present (Psych) Office Procedures Nebulizer Treatment Nebulizer Treatment [id number] RX initial, or Nebulizer Subsequent Treatment Office Meds albuterol sulfate 2.5 mg/3 mL (0.083 %) solution for nebulization Performing Provider: Lakshmi Harmon NP Performing Location: [facility] Administered by: Shelia Petty LPN on 10/01/24 09:55 Dose Route Admin Location Dispensed Lot Number Expiration Date NDC Development Architect 2.5 mg inhalation 3 mL [id number] 03/26/25 8376-4269-87 MYLAN Assessment & Plan Assessment & Plan (1) Reactive airway disease: Code(s): J45.909 - Unspecified asthma, uncomplicated Category: Medical (2) Chronic cough: Code(s): R05.3 - Chronic cough Category: Medical Plan Awaiting PFT which is scheduled in the next few weeks. Doug reports mild improvement in cough since initiating Arnuity and change in GI medications for reflux. Nebulized therapy given in office with significant improvement. Will switch Arnuity to Breo. All questions were answered patient is in agreement of plan. Will follow-up in 6-8 weeks or sooner if needed. Orders: Orders AMB Nebulizer Treatment Today J45.909 - Unspecified asthma, uncomplicated Medications: New fluticasone furoate-vilanterol 100-25 mcg/dose (Breo Ellipta) 1 inh inhalation DAILY 60 ea 3RF Discontinued fluticasone furoate 50 mcg/actuation (Arnuity Ellipta) Discontinued Reason: Patient Completed Course 1 inh inhalation Q24H 30 ea 3RF Coding Level of Care Code Est Pt Level 4 (97825) Diagnoses Reactive airway disease J45.909 Chronic cough R05.3 CPT Codes Nebulizer Treatment - Nebulizer Treatment, initial or subsequent: [id number] RX initial, or Nebulizer Subsequent Treatment ([id number])
--- OUTSIDE RECORDS SUMMARY | 2024-10-01 09:35 | XMS_ITS | Clinical Summary ---
Author Organization [facility] Address [address] [place] [address] Care Team Providers Care Shank Turner Name Role Phone Su Chairez PA-C Primary Care Provider [phone] Source Comments PLEASE NOTE, if this patient [...] Plan of Treatment Not on file Insurance [facility] ADITHYA Member Subscriber Plan / Payer (Ef fective 2012-Present) Name:Doug Monroy Relation to Subscriber:Self Name:Doug Monroy Payer ID:[id number] Group ID:Not on file Type:Medicaid Address: [facility] [id number] [place] [address] [facility] [place] [address] [facility] Care Teams Shank Turner Relationship Specialty Start Date End Date Su Chairez PA-C [address] [place] [address] PCP - General 11/17/12
== END 2024-10-01 10:05 | disposition home or self-care (01) ==
LOC: HO.HPSW 09:30
PROVIDERS: PCP Internal Medicine; Visit Provider Nurse Practitioner Family
DX: J45.909 Unspecified asthma, uncomplicated (principal); R05.3 Chronic cough
CPT/HCPCS: 99214

== ENCOUNTER → 2024-10-01 09:30 | Outpatient (BNVA) | payer OTHER, SELFPAY | PROVIDERS: PCP Internal Medicine; Visit Provider Nurse Practitioner Family | DX: R05.3 Chronic cough (principal); K21.9 Gastro-esophageal reflux disease without esophagitis; J45.909 Unspecified asthma, uncomplicated | CPT/HCPCS: 94640; 99212 ==

== ENCOUNTER 2024-10-02 14:38 | Emergency (ER) | payer OTHER, SELFPAY ==
--- NOTE | ~2024-10-02 | XR_ITS ---
CLINICAL HISTORY: CP 2 view chest x-ray Comparison: CR/SR - XR CHEST 2 VIEWS - 01/12/24 08:58 EST Findings: The lungs are clear. Normal size heart. No acute fracture. IMPRESSION: 1. No acute findings. This document has been electronically signed by: Shira Rob MD on 10/02/2024 15:53:48
--- NOTE | 2024-10-02 14:47 | ECG_ITS ---
Test Reason : CP Blood Pressure : */* mmHG Vent. Rate : 104 BPM Atrial Rate : 104 BPM P-R Int : 140 ms QRS Dur : 78 ms QT Int : 342 ms P-R-T Axes : 36 -10 2 degrees QTcB Int : 449 ms Sinus tachycardia Nonspecific T wave abnormality Abnormal ECG When compared with ECG of 15-Aug-2021 21:50, No significant change was found Referred By: Mikala Guo Electronically Signed By: SUSY ERIC
--- NOTE | 2024-10-02 15:00 | ED.CHESTPAIN ---
HPI - Chest Pain General Chief Complaint: Chest Pain Stated Complaint: CP, pain on left side of head, Time Seen by Provider: 10/02/24 16:54 History of Present Illness ED Provider: Chad OCHOA narrative: The patient is a 44-year-old woman with a history of hypertension, GERD, kidney stones, hyperlipidemia, and polyarthralgia who says that she has been prescribed hydrochlorothiazide for her blood pressure but has been told to take it only on an as-needed basis. I explained to that I was not sure what it meant to take antihypertensive medication on an as-needed basis. The patient says that she was told that sometimes her blood pressure is high and sometimes it is not high and she should only take it when it is high. She therefore checked her blood pressure frequently. She checked her blood pressure yesterday and it was high and she took her blood pressure medication. This morning she had some pain in her left upper chest and into her left neck and she also felt dizzy. She checked her blood pressure and it was high so she took her medication. She also felt that her heart was racing. Her blood pressure machine told her that her heart rate was 114. She felt somewhat dizzy and somewhat short of breath. She went to an urgent care and was advised to go to the emergency room. Real fever, sweats, chills. No cough or sputum. No abdominal pain, nausea, vomiting. She says that she has not had any swelling in her legs but that she has had some pains in her right leg recently. She describes these as ?electrical? pains. Related Data Previous Rx's ?Medication ?Instructions ?Recorded venlafaxine 37.5 mg 37.5 mg PO BEDTIME 30 days #30 caps 12/22/23 capsule,extended release 24 hr ibuprofen 600 mg tablet 600 mg PO Q8H PRN pain #20 tabs 04/30/24 bupropion HCl 150 mg 24 hr tablet, 150 mg PO QAM 90 days #90 tabs 06/21/24 extended release cholecalciferol (vitamin D3) 125 125 mcg PO DAILY 90 days #90 caps 06/21/24 mcg (5,000 unit) capsule bisacodyl 5 mg tablet,delayed 10 mg (2 x 5 mg) PO BEDTIME #180 07/05/24 release (Dulcolax (bisacodyl)) tabs hydrochlorothiazide 12.5 mg tablet 12.5 mg PO DAILY 90 days #90 tabs 08/31/24 esomeprazole magnesium 40 mg 40 mg PO DAILY #30 caps 09/13/24 capsule,delayed release (Nexium) hydrocortisone 2.5 % topical cream 1 appl TN QID PRN hemorrhoids #30 09/13/24 with perineal applicator grams (Anusol-HC) polyethylene glycol 3350 17 17 g PO DAILY #510 grams 09/13/24 gram/dose oral powder (Miralax) sucralfate 1 gram tablet 1 g PO BEDTIME #30 tabs 09/13/24 fluticasone furoate 100 1 inh inhalation DAILY #60 ea 10/01/24 mcg-vilanterol 25 mcg/dose inhalation powder (Breo Ellipta) Allergies Allergy/AdvReac Type Severity Reaction Status Date / Time hydrocodone (HYDROCODONE) Allergy Severe DIFFICULTY Verified 10/02/24 15:01 BREATHING codeine Allergy Intermediate shortness Verified 10/02/24 15:01 of breath cyclobenzaprine AdvReac Intermediate sleepiness Verified 10/02/24 15:01 docusate (From Colace) AdvReac Intermediate Vomiting, Verified 10/02/24 15:01 dizziness mirtazapine (Remeron) AdvReac Intermediate vomiting Verified 10/02/24 15:01 nabumetone AdvReac Intermediate sleepiness Verified 10/02/24 15:01 Review of Systems Review of Systems: Yes all other systems are reviewed and are negative [facility] Past Medical History Medical History Acute respiratory disease Breast calcification, right Chronic pelvic pain in female Pelvic pain Hyperlipidemia Hypertension Tubular adenoma Hernia of abdominal cavity PONV (postoperative nausea and vomiting) Morbid obesity Polyarthralgia Insomnia Moderate recurrent major depression Bloody stools Right sided sciatica Dyslipidemia Hypovitaminosis D Acute insomnia Constipation Bilateral hand numbness GERD (gastroesophageal reflux disease) Surgical History History of carpal tunnel surgery of right wrist History of cystoscopy History of right oophorectomy History of esophagogastroduodenoscopy (EGD) Hx of colonoscopy History of hernia surgery History of endometrial ablation Hx of hysterectomy History of carpal tunnel release History of tubal ligation Family History Family History Father Hypertension Diabetes CVD (cardiovascular disease) Mother Hypertension Pancreatic cancer Mother Pancreatic cancer Maternal Aunt Thyroid cancer Maternal Aunt Stomach cancer Maternal Uncle Prostate cancer Social History Social History Housing: Apartment Are you a primary career guidance technician to a significant other at home: No Do you presently have visiting nurse or other home services: No Alcohol intake: current Alcohol intake frequency: does not drink Alcohol type: wine Patient Tobacco Use Status: Never used Tobacco Smoked in Last 30 Days: No e-Cigarette/Vaping Use: Never Used Second Hand Smoke Exposure: No Use of substances other than those prescribed or required for medical reasons: No Advance Directives: No Advance Directives Information Provided: No Patient : No service: No Current occupational status: employed 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 She does not appear in obvious distress. Orientation/consciousness: patient oriented x3 HEENT: Other: The face is symmetrical. ?Mucous membranes moist. Eyes: Other: Pupils are round equal, conjunctivae are clear, extraocular movements intact Neck: Other: There is some left-sided neck tenderness. The neck is otherwise unremarkable. No JVD. Chest: Other: There is some left upper anterior chest wall tenderness. Resp: Effort & Inspection: normal respiratory effort Auscultation: clear to auscultation bilaterally Cardio: Rate: regular rate Rhythm: regular rhythm Heart sounds: S1 normal heart sound present and S2 normal heart sound present GI: Other: Abdomen is soft and nontender Skin: Other: The skin is dry and unremarkable Neuro: General: patient oriented x3, tone normal, moves all extremities, no focal motor deficits and CN's II-XI intact bilaterally Extrem: Other: No objective abnormality to the appearance of the lower legs and ankles. No edema. No asymmetry or swelling. She reports some tenderness to the right leg.. Course Course Course Narrative: This is an RME: Additional HPI, ROS, PE not included below will be deferred to primary provider. RME assessment and note performed by: Mikala Guo PA-C This is a 21-wcot-htm-female, with a hx of HTN, GERD, kidney stones, HLD, polyarthralgia, who presents to the ER with a complaint of left sided neck pain, dizziness, and chest pain since this morning. She reports that her pulse was elevated at 114bpm. Reports that 140s/90s at home. Reports that her PCP instruced her to only take HCTZ when her BP is high, took a dose yesterday and today. Plan: Labs, EKG, cxr Medications Administered Discontinued Medications Generic Name Dose Route Start Last Admin Trade Name Freq PRN Reason Stop Dose Admin Clonidine HCl 0.1 mg 10/02/24 17:13 10/02/24 17:48 Clonidine Hcl 0.1 Mg Tablet PO 10/02/24 17:14 0.1 mg ONCE ONE Administration Protocol Ketorolac Tromethamine 30 mg 10/02/24 17:13 10/02/24 17:47 Ketorolac Tromethamine 30 Mg/Ml Vial IM 10/02/24 17:14 30 mg ONCE ONE Administration Medical Decision Making Differential Diagnosis The patient is a 44-year-old woman who presents with a history of having had hypertension and tachycardia at home. She also complains of some left upper chest pain that extends into the left side of her neck in the left side of her head. Symptoms began this morning. She had checked her blood pressure which has been elevated and she had taken her prescribed hydrochlorothiazide. The patient 1st went to an urgent care and was then referred to the emergency room. On arrival the patient was mildly tachycardic with a heart rate of 104. Other vital signs were normal. EKG showed sinus tachycardia at 104 beats per minute. It is a nonischemic looking EKG. It was mildly tachycardic. She has a negative chest x-ray. Her white count is normal at 8.2, hemoglobin normal at 13.9, platelet count n,orm,al. Differential was normal with a 60% neutrophils, 31.8% lymphocytes. Chemistries showed mild transaminitis with an AST and ALT of 75. Otherwise unremarkable. Troponins are flat. The patient had a D-dimer of 233. This is extremely close to normal. My suspicion for pulmonary embolism is very low, prompted only by a mild tachycardia at triage. Otherwise the patient's description of her chest symptoms does not seem very suspicious for a pulmonary embolism. She had no significant complaints of chest pain. Given that a D-dimer of 233 is nearly normal I think this is sufficient to exclude DVT in his patient. I think the patient's pain is probably more musculoskeletal. She was given IM ketorolac as needed for pain. She was somewhat hypertensive and was given 0.1 mg of oral clonidine. Her vital signs improved. She felt considerably better after the Toradol. I think she may be discharged to follow up with the regular doctor. She should return to the emergency room if she feels worse. Lab Data 10/02/24 15:37 10/02/24 15:37 Labs: Lab Results 10/02/24 10/02/24 10/02/24 Range/Units 15:37 17:35 18:40 WBC 8.2 (4.8-10.8) X10*3/uL RBC 4.61 (4.20-5.50) X10*6/uL Hgb 13.9 (12.0-16.0) g/dl Hct 40.0 (37.0-47.0) % MCV 86.8 (80.0-98.0) fL MCH 30.2 (27.0-33.0) pg MCHC 34.8 (31.0-35.0) g/dl RDW 12.9 (11.0-16.0) % Plt Count 302 (160-400) X10*3/uL MPV 8.9 L (9.4-12.3) fL Immature Gran % (Auto) 0.1 (0.0-0.4) % Neut % (Auto) 60.0 (45-73) % Lymph % (Auto) 31.8 (20-40) % [place] % (Auto) 6.7 (2-11) % Eos % (Auto) 1.2 (0-4) % Baso % (Auto) 0.2 (0-2) % Lymph # (Auto) 2.6 (1.2-4.9) X10*3/uL [place] # (Auto) 0.6 (0.1-1.2) X10*3/uL Eos # (Auto) 0.1 (0.0-0.4) X10*3/uL Baso # (Auto) 0.0 (0.0-0.2) X10*3/uL Abs Immat Gran (auto) 0.01 (0.00-0.03) X10*3/uL Absolute Neuts (auto) 4.9 (2.0-8.3) x10*3/uL Absolute Nucleated RBC 0.000 (0.0-0.012) X10*3/uL Nucleated RBC % (auto) 0.0 (0.0-0.2) /100WBC D-Dimer High Sensitivty 233 NG/ML Sodium 136 (135-145) mmol/L Potassium 3.8 (3.3-5.1) mmol/L Chloride 100 (96-108) mmol/L Carbon Dioxide 25 (22-29) mmol/L Anion Gap 15 (12-20) BUN 15 (9-16) mg/dL Creatinine 0.71 (0.5-1.4) mg/dL Estim Creat Clear Calc 104.8 Estimated GFR > 60 Random Glucose 92 (60-115) mg/dL Calcium 10.0 D (8.4-10.2) mg/dL Magnesium 1.9 (1.6-2.6) mg/dL Total Bilirubin 0.5 (0.0-1.0) mg/dL Direct Bilirubin 0.2 (0.0-0.5) mg/dL AST 75 H (5-31) U/L ALT 75 H (0-31) U/L Alkaline Phosphatase 107 (39-117) U/L Troponin I High Sens < 2.7 3.2 (<3.5-17.0) ng/L Total Protein 9.1 H (6.5-8.0) g/dL Albumin 4.8 (3.5-5.0) g/dL TSH 3.00 (0.32-4.0) uIU/mL Independent Interpretation I performed an independent interpretation of an: EKG Interpretation: EKG at 14:46 shows sinus tachycardia at 104 beats per minute. No definite acute ischemic changes. No significant change from previous EKG. Discharge Plan Discharge Clinical Impression: Left-sided chest pain, Neck pain on left side, Left-sided headache, Hypertension Patient Disposition: Home, Self-Care Additional Instructions: Please continue to take your blood pressure every day for the next couple of weeks. Keep a written record of your blood pressures. I think you should probably consider taking your blood pressure medication every day unless your blood pressure is very good when you check it in the morning. Continue your other medications. Please contact your regular doctor's office on Friday to make a follow up appointment for today's symptoms. Return to the emergency room if you feel significantly worse. Prescriptions: No Action ibuprofen 600 mg tablet 600 mg PO Q8H PRN (Reason: pain) Qty: 20 0RF bisacodyl [Dulcolax (bisacodyl)] 5 mg tablet,delayed release (DR/EC) 10 mg PO BEDTIME Qty: 180 4RF hydrochlorothiazide 12.5 mg tablet 12.5 mg PO DAILY 90 Days Qty: 90 0RF fluticasone furoate-vilanterol [Breo Ellipta] 100-25 mcg/dose blister with device 1 inh inhalation DAILY Qty: 60 3RF venlafaxine 37.5 mg capsule,extended release 24hr 37.5 mg PO BEDTIME 30 Days Qty: 30 0RF bupropion HCl 150 mg tablet extended release 24 hr 150 mg PO QAM 90 Days Qty: 90 1RF cholecalciferol (vitamin D3) 125 mcg (5,000 unit) capsule 125 mcg PO DAILY 90 Days Qty: 90 1RF sucralfate 1 gram tablet 1 g PO BEDTIME Qty: 30 4RF hydrocortisone [Anusol-HC] 2.5 % cream with perineal applicator 1 appl TN QID PRN (Reason: hemorrhoids) Qty: 30 2RF esomeprazole magnesium [Nexium] 40 mg capsule,delayed release(DR/EC) 40 mg PO DAILY Qty: 30 3RF polyethylene glycol 3350 [Miralax] 17 gram/dose powder 17 g PO DAILY Qty: 510 2RF Referrals: Mirta Kitchen MD [Primary Care Provider, Internal Medicine] Interventions: ED Discharge Assessment Last Done: 10/02/24 19:22 Discharge Date/Time: 10/02/24 19:22 Print Language: East Timorese
[2024-10-02 15:01] VITALS: BP 127/78; PULSE 104; RESP 20; TEMP 36.6; O2SAT 97; BMI 36.6
[2024-10-02 15:42] LABS: MANUAL DIFF FLAG NO
[2024-10-02 15:43] LABS: Hematocrit 40.0 % (37.0-47.0); Hemoglobin 13.9 g/dl (12.0-16.0); Imm Gran Abs Auto 0.01 X10*3/uL (0.00-0.03); Imm Gran Pct Auto 0.1 % (0.0-0.4); Lymphocytes Absolute Auto 2.6 X10*3/uL (1.2-4.9); Mean Corpuscular HGB Conc 34.8 g/dl (31.0-35.0); Mean Corpuscular Hemoglobin 30.2 pg (27.0-33.0); Mean Corpuscular Volume 86.8 fL (80.0-98.0); NRBC Abs Auto 0.000 X10*3/uL (0.0-0.012); NRBC Pct Auto 0.0 /100WBC (0.0-0.2); Platelet Count 302 X10*3/uL (160-400); Red Blood Count 4.61 X10*6/uL (4.20-5.50); White Blood Count 8.2 X10*3/uL (4.8-10.8)
[2024-10-02 16:02] LABS: Alanine Aminotransferase 75 U/L (0-31); Albumin Level 4.8 g/dL (3.5-5.0); Alkaline Phosphatase 107 U/L (39-117); Anion Gap 15 (12-20); Aspartate Amino Transferase 75 U/L (5-31); Blood Urea Nitrogen 15 mg/dL (9-16); Calcium 10.0 mg/dL (8.4-10.2); Carbon Dioxide 25 mmol/L (22-29); Chloride 100 mmol/L (96-108); Creatinine Clr Calc Pharmacy 104.8; Estimated Glomerular Filt Rate > 60; Magnesium 1.9 mg/dL (1.6-2.6); Potassium 3.8 mmol/L (3.3-5.1); Sodium 136 mmol/L (135-145); Total Protein 9.1 g/dL (6.5-8.0)
[2024-10-02 16:04] LABS: Troponin-I High Sensitivity < 2.7 ng/L (<3.5-17.0)
[2024-10-02 16:45] VITALS: BP 153/86; PULSE 97; RESP 18; TEMP 36.9; O2SAT 97
--- OUTSIDE RECORDS SUMMARY | 2024-10-02 16:50 | XMS_ITS | Clinical Summary ---
Author Organization [facility] Address [address] [place] [address] Care Team Providers Care Boatbuilder Apprentice Wood Name Role Phone Su Chairez PA-C Primary Care Provider [phone] Source Comments PLEASE NOTE, if this patient [...] of Treatment Not on file Insurance [facility] ADITHYA Member Subscriber Plan / Payer (Ef fective 2012-Present) Name:Doug Monroy Relation to Subscriber:Self Name:Doug Monroy Payer ID:[id number] Group ID:Not on file Type:Medicaid Address: [facility] [id number] [place] [id number] [facility] [place] [address] [facility] Care Teams Boatbuilder Apprentice Wood Relationship Specialty Start Date End Date Su Chairez PA-C [address] [place] [address] PCP - General 11/17/12
[2024-10-02 17:48] VITALS: BP 139/89
[2024-10-02 18:06] LABS: Troponin-I High Sensitivity 3.2 ng/L (<3.5-17.0)
[2024-10-02 18:54] LABS: D Dimer High Sensitivity 233 NG/ML
[2024-10-02 19:22] VITALS: BP 107/78; PULSE 74; RESP 18; TEMP 36.8; O2SAT 97
== END 2024-10-02 19:22 | disposition home or self-care (01) ==
PROVIDERS: Physician Assistant Medical; Emergency Provider Emergency Medicine; PCP Internal Medicine
DX: R07.89 Other chest pain (principal); I10 Essential (primary) hypertension; R51.9 Headache, unspecified; M54.2 Cervicalgia; M79.604 Pain in right leg; E78.5 Hyperlipidemia, unspecified; R06.02 Shortness of breath
CPT/HCPCS: 36415; 71046; 80048; 80076; 83735; 84443; 84484; 85025; 85379; 93005; 96372; 99284; 99285; J1885

== ENCOUNTER → 2024-10-02 14:47 | Outpatient (BNV) | payer OTHER, SELFPAY | PROVIDERS: Emergency Provider Emergency Medicine; PCP Internal Medicine; Visit Provider Internal Medicine | DX: R00.0 Tachycardia, unspecified (principal) | CPT/HCPCS: 93010 ==

== ENCOUNTER → 2024-10-02 15:05 | Outpatient (BNV) | payer OTHER, SELFPAY | PROVIDERS: PCP Internal Medicine; Visit Provider Radiology Diagnostic Radiology | DX: R07.9 Chest pain, unspecified (principal) | CPT/HCPCS: 71046 ==

== ENCOUNTER 2024-10-03 20:30 | Emergency (ER) | payer OTHER, SELFPAY ==
[2024-10-03 20:39] VITALS: BP 165/86; PULSE 108; RESP 20; TEMP 36.6; O2SAT 95; BMI 36.7
--- NOTE | 2024-10-03 20:40 | ED_ITS ---
HPI - General Adult General Chief complaint: Headache Stated complaint: BP high, headache Time Seen by Provider: 10/04/24 02:10 Source: patient Mode of arrival: ambulatory Limitations: language barrier ([employer] services utilized.) History of Present Illness ED Provider: Chava RESENDIZ HPI narrative: The patient is a 44-year-old female with history of hypertension, hyperlipidemia, GERD, and BPPV presenting to the ED for evaluation of elevated blood pressure with associated intermittent headache, chest discomfort, and 1 episode of nonbloody vomitus. The patient was seen in this facility yesterday for similar complaints, workup was unremarkable and patient was discharged home. Patient reports she went home, took her blood pressure this morning which was mildly elevated, reports mild chest discomfort, patient took her blood pressure medication at noon, then reports around 19:00 she developed recurrent chest pressure with pain in the right neck radiating into the head. The patient reports blood pressure was 160/100, she became very nervous and anxious and vomited once. Patient came to the ED for re-evaluation, denies additional nausea or vomiting since that time. The patient denies associated focal neurological deficit, fever/chills, pleurisy, abdominal pain, recent sick contacts, or recent trauma. Patient reports she is been checking her blood pressure regularly since seeing her numerical analysis group manager on Friday. Patient advises up until Friday she has been largely noncompliant with her blood pressure medication. Related Data Previous Rx's ?Medication ?Instructions ?Recorded venlafaxine 37.5 mg 37.5 mg PO BEDTIME 30 days # 30 caps 12/22/23 capsule,extended release 24 hr ibuprofen 600 mg tablet 600 mg PO Q8H PRN pain #20 t abs 04/30/24 bupropion HCl 150 mg 24 hr tablet, 150 mg PO QAM 90 da ys #90 tabs 06/21/24 extended release cholecalciferol (vitamin D3) 125 125 mcg PO DAILY 90 d ays #90 caps 06/21/24 mcg (5,000 unit) capsule bisacodyl 5 mg tablet,delayed 10 mg (2 x 5 mg) PO BEDT MADELAINE #180 07/05/24 release (Dulcolax (bisacodyl)) tabs hydrochlorothiazide 12.5 mg tablet 12.5 mg PO DAILY 90 days #90 tabs 08/31/24 esomeprazole magnesium 40 mg 40 mg PO DAILY #30 caps 0 09/13/24 capsule,delayed release (Nexium) hydrocortisone 2.5 % topical cream 1 appl NV QID PRN h emorrhoids #30 09/13/24 with perineal applicator grams (Anusol-HC) polyethylene glycol 3350 17 17 g PO DAILY #510 grams 0 09/13/24 gram/dose oral powder (Miralax) sucralfate 1 gram tablet 1 g PO BEDTIME #30 tabs 08/25 03/20 fluticasone furoate 100 1 inh inhalation DAILY #60 e a 10/01/24 mcg-vilanterol 25 mcg/dose inhalation powder (Breo Ellipta) Allergies Allergy/AdvReac Type Severity Reaction Status Date / Time hydrocodone (HYDROCODONE) Allergy Severe DIFFICULTY Verified 10/03/24 20:41 BREATHING codeine Allergy Intermediate shortness Verified 10/03/24 20:41 of breath cyclobenzaprine AdvReac Intermediate sleepiness Verified 10/03/24 20:41 docusate (From Colace) AdvReac Intermediate Vomiting, Verified 10/03/24 20:41 dizziness mirtazapine (Remeron) AdvReac Intermediate vomiting Verified 10/03/24 20:41 nabumetone AdvReac Intermediate sleepiness Verified 10/03/24 20:41 Review of Systems 2 Review of Systems: Yes all other systems are reviewed and are negative [facility] Past Medical History Medical History Acute respiratory disease Breast calcification, right Chronic pelvic pain in female Pelvic pain Hyperlipidemia Hypertension Tubular adenoma Hernia of abdominal cavity PONV (postoperative nausea and vomiting) Morbid obesity Polyarthralgia Insomnia Moderate recurrent major depression Bloody stools Right sided sciatica Dyslipidemia Hypovitaminosis D Acute insomnia Constipation Bilateral hand numbness GERD (gastroesophageal reflux disease) Surgical History History of carpal tunnel surgery of right wrist History of cystoscopy History of right oophorectomy History of esophagogastroduodenoscopy (EGD) Hx of colonoscopy History of hernia surgery History of endometrial ablation Hx of hysterectomy History of carpal tunnel release History of tubal ligation Family History Family History Father Hypertension Diabetes CVD (cardiovascular disease) Mother Hypertension Pancreatic cancer Mother Pancreatic cancer Maternal Aunt Thyroid cancer Maternal Aunt Stomach cancer Maternal Uncle Prostate cancer Social History Social History Housing: Apartment Are you a primary youth career specialist to a significant other at home: No Do you presently have visiting nurse or other home services: No Alcohol intake: current Alcohol intake frequency: holidays/special occasions only Alcohol type: wine Patient Tobacco Use Status: Never used Tobacco Smoked in Last 30 Days: No e-Cigarette/Vaping Use: Never Used Second Hand Smoke Exposure: No Use of substances other than those prescribed or required for medical reasons: No Advance Directives: No Advance Directives Information Provided: No Do you have a plan to hurt others: No Plan Patient : No service: No Current occupational status: employed 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 Vital signs as documented. HEAD: Atraumatic, normocephalic. EYES: EOMs grossly intact, pupils equal, conjunctiva clear, no exudate. ENT: Nares patent, no discharge. Airway patent, no audible stridor, visible mucosa is pink and moist without noted lesions. NECK: Trachea is midline, no obvious masses or gross abnormalities. CHEST: Symmetric movement, normal appearance. LUNGS: LS present and CTAB, no w/r/r. Non-labored work of breathing. CARDIAC: Regular Rhythm, S1/S2 appreciated, no murmurs, rubs or gallops. ABDOMEN: Abdomen soft and non-tender x4 quadrants, no palpable masses or organomegaly. : Deferred. EXTREMITIES: Normal tone, moves all extremities spontaneously without reported pain. No obvious acute injury or deformity noted. NEURO: Alert and oriented x3, CN II-XII intact. Cerebellar Functioning intact. No sensory or motor deficits. Strength 5/5 x4. Speech clear and appropriate. PSYCH: normal affect, appropriate eye contact, fluid speech, with appropriate response to questioning. No reported suicidality or homicidality. SKIN: Warm, dry, color appropriate, normal turgor. No rashes noted. Course Course Course Narrative: Rapid medical examination performed in triage by Yaneli Powell PA-C. Patient is a 44 year old assigned female at presenting to the emergency department with a headache and elevated blood pressure. Detailed physical exam and review of systems are deferred to the semi automatic sewing machine operator. Labs ordered. Patient placed back in the waiting room pending room availability and results. Medical Decision Making Medical Decision Making [facility] Narrative: 3:13 AM 10/04/2024 (Arsh RESENDIZ): The patient is a 44-year-old female presenting to the ED for evaluation of hypertension with intermittent chest pressure, neck pain radiating to the head, and headache. The patient in the ED is in no acute distress, exam is benign, neurologic exam is unremarkable. The patient's EKG is nonischemic, troponin is negative, laboratory evaluation shows no leukocytosis, anemia, electrolyte abnormality, or RONEN. The patient's blood pressure has improved while in the ED. At this time there is no indication for emergent blood pressure reduction, admission, or continued observation. Patient will be discharged to follow up with PCP. Patient has been educated on taking her blood pressure medication in the morning, and waiting to recheck her blood pressure. Patient was also educated on expected duration of time for adequate blood pressure control since reinitiating her medications. Admission/Observation Consideration of admission/observation: Escalation of care including admission/observation considered Lab Data [facility] Lab Attestation statement: I reviewed the patient's lab results. 10/03/24 20:56 10/03/24 20:56 Labs: Lab Results 10/03/24 Range/Units 20:56 WBC 6.5 (4.8-10.8) X10*3/uL RBC 4.26 (4.20-5.50) X10*6/uL Hgb 13.0 (12.0-16.0) g/dl Hct 37.3 (37.0-47.0) % MCV 87.6 (80.0-98.0) fL MCH 30.5 (27.0-33.0) pg MCHC 34.9 (31.0-35.0) g/dl RDW 13.0 (11.0-16.0) % Plt Count 271 (160-400) X10*3/uL MPV 9.0 L (9.4-12.3) fL Immature Gran % (Auto) 0.3 (0.0-0.4) % Neut % (Auto) 64.4 (45-73) % Lymph % (Auto) 27.0 (20-40) % Adams % (Auto) 7.1 (2-11) % Eos % (Auto) 0.9 (0-4) % Baso % (Auto) 0.3 (0-2) % Lymph # (Auto) 1.8 (1.2-4.9) X10*3/uL Adams # (Auto) 0.5 (0.1-1.2) X10*3/uL Eos # (Auto) 0.1 (0.0-0.4) X10*3/uL Baso # (Auto) 0.0 (0.0-0.2) X10*3/uL Abs Immat Gran (auto) 0.02 (0.00-0.03) X10*3/uL Absolute Neuts (auto) 4.2 (2.0-8.3) x10*3/uL Absolute Nucleated RBC 0.000 (0.0-0.012) X10*3/uL Nucleated RBC % (auto) 0.0 (0.0-0.2) /100WBC Sodium 135 (135-145) mmol/L Potassium 3.9 (3.3-5.1) mmol/L Chloride 101 (96-108) mmol/L Carbon Dioxide 24 (22-29) mmol/L Anion Gap 14 (12-20) BUN 20 H (9-16) mg/dL Creatinine 0.90 (0.5-1.4) mg/dL Estim Creat Clear Calc 82.8 Estimated GFR > 60 Random Glucose 117 H (60-115) mg/dL Calcium 9.2 D (8.4-10.2) mg/dL Magnesium 1.9 (1.6-2.6) mg/dL Total Bilirubin 0.7 (0.0-1.0) mg/dL AST 62 H (5-31) U/L ALT 69 H (0-31) U/L Alkaline Phosphatase 98 (39-117) U/L Troponin I High Sens < 2.7 (<3.5-17.0) ng/L Total Protein 8.7 H (6.5-8.0) g/dL Albumin 4.6 (3.5-5.0) g/dL Independent Interpretation I performed an independent interpretation of an: EKG (EKG shows sinus tachycardia with a rate of 103, no evidence of acute ischemia, no ST elevation, no ectopy. QTC 445. Compared to previous on 10/02/2024 there are no acute morphology changes. ) External Record Review External record reviewed: Outpatient record Discharge Plan Discharge Clinical Impression: Essential hypertension Patient Disposition: Home, Self-Care Instructions: Heart Healthy Diet (ED), Chronic Hypertension (ED), Hypertension (ED) Additional Instructions: Sloane por elegir el [facility]art[facility]gencias del [facility] M?dico Hinckley para fernando atenci?n m?dica hoy. Afortunadamente, fernando evaluaci?n de laboratorio, electrocardiograma y examen de hoy no muestran evidencia de da?o en ?rganos eddie lance resultado de fernando presi?n arterial elevada. Dado que trena s?ntomas est?n mejorando con Tylenol y fernando evaluaci?n diagn?stica es tranquilizadora, actualmente no hay indicaci?n para jody reducci?n urgente de fernando presi?n arterial, ingreso al hospital ni observaci?n continua en urgencias, y es seguro darle de angel. Contin?e controlando fernando presi?n arterial; sin embargo, se recomienda que tome fernando medicamento para la presi?n arterial todas las ma?anas y espere aproximadamente jody hora antes de controlarla. Puede ewa dosis alternas (escalonadas) de ibuprofeno 600 mg y Tylenol 1000 mg cada 4 horas seg?n sea necesario para el dolor. Mant?ngase arash hidratado y descanse lo suficiente. Evite los alimentos y la dieta con alto contenido en hector. Consulte con fernando m?dico de cabecera para jody reevaluaci?n, un manejo adicional de trena s?ntomas y atenci?n preventiva continua. Si no tiene un m?dico de cabecera, llame a [facility] al [phone] para asignarle meredith nuevo. Mientras espera la asignaci?n de fernando nuevo m?dico de cabecera, puede llamar a nuestra Cl?vipul de Atenci?n Sin Tiffany Previa al [phone] para necesidades que no kb de emergencia. Regrese a urgencias si presenta un cambio repentino o grave en trena s?ntomas, fiebre superior a 38 ?C que no mejora con Tylenol o ibuprofeno, v?mitos recurrentes o cualquier otro s?ntoma o inquietud nuevo o que empeore. Thank you for choosing [facility]'s Emergency Department for your care today. Thankfully your laboratory evaluation, EKG, and exam today show no evidence of any end-organ damage as a result of your elevated blood pressure. Seeing as your symptoms are improving with Tylenol, and your workup is reassuring, there is currently no indication for emergent lowering of your blood pressure, admission to the hospital or continued ED observation, and it is safe to discharge you home. Please continue to monitor your blood pressure, however it is recommended that you take your blood pressure medication every morning and wait approximately 1 hour prior to checking your blood pressure. You may take alternating (staggered) doses of ibuprofen 600mg and Tylenol 1000mg every 4 hours as needed for any pain. Please stay well hydrated and get plenty of rest. Please avoid high salt foods/diet. Please follow up with your primary care physician for re-evaluation, additional management of your symptoms, and continued preventative care. If you do not have a primary care physician, please call the [facility] at [phone] to establish a new primary care physician. While waiting to establish your new primary care physician, you can call our Walk-in Care [facility] at [phone] for non-emergency needs. Please return to the emergency department if you develop a severe or sudden change in your symptoms, a fever over 100.4 that does not improve with Tylenol or Ibuprofen, recurrent vomiting, or any other new or worsening symptoms or concerns. Prescriptions: No Action ibuprofen 600 mg tablet 600 mg PO Q8H PRN (Reason: pain) Qty: 20 0RF bisacodyl [Dulcolax (bisacodyl)] 5 mg tablet,delayed release (DR/EC) 10 mg PO BEDTIME Qty: 180 4RF hydrochlorothiazide 12.5 mg tablet 12.5 mg PO DAILY 90 Days Qty: 90 0RF fluticasone furoate-vilanterol [Breo Ellipta] 100-25 mcg/dose blister with device 1 inh inhalation DAILY Qty: 60 3RF venlafaxine 37.5 mg capsule,extended release 24hr 37.5 mg PO BEDTIME 30 Days Qty: 30 0RF bupropion HCl 150 mg tablet extended release 24 hr 150 mg PO QAM 90 Days Qty: 90 1RF cholecalciferol (vitamin D3) 125 mcg (5,000 unit) capsule 125 mcg PO DAILY 90 Days Qty: 90 1RF sucralfate 1 gram tablet 1 g PO BEDTIME Qty: 30 4RF hydrocortisone [Anusol-HC] 2.5 % cream with perineal applicator 1 appl NV QID PRN (Reason: hemorrhoids) Qty: 30 2RF esomeprazole magnesium [Nexium] 40 mg capsule,delayed release(DR/EC) 40 mg PO DAILY Qty: 30 3RF polyethylene glycol 3350 [Miralax] 17 gram/dose powder 17 g PO DAILY Qty: 510 2RF Referrals: Mirta Kitchen MD [Primary Care Provider, Internal Medicine] Clinical Impression: Essential hypertension Print Language: Moroccan
--- NOTE | 2024-10-03 20:41 | ECG_ITS ---
Test Reason : HTN Blood Pressure : */* mmHG Vent. Rate : 103 BPM Atrial Rate : 103 BPM P-R Int : 146 ms QRS Dur : 80 ms QT Int : 340 ms P-R-T Axes : 15 -10 14 degrees QTcB Int : 445 ms Sinus tachycardia Nonspecific T wave abnormality Abnormal ECG When compared with ECG of 02-Oct-2024 14:46, No significant change was found Referred By: Yaneli Powell Electronically Signed By: Juan Gtz
[2024-10-03 21:00] LABS: MANUAL DIFF FLAG NO
[2024-10-03 21:01] LABS: Hematocrit 37.3 % (37.0-47.0); Hemoglobin 13.0 g/dl (12.0-16.0); Imm Gran Abs Auto 0.02 X10*3/uL (0.00-0.03); Imm Gran Pct Auto 0.3 % (0.0-0.4); Lymphocytes Absolute Auto 1.8 X10*3/uL (1.2-4.9); Mean Corpuscular HGB Conc 34.9 g/dl (31.0-35.0); Mean Corpuscular Hemoglobin 30.5 pg (27.0-33.0); Mean Corpuscular Volume 87.6 fL (80.0-98.0); NRBC Abs Auto 0.000 X10*3/uL (0.0-0.012); NRBC Pct Auto 0.0 /100WBC (0.0-0.2); Platelet Count 271 X10*3/uL (160-400); Red Blood Count 4.26 X10*6/uL (4.20-5.50); White Blood Count 6.5 X10*3/uL (4.8-10.8)
[2024-10-03 21:13] LABS: Alanine Aminotransferase 69 U/L (0-31); Albumin Level 4.6 g/dL (3.5-5.0); Alkaline Phosphatase 98 U/L (39-117); Anion Gap 14 (12-20); Aspartate Amino Transferase 62 U/L (5-31); Blood Urea Nitrogen 20 mg/dL (9-16); Calcium 9.2 mg/dL (8.4-10.2); Carbon Dioxide 24 mmol/L (22-29); Chloride 101 mmol/L (96-108); Creatinine Clr Calc Pharmacy 82.8; Estimated Glomerular Filt Rate > 60; Magnesium 1.9 mg/dL (1.6-2.6); Potassium 3.9 mmol/L (3.3-5.1); Sodium 135 mmol/L (135-145); Total Protein 8.7 g/dL (6.5-8.0)
[2024-10-03 21:20] LABS: Troponin-I High Sensitivity < 2.7 ng/L (<3.5-17.0)
[2024-10-04 00:34] VITALS: BP 142/86; PULSE 91; RESP 18; TEMP 36.8; O2SAT 97
[2024-10-04 03:30] VITALS: BP 142/86; PULSE 91; RESP 18; TEMP 36.8; O2SAT 97
== END 2024-10-04 03:30 | disposition home or self-care (01) ==
PROVIDERS: Physician Assistant Medical; Emergency Provider Emergency Medicine; PCP Internal Medicine
DX: R51.9 Headache, unspecified (principal); M54.2 Cervicalgia; R00.0 Tachycardia, unspecified; R11.10 Vomiting, unspecified; I10 Essential (primary) hypertension
CPT/HCPCS: 36415; 80053; 83735; 84484; 85025; 93005; 99283; 99284

== ENCOUNTER → 2024-10-03 20:41 | Outpatient (BNV) | payer OTHER, SELFPAY | PROVIDERS: Emergency Provider Emergency Medicine; PCP Internal Medicine; Visit Provider Internal Medicine Cardiovascular Disease | DX: R00.0 Tachycardia, unspecified (principal) | CPT/HCPCS: 93010 ==

== ENCOUNTER 2024-10-19 14:25 | Outpatient (AMB) | payer OTHER, SELFPAY ==
--- NOTE | 2024-10-19 14:38 | MHC.OFFVIS ---
Vital Signs 10/19/24 14:40 Height 5 ft 2 in Weight 200 lb BMI 36.6 BP 118/64 Blood Pressure Location Rt brachial Position Sitting Pulse 84 Pulse Source Pulse Oximeter Pulse Oximetry (%) 97 Oxygen Delivery Method Room Air Intake Visit Reasons: 5w Intake Note: Est pt for mgmt of CIC + abd pain. CC; Pt denies any significant GI changes since last visit. Pt states she is doing well overall since last visit and has been doing OK with the new therapy. Rug Scratcher Required: Yes Rug Scratcher Services: Rug Scratcher Present Rug Scratcher Name: Sandoval [id number] Information Interpreted: clinical only Accompanied by: Self / Same As Patient Allergies hydrocodone (HYDROCODONE) Allergy (Severe, Verified 10/22/24 15:07) DIFFICULTY BREATHING codeine Allergy (Intermediate, Verified 10/22/24 15:07) shortness of breath cyclobenzaprine Adverse Reaction (Intermediate, Verified 10/22/24 15:07) sleepiness docusate (From Colace) Adverse Reaction (Intermediate, Verified 10/22/24 15:07) Vomiting, dizziness mirtazapine (Remeron) Adverse Reaction (Intermediate, Verified 10/22/24 15:07) vomiting nabumetone Adverse Reaction (Intermediate, Verified 10/22/24 15:07) sleepiness HPI HPI 5w: Details: LAST VISIT: GERD (gastroesophageal reflux disease) Hepatic steatosis Constipation Bloody stools Postprandial epigastric pain Plan Stop pantoprazole and start Nexium. Patient will take sucralfate at bedtime. Avoid dietary triggers and like and sacrum. Staying upright for minimal 3 hours after meals discussed with patient. May use Anusol to help with hemorrhoids. Patient will start taking MiraLax in addition to taking Dulcolax. Increase fluid intake and activity to promote better bowel motility. Discussed with patient eating small meals and more frequently. Patient will follow-up in 2 months, sooner on as needed basis. She is agreeable to this plan and verbalizes understanding of instructions. She was given the opportunity to ask questions and all questions answered. ? Thank you for allowing me to participate in her care New esomeprazole magnesium (Nexium) 40 mg PO DAILY 30 caps 3RF K21.9 polyethylene glycol 3350 (Miralax) 17 grams PO DAILY 510 grams 2RF hydrocortisone 2.5% (Anusol-HC) 1 appl UT QID PRN 30 grams 2RF hemorrhoids K64.9 sucralfate 1 g PO BEDTIME 30 tabs 4RF R19.7 Discontinued famotidine Discontinued Reason: Doctor's Order 40 mg PO BEDTIME 90 tabs 3RF K21.9 pantoprazole take one tablet half an hour before breakfast Discontinued Reason: Doctor's Order 40 mg PO DAILY 90 tabs 2RF K21.9 TODAY'S VISIT Patient is here today for follow-up. Patient reports that she has been doing well since last visit. Patient is taking Nexium in the morning and sucralfate at bedtime. Patient denies any acid reflux, dyspepsia, dysphagia or odynophagia. Patient would like to get a referral to bariatric surgery for weight loss. Patient reports that she is moving her bowels well without any issues. Patient had colonoscopy in June of 2022 1 tubular adenoma found. Recommendation for 5 you will follow-up. Patient reports that she has been doing well. [facility] Medical History (Reviewed 10/19/24 @ 15:07 by Neptali Jacobsen [facility]) Acute respiratory disease Breast calcification, right Chronic pelvic pain in female Pelvic pain Hyperlipidemia Hypertension Tubular adenoma Hernia of abdominal cavity PONV (postoperative nausea and vomiting) Morbid obesity Polyarthralgia Insomnia Moderate recurrent major depression Bloody stools Right sided sciatica Dyslipidemia Hypovitaminosis D Acute insomnia Constipation Bilateral hand numbness GERD (gastroesophageal reflux disease) Surgical History History of carpal tunnel surgery of right wrist History of cystoscopy History of right oophorectomy History of esophagogastroduodenoscopy (EGD) Hx of colonoscopy History of hernia surgery History of endometrial ablation Hx of hysterectomy History of carpal tunnel release History of tubal ligation Family History Father Hypertension Diabetes CVD (cardiovascular disease) Mother Hypertension Pancreatic cancer Mother Pancreatic cancer Maternal Aunt Thyroid cancer Maternal Aunt Stomach cancer Maternal Uncle Prostate cancer Social History Housing: Apartment Are you a primary daycare assistant to a significant other at home: No Do you presently have visiting nurse or other home services: No Alcohol intake: current Alcohol intake frequency: holidays/special occasions only Alcohol type: wine Patient Tobacco Use Status: Never used Tobacco e-Cigarette/Vaping Use: Never Used Second Hand Smoke Exposure: No service: No Current occupational status: employed 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 Current occupational exposures/hazards: No Cognitive needs: No Hearing needs: No Vision needs: No Female Reproductive History Menstrual Age of Menarche: 13 Review of Systems Const Denies weight gain and Denies weight loss ENT Reports no additional complaints, Denies dysphagia and Denies odynophagia Card Reports no additional complaints Resp Reports no additional complaints GI Denies abdominal pain, Denies belching, Denies melena, Denies bloating, Denies change in bowel habits, Denies dysphagia, Denies excessive flatus, Denies dyspepsia, Denies heartburn, Denies diarrhea, Denies loose stools, Denies nausea, Denies odynophagia and Denies vomiting Musc Reports no additional complaints Neuro Reports no additional complaints Psych Reports no additional complaints Endo Reports no additional complaints Physical Exam Vital Signs: Last Vital Signs Pulse 84 10/19/24 14:40 BP 118/64 10/19/24 14:40 Pulse Ox 97 10/19/24 14:40 Oxygen Delivery Method Room Air 10/19/24 14:40 BMI result Body Mass Index 36.6 Const General: healthy appearing, no acute distress and well developed Nutritional Appearance: obese Orientation/consciousness: patient oriented x3 Resp Effort & Inspection: normal respiratory effort, able to speak in complete sentences, no tracheal deviation and symmetric chest movement Auscultation: clear to auscultation bilaterally Cardio Rate: regular rate GI Other: Postsurgical laparoscopic scars. Abdominal wall incisional hernia Inspection: No distended and Yes obesity Palpation (GI): Soft to palpation, not firm, nontender and No hepatosplenomegaly present Auscultation: normal bowel sounds General: Yes no CVA tenderness Back/Spine/Pelvis Back: no CVA tenderness Skin General skin exam: elasticity normal, turgor normal and dry skin Neuro General: patient oriented x3 Psych Appearance: grossly normal Mental Status: mental status grossly normal Assessment & Plan Assessment & Plan (1) GERD (gastroesophageal reflux disease): Code(s): K21.9 - Gastro-esophageal reflux disease without esophagitis Category: Medical Qualifiers: Esophagitis presence: esophagitis presence not specified Qualified Code(s): K21.9 - Gastro-esophageal reflux disease without esophagitis (2) Hepatic steatosis: Code(s): K76.0 - Fatty (change of) liver, not elsewhere classified Category: Medical (3) Constipation: Code(s): K59.00 - Constipation, unspecified Category: Medical Qualifiers: Constipation type: slow transit constipation Qualified Code(s): K59.01 - Slow transit constipation Plan Referral to bariatric surgeons for initial consultation for weight loss surgery. Patient will continue taking Nexium in the morning and sucralfate at bedtime. Patient was encouraged to avoid dietary triggers and late night snacking. Staying upright for minimum 3 hours after meals discussed with patient. Increase fluid intake and activity to promote better bowel motility. Patient will follow-up in 6 months, sooner on as needed basis. She is agreeable to this plan and verbalizes understanding of instructions. She was given the opportunity to ask questions and all questions answered. Thank you for allowing me to participate in her care Orders: Referrals Bariatric Surgery Referral E66.01 - Morbid (severe) obesity due to excess calories Medications: Refilled esomeprazole magnesium (Nexium) 40 mg PO DAILY 90 caps 3RF K21.9 - Gastro-esophageal reflux disease without esophagitis sucralfate 1 g PO BEDTIME 90 tabs 4RF R19.7 - Diarrhea, unspecified Coding Level of Care Code Est Pt Level 4 (01552) Complex EM visit Add On G2211 Diagnoses Gastroesophageal reflux disease, unspecified whether esophagitis present K21.9 Esophagitis presence: esophagitis presence not specified Hepatic steatosis K76.0 Slow transit constipation K59.01 Constipation type: slow transit constipation Time Spent (min) 35 Comment 25 minutes spent with patient and additional 10 minutes spent reviewing
[2024-10-19 14:40] VITALS: BP 118/64; PULSE 84; O2SAT 97; BMI 36.6
--- OUTSIDE RECORDS SUMMARY | 2024-10-19 15:25 | XMS_ITS | Clinical Summary ---
Author Organization [facility] Address [address] [place] [address] Care Team Providers Care Kick Boxer Name Role Phone Su Chairez PA-C Primary Care Provider [phone] Source Comments PLEASE NOTE, if this patient [...] Plan of Treatment Not on file Insurance [facility] ADITHYA Member Subscriber Plan / Payer (Ef fective 2012-Present) Name:Doug Monroy Relation to Subscriber:Self Name:Doug Monroy Payer ID:[id number] Group ID:Not on file Type:Medicaid Address: [facility] [id number] [place] [address] [place] [address] [facility] Care Teams Kick Boxer Relationship Specialty Start Date End Date Su Chairez PA-C [address] [place] [address] PCP - General 11/17/12
== END 2024-10-19 15:28 | disposition home or self-care (01) ==
LOC: HO.HGI 14:25
PROVIDERS: PCP Internal Medicine; Visit Provider Nurse Practitioner Family
DX: K21.9 Gastro-esophageal reflux disease without esophagitis (principal); K76.0 Fatty (change of) liver, not elsewhere classified; K59.01 Slow transit constipation
CPT/HCPCS: 99214

== ENCOUNTER → 2024-10-19 14:25 | Outpatient (BNVA) | payer OTHER, SELFPAY | PROVIDERS: PCP Internal Medicine; Visit Provider Nurse Practitioner Family | DX: K21.9 Gastro-esophageal reflux disease without esophagitis (principal); K76.0 Fatty (change of) liver, not elsewhere classified; K59.01 Slow transit constipation | CPT/HCPCS: 99212 ==

== ENCOUNTER 2024-10-22 09:28 | Outpatient (REF) | payer OTHER, SELFPAY ==
--- NOTE | 2024-10-22 10:12 | PFT_ITS ---
Flows: FEV1: 86 % of predicted at 2.31 L FVC: 81 % of predicted at 2.68 L FEV1/FVC: 86 % Bronchodilator response: Absent Volumes: Total lung capacity: 84 % of predicted at 4.10 L Residual volume: 107 % of predicted at 1.40 L Slow vital capacity: 75 % of predicted at 2.70 L Expiratory reserve volume: 21 % of predicted at 0.22 L Diffusion capacity: Normal Impression: No obstructive or restrictive ventilatory defect. No bronchodilator response. Decreased expiratory reserve volume suggests extrathoracic restriction likely secondary to abdominal obesity. MTDD
--- OUTSIDE RECORDS SUMMARY | 2024-10-22 10:16 | XMS_ITS | Clinical Summary ---
Author Organization [facility] Address [address] [place] [address] Care Team Providers Care Floor Specialist Name Role Phone Su Chairez PA-C Primary Care Provider [phone] Source Comments PLEASE NOTE, if this patient [...] Plan of Treatment Not on file Insurance [facility] ADITHYA Member Subscriber Plan / Payer (Ef fective 2012-Present) Name:Doug Monroy Relation to Subscriber:Self Name:Doug Monroy Payer ID:[id number] Group ID:Not on file Type:Medicaid Address: [facility] [id number] [place] [address] [facility] [place] [address] [facility] Care Teams Floor Specialist Relationship Specialty Start Date End Date Su Chairez PA-C [address] [place] [address] PCP - General 11/17/12
[2024-10-22 10:54] VITALS: PULSE 74; O2SAT 100
== END 2024-10-22 09:29 | disposition home or self-care (01) ==
LOC: HO.RESP 09:28
PROVIDERS: PCP Internal Medicine; Visit Provider Nurse Practitioner Family
DX: R05.3 Chronic cough (principal); I10 Essential (primary) hypertension
CPT/HCPCS: 94010; 94640; 94727; 94729; 99212

== ENCOUNTER → 2024-10-22 10:12 | Outpatient (BNV) | payer OTHER, SELFPAY | PROVIDERS: PCP Internal Medicine; Visit Provider Internal Medicine Pulmonary Disease | DX: J45.909 Unspecified asthma, uncomplicated (principal) | CPT/HCPCS: 94060; 94727; 94729 ==

== ENCOUNTER 2024-10-22 15:02 | Outpatient (AMB) | payer OTHER, SELFPAY ==
--- NOTE | 2024-10-22 15:06 | MHC.PC.OV ---
Vital Signs 10/22/24 15:07 10/22/24 15:45 Height 5 ft 2 in Weight 200 lb 6 oz BMI 36.6 BP 132/82 130/85 Blood Pressure Location Lt brachial Lt brachial Position Sitting Sitting Pulse 93 Pulse Source Pulse Oximeter Temp 97.3 F Temp Source Temporal Artery Scan Pulse Oximetry (%) 95 Oxygen Delivery Method Room Air Intake Visit Reasons: [facility] 10/02 Headache/high BP Intake Note: Patient is here to follow-up after a visit the emergency department at [facility] on 10/02/24 Marketing Services Vice President Required: Yes Marketing Services Vice President Language: Terminal Operator Name: Edie ([id number]) Information Interpreted: non-clinical & clinical Counseling Program Leader: Not Required per policy Accompanied by: Self / Same As Patient Allergies hydrocodone (HYDROCODONE) Allergy (Severe, Verified 10/22/24 15:07) DIFFICULTY BREATHING codeine Allergy (Intermediate, Verified 10/22/24 15:07) shortness of breath cyclobenzaprine Adverse Reaction (Intermediate, Verified 10/22/24 15:07) sleepiness docusate (From Colace) Adverse Reaction (Intermediate, Verified 10/22/24 15:07) Vomiting, dizziness mirtazapine (Remeron) Adverse Reaction (Intermediate, Verified 10/22/24 15:07) vomiting nabumetone Adverse Reaction (Intermediate, Verified 10/22/24 15:07) sleepiness Tobacco use date assessed: 10/22/24 Dental Screening Dental Screen Date: 06/21/24 HPI HPI Comments History of Present Illness Details 44 y/o Female Patient who presents to the clinic for EDF. She was admitted at [facility] on 10/02 and the 10/03 for an evaluation and treatment of Elevated BP. Pt is diagnosed with HTN and currently prescribed HCTZ 12.5 mg. Pt was not taking her medication Daily only as needed - when BP is elevated. Today reports taking medication everyday in the morning - denies Headaches, dizziness, lightheadedness, SOB, or CP. [facility] Medical History Acute respiratory disease Breast calcification, right Chronic pelvic pain in female Pelvic pain Hyperlipidemia Hypertension Tubular adenoma Hernia of abdominal cavity PONV (postoperative nausea and vomiting) Morbid obesity Polyarthralgia Insomnia Moderate recurrent major depression Bloody stools Right sided sciatica Dyslipidemia Hypovitaminosis D Acute insomnia Constipation Bilateral hand numbness GERD (gastroesophageal reflux disease) Surgical History History of carpal tunnel surgery of right wrist History of cystoscopy History of right oophorectomy History of esophagogastroduodenoscopy (EGD) Hx of colonoscopy History of hernia surgery History of endometrial ablation Hx of hysterectomy History of carpal tunnel release History of tubal ligation Family History Father Hypertension Diabetes CVD (cardiovascular disease) Mother Hypertension Pancreatic cancer Mother Pancreatic cancer Maternal Aunt Thyroid cancer Maternal Aunt Stomach cancer Maternal Uncle Prostate cancer Social History Housing: Apartment Are you a primary reproductive healthcare assistant to a significant other at home: No Do you presently have visiting nurse or other home services: No Alcohol intake: current Alcohol intake frequency: holidays/special occasions only Alcohol type: wine Patient Tobacco Use Status: Never used Tobacco e-Cigarette/Vaping Use: Never Used Second Hand Smoke Exposure: No service: No Current occupational status: employed 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 Current occupational exposures/hazards: No Cognitive needs: No Hearing needs: No Vision needs: No Female Reproductive History Menstrual Age of Menarche: 13 Questionnaire Thrive Questionnaire Date Thrive assessed: 06/21/24 I am a: Patient What is your living situation today?: I have a steady place to live Within the past 12 months, did the food you bought not last and you didn't have the money to get more?: Often true Within the past 12 months, did you worry whether your food would run out before you got money to buy more?: Often true Do you have trouble paying for medicines?: Yes Do you have trouble getting transportation to medical appointments?: No Do you have trouble paying your heating and electricity bill?: Yes Do you have trouble taking care of your child, family member or friend?: No Do you have trouble with day-to-day activities such as bathing, preparing meals, shopping, managing finances, etc.?: No Are you currently unemployed and looking for a job?: No Are you interested in more education?: Yes Currently or been in a relationship where the following occur: No concerns reported THRIVE Score: 3 AUDIT C Alcohol Use Questionnaire (AUDIT-C) 2. How many drinks containing alcohol do you have on a typical day when you are drinking?: 3 or 4 3. How often do you have six or more drinks on one occasion?: Never Total Score: 1 MAR-7 AMB Questionnaire MAR-7 Date MAR - 7 assessed: 06/21/24 Source: Developed by Drs. Connor Wise, Antonieta Schreiber, Pa Garrison and colleagues, with an educational dania from [employer]. Review of Systems Const All systems reviewed & are unremarkable except as noted in HPI and below Physical exam (Primary Care) Vital Signs: Last Vital Signs Temp 97.3 F 10/22/24 15:07 Pulse 93 10/22/24 15:07 BP 130/85 10/22/24 15:45 Pulse Ox 95 10/22/24 15:07 Oxygen Delivery Method Room Air 10/22/24 15:07 BMI result Body Mass Index 36.6 Tobacco/Smoking Status: Tobacco use Status Tobacco use date assessed 10/22/24 10/22/24 15:13 Patient Tobacco Use Status Never used Tobacco 10/22/24 15:13 Tobacco use type 09/13/24 15:42 e-Cigarette/Vaping Use Never Used 10/22/24 15:13 Thrive Assessment: Date of Thrive Assessment Date Thrive assessed 06/21/24 10/22/24 15:13 Currently or been in a relationship where the following occur: No concerns reported Const General: no acute distress Nutritional Appearance: overweight Orientation/consciousness: patient oriented x3 HENMT Head: Yes normocephalic Resp Effort & Inspection: normal respiratory effort Auscultation: clear to auscultation bilaterally, no crackles, no rales, no rhonchi and no wheezes Cardio Heart sounds: S1 normal heart sound present and S2 normal heart sound present Neuro General: patient oriented x3 Coding Level of Care Code Est Pt Level 4 (24996) Diagnoses Essential hypertension I10 Time Spent (min) 20 Assessment & Plan Assessment & Plan (1) Essential hypertension: Code(s): I10 - Essential (primary) hypertension Category: Medical Plan: Continue Taking HCTZ 12.5mg as prescribed. Lifestyle changes; Weight loss, DASH diet, daily exercise.
[2024-10-22 15:07] VITALS: BP 132/82; PULSE 93; TEMP 36.3; O2SAT 95; BMI 36.6
[2024-10-22 15:45] VITALS: BP 130/85
== END 2024-10-22 15:45 | disposition home or self-care (01) ==
LOC: HO.HMCH 15:04
PROVIDERS: PCP Internal Medicine; Visit Provider Nurse Practitioner Family
DX: I10 Essential (primary) hypertension (principal)

== ENCOUNTER 2024-11-19 14:24 | Outpatient (REF) | payer OTHER, SELFPAY ==
--- OUTSIDE RECORDS SUMMARY | 2024-11-19 16:13 | XMS_ITS | Clinical Summary ---
Author Organization [facility] Address [address] [place] [address] Care Team Providers Care Clinical Application Consultant Name Role Phone Su Chairez PA-C Primary Care Provider [phone] Source Comments PLEASE NOTE, if this patient [...] Plan of Treatment Not on file Insurance [facility] ADITHYA Member Subscriber Plan / Payer (Ef fective 2012-Present) Name:Doug Monroy Relation to Subscriber:Self Name:Doug Monroy Payer ID:[id number] Group ID:Not on file Type:Medicaid Address: [facility] [id number] [place] [address] [facility] [place] [address] [facility] Care Teams Clinical Application Consultant Relationship Specialty Start Date End Date Su Chairez PA-C [address] [place] [address] PCP - General 11/17/12
[2024-11-19 18:02] LABS: MANUAL DIFF FLAG NO
[2024-11-19 18:13] LABS: Hematocrit 35.0 % (37.0-47.0); Hemoglobin 11.7 g/dl (12.0-16.0); Imm Gran Abs Auto 0.01 X10*3/uL (0.00-0.03); Imm Gran Pct Auto 0.1 % (0.0-0.4); Lymphocytes Absolute Auto 2.3 X10*3/uL (1.2-4.9); Mean Corpuscular HGB Conc 33.4 g/dl (31.0-35.0); Mean Corpuscular Hemoglobin 30.3 pg (27.0-33.0); Mean Corpuscular Volume 90.7 fL (80.0-98.0); NRBC Abs Auto 0.000 X10*3/uL (0.0-0.012); NRBC Pct Auto 0.0 /100WBC (0.0-0.2); Platelet Count 255 X10*3/uL (160-400); Red Blood Count 3.86 X10*6/uL (4.20-5.50); White Blood Count 8.1 X10*3/uL (4.8-10.8)
[2024-11-24 03:09] LABS: Class Alternaria alternata 0; Class Aspergillus fumigatus 0; Class Bermuda Grass 1; Class Birch 2; Class Cat Dander 0; Class Cladosporium herbarum 0; Class Cockroach 2; Class Common Ragweed 1; Class Cottonwood 1; Class Derm. pterony 2; Class Dermatophagoides farinae 2; Class Dog Dander 1; Class Elm 2; Class Maple Box Elder 2; Class Mountain Cedar 1; Class Mouse Urine Protein 0; Class Mugwort 0/1; Class Oak 1; Class Penicillium crysogenum 0; Class Rough Pigweed 0/1; Class Sheep Sorrel 0/1; Class Sycamore 2; Class Timothy Grass 1; Class Walnut Tree 2; Class White Ash 1; Class White Mulberry 0/1; D002 - IgE D farinae 0.92 kU/L; E001 - IgE Cat Dander <0.10 kU/L; E005 - IgE Dog Dander 0.45 kU/L; G006 - IgE Timothy Grass 0.49 kU/L; I006-IgE Cockroach, German 1.81 kU/L; M002 - IgE Cladosporium herbar <0.10 kU/L; M003 - IgE Aspergillus fumigat <0.10 kU/L; M006 - IgE Alternaria alternat <0.10 kU/L; T001 IgE Maple/Box Elder 0.75 kU/L; T006 - IgE Cedar, Mountain 0.38 kU/L; T007 - IgE Oak, White 0.47 kU/L; T008 IgE Elm, American 0.96 kU/L; T010 - IgE Walnut 0.74 kU/L; T011 - IgE Maple Leaf Sycamore 0.83 kU/L; T014 - IgE Cottonwood 0.56 kU/L; T015 - IgE Ash, White 0.53 kU/L; T070 - IgE White Mulberry 0.30 kU/L; W001 - IgE Ragweed, Short 0.69 kU/L; W006 - IgE Mugwort 0.31 kU/L; W014 IgE Pigweed, Common 0.32 kU/L; W018 IgE Sheep Sorrel 0.27 kU/L
== END 2024-11-19 14:25 | disposition home or self-care (01) ==
LOC: HO.WFDLDS 14:24
PROVIDERS: PCP Internal Medicine; Visit Provider Nurse Practitioner Family
DX: J45.909 Unspecified asthma, uncomplicated (principal); R40.0 Somnolence; R05.3 Chronic cough; Z91.09 Other allergy status, other than to drugs and biological substances; Z79.899 Other long term (current) drug therapy; Z01.84 Encounter for antibody response examination
CPT/HCPCS: 36415; 82785; 85025; 86003; 94640; 99212

== ENCOUNTER 2024-11-19 14:24 | Outpatient (AMB) | payer OTHER, SELFPAY ==
[2024-11-19 14:56] VITALS: BP 144/76; PULSE 88; O2SAT 98; BMI 37.9
--- NOTE | 2024-11-19 14:56 | MHC.OFFVIS ---
Vital Signs 11/19/24 14:56 Height 5 ft 2 in Weight 207 lb 2 oz BMI 37.9 BP 144/76 H Blood Pressure Location Rt brachial Position Sitting Pulse 88 Pulse Source Pulse Oximeter Pulse Oximetry (%) 98 Oxygen Delivery Method Room Air Intake Visit Reasons: Chronic cough [employer] Required: Yes [employer] Language: Lung Puller Services: [employer] Present [employer] Name: ko Moore LM Allergies hydrocodone (HYDROCODONE) Allergy (Severe, Verified 11/19/24 15:04) DIFFICULTY BREATHING codeine Allergy (Intermediate, Verified 11/19/24 15:04) shortness of breath cyclobenzaprine Adverse Reaction (Intermediate, Verified 11/19/24 15:04) sleepiness docusate (From Colace) Adverse Reaction (Intermediate, Verified 11/19/24 15:04) Vomiting, dizziness mirtazapine (Remeron) Adverse Reaction (Intermediate, Verified 11/19/24 15:04) vomiting nabumetone Adverse Reaction (Intermediate, Verified 11/19/24 15:04) sleepiness HPI HPI Chronic cough: Details: Doug is a pleasant 44-year-old, never smoker, with underlying GERD. She was initially referred for pulmonary evaluation for chronic cough that started after maisha the flu in March, ultimately treated with azithromycin, benzonatate and Delsym with notable improvements. Unfortunately cough persists on a daily basis, dry in nature, with associated dyspnea, chest tightness and wheezing. She also notes inability to fully inspire and paroxysmal nocturnal dyspnea. She reports question of asthma in the past however no official diagnosis. She was trialed on Arnuity with minimal improvement, switched to Breo with significant improvements. The patient reports experiencing severe asthma symptoms, including shortness of breath and chest tightness, over the past few weeks. She does not have albuterol MDI. The patient has been experiencing sleep disturbances, characterized by waking up frequently at night due to coughing, for about a month. She reports morning headaches and daytime fatigue, which may suggest sleep apnea. [facility] Medical History Acute respiratory disease Breast calcification, right Chronic pelvic pain in female Pelvic pain Hyperlipidemia Hypertension Tubular adenoma Hernia of abdominal cavity PONV (postoperative nausea and vomiting) Morbid obesity Polyarthralgia Insomnia Moderate recurrent major depression Bloody stools Right sided sciatica Dyslipidemia Hypovitaminosis D Acute insomnia Constipation Bilateral hand numbness GERD (gastroesophageal reflux disease) Surgical History History of carpal tunnel surgery of right wrist History of cystoscopy History of right oophorectomy History of esophagogastroduodenoscopy (EGD) Hx of colonoscopy History of hernia surgery History of endometrial ablation Hx of hysterectomy History of carpal tunnel release History of tubal ligation Family History Father Hypertension Diabetes CVD (cardiovascular disease) Mother Hypertension Pancreatic cancer Mother Pancreatic cancer Maternal Aunt Thyroid cancer Maternal Aunt Stomach cancer Maternal Uncle Prostate cancer Social History Housing: Apartment Are you a primary life care planner to a significant other at home: No Do you presently have visiting nurse or other home services: No Alcohol intake: current Alcohol intake frequency: holidays/special occasions only Alcohol type: wine Patient Tobacco Use Status: Never used Tobacco e-Cigarette/Vaping Use: Never Used Second Hand Smoke Exposure: No service: No Current occupational status: employed 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 Current occupational exposures/hazards: No Cognitive needs: No Hearing needs: No Vision needs: No Female Reproductive History Menstrual Age of Menarche: 13 Physical Exam Vital Signs: Last Vital Signs Pulse 88 11/19/24 14:56 BP 144/76 H 11/19/24 14:56 Pulse Ox 98 11/19/24 14:56 Oxygen Delivery Method Room Air 11/19/24 14:56 BMI result Body Mass Index 37.9 Office Procedures Nebulizer Treatment Nebulizer Treatment [id number]-Iaddvuxhm/MDI RX initial, or Nebulizer Subsequent Treatment Office Meds albuterol sulfate 2.5 mg/3 mL (0.083 %) solution for nebulization Performing Provider: Lakshmi Harmon NP Performing Location: [facility] Administered by: Shelia Petty LPN on 11/19/24 15:41 Dose Route Admin Location Dispensed Lot Number Expiration Date NDC Mixing Machine Operator 2.5 mg inhalation 3 mL [id number] 03/26/25 6762-4815-30 MYLAN Assessment & Plan Assessment & Plan (1) Asthma: Code(s): J45.909 - Unspecified asthma, uncomplicated Category: Medical (2) Chronic cough: Code(s): R05.3 - Chronic cough Category: Medical (3) Daytime somnolence: Code(s): R40.0 - Somnolence Category: Medical Plan The patient will continue using Breo and will send albuterol MDI PRN for asthma management. She is aware to call if symptoms do not improve. Discussed possible allergic contribution given worsening symptoms recently, will send for RAST to further evaluate. She was given a nebulized albuterol in office during the visit to address chest tightness, with notable improvement. Reviewed PFT which revealed no obstructive or restrictive ventilatory defect. No bronchodilator response, except in small to medium airways suggestive of small airways disease. Decreased expiratory reserve volume suggests extrathoracic restriction likely secondary to abdominal obesity, discussed importance of weight loss. Recent CXR unremarkable. Will send for home sleep study as she reports frequent nocturnal awakenings, morning headaches, and daytime fatigue. All questions were answered patient is in agreement of plan. Will follow-up in 6-8 weeks or sooner if needed. Orders: Orders Immunoglobulin E 11/19/24 Z91.09 - Other allergy status, other than to drugs and biological substances Resp Allergy Profile Region I 11/19/24 Z91.09 - Other allergy status, other than to drugs and biological substances RT home sleep study Today R40.0 - Somnolence AMB Nebulizer Treatment 11/19/24 J45.909 - Unspecified asthma, uncomplicated Complete Blood Count Auto Diff 11/19/24 Z91.09 - Other allergy status, other than to drugs and biological substances Medications: New albuterol sulfate 90 mcg/actuation 2 puffs inhalation Q4-6H PRN 1 ea 3RF shortness of breath or wheezing Coding Level of Care Code Est Pt Level 4 (02452) Diagnoses Asthma J45.909 Chronic cough R05.3 Daytime somnolence R40.0 CPT Codes Nebulizer Treatment - Nebulizer Treatment, initial or subsequent: [id number]-Gozqfqxch/MDI RX initial, or Nebulizer Subsequent Treatment ([id number])
== END 2024-11-19 15:56 | disposition home or self-care (01) ==
LOC: HO.HPSW 14:25
PROVIDERS: PCP Internal Medicine; Visit Provider Nurse Practitioner Family
DX: J45.909 Unspecified asthma, uncomplicated (principal)
CPT/HCPCS: 99214

== ENCOUNTER → 2024-12-03 08:30 | Outpatient (BNVA) | payer OTHER, SELFPAY | PROVIDERS: PCP Internal Medicine; Visit Provider Surgery | DX: J45.31 Mild persistent asthma with (acute) exacerbation (principal) | CPT/HCPCS: 99212 ==

== ENCOUNTER 2024-12-03 13:06 | Outpatient (AMB) | payer OTHER, SELFPAY ==
--- NOTE | 2024-12-03 13:25 | AM.OFFWIN_ITS ---
Intake Vital Signs 12/03/24 13:26 Height 5 ft 1 in Weight 204 lb BMI 38.5 BP 134/78 Blood Pressure Location Rt brachial Position Sitting Pulse 94 Pulse Source Pulse Oximeter Temp 98.5 F Temp Source Oral Pulse Oximetry (%) 98 Oxygen Delivery Method Room Air Intake Visit Reasons: EP asthma Patient Tobacco Use Status: Never used Tobacco Allergies hydrocodone (HYDROCODONE) Allergy (Severe, Verified 12/03/24 13:27) DIFFICULTY BREATHING codeine Allergy (Intermediate, Verified 12/03/24 13:27) shortness of breath cyclobenzaprine Adverse Reaction (Intermediate, Verified 12/03/24 13:27) sleepiness docusate (From Colace) Adverse Reaction (Intermediate, Verified 12/03/24 13:27) Vomiting, dizziness mirtazapine (Remeron) Adverse Reaction (Intermediate, Verified 12/03/24 13:27) vomiting nabumetone Adverse Reaction (Intermediate, Verified 12/03/24 13:27) sleepiness Do you need a note to return to daycare/school/sports/work: No HPI HPI Comments History of Present Illness Details This is a 44-year-old female with past medical history significant for mild persistent asthma who presented to the walk-in clinic complaining of chest tightness/pressure, cough, and wheezing x 3 days. She denies any recent illnesses or viral URI symptoms such as nasal congestion, rhinorrhea, sore throat, or otalgia. She states she had been outside prior to her symptoms starting. She denies any significant shortness of breath. She denies any chest pain but reports some chest pressure and soreness with coughing. She denies any sputum production/purulence with her cough. She denies any fevers/chills. [facility] Medical History Acute respiratory disease Breast calcification, right Chronic pelvic pain in female Pelvic pain Hyperlipidemia Hypertension Tubular adenoma Hernia of abdominal cavity PONV (postoperative nausea and vomiting) Morbid obesity Polyarthralgia Insomnia Moderate recurrent major depression Bloody stools Right sided sciatica Dyslipidemia Hypovitaminosis D Acute insomnia Constipation Bilateral hand numbness GERD (gastroesophageal reflux disease) Surgical History History of carpal tunnel surgery of right wrist History of cystoscopy History of right oophorectomy History of esophagogastroduodenoscopy (EGD) Hx of colonoscopy History of hernia surgery History of endometrial ablation Hx of hysterectomy History of carpal tunnel release History of tubal ligation Family History Father Hypertension Diabetes CVD (cardiovascular disease) Mother Hypertension Pancreatic cancer Mother Pancreatic cancer Maternal Aunt Thyroid cancer Maternal Aunt Stomach cancer Maternal Uncle Prostate cancer Social History Housing: Apartment Are you a primary intensive care medicine specialist to a significant other at home: No Do you presently have visiting nurse or other home services: No Alcohol intake: current Alcohol intake frequency: holidays/special occasions only Alcohol type: wine Patient Tobacco Use Status: Never used Tobacco e-Cigarette/Vaping Use: Never Used Second Hand Smoke Exposure: No service: No Current occupational status: employed 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 Current occupational exposures/hazards: No Cognitive needs: No Hearing needs: No Vision needs: No Female Reproductive History Menstrual Age of Menarche: 13 Review of Systems Const All systems reviewed & are unremarkable except as noted in HPI and below Reports no additional complaints Eyes Reports no additional complaints ENT Reports no additional complaints Card Reports no additional complaints Resp Reports no additional complaints GI Reports no additional complaints Reports no additional complaints Musc Reports no additional complaints Skin/Breast Reports system reviewed and no additional complaints, except as documented Neuro Reports no additional complaints Psych Reports no additional complaints Endo Reports no additional complaints Jose Antonio/Lymph Reports no additional complaints Aller/Immun Reports no additional complaints Physical Exam Exam Exam: Vital signs reviewed. Constitutional: Non-toxic appearing. No acute distress. Well-developed and well-nourished. HEENT: Normocephalic and atraumatic. PERRL/EOMI. Skin: Warm and dry. No rashes or lesions noted. Neck: Full and painless range of motion. No cervical lymphadenopathy. Cardio: Regular rate and rhythm. No murmurs, gallops, or rubs. No lower extremity edema. Pulmonary: No respiratory distress. No accessory muscle usage. Scant end expiratory wheezing. Reproducible chest wall tenderness to palpation. Gastrointestinal: Soft, nontender, and nondistended in all 4 quadrants. Musculoskeletal: Normal range of motion in joints throughout the body. No deformity or other signs of injury. Neuro: Alert and oriented x4. Cranial nerves 2-12 grossly intact. No focal deficits appreciated. Psych: Normal mood and affect. Vital Signs: Last Vital Signs Temp 98.5 F 12/03/24 13:26 Pulse 94 12/03/24 13:26 BP 134/78 12/03/24 13:26 Pulse Ox 98 12/03/24 13:26 Oxygen Delivery Method Room Air 12/03/24 13:26 BMI result Body Mass Index 38.5 Assessment & Plan Assessment & Plan (1) Acute asthma exacerbation: Code(s): J45.901 - Unspecified asthma with (acute) exacerbation Qualifiers: Asthma severity: mild Asthma persistence: persistent Qualified Code(s): J45.31 - Mild persistent asthma with (acute) exacerbation Plan This is a 44-year-old female with past medical history significant for mild persistent asthma who presented to the walk-in clinic complaining of chest tightness/pressure, cough, and wheezing x 3 days. On physical examination, she has scant end expiratory wheezing consistent with acute asthma exacerbation likely in the setting of weather changes and seasonal allergies. Low concern for cardiac process given normal EKG and atypical presentation. Low concern for PE given PERC negative. Patient given prescription for PO prednisone 40mg daily x 5 days to treat inflammation and airway reactivity. I also recommended symptomatic management including rest, increased fluids, advil/tylenol for pain/fever, and humidifcation. Patient advised to follow up here or go to the emergency room for worsening/persistent symptoms iucuding worsening shortness of breath, hemoptysis, or unilateral leg swelling. Medications: New prednisone 40 mg (2 x 20 mg) PO DAILY 10 tabs 0RF Coding Level of Care Code Est Pt Level 3 (01515) Diagnoses Mild persistent asthma with acute exacerbation J45.31 Asthma severity: mild Asthma persistence: persistent
[2024-12-03 13:26] VITALS: BP 134/78; PULSE 94; TEMP 36.9; O2SAT 98; BMI 38.5
== END 2024-12-03 15:15 | disposition home or self-care (01) ==
PROVIDERS: PCP Internal Medicine; Visit Provider Physician Assistant Medical
DX: J45.31 Mild persistent asthma with (acute) exacerbation (principal)

== ENCOUNTER 2024-12-21 09:41 | Outpatient (AMB) | payer OTHER, SELFPAY ==
[2024-12-21 09:50] VITALS: BP 116/80; PULSE 87; O2SAT 97; BMI 38.6
--- NOTE | 2024-12-21 09:50 | MHC.PC.OV ---
Vital Signs 12/21/24 09:50 Height 5 ft 1 in Weight 204 lb 8 oz BMI 38.6 BP 116/80 Blood Pressure Location Lt brachial Position Sitting Pulse 87 Pulse Source Pulse Oximeter Pulse Oximetry (%) 97 Oxygen Delivery Method Room Air Intake Visit Reasons: prediabetes, depression Chief Resource Officer Required: No Accompanied by: Self / Same As Patient Allergies hydrocodone (HYDROCODONE) Allergy (Severe, Verified 12/21/24 10:02) DIFFICULTY BREATHING codeine Allergy (Intermediate, Verified 12/21/24 10:02) shortness of breath cyclobenzaprine Adverse Reaction (Intermediate, Verified 12/21/24 10:02) sleepiness docusate (From Colace) Adverse Reaction (Intermediate, Verified 12/21/24 10:02) Vomiting, dizziness mirtazapine (Remeron) Adverse Reaction (Intermediate, Verified 12/21/24 10:02) vomiting nabumetone Adverse Reaction (Intermediate, Verified 12/21/24 10:02) sleepiness Medication List - Last Reconciled 12/21/24 by Mirta Mahmood MD albuterol sulfate 90 mcg/actuation 2 puffs inhalation Q4-6H PRN bisacodyl (Dulcolax (bisacodyl)) 10 mg (2 x 5 mg) PO BEDTIME bupropion HCl XL 150 mg PO QAM 90 days cetirizine (Zyrtec) 10 mg PO DAILY PRN cholecalciferol (vitamin D3) 125 mcg PO DAILY 90 days fluticasone furoate-vilanterol 100-25 mcg/dose (Breo Ellipta) 1 inh inhalation DAILY hydrochlorothiazide 12.5 mg PO DAILY 90 days hydrocortisone 2.5% (Anusol-HC) 1 appl MN QID PRN lansoprazole 30 mg PO DAILY polyethylene glycol 3350 (Miralax) 17 grams PO DAILY prednisone 40 mg (2 x 20 mg) PO DAILY sucralfate 1 g PO BEDTIME venlafaxine ER 37.5 mg PO BEDTIME 30 days Tobacco use date assessed: 12/21/24 Dental Screening Dental Screen Date: 12/21/24 Did you have a dental visit in the last 12 months?: Yes Did you have a dental problem in the last 6 months where you did not have access to dental care?: No Was dental information given to patient?: Patient has dentist HPI HPI Comments History of Present Illness Details The patient is a 44-year-old female presenting for a follow-up on her chronic conditions. She has a diagnosis of prediabetes or impaired glucose tolerance, with her last random blood glucose noted as 116. The patient is also overweight and was previously referred by a air quality consultant to a specialist for weight loss. Her thyroid function was reportedly normal on her last check. The patient has a history of asthma, managed with a Brio inhaler prescribed by a maternity nurse, and allergies to cockroaches which have previously exacerbated her asthma. She also reports limited movement of her right shoulder. Her current medications include bupropion for depression, Zyrtec for allergic rhinitis, and vitamin D. She has known allergies to Vicodin, codeine, Flexeril, Colace, Remeron, and nabumetone. [facility] Medical History (Updated 12/21/24 @ 10:11 by Mirta Mahmood MD) Acute respiratory disease Breast calcification, right Chronic pelvic pain in female Pelvic pain Hyperlipidemia Hypertension Tubular adenoma Hernia of abdominal cavity PONV (postoperative nausea and vomiting) Morbid obesity Polyarthralgia Insomnia Moderate recurrent major depression Bloody stools Right sided sciatica Dyslipidemia Hypovitaminosis D Acute insomnia Constipation Bilateral hand numbness GERD (gastroesophageal reflux disease) Surgical History History of carpal tunnel surgery of right wrist History of cystoscopy History of right oophorectomy History of esophagogastroduodenoscopy (EGD) Hx of colonoscopy History of hernia surgery History of endometrial ablation Hx of hysterectomy History of carpal tunnel release History of tubal ligation Family History Father Hypertension Diabetes CVD (cardiovascular disease) Mother Hypertension Pancreatic cancer Mother Pancreatic cancer Maternal Aunt Thyroid cancer Maternal Aunt Stomach cancer Maternal Uncle Prostate cancer Social History Housing: Apartment Are you a primary med care manager to a significant other at home: No Do you presently have visiting nurse or other home services: No Alcohol intake: current Alcohol intake frequency: holidays/special occasions only Alcohol type: wine Patient Tobacco Use Status: Never used Tobacco e-Cigarette/Vaping Use: Never Used Second Hand Smoke Exposure: No service: No Current occupational status: employed 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 Current occupational exposures/hazards: No Cognitive needs: No Hearing needs: No Vision needs: No Female Reproductive History Menstrual Age of Menarche: 13 Questionnaire Thrive Questionnaire Date Thrive assessed: 06/21/24 I am a: Patient What is your living situation today?: I have a steady place to live Within the past 12 months, did the food you bought not last and you didn't have the money to get more?: Often true Within the past 12 months, did you worry whether your food would run out before you got money to buy more?: Often true Do you have trouble paying for medicines?: Yes Do you have trouble getting transportation to medical appointments?: No Do you have trouble paying your heating and electricity bill?: Yes Do you have trouble taking care of your child, family member or friend?: No Do you have trouble with day-to-day activities such as bathing, preparing meals, shopping, managing finances, etc.?: No Are you currently unemployed and looking for a job?: No Are you interested in more education?: Yes Currently or been in a relationship where the following occur: No concerns reported THRIVE Score: 3 AUDIT C Alcohol Use Questionnaire (AUDIT-C) 1. How often do you have a drink containing alcohol?: Monthly or less 2. How many drinks containing alcohol do you have on a typical day when you are drinking?: 3 or 4 3. How often do you have six or more drinks on one occasion?: Never Total Score: 2 MAR-7 AMB Questionnaire MAR-7 Date MAR - 7 assessed: 06/21/24 Source: Developed by Drs. Connor Wise, Antonieta Schreiber, Pa Garrison and colleagues, with an educational dania from [employer]. Review of Systems Const All systems reviewed & are unremarkable except as noted in HPI and below Card Denies chest pain at rest, Denies chest pain with activity, Denies edema, Denies irregular heart rhythm, Denies claudication, Denies dyspnea, Denies dyspnea on exertion, Denies orthopnea, Denies paroxysmal nocturnal dyspnea and Denies slow heart rate Resp Denies cough, Denies dyspnea and Denies dyspnea on exertion GI Denies abdominal pain, Denies change in bowel habits, Denies excessive flatus, Denies nausea and Denies vomiting Physical exam (Primary Care) Vital Signs: Last Vital Signs Pulse 87 12/21/24 09:50 BP 116/80 12/21/24 09:50 Pulse Ox 97 12/21/24 09:50 Oxygen Delivery Method Room Air 12/21/24 09:50 BMI result Body Mass Index 38.6 BMI Assessment/Plan discussion: High BMI High, discussed plan: lifestyle, weight reduction, dietary and physical activity Tobacco/Smoking Status: Tobacco use Status Tobacco use date assessed 12/21/24 12/21/24 09:52 Patient Tobacco Use Status Never used Tobacco 12/21/24 09:52 Tobacco use type 09/13/24 15:42 e-Cigarette/Vaping Use Never Used 12/21/24 09:52 Thrive Assessment: Date of Thrive Assessment Date Thrive assessed 06/21/24 12/21/24 09:52 Currently or been in a relationship where the following occur: No concerns reported Resp Effort & Inspection: normal respiratory effort Auscultation: clear to auscultation bilaterally Cardio Jugular venous distension: no JVD Rate: regular rate Rhythm: regular rhythm Heart sounds: S1 normal heart sound present and S2 normal heart sound present Extrem General: Yes full ROM Coding Level of Care Code Est Pt Level 4 (16775) Diagnoses Moderate recurrent major depression F33.1 Essential hypertension I10 Right shoulder pain M25.511 Asthma J45.909 Time Spent (min) 22 Assessment & Plan Assessment & Plan (1) Moderate recurrent major depression: Code(s): F33.1 - Major depressive disorder, recurrent, moderate Category: Medical (2) Essential hypertension: Code(s): I10 - Essential (primary) hypertension Category: Medical (3) Right shoulder pain: Code(s): M25.511 - Pain in right shoulder Category: Medical (4) Asthma: Code(s): J45.909 - Unspecified asthma, uncomplicated Category: Medical Plan Plan 1. Right shoulder pain An order will be placed for a right shoulder X-ray. A referral will be made for physical therapy to address the limited movement. 2. Prediabetes Repeat labs will be ordered in six months to monitor her glucose levels. 3. Essential hypertension Continue hydrochlorothiazide. Blood pressure goal is equal or less than 130/80. 4. Moderate recurrent major depression Continue bupropion. Orders: Orders XR shoulder RT min 2V Today M25.511 - Pain in right shoulder PT Evaluation and Treatment Today M25.511 - Pain in right shoulder Thyroid Stimulating Hormone 6 Months E06.3 - Autoimmune thyroiditis Free T4 (Free Thyroxine) 6 Months E06.3 - Autoimmune thyroiditis Comprehensive [place]. Panel Fast 6 Months I10 - Essential (primary) hypertension Lipid Panel 6 Months I10 - Essential (primary) hypertension Referrals Orthopedics Referral M25.511 - Pain in right shoulder Medications: Discontinued venlafaxine ER Discontinued Reason: Patient Completed Course 37.5 mg PO BEDTIME 30 days 30 caps 0RF
--- OUTSIDE RECORDS SUMMARY | 2024-12-21 11:14 | XMS_ITS | Clinical Summary ---
Author Organization [facility] Address [address] [place] [address] Care Team Providers Care Lieutenant Firefighter Name Role Phone Su Chairez PA-C Primary Care Provider [phone] Source Comments PLEASE NOTE, if this patient [...] Plan of Treatment Not on file Insurance [facility] Member Subscriber Plan / Payer (Ef fective 2012-Present) Name:Doug Monroy Relation to Subscriber:Self Name:Doug Monroy Payer ID:[id number] Group ID:Not on file Type:Medicaid Address: [facility] [id number] [place] [id number] [facility] [place] [address] [facility] Care Teams Lieutenant Firefighter Relationship Specialty Start Date End Date Su Chairez PA-C [address] [place] [address] PCP - General 11/17/12
== END 2024-12-21 10:13 | disposition home or self-care (01) ==
LOC: HO.HMCH 09:43
PROVIDERS: PCP Internal Medicine; Visit Provider Internal Medicine
DX: F33.1 Major depressive disorder, recurrent, moderate (principal); I10 Essential (primary) hypertension; M25.511 Pain in right shoulder; J45.909 Unspecified asthma, uncomplicated

== ENCOUNTER 2024-12-21 09:41 | Outpatient (REF) | payer OTHER, SELFPAY ==
--- NOTE | ~2024-12-21 | XR_ITS ---
EXAMINATION: XR SHOULDER, RIGHT CLINICAL INFORMATION: M25.511 - Pain in right shoulder COMPARISON: None available. TECHNIQUE: AP external rotation, Grashey, scapular Y, and axillary views of the right shoulder. FINDINGS: No acute fracture or dislocation. Glenohumeral and acromioclavicular joint spaces are maintained. No suspicious bony lesions. No abnormal soft tissue calcifications. XR/XR shoulder RT min 2V IMPRESSION: No acute osseous abnormality. Electronically signed by: Pedro Helm MD 12/21/2024 10:48 AM EDT
== END 2024-12-21 09:42 | disposition home or self-care (01) ==
LOC: HO.XRAY 09:41
PROVIDERS: PCP Internal Medicine; Visit Provider Internal Medicine
DX: M25.511 Pain in right shoulder (principal); F33.1 Major depressive disorder, recurrent, moderate; I10 Essential (primary) hypertension; J45.909 Unspecified asthma, uncomplicated; Z79.52 Long term (current) use of systemic steroids; Z79.899 Other long term (current) drug therapy
CPT/HCPCS: 73030; 99212

== ENCOUNTER → 2024-12-21 10:26 | Outpatient (BNV) | payer OTHER, SELFPAY | PROVIDERS: PCP Internal Medicine; Visit Provider Radiology Diagnostic Ultrasound | DX: M25.511 Pain in right shoulder (principal) | CPT/HCPCS: 73030 ==

== ENCOUNTER 2025-01-12 15:33 | Outpatient (AMB) | payer OTHER, SELFPAY ==
[2025-01-12 15:40] VITALS: BP 120/74; PULSE 87; O2SAT 96; BMI 39.7
--- NOTE | 2025-01-12 15:40 | MHC.OFFVIS ---
Vital Signs 01/12/25 15:40 Height 5 ft 1 in Weight 210 lb 2 oz BMI 39.7 BP 120/74 Blood Pressure Location Rt brachial Position Sitting Pulse 87 Pulse Source Pulse Oximeter Pulse Oximetry (%) 96 Oxygen Delivery Method Room Air Intake Visit Reasons: Chronic cough Workforce Management Coordinator Required: Yes Workforce Management Coordinator Language: Manager Proposal Services: Workforce Management Coordinator Present Workforce Management Coordinator Name: Daniela Moore LM Allergies hydrocodone (HYDROCODONE) Allergy (Severe, Verified 01/12/25 15:42) DIFFICULTY BREATHING codeine Allergy (Intermediate, Verified 01/12/25 15:42) shortness of breath cyclobenzaprine Adverse Reaction (Intermediate, Verified 01/12/25 15:42) sleepiness docusate (From Colace) Adverse Reaction (Intermediate, Verified 01/12/25 15:42) Vomiting, dizziness mirtazapine (Remeron) Adverse Reaction (Intermediate, Verified 01/12/25 15:42) vomiting nabumetone Adverse Reaction (Intermediate, Verified 01/12/25 15:42) sleepiness HPI HPI Chronic cough: Details: Doug is a pleasant 44-year-old, never smoker, with underlying asthma and GERD. She was initially referred for pulmonary evaluation for chronic cough that started after maisha the flu in March, ultimately treated with azithromycin, benzonatate and Delsym with notable improvements however continued with dry cough, dyspnea, chest tightness and wheezing. She also reported inability to fully inspire and paroxysmal nocturnal dyspnea. She was trialed on Arnuity with minimal improvement, switched to Breo with improvements although was recently treated for an exacerbation with prednisone. At the last visit, she was sent for RAST testing and presents to review results. Of note, patient has upcoming HST as she reports ongoing symptoms suggestive of DM. [facility] Medical History Acute respiratory disease Breast calcification, right Chronic pelvic pain in female Pelvic pain Hyperlipidemia Hypertension Tubular adenoma Hernia of abdominal cavity PONV (postoperative nausea and vomiting) Morbid obesity Polyarthralgia Insomnia Moderate recurrent major depression Bloody stools Right sided sciatica Dyslipidemia Hypovitaminosis D Acute insomnia Constipation Bilateral hand numbness GERD (gastroesophageal reflux disease) Surgical History History of carpal tunnel surgery of right wrist History of cystoscopy History of right oophorectomy History of esophagogastroduodenoscopy (EGD) Hx of colonoscopy History of hernia surgery History of endometrial ablation Hx of hysterectomy History of carpal tunnel release History of tubal ligation Family History Father Hypertension Diabetes CVD (cardiovascular disease) Mother Hypertension Pancreatic cancer Mother Pancreatic cancer Maternal Aunt Thyroid cancer Maternal Aunt Stomach cancer Maternal Uncle Prostate cancer Social History Housing: Apartment Are you a primary school child care attendant to a significant other at home: No Do you presently have visiting nurse or other home services: No Alcohol intake: current Alcohol intake frequency: holidays/special occasions only Alcohol type: wine Patient Tobacco Use Status: Never used Tobacco e-Cigarette/Vaping Use: Never Used Second Hand Smoke Exposure: No service: No Current occupational status: employed 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 Current occupational exposures/hazards: No Cognitive needs: No Hearing needs: No Vision needs: No Female Reproductive History Menstrual Age of Menarche: 13 Review of Systems Const Denies chills, Denies excessive sweating, Denies fever(s), Denies headache(s) and Denies night sweats Eyes Denies dry eyes, Denies irritation and Denies itchy eyes ENT Reports Normal hearing present, Denies headache(s), Denies nasal congestion, Denies nasal discharge, Denies post nasal drip and Denies sore throat Card Denies chest pain, Denies chest pain at rest, Denies chest pain with activity, Denies claudication, Denies leg edema, Reports dyspnea on exertion and Denies orthopnea Resp Denies change in phlegm color, Denies chest congestion, Reports cough, Denies hemoptysis, Denies excessive phlegm production, Denies pain on inspiration, Denies pain with cough, Reports dyspnea on exertion, Denies stridor and Reports wheezing Musc Denies myalgias Neuro Reports Normal hearing present and Denies headache(s) Endo Denies excessive sweating Jose Antonio/Lymph Denies lymphadenopathy Aller/Immun Denies itchy eyes, Denies seasonal rhinorrhea and Reports wheezing Physical Exam Vital Signs: Last Vital Signs Pulse 87 01/12/25 15:40 BP 120/74 01/12/25 15:40 Pulse Ox 96 01/12/25 15:40 Oxygen Delivery Method Room Air 01/12/25 15:40 BMI result Body Mass Index 39.7 Const General: cooperative, healthy appearing, comfortable, no acute distress, well developed and alert Nutritional Appearance: obese Orientation/consciousness: patient oriented x3 Limitations: no limitations HEENT Head: Yes normal to inspection, Yes normocephalic and Yes atraumatic Ears: hearing grossly normal bilaterally and external ears normal Eyes General: appearance normal, both eyes and all related structures Eyelids: Yes eyelids normal Sclerae: sclerae normal EOM: EOMs intact bilaterally Neck Neck: Yes normal visual inspection and Yes no lymphadenopathy Lymphatic: no lymphadenopathy noted Chest Chest palpation & inspection: normal inspection of the chest Resp Effort & Inspection: normal respiratory effort, able to speak in complete sentences, no audible wheezes, no cough, no stridor, not tachypneic, no tripod positioning and no use of accessory muscles Auscultation: clear to auscultation bilaterally Cardio Jugular venous distension: no JVD Rate: regular rate Rhythm: regular rhythm Skin Other: warm, dry General skin exam: no rashes or lesions noted Neuro General: patient oriented x3 Cranial nerves: Yes Normal hearing present Cognition (Neuro): normal cognition Gait exam (Neuro): Normal gait present Extrem General: Yes normal to inspection, Yes capillary refill normal, Yes no clubbing, cyanosis or edema and Yes no pedal edema Psych Appearance: grossly normal and well kempt Speech and movement: Normal speech and movement present and Clear speech present Affect: normal affect Attitude: cooperative Thought process: Normal thought process present Thought content: Normal thought content present Insight: Good insight present (Psych) Judgement: Good judgement present (Psych) Assessment & Plan Assessment & Plan (1) Asthma: Code(s): J45.909 - Unspecified asthma, uncomplicated Category: Medical (2) Chronic cough: Code(s): R05.3 - Chronic cough Category: Medical (3) Daytime somnolence: Code(s): R40.0 - Somnolence Category: Medical Plan Patient reports suboptimal control with Breo, will increase to 200 mcg and add Singulair given significant environmental allergies noted on recent RAST. Discussed allergen avoidance measures. May need to consider biologic therapy if asthma continues to be uncontrolled. Awaiting HST to be scheduled as patient frequent nocturnal awakenings, morning headaches, and daytime fatigue, order placed at last visit. All questions were answered patient is in agreement of plan. Will follow-up in 8-10 weeks or sooner if needed. Medications: New montelukast (Singulair) 10 mg PO BEDTIME 30 tabs 3RF fluticasone furoate-vilanterol 200-25 mcg/dose (Breo Ellipta) 1 inh inhalation DAILY 60 ea 3RF Discontinued fluticasone furoate-vilanterol 100-25 mcg/dose (Breo Ellipta) Discontinued Reason: Patient Completed Course 1 inh inhalation DAILY 60 ea 3RF Coding Level of Care Code Est Pt Level 4 (32023) Diagnoses Asthma J45.909 Chronic cough R05.3 Daytime somnolence R40.0
== END 2025-01-12 15:59 | disposition home or self-care (01) ==
LOC: HO.HPSW 15:34
PROVIDERS: PCP Internal Medicine; Visit Provider Nurse Practitioner Family
DX: J45.909 Unspecified asthma, uncomplicated (principal); R05.3 Chronic cough; R40.0 Somnolence
CPT/HCPCS: 99214

== ENCOUNTER → 2025-01-12 15:33 | Outpatient (BNVA) | payer OTHER, SELFPAY | PROVIDERS: PCP Internal Medicine; Visit Provider Nurse Practitioner Family | DX: R05.3 Chronic cough (principal); J45.909 Unspecified asthma, uncomplicated; R40.0 Somnolence | CPT/HCPCS: 99212 ==